=== PATIENT | male | born 1945 | race Caucasian/White ===

== ENCOUNTER → 2016-04-13 | Outpatient (CLI) | payer MEDICARE, BC ==
--- NOTE | 2016-04-13 10:43 | XR ---
EXAMINATION TYPE: XR ankle complete LT DATE OF EXAM: 04/13/2016 10:35 AM COMPARISON: NONE HISTORY: Pain Achilles Three views of the ankle demonstrate the ankle mortise to be intact and symmetric. There is soft tiss ue ossification near the distal margin the Achilles insertion with soft tissue edema. Diffuse soft ti ssue edema is also noted surrounding the ankle joint. Vascular calcifications noted. IMPRESSION: 1. Diffuse soft tissue edema. There is osseous fragmentation near the Achilles insertion of the calca neus. Could be on the basis of tendinosis. Infectious etiology not excluded correlate clinically.
--- NOTE | 2016-04-13 10:46 | XR ---
EXAMINATION TYPE: XR foot complete LT DATE OF EXAM: 04/13/2016 10:35 AM COMPARISON: NONE HISTORY: Left foot and heel pain Complete loss of the first MTP joint with remodeling of the joint space and adjacent osseous structur es. Bony densities are seen near the insertion of the Achilles tendon on the calcaneus. IMPRESSION: 1. No acute fracture or dislocation. If symptoms persist, follow-up exam in 7 to 10 days could be ob tained. 2. Severe arthropathy first MTP joint 3. Numerous bony densities along the insertion of the Achilles tendon.
== END | disposition home or self-care (01) ==
LOC: RADXRMAIN 10:16
PROVIDERS: ATTEND Podiatrist Foot Surgery
DX: M19.072 Primary osteoarthritis, left ankle and foot (principal); R60.0 Localized edema; M76.62 Achilles tendinitis, left leg

== ENCOUNTER 2017-06-24 09:25 | Emergency (ER) | payer MEDICARE, BC ==
[2017-06-24 09:52] VITALS: RESP 18
--- NOTE | 2017-06-24 10:06 | ED ---
General Adult HPI - General Chief complaint: Extremity Problem,Nontraumatic Stated complaint: rt leg swelling, poss clot Time Seen by Provider: 06/24/17 09:55 Source: patient, RN notes reviewed Mode of arrival: wheelchair Limitations: no limitations - History of Present Illness Initial comments: Patient 71-year-old male presenting to the emergency room today needing ultrasound to rule out DVT. Patient admits he's had some swelling to the right foot. Started a week ago. Unsure if it's related but he was wearing dress shoes that were little tight. States swelling has not improved. She is followed the family doctor this morning. States they wrote a prescription to have an ultrasound performed. Came here to the emergency room currently do not performed outpatient ultrasounds on the weekend and was advised coming here to the emergency room for evaluation. Patient denies any injury or trauma. Does note some pain to the foot when he is standing and moving with dorsiflexion. No other complaints or symptoms. Patient denies any recent fever, chills, shortness of breath, chest pain, back pain, abdominal pain, headaches or visual changes, or any other complaints. - Related Data Previous Rx's Medication Instructions Recorded Cephalexin [Keflex] 500 mg PO Q12HR 10 Days cap 06/24/17 Allergies Allergy/AdvReac Type Severity Reaction Status Date / Time No Known Allergies Allergy Verified 06/24/17 09:51 Review of Systems ROS Statement: Those systems with pertinent positive or pertinent negative responses have been documented in the HPI. ROS Other: All systems not noted in ROS Statement are negative. Past Medical History Past Medical History: Hypertension, Osteoarthritis (OA) History of Any Multi-Drug Resistant Organisms: None Reported Past Surgical History: Joint Replacement, Orthopedic Surgery Past Psychological History: No Psychological Hx Reported Smoking Status: Former smoker Past Alcohol Use History: Daily Past Drug Use History: None Reported General Exam - General Exam Comments Initial Comments: General: The patient is awake and alert, in no distress, and does not appear acutely ill. Eye: Pupils are equal, round and reactive to light, extra-ocular movements are intact. No nystagmus. There is normal conjunctiva bilaterally. No signs of icterus. Ears, nose, mouth and throat: There are moist mucous membranes and no oral lesions. Neck: The neck is supple, there is no tenderness or JVD. Cardiovascular: There is a regular rate and rhythm. No murmur, rub or gallop is appreciated. Respiratory: Lungs are clear to auscultation, respirations are non-labored, breath sounds are equal. No wheezes, stridor, rales, or rhonchi. Musculoskeletal: He does have some moderate swelling down to the right foot. There is redness. Tender with dorsiflexion. Full range of motion. Strength 5/ 5. Sensation intact. Pulses equal bilaterally 2+. Neurological: A&O x 3. CN II-XII intact, There are no obvious motor or sensory deficits. Coordination appears grossly intact. Speech is normal. Skin: Skin is warm and dry and no rashes or lesions are noted. Psychiatric: Cooperative, appropriate mood & affect, normal judgment. Limitations: no limitations Course Vital Signs 06/24/17 09:48 Temperature 97.5 F L Pulse Rate 74 Respiratory 18 Rate Blood Pressure 117/58 O2 Sat by Pulse 95 Oximetry Medical Decision Making - Medical Decision Making Patient also is negative for any evidence of DVT. Patient will be started on antibiotics cover for cellulitis as there is some redness and swelling to the right foot. Patient advised watch and return if symptoms increase or worsen. Otherwise follow-up the family doctor over the next 2 days. Disposition Clinical Impression: Cellulitis Disposition: HOME SELF-CARE Condition: Good Instructions: Cellulitis (ED) Additional Instructions: Please use medication as discussed. Please follow-up with family doctor in the next 2 days of symptoms have not improved. Please return to emergency room if the symptoms increase or worsen or for any other concerns. Prescriptions: Cephalexin [Keflex] 500 mg PO Q12HR 10 Days cap Referrals: Lacho Brambila Jr, [Primary Care Provider] - 1-2 days Time of Disposition: 11:11
--- NOTE | 2017-06-24 10:34 | US ---
EXAMINATION TYPE: US venous doppler duplex LE RT DATE OF EXAM: 06/24/2017 10:23 AM COMPARISON: NONE CLINICAL HISTORY: Pain. Pain and edema right leg. Warmness right lower leg. Right knee replacement 20 09 SIDE PERFORMED: Right TECHNIQUE: The lower extremity deep venous system is examined utilizing real time linear array sonog israle with graded compression, doppler sonography and color-flow sonography. VESSELS IMAGED: External Iliac Vein (EIV) Common Femoral Vein Deep Femoral Vein Greater Saphenous Vein * Femoral Vein Popliteal Vein Small Saphenous Vein * Proximal Calf Veins (* superficial vessels) Right Leg: No evidence of DVT No popliteal fossa lesion is seen. IMPRESSION: THIS EXAMINATION IS NEGATIVE FOR DVT WITHIN THE RIGHT LEG.
[2017-06-24 11:24] VITALS: BP 124/62; PULSE 76; TEMP 98.9
== END 2017-06-24 11:22 | disposition home or self-care (01) ==
LOC: EC 09:25
DX: L03.115 Cellulitis of right lower limb (principal); Z87.891 Personal history of nicotine dependence
CPT/HCPCS: 99283

== ENCOUNTER 2020-01-27 17:37 | Inpatient (IN) | payer MEDICARE, BC ==
[2020-01-27] MEDS ORDERED: ONDANSETRON 4 MG/2 ML VIAL IVP STA (17:51)
[2020-01-27] MEDS ORDERED: SODIUM CHLORIDE 0.9% 1,000 ML IV STA (17:51)
[2020-01-27] MEDS ORDERED: MAG HYDROX/AL HYDROX/SIMETH 30 ML, HYOSCYAMINE ELIXIR 10 ML PO STA ×2 (17:52)
--- NOTE | 2020-01-27 17:56 | ED ---
Abdominal Pain HPI - General Source: patient, RN notes reviewed Mode of arrival: wheelchair Limitations: no limitations <Cem Montgomery - Last Filed: 01/27/20 18:49> <Jose Waller - Last Filed: 01/27/20 21:49> - General Chief Complaint: Abdominal Pain Stated Complaint: upper abd pain Time Seen by Provider: 01/27/20 17:46 - History of Present Illness Initial Comments: this a 74-year-old male presents emergency Department chief complaint of upper abdominal pain, burning sensation. Patient states started earlier today and has increased. Denies any chest pain or shortness breath no back pain denies any difficulty with bowel movements including diarrhea constipation or melena hematochezia. Denies any dysuria hematuria. Patient denies any prior abdominal surgeries. Patient states he never has heartburn states she's unsure if this is related to heartburn. He states he took some Gas-X earlier which did not seem to help much. (Cem Montgomery) - Related Data Home Medications Medication Instructions Recorded Confirmed Allopurinol [Zyloprim] 300 mg PO DAILY 01/27/20 01/27/20 Atenolol [Tenormin] 100 mg PO BID 01/27/20 01/27/20 Furosemide [Lasix] 40 mg PO DAILY 01/27/20 01/27/20 Potassium Chloride ER [K-Dur 10] 10 meq PO DAILY 01/27/20 01/27/20 amLODIPine [Norvasc] 5 mg PO DAILY 01/27/20 01/27/20 hydrALAZINE HCL 25 mg PO BID 01/27/20 01/27/20 Allergies Allergy/AdvReac Type Severity Reaction Status Date / Time No Known Allergies Allergy Verified 01/27/20 19:30 Review of Systems ROS Other: All systems not noted in ROS Statement are negative. <Cem Montgomery - Last Filed: 01/27/20 18:49> ROS Other: All systems not noted in ROS Statement are negative. <Jose Waller - Last Filed: 01/27/20 21:49> ROS Statement: Those systems with pertinent positive or pertinent negative responses have been documented in the HPI. Past Medical History Past Medical History: Hypertension, Osteoarthritis (OA) History of Any Multi-Drug Resistant Organisms: None Reported Past Surgical History: Joint Replacement, Orthopedic Surgery Past Psychological History: No Psychological Hx Reported Smoking Status: Never smoker Past Alcohol Use History: Daily Past Drug Use History: None Reported <Cem Montgomery - Last Filed: 01/27/20 18:49> General Exam Limitations: no limitations General appearance: alert, in no apparent distress Head exam: Present: atraumatic, normocephalic, normal inspection Eye exam: Present: normal appearance, PERRL, EOMI. Absent: scleral icterus, conjunctival injection, periorbital swelling ENT exam: Present: normal exam, normal oropharynx, mucous membranes moist Neck exam: Present: normal inspection, full ROM. Absent: tenderness, meningismus, lymphadenopathy Respiratory exam: Present: normal lung sounds bilaterally. Absent: respiratory distress, wheezes, rales, rhonchi, stridor Cardiovascular Exam: Present: regular rate, normal rhythm, normal heart sounds. Absent: systolic murmur, diastolic murmur, rubs, gallop, clicks GI/Abdominal exam: Present: soft, tenderness (mild to moderate epigastric, minimal abdominal tenderness), normal bowel sounds. Absent: distended, guarding, rebound, rigid Back exam: Absent: CVA tenderness (R), CVA tenderness (L) Neurological exam: Present: alert, oriented X3 Skin exam: Present: warm, dry, intact, normal color. Absent: rash <Cem Montgomery - Last Filed: 01/27/20 18:49> Course <Cem Montgomery - Last Filed: 01/27/20 18:49> Vital Signs 01/27/20 01/27/20 01/27/20 17:39 19:20 21:39 Temperature 97.5 F L 97.8 F Pulse Rate 76 80 83 Respiratory 18 20 18 Rate Blood Pressure 157/80 163/86 138/67 O2 Sat by Pulse 95 95 Oximetry - Reevaluation(s) Reevaluation #1: 01/27/20 18:55 case turned over to Dr. Waller (Cem Montgomery) Medical Decision Making - Lab Data Result diagrams: 01/27/20 18:02 - EKG Data -: EKG Interpreted by [place] <Cem Montgomery - Last Filed: 01/27/20 18:49> - Lab Data Result diagrams: 01/27/20 18:02 01/27/20 18:02 - Radiology Data Radiology results: report reviewed (I did review the imaging and reports evidence of some cholelithiasis. No other acute processes seen.), image reviewed <SridharJose - Last Filed: 01/27/20 21:49> - Medical Decision Making I did discuss findings with the patient family patient does demonstrate evidence of acute pancreatitis. He states he has been drinking 2 or 3 shots. Therefore shots at night. No other complaints at this time. I did discuss case with Dr. Green patient will be admitted for IV fluids and pain control the elevated lactic acid is likely secondary to dehydration. (Jose Waller) - Lab Data Lab Results 01/27/20 01/27/20 01/27/20 Range/Units 18:02 18:02 18:02 WBC 10.6 (3.8-10.6) k/uL RBC 4.60 (4.30-5.90) m/uL Hgb 15.4 (13.0-17.5) gm/dL Hct 45.8 (39.0-53.0) % MCV 99.6 (80.0-100.0) fL MCH 33.6 (25.0-35.0) pg MCHC 33.7 (31.0-37.0) g/dL RDW 12.8 (11.5-15.5) % Plt Count 225 (150-450) k/uL Neutrophils % 62 % Lymphocytes % 26 % Monocytes % 8 % Eosinophils % 2 % Basophils % 1 % Neutrophils # 6.6 (1.3-7.7) k/uL Lymphocytes # 2.8 (1.0-4.8) k/uL Monocytes # 0.8 (0-1.0) k/uL Eosinophils # 0.2 (0-0.7) k/uL Basophils # 0.1 (0-0.2) k/uL Sodium 138 (137-145) mmol/L Potassium 3.9 (3.5-5.1) mmol/L Chloride 100 (98-107) mmol/L Carbon Dioxide 28 (22-30) mmol/L Anion Gap 10 mmol/L BUN 24 H (9-20) mg/dL Creatinine 1.22 (0.66-1.25) mg/dL Est GFR (CKD-EPI)AfAm 67 (>60 ml/min/1.73 sqM) Est GFR (CKD-EPI)NonAf 58 (>60 ml/min/1.73 sqM) Glucose 197 H (74-99) mg/dL Lactic Ac Sepsis Rflx Plasma Lactic Acid Odin 2.7 H* (0.7-2.0) mmol/L Calcium 9.6 (8.4-10.2) mg/dL Total Bilirubin 1.2 (0.2-1.3) mg/dL AST 166 H (17-59) U/L ALT 54 H (4-49) U/L Alkaline Phosphatase 145 H (38-126) U/L Troponin I (0.000-0.034) ng/mL Total Protein 7.3 (6.3-8.2) g/dL Albumin 4.1 (3.5-5.0) g/dL Amylase 239 H (30-110) U/L Lipase 4558 H (23-300) U/L Urine Color Urine Appearance (Clear) Urine pH (5.0-8.0) Ur Specific [place] (1.001-1.035) Urine Protein (Negative) Urine Glucose (UA) (Negative) Urine Ketones (Negative) Urine Blood (Negative) Urine Nitrite (Negative) Urine Bilirubin (Negative) Urine Urobilinogen (<2.0) mg/dL Ur Leukocyte Esterase (Negative) 01/27/20 01/27/20 01/27/20 Range/Units 18:18 18:18 18:47 WBC (3.8-10.6) k/uL RBC (4.30-5.90) m/uL Hgb (13.0-17.5) gm/dL Hct (39.0-53.0) % MCV (80.0-100.0) fL MCH (25.0-35.0) pg MCHC (31.0-37.0) g/dL RDW (11.5-15.5) % Plt Count (150-450) k/uL Neutrophils % % Lymphocytes % % Monocytes % % Eosinophils % % Basophils % % Neutrophils # (1.3-7.7) k/uL Lymphocytes # (1.0-4.8) k/uL Monocytes # (0-1.0) k/uL Eosinophils # (0-0.7) k/uL Basophils # (0-0.2) k/uL Sodium (137-145) mmol/L Potassium (3.5-5.1) mmol/L Chloride (98-107) mmol/L Carbon Dioxide (22-30) mmol/L Anion Gap mmol/L BUN (9-20) mg/dL Creatinine (0.66-1.25) mg/dL Est GFR (CKD-EPI)AfAm (>60 ml/min/1.73 sqM) Est GFR (CKD-EPI)NonAf (>60 ml/min/1.73 sqM) Glucose (74-99) mg/dL Lactic Ac Sepsis Rflx Y Plasma Lactic Acid Odin (0.7-2.0) mmol/L Calcium (8.4-10.2) mg/dL Total Bilirubin (0.2-1.3) mg/dL AST (17-59) U/L ALT (4-49) U/L Alkaline Phosphatase (38-126) U/L Troponin I <0.012 (0.000-0.034) ng/mL Total Protein (6.3-8.2) g/dL Albumin (3.5-5.0) g/dL Amylase (30-110) U/L Lipase (23-300) U/L Urine Color Yellow Urine Appearance Clear (Clear) Urine pH 6.5 (5.0-8.0) Ur Specific [place] 1.016 (1.001-1.035) Urine Protein Negative (Negative) Urine Glucose (UA) Negative (Negative) Urine Ketones Trace H (Negative) Urine Blood Negative (Negative) Urine Nitrite Negative (Negative) Urine Bilirubin Negative (Negative) Urine Urobilinogen <2.0 (<2.0) mg/dL Ur Leukocyte Esterase Negative (Negative) 01/27/20 01/27/20 Range/Units 20:07 21:16 WBC (3.8-10.6) k/uL RBC (4.30-5.90) m/uL Hgb (13.0-17.5) gm/dL Hct (39.0-53.0) % MCV (80.0-100.0) fL MCH (25.0-35.0) pg MCHC (31.0-37.0) g/dL RDW (11.5-15.5) % Plt Count (150-450) k/uL Neutrophils % % Lymphocytes % % Monocytes % % Eosinophils % % Basophils % % Neutrophils # (1.3-7.7) k/uL Lymphocytes # (1.0-4.8) k/uL Monocytes # (0-1.0) k/uL Eosinophils # (0-0.7) k/uL Basophils # (0-0.2) k/uL Sodium (137-145) mmol/L Potassium (3.5-5.1) mmol/L Chloride (98-107) mmol/L Carbon Dioxide (22-30) mmol/L Anion Gap mmol/L BUN (9-20) mg/dL Creatinine (0.66-1.25) mg/dL Est GFR (CKD-EPI)AfAm (>60 ml/min/1.73 sqM) Est GFR (CKD-EPI)NonAf (>60 ml/min/1.73 sqM) Glucose (74-99) mg/dL Lactic Ac Sepsis Rflx Plasma Lactic Acid Odin 2.7 H* (0.7-2.0) mmol/L Calcium (8.4-10.2) mg/dL Total Bilirubin (0.2-1.3) mg/dL AST (17-59) U/L ALT (4-49) U/L Alkaline Phosphatase (38-126) U/L Troponin I (0.000-0.034) ng/mL Total Protein (6.3-8.2) g/dL Albumin (3.5-5.0) g/dL Amylase (30-110) U/L Lipase 2781 H (23-300) U/L Urine Color Urine Appearance (Clear) Urine pH (5.0-8.0) Ur Specific [place] (1.001-1.035) Urine Protein (Negative) Urine Glucose (UA) (Negative) Urine Ketones (Negative) Urine Blood (Negative) Urine Nitrite (Negative) Urine Bilirubin (Negative) Urine Urobilinogen (<2.0) mg/dL Ur Leukocyte Esterase (Negative) - EKG Data EKG Comments: EKG performed at 18:10 normal sinus rhythm rate of 76 MN 178 QRS 104QT/QTC 474/533 (Cem Montgomery) Disposition <Cem Montgomery - Last Filed: 01/27/20 18:49> <Jose Waller - Last Filed: 01/27/20 21:49> Clinical Impression: Pancreatitis, Abdominal pain, Lactic acidosis, Dehydration Disposition: ADMITTED IP TO THIS HOSP Condition: Fair Referrals: Lacho Brambila Jr, DO [Primary Care Provider] - 1-2 days
[2020-01-27 18:25] LABS: Basophils # (A) 0.1 k/uL (0-0.2); Basophils % (A) 1 %; Eosinophils # (A) 0.2 k/uL (0-0.7); Eosinophils % (A) 2 %; HCT 45.8 % (39.0-53.0); HGB 15.4 gm/dL (13.0-17.5); Lymphocytes # (A) 2.8 k/uL (1.0-4.8); Lymphocytes % (A) 26 %; MCH 33.6 pg (25.0-35.0); MCHC 33.7 g/dL (31.0-37.0); MCV 99.6 fL (80.0-100.0); Mean Platelet Volume 7.6; Monocytes # (A) 0.8 k/uL (0-1.0); Monocytes % (A) 8 %; Neutrophils # (A) 6.6 k/uL (1.3-7.7); Neutrophils % (A) 62 %; Platelet Count 225 k/uL (150-450); RDW 12.8 % (11.5-15.5); WBC 10.6 k/uL (3.8-10.6)
[2020-01-27 18:30] LABS: Appearance,Urine Clear (Clear); Bilirubin,Urine Negative (Negative); Blood,Urine Negative (Negative); Color,Urine Yellow; Glucose,Urine (UA) Negative (Negative); Ketones,Urine Trace (Negative); Leukocyte Esterase,Urine Negative (Negative); Nitrite,Urine Negative (Negative); PH, Urine 6.5 (5.0-8.0); Protein,Urine Negative (Negative); Specific Gravity,Urine 1.016 (1.001-1.035); Urobilinogen,Urine <2.0 mg/dL (<2.0)
[2020-01-27 18:33] LABS: Albumin 4.1 g/dL (3.5-5.0); Calcium 9.6 mg/dL (8.4-10.2); Potassium 3.9 mmol/L (3.5-5.1); Total Bilirubin 1.2 mg/dL (0.2-1.3); Total Protein 7.3 g/dL (6.3-8.2)
[2020-01-27] MEDS ORDERED: HYDROmorphone 0.5 MG/0.5 ML SYRINGE IVP STA ×2 (18:55→20:06)
--- NOTE | 2020-01-27 19:49 | CT ---
EXAMINATION TYPE: CT abdomen pelvis w con DATE OF EXAM: 01/27/2020 COMPARISON: None HISTORY: abd pain CT DLP: 1590.8 mGycm Automated exposure control for dose reduction was used. CONTRAST: Performed with IV Contrast, patient injected with 100 mL of Isovue 300. Lung bases are clear of infiltrate. There is no pleural effusion. There is no pericardial effusion. H eart size is normal. Liver shows no focal defect. There are small calcified gallstones. Spleen is intact. There is large l eft lobe of the liver. There is no evidence of pancreatic mass. Stomach is intact. The bile ducts are not dilated. Gallbladder is mildly dilated and measures 5.2 cm. The intrahepatic bile ducts are not dilated. There is no gallbladder wall thickening. There is no adrenal mass. Kidneys show satisfactory contrast opacification. There is no hydronephrosi s. Ureters are not dilated. There is no retroperitoneal adenopathy. Delayed images show normal renal excretion. Appendix is posterior and appears normal. Bladder distends smoothly. There is no free flui d in the pelvis. There is no sign of a pelvic mass. There is no mesenteric edema. There is no ascites or free air. There is no bowel obstruction. Lumbar vertebra have normal alignment. There is narrowing of disc spaces with spurring and vacuum dis c. There is no lumbar compression fracture. Bony pelvis appears intact. The hip joints are intact. Th ere is multilevel lumbar bony spinal stenosis. This is more severe at L3-4 and L4-5. IMPRESSION: Mildly dilated gallbladder. Cholelithiasis. No gallbladder wall thickening seen. No dilated ducts. Lumbar spinal stenosis.
[2020-01-27] MEDS ORDERED: ONDANSETRON 4 MG/2 ML VIAL IVP PRN (21:49)
[2020-01-27] MEDS ORDERED: NALOXONE 0.4 MG/ML 1 ML VIAL IV PRN (21:49)
[2020-01-27] MEDS: HYDROmorphone 0.5 MG/0.5 ML SYRINGE IVP PRN (23:52)
[2020-01-27] MEDS: SODIUM CHLORIDE 0.9% 1,000 ML IV SCH (23:56)
[2020-01-28] MEDS: HYDROmorphone 0.5 MG/0.5 ML SYRINGE IVP PRN (07:36)
[2020-01-28] MEDS: SODIUM CHLORIDE 0.9% 1,000 ML IV SCH ×3 (07:37→21:21)
[2020-01-28] MEDS ORDERED: LORazepam 2 MG/ML INJ IV PRN ×3 (08:25)
[2020-01-28] MEDS ORDERED: FUROSEMIDE 40 MG TAB PO SCH (09:00)
[2020-01-28] MEDS: atenoloL 50 MG TAB PO SCH ×2 (10:02→21:20)
[2020-01-28] MEDS: hydrALAZINE HCL 25 MG TAB PO SCH ×2 (10:02→21:20)
[2020-01-28] MEDS: FOLIC ACID 1 MG TAB PO SCH (10:03)
[2020-01-28] MEDS: allopurinoL 300 MG TAB PO SCH (10:03)
[2020-01-28] MEDS: POTASSIUM CHLORIDE ER 10 MEQ TAB.ER.PRT PO SCH (10:03)
[2020-01-28] MEDS: PANTOPRAZOLE 40 MG/10 ML VIAL IVP SCH (10:03)
[2020-01-28] MEDS: amLODIPine 5 MG TAB PO SCH (10:03)
[2020-01-28 10:21] LABS: Albumin 3.5 g/dL (3.5-5.0); Calcium 8.3 mg/dL (8.4-10.2); Potassium 4.4 mmol/L (3.5-5.1); Total Bilirubin 1.4 mg/dL (0.2-1.3); Total Protein 6.3 g/dL (6.3-8.2)
[2020-01-28] MEDS ORDERED: THIAMINE 100 MG TAB PO SCH (12:00)
[2020-01-28] MEDS: MULTIVITAMINS, THERA 1 EACH TAB PO SCH (12:43)
--- NOTE | 2020-01-28 13:26 | P.HPIM ---
History of Present Illness H&P Date: 01/28/20 This is a 74-year-old gentleman with past medical history of hypertension, osteoarthritis, hiatal hernia, daily alcohol use presented to the ER with complaints of upper abdominal burning pain that had started earlier that day. Reports drinking 3-4shots a day of "hard liquor". Attempted Gas-X with no relief. Denies nausea, vomiting, diarrhea, constipation. Denies hemoptysis, melena or hematochezia. Denies chest pain, palpitations or shortness of breath. Denies back pain. Amylase 239. Lipase 2781, lactic acid on admission 2.7, with IV fluid hydration, down to 2. BUN 24, creatinine 1.22, improving with IV fluids, down to 1.05. CT of abdomen and pelvis reporting mildly dilated gallbladder, cholelithiasis, no gallbladder wall thickening ,no dilated ducts, no free air, no bowel obstruction,lumbar spinal stenosis. EKG reportedly normal sinus rhythm, Troponin negative 1. T bili 1.2 on admission currently 1.4. AST 166 on admission up to 250, ALT 54 up to 126. Alk phos 145 on admission down to 127. UA negative. Afebrile, normal WBC. Review of Systems ROS Statement: Those systems with pertinent positive or pertinent negative responses have been documented in the HPI. ROS Other: All systems not noted in ROS Statement are negative. Past Medical History Past Medical History: Hypertension, Osteoarthritis (OA) History of Any Multi-Drug Resistant Organisms: None Reported Past Surgical History: Joint Replacement, Orthopedic Surgery Past Psychological History: No Psychological Hx Reported Smoking Status: Never smoker Past Alcohol Use History: Daily Past Drug Use History: None Reported Medications and Allergies Home Medications Medication Instructions Recorded Confirmed Type Allopurinol [Zyloprim] 300 mg PO DAILY 01/27/20 01/27/20 History Atenolol [Tenormin] 100 mg PO BID 01/27/20 01/27/20 History Furosemide [Lasix] 40 mg PO DAILY 01/27/20 01/27/20 History Potassium Chloride ER [K-Dur 10] 10 meq PO DAILY 01/27/20 01/27/20 History amLODIPine [Norvasc] 5 mg PO DAILY 01/27/20 01/27/20 History hydrALAZINE HCL 25 mg PO BID 01/27/20 01/27/20 History Allergies Allergy/AdvReac Type Severity Reaction Status Date / Time No Known Allergies Allergy Verified 01/27/20 19:30 Physical Exam Vitals: Vital Signs Temp Pulse Resp BP Pulse Ox 01/28/20 07:10 98.6 F 85 16 137/77 96 01/27/20 21:39 97.8 F 83 18 138/67 01/27/20 19:20 80 20 163/86 95 01/27/20 17:39 97.5 F L 76 18 157/80 95 Intake and Output 01/27/20 01/28/20 01/28/20 22:59 06:59 14:59 Other: Weight 92.986 kg PHYSICAL EXAM: VITAL SIGNS: As above GENERAL: Sitting up in bed, no acute distress. HEENT: Conjunctivae normal. eyes normal. Oral mucosa dry. NECK: No JVD. No thyroid enlargement. No LNs CARDIOVASCULAR: S1, S2 regular.. No murmur RESPIRATION: Breath sounds diminished in the bases. No rhonchi or crackles. No bronchial breathing. ABDOMEN: Soft, distended, mid epigastric tenderness. No guarding. no masses palpable. Positive Bowel sounds heard. LEGS: No edema. no swelling. PSYCHIATRY: Alert and oriented X3, mood and affect normal. NERVOUS SYSTEM: Cranial N 2-12 grossly normal. Moves all 4 limbs. No focal d eficits. Strength and sensation grossly intact.. Skin: Warm and dry, no rash Lymphatic system. No LN neck axilla. Results CBC & Chem 7: 01/27/20 18:02 01/28/20 09:20 Labs: Abnormal Lab Results - Last 24 Hours (Table) 01/27/20 01/27/20 01/27/20 Range/Units 18:02 18:02 18:18 BUN 24 H (9-20) mg/dL Glucose 197 H (74-99) mg/dL Plasma Lactic Acid Odin 2.7 H* (0.7-2.0) mmol/L AST 166 H (17-59) U/L ALT 54 H (4-49) U/L Alkaline Phosphatase 145 H (38-126) U/L Amylase 239 H (30-110) U/L Lipase 4558 H (23-300) U/L Urine Ketones Trace H (Negative) 01/27/20 01/27/20 Range/Units 20:07 21:16 BUN (9-20) mg/dL Glucose (74-99) mg/dL Plasma Lactic Acid Odin 2.7 H* (0.7-2.0) mmol/L AST (17-59) U/L ALT (4-49) U/L Alkaline Phosphatase (38-126) U/L Amylase (30-110) U/L Lipase 2781 H (23-300) U/L Urine Ketones (Negative) Assessment and Plan Assessment: Acute abdominal pain possibly related to acute pancreatitis, new onset, etiology unclear, possibly due to alcohol abuse. Lactic acidosis secondary to dehydration Acute renal failure secondary to the above Possible chronic renal failure, stage II Daily alcohol abuse, reports 2-3 shots daily Cholelithiasis reported per CT Spinal stenosis reported per CT Hypertension Osteoarthritis Plan: Continue on current medication regime ,monitoring and symptomatic treatment. IV fluid hydration. CIWA protocol.PPI. Pain Management. GI consulted. Home meds have been reviewed and resumed accordingly. Alcohol abstinence reinforced. The impression and plan of care has been dictated as directed. : I performed a history and examination of this patient, discussed the same with the dictator. I agree with the dictator's note ,documented as a scribe. Any additional findings or plans will be noted.
[2020-01-28] MEDS: THIAMINE 100 MG TAB PO SCH (17:13)
[2020-01-29] MEDS: SODIUM CHLORIDE 0.9% 1,000 ML IV SCH ×2 (04:41→13:37)
[2020-01-29 07:12] LABS: Basophils # (A) 0.1 k/uL (0-0.2); Basophils % (A) 0 %; Eosinophils # (A) 0.1 k/uL (0-0.7); Eosinophils % (A) 1 %; HGB 13.3 gm/dL (13.0-17.5); Lymphocytes # (A) 1.1 k/uL (1.0-4.8); Lymphocytes % (A) 8 %; MCH 33.9 pg (25.0-35.0); MCHC 33.3 g/dL (31.0-37.0); MCV 101.6 fL (80.0-100.0); Macrocytosis Slight; Mean Platelet Volume 8.2; Monocytes # (A) 0.6 k/uL (0-1.0); Monocytes % (A) 5 %; Neutrophils # (A) 11.3 k/uL (1.3-7.7); Neutrophils % (A) 85 %; Platelet Count 147 k/uL (150-450); RBC 3.94 m/uL (4.30-5.90); RDW 13.2 % (11.5-15.5); WBC 13.3 k/uL (3.8-10.6)
[2020-01-29 07:25] VITALS: RESP 16
[2020-01-29] MEDS: THIAMINE 100 MG TAB PO SCH (07:49)
--- NOTE | 2020-01-29 08:39 | US ---
EXAMINATION TYPE: US gallbladder DATE OF EXAM: 01/29/2020 COMPARISON: NONE CLINICAL HISTORY: abdominal pain, pancreatitis. RUQ pain, abn CT stones seen in GB EXAM MEASUREMENTS: Liver Length: 15.4 cm Gallbladder Wall: 0.2 cm CBD: 0.7 cm Right Kidney: 10.2 x 5.2 x 4.7 cm difficult to image due habitus and bowel gas Pancreas: wnl Liver: intercostal views only due to bowel gas and the liver shows coarse echotexture consistent wit h hepatic steatosis, hepatocellular disease Gallbladder: stones seen with no wall thickening Evidence for sonographic Florez's sign: no CBD: dilated toward hepatic duct and lessens at head of pancreas Right Kidney: wnl IMPRESSION: Correlate for hepatic steatosis, there is minimal ascites. Cholelithiasis. Exam somewhat limited. Dilated common bile duct, consider gastroenterology consult. CT scan shows findings consiste nt with choledocholithiasis.
[2020-01-29] MEDS: atenoloL 50 MG TAB PO SCH (09:35)
[2020-01-29] MEDS: hydrALAZINE HCL 25 MG TAB PO SCH (09:35)
[2020-01-29] MEDS: allopurinoL 300 MG TAB PO SCH (09:35)
[2020-01-29] MEDS: amLODIPine 5 MG TAB PO SCH (09:35)
[2020-01-29] MEDS: PANTOPRAZOLE 40 MG/10 ML VIAL IVP SCH (09:36)
[2020-01-29] MEDS: FOLIC ACID 1 MG TAB PO SCH (09:36)
[2020-01-29] MEDS: POTASSIUM CHLORIDE ER 10 MEQ TAB.ER.PRT PO SCH (09:37)
[2020-01-29] MEDS: MULTIVITAMINS, THERA 1 EACH TAB PO SCH (12:21)
[2020-01-29 12:49] VITALS: BP 142/76; PULSE 81; TEMP 99.2
--- NOTE | 2020-01-29 13:25 | P.DS ---
Providers Date of admission: 01/27/20 21:49 Expected date of discharge: 01/29/20 Attending physician: Nam Green Consults: 01/28/20 13:21 Consult Physician Routine Consulting Provider: Hang Peters Consult Reason/Comments: Acute pancreatitis Do you want consulting provider notified?: Yes Primary care physician: [facility] Course: Final Diagnoses: Acute abdominal pain possibly related to acute pancreatitis, new onset, etiology unclear, possibly due to alcohol abuse, possibly due to gallstones. Lactic acidosis secondary to dehydration, resolved Acute renal failure secondary to the above Possible chronic renal failure, stage II Daily alcohol abuse, reports 2-3 shots daily Choledocholithiasis reported per CT Spinal stenosis reported per CT Hypertension Osteoarthritis Hospital course:This is a 74-year-old gentleman with past medical history of hypertension, osteoarthritis, hiatal hernia, daily alcohol use presented to the ER with complaints of upper abdominal burning pain that had started earlier that day. Reports drinking 3-4shots a day of "hard liquor". Attempted Gas-X with no relief. Denies nausea, vomiting, diarrhea, constipation. Denies hemoptysis, melena or hematochezia. Denies chest pain, palpitations or shortness of breath. Denies back pain. Amylase 239. Lipase 2781, lactic acid on admission 2.7, with IV fluid hydration, down to 2. BUN 24, creatinine 1.22, improving with IV fluids, down to 1.05. CT of abdomen and pelvis reporting mildly dilated gallbladder, cholelithiasis, no gallbladder wall thickening ,no dilated ducts, no free air, no bowel obstruction,lumbar spinal stenosis. EKG reportedly normal sinus rhythm, Troponin negative 1. T bili 1.2 on admission currently 1.4. AST 166 on admission up to 250, ALT 54 up to 126. Alk phos 145 on admission down to 127. UA negative. Afebrile, normal WBC. Ultrasound of gallbladder reportedly hepatic steatosis, minimal ascites, cholelithiasis, dilated common bile duct. Gallstones seen with no wall thickening. Tolerating diet. No abdominal pain. T-max 99.5, mild white count 13.3. Patient denies pain and requesting to go home and have further GI workup outpatient. Lipase down to 103 yesterday, further labs pending. Significant clinical improvement. Evaluated and cleared by Dr. Green for discharge. Patient will be discharged home today in a stable condition with guarded prognosis. GI recommendations pending, potential MRCP outpatient.Alcohol abstinence reinforced. The impression and plan of care has been dictated as directed. : I performed a history and examination of this patient, discussed the same with the dictator. I agree with the dictator's note ,documented as a scribe. Any additional findings or plans will be noted. Patient Condition at Discharge: Stable Plan - Discharge Summary New Discharge Prescriptions: New Folic Acid 1 mg PO DAILY tab Multivitamins, Thera [Multivitamin (formulary)] 1 each PO 1200 tab Thiamine [Vitamin B-1] 100 mg PO BID-W/MEALS tab Continue amLODIPine [Norvasc] 5 mg PO DAILY Potassium Chloride ER [K-Dur 10] 10 meq PO DAILY Furosemide [Lasix] 40 mg PO DAILY Atenolol [Tenormin] 100 mg PO BID hydrALAZINE HCL 25 mg PO BID Allopurinol [Zyloprim] 300 mg PO DAILY Discharge Medication List Allopurinol [Zyloprim] 300 mg PO DAILY 01/27/20 [History] Atenolol [Tenormin] 100 mg PO BID 01/27/20 [History] Furosemide [Lasix] 40 mg PO DAILY 01/27/20 [History] Potassium Chloride ER [K-Dur 10] 10 meq PO DAILY 01/27/20 [History] amLODIPine [Norvasc] 5 mg PO DAILY 01/27/20 [History] hydrALAZINE HCL 25 mg PO BID 01/27/20 [History] Folic Acid 1 mg PO DAILY tab 01/29/20 [Rx] Multivitamins, Thera [Multivitamin (formulary)] 1 each PO 1200 tab 01/29/20 [Rx] Thiamine [Vitamin B-1] 100 mg PO BID-W/MEALS tab 01/29/20 [Rx] Follow up Appointment(s)/Referral(s): Lacho Brambila Jr, DO [Primary Care Provider] - 01/31/20 Hang Peters MD [STAFF PHYSICIAN] - 2 Weeks Ambulatory/Diagnostic Orders: Complete Blood Count w/diff [LAB.AMB] Time Frame: 01/31/20, Location: None Selected Activity/Diet/Wound Care/Special Instructions: No etoh
--- NOTE | 2020-01-29 14:07 | P.CONS ---
History of Present Illness - Reason for Consult Consult date: 01/28/20 Pancreatitis Requesting physician: Nam Green - Chief Complaint Abdominal pain - History of Present Illness 74-year-old male with multiple medical comorbidities including prostatitis, hiatal hernia and hypertension who presented to the hospital with abdominal pain. The patient reports daily alcohol use at least 3-4 shots of hard liquor daily. He reports that the abdominal pain developed in his upper abdomen, diffusely across the abdomen. He tried Gas-X with no relief of his symptoms. He denies any prior history of pancreatitis. He reports that his drinking has been for the last 20 years. He denies any history of elevated liver enzymes or any family history of pancreatic disease. CT of the abdomen was performed with mildly dilated gallbladder, cholelithiasis with no gallbladder wall thickening or dilated ducts. Patient was found to have elevated lipase on presentation of 2781 with amylase 239. Liver enzymes were elevated with total bilirubin 1.2, alkaline phosphatase 145, AST 166 and ALTs 54. Review of Systems REVIEW OF SYSTEMS: CONSTITUTIONAL: Denies any fevers, chills, weight change or fatigue. CARDIOVASCULAR: Denies any chest pain, palpitations high or low blood pressures RESPIRATORY: Denies any shortness of breath, hemoptysis or cough. GENITOURINARY: No dysuria or hematuria. MUSCULOSKELETAL: No weakness reported. SKIN: Denies any new rashes or lesions, jaundice or pallor. PSYCHIATRIC: Denies any depression or anxiety. NEUROLOGY: Denies headache, denies any new focal deficits. EARS/NOSE/THROAT: No recent hearing change, congestion, nasal discharge or sore throat. EYES: No pain in eyes, discharge or change in vision. GASTROINTESTINAL: As per HPI. Past Medical History Past Medical History: Hypertension, Osteoarthritis (OA) History of Any Multi-Drug Resistant Organisms: None Reported Past Surgical History: Joint Replacement, Orthopedic Surgery Past Psychological History: No Psychological Hx Reported Smoking Status: Never smoker Past Alcohol Use History: Daily Past Drug Use History: None Reported Additional History: Family history: Reviewed with the patient and noncontributory to current medical presentation. Medications and Allergies Home Medications Medication Instructions Recorded Confirmed Type Allopurinol [Zyloprim] 300 mg PO DAILY 01/27/20 01/27/20 History Atenolol [Tenormin] 100 mg PO BID 01/27/20 01/27/20 History Furosemide [Lasix] 40 mg PO DAILY 01/27/20 01/27/20 History Potassium Chloride ER [K-Dur 10] 10 meq PO DAILY 01/27/20 01/27/20 History amLODIPine [Norvasc] 5 mg PO DAILY 01/27/20 01/27/20 History hydrALAZINE HCL 25 mg PO BID 01/27/20 01/27/20 History Folic Acid 1 mg PO DAILY tab 01/29/20 Rx Multivitamins, Thera [Multivitamin 1 each PO 1200 tab 01/29/20 Rx (formulary)] Thiamine [Vitamin B-1] 100 mg PO BID-W/MEALS tab 01/29/20 Rx Allergies Allergy/AdvReac Type Severity Reaction Status Date / Time No Known Allergies Allergy Verified 01/27/20 19:30 Physical Exam Vitals: Vital Signs Temp Pulse Resp BP Pulse Ox 01/28/20 12:45 98.4 F 62 18 138/74 94 L 01/28/20 07:10 98.6 F 85 16 137/77 96 01/27/20 21:39 97.8 F 83 18 138/67 01/27/20 19:20 80 20 163/86 95 01/27/20 17:39 97.5 F L 76 18 157/80 95 On physical examination, patient appears comfortable in no apparent distress. HEAD: Normocephalic, atraumatic. EYES: No scleral icterus. No conjunctival injection. MOUTH: No lesions, tongue midline. NECK: Trachea midline, no gross abnormalities. CHEST: Clear to auscultation with no wheezing or rhonchi appreciated. HEART: Regular rate and rhythm. ABDOMEN: Soft, mildly tender to palpation. Bowel sounds are positive. No organomegaly. No guarding or rigidity. EXTREMITIES: No pedal edema. SKIN: No rashes, no jaundice. NEUROLOGIC: Alert and oriented x3. No focal deficits. Results CBC & Chem 7: 01/29/20 05:09 01/28/20 09:20 Labs: Abnormal Lab Results - Last 24 Hours (Table) 01/27/20 01/27/20 01/27/20 Range/Units 18:02 18:02 18:18 Sodium (137-145) mmol/L BUN 24 H (9-20) mg/dL Glucose 197 H (74-99) mg/dL Plasma Lactic Acid Odin 2.7 H* (0.7-2.0) mmol/L Calcium (8.4-10.2) mg/dL Total Bilirubin (0.2-1.3) mg/dL AST 166 H (17-59) U/L ALT 54 H (4-49) U/L Alkaline Phosphatase 145 H (38-126) U/L Amylase 239 H (30-110) U/L Lipase 4558 H (23-300) U/L Urine Ketones Trace H (Negative) 01/27/20 01/27/20 01/28/20 Range/Units 20:07 21:16 09:20 Sodium 135 L (137-145) mmol/L BUN 23 H (9-20) mg/dL Glucose 200 H (74-99) mg/dL Plasma Lactic Acid Odin 2.7 H* (0.7-2.0) mmol/L Calcium 8.3 L (8.4-10.2) mg/dL Total Bilirubin 1.4 H (0.2-1.3) mg/dL AST 250 H (17-59) U/L ALT 126 H (4-49) U/L Alkaline Phosphatase 127 H (38-126) U/L Amylase (30-110) U/L Lipase 2781 H (23-300) U/L Urine Ketones (Negative) CT scan - abdomen: report reviewed Assessment and Plan (1) Abdominal pain Narrative/Plan: 74-year-old male presented to the hospital due to abdominal pain. The patient was found to have elevated amylase and lipase on presentation at 239 and 2781 and the patient was admitted for acute pancreatitis. No prior episodes of pancreatitis but the patient does report drinking 3-4 alcoholic beverages for the past 20 years. Computed tomography scan of the abdomen showed a mildly dilated gallbladder with cholelithiasis with no dilated ducts. Liver enzymes were slightly elevated with total bilirubin 1.2, alkaline phosphatase 145, AST 166 and ALT 54. Patient denies any back to use. Suspicion is for alcoholic pancreatitis. Current Visit: Yes Status: Acute Code(s): R10.9 - UNSPECIFIED ABDOMINAL PAIN SNOMED Code(s): 15279809 (2) Pancreatitis Current Visit: Yes Status: Acute Code(s): K85.90 - ACUTE PANCREATITIS WITHOUT NECROSIS OR INFECTION, UNSP SNOMED Code(s): 92544563 Plan: Supportive care Clear liquid diet Advance diet as tolerated CT of the abdomen reviewed Alcohol abstinence Continue IV fluid hydration Thank you for allowing us to participate in the care of the patient we will continue to follow
[2020-01-29 14:14] LABS: African American GFR (CKD) 68.6 (60.0-200.0); Albumin 3.4 g/dL (3.80-4.90); Albumin/Globulin Ratio 1.55 (1.60-3.17); Anion Gap 7.8 mmol/L (4.00-12.00); Calcium 8.4 mg/dL (8.7-10.3); Carbon Dioxide 27.2 mmol/L (21.6-31.8); Globulin 2.2 g/dL (1.6-3.3); Non-African American GFR(CKD) 59.2 (60.0-200.0); Potassium 3.9 mmol/L (3.5-5.5); Total Bilirubin 0.8 mg/dL (0.3-1.2); Total Protein 5.6 g/dL (6.2-8.2)
== END 2020-01-29 14:40 | disposition home or self-care (01) | DRG 439 ==
LOC: EC 17:37 → 6NMEDSUR 21:49 → 4SSUR 01-28 14:59
PROVIDERS: ADMIT Family Medicine; ATTEND Family Medicine
DX: K85.20 Alcohol induced acute pancreatitis without necrosis or infection (principal); N17.9 Acute kidney failure, unspecified; E87.2 Acidosis; M19.90 Unspecified osteoarthritis, unspecified site; E86.0 Dehydration; I12.9 Hypertensive chronic kidney disease with stage 1 through stage 4 chronic kidney disease, or unspecified chronic kidney disease; K80.70 Calculus of gallbladder and bile duct without cholecystitis without obstruction; F10.10 Alcohol abuse, uncomplicated; K76.0 Fatty (change of) liver, not elsewhere classified; K44.9 Diaphragmatic hernia without obstruction or gangrene; N41.9 Inflammatory disease of prostate, unspecified; N18.2 Chronic kidney disease, stage 2 (mild); M48.00 Spinal stenosis, site unspecified; Z79.899 Other long term (current) drug therapy; Z98.890 Other specified postprocedural states
CPT/HCPCS: 36415; 74177; 76705; 80053; 81003; 82150; 83605; 83690; 84484; 85025; 93005; 96361; 96374; 96375; 96376; 99285

== ENCOUNTER 2020-06-01 07:21 | Day surgery (SDC) | payer MEDICARE, BC ==
[2020-05-27 15:51] VITALS: BMI 29.4
[~2020-06-01 07:21] MED LIST: ACETAMINOPHEN TAB 500 MG TAB PO PRN; DEXAMETHASONE SOD PHOSPHATE 4 MG/ML 1 ML VIAL IV ONE; HEPARIN SODIUM,PORCINE 5,000 UNIT/ML 1 ML VIAL SQ PRN; HYDROmorphone 0.5 MG/0.5 ML SYRINGE IVP PRN; LACTATED RINGERS 1,000 ML IV SCH; MIDAZOLAM 2 MG/2 ML VIAL IV PRN; ONDANSETRON 4 MG/2 ML VIAL IVP ONE
[2020-06-01] MEDS ORDERED: LIDOCAINE 1% (10MG/ML) FOR IV START INTRADERMA ONE (07:53)
--- NOTE | 2020-06-01 08:05 | P.GSHP ---
History of Present Illness H&P Date: 06/01/20 Chief Complaint: Gallstone pancreatitis 74-year-old male hospitalized in January with gallstone pancreatitis. Following his discharge patient has done well. Ultrasound showed gallstones. Recent labs normal per patient. No change in the color of his skin urine or stool. Past Medical History Past Medical History: Hypertension, Osteoarthritis (OA) Additional Past Medical History / Comment(s): pancreatitis, gout History of Any Multi-Drug Resistant Organisms: None Reported Past Surgical History: Joint Replacement, Orthopedic Surgery Additional Past Surgical History / Comment(s): cataract surgery, rt knee replacement, arthroscopy lt knee, Past Anesthesia/Blood Transfusion Reactions: No Reported Reaction Smoking Status: Never smoker - Past Family History Sister(s) Family Medical History: Cancer Additional Family Medical History / Comment(s): cancer base of tongue Medications and Allergies Home Medications Medication Instructions Recorded Confirmed Type Allopurinol [Zyloprim] 300 mg PO DAILY 01/27/20 06/01/20 History Atenolol [Tenormin] 100 mg PO BID 01/27/20 06/01/20 History Furosemide [Lasix] 40 mg PO DAILY 01/27/20 06/01/20 History Potassium Chloride ER [K-Dur 10] 10 meq PO DAILY 01/27/20 06/01/20 History amLODIPine [Norvasc] 5 mg PO DAILY 01/27/20 06/01/20 History hydrALAZINE HCL 25 mg PO BID 01/27/20 06/01/20 History Multivitamins, Thera [Multivitamin 1 each PO 1200 tab 01/29/20 06/01/20 Rx (formulary)] Thiamine [Vitamin B-1] 100 mg PO BID-W/MEALS tab 01/29/20 06/01/20 Rx Folic Acid 0.8 mg PO DAILY 05/27/20 06/01/20 History Naproxen Sodium [Aleve] 220 mg PO BID 05/27/20 06/01/20 History Allergies Allergy/AdvReac Type Severity Reaction Status Date / Time No Known Allergies Allergy Verified 06/01/20 07:35 Surgical - Exam Vital Signs Temp Pulse Resp BP Pulse Ox 98.5 F 85 18 151/75 96 06/01/20 07:46 06/01/20 07:46 06/01/20 07:46 06/01/20 07:46 06/01/20 07:46 Physical exam: General: Well-developed, well-nourished HEENT: Normocephalic, sclerae nonicteric Abdomen: Nontender, nondistended Extremities: No edema Neuro: Alert and oriented Assessment and Plan (1) Gallstone pancreatitis Narrative/Plan: Will proceed with laparoscopic cholecystectomy, possible open. Risks of bleeding, infection, bile leak, bile duct injury, retained common bile duct stone, trocar injury, conversion to an open procedure, hernia, anesthesia related complications were reviewed. The patient understands and wishes to proceed. Current Visit: Yes Status: Acute Code(s): K85.10 - BILIARY ACUTE PANCREATITIS WITHOUT NECROSIS OR INFECTION SNOMED Code(s): 82320592
[2020-06-01] MEDS ORDERED: ROCURONIUM 10 MG/ML (5 ML VIAL) IV ONE (08:49)
[2020-06-01] MEDS ORDERED: GLYCOPYRROLATE 0.2 MG/ML 2 ML VIAL ONE (08:49)
[2020-06-01] MEDS ORDERED: fentaNYL (PF) 50 MCG/ML 2 ML AMP ONE (08:49)
[2020-06-01] MEDS ORDERED: PROPOFOL 10 MG/ML 20 ML VIAL IV ONE (08:49)
[2020-06-01] MEDS ORDERED: MIDAZOLAM 2 MG/2 ML VIAL ONE (08:49)
[2020-06-01] MEDS ORDERED: LIDOCAINE 1% INJ 10MG/ML (20 ML MDV) ONE (08:49)
[2020-06-01] MEDS ORDERED: NEOSTIGMINE 1 MG/ML 10 ML VIAL ONE (08:49)
[2020-06-01] MEDS ORDERED: PHENYLEPHRINE-0.9% NACL SYG 1,000 MCG/10 ML SYRINGE ONE (08:49)
[2020-06-01] MEDS ORDERED: SUCCINYLCHOLINE CHLORIDE 100 MG/5 ML SYR IV ONE (08:49)
[2020-06-01] MEDS ORDERED: HYDROmorphone (PF) 1 MG/ML ONE (08:49)
[2020-06-01] MEDS ORDERED: BUPIVACAIN-EPI 0.5%-1:200,000 30 ML VIAL SQ ONE (09:31)
[2020-06-01] MEDS ORDERED: LACTATED RINGERS 1,000 ML IV ONE (09:43)
[2020-06-01 10:37] VITALS: TEMP 98.2
--- NOTE | 2020-06-01 10:55 | P.OP ---
Date of Procedure: 06/01/20 Procedure(s) Performed: PREOPERATIVE DIAGNOSIS: Gallstone pancreatitis POSTOPERATIVE DIAGNOSIS: Same PROCEDURE: Laparoscopic cholecystectomy SURGEON: Bijan EBL: Minimal see anesthesia record ANESTHESIA: Gen. COMPLICATIONS: None OPERATIVE PROCEDURE: The patient was brought and placed on the operating room ta [facility] in the supine position. The patient was placed under general anesthesia at that time. The abdomen was prepped and draped in the usual sterile fashion. A small curvilinear supraumbilical incision was made. The fascia was grasped with the Mook forceps. The fascia was retracted anteriorly. The Veress needle was advanced into the peritoneal cavity. The saline drop test was normal. Insuff lation took place up to 15 mmHg. A 5 mm optical trocar was advanced and the peritoneal cavity. 2 additional 5 mm trochars were placed in the right upper quadrant under direct visualization. A 12 mm trocar was advanced into the epigastric incision site. The gallbladder was chronically inflamed with a thickened wall. The omentum was adherent to the gallbladder. The adhesions to the gallbladder were lysed using blunt dissection and the LigaSure device. The gallbladder was retracted superiorly and laterally. An additional 5 mm trocar was placed in the left midabdomen and utilized with a fan retractor to hold the transverse colon inferiorly so we could visualize the infundibulum better. The peritoneum overlying the infundibulum was bluntly dissected. The patient's cystic duct was visualized. The junction between the cystic duct common and hepatic duct was identified. The cystic duct was then divided after placement of 3 12 mm clips on the patient's side and one on the specimen side. The cystic artery was identified and clipped as well. A small vessel was seen along the gallbladder fossa and clipped as well. The gallbladder was then removed from the liver bed using electrocautery. The gallbladder was then removed from the epigastric trocar site with an Endo Catch bag. The gallbladder fossa was irrigated with saline. There was no evidence of any bleeding or biliary d rainage seen. The fascia at the 12 millimeter site was closed using a [id number] 0 Vicryl stitch. The trochars were then removed. The skin at all 5 sites was closed using a 4-0 Monocryl stitch. Skin glue was utilized on the incision sites. At the end of this procedure the sponge and needle counts were correct. DISPOSITION: Stable to the recovery room
[2020-06-01 11:13] VITALS: RESP 16
[2020-06-01] MEDS ORDERED: ACETAMINOPHEN TAB 325 MG TAB PO SCH (12:00)
[2020-06-01 12:21] VITALS: BP 129/69; PULSE 79
[2020-06-01] MEDS ORDERED: IBUPROFEN 600 MG TAB PO SCH (15:00)
== END 2020-06-01 12:42 | disposition home or self-care (01) ==
LOC: OR 07:21
PROVIDERS: ATTEND Surgery
DX: K80.10 Calculus of gallbladder with chronic cholecystitis without obstruction (principal); I10 Essential (primary) hypertension; M19.90 Unspecified osteoarthritis, unspecified site; K85.90 Acute pancreatitis without necrosis or infection, unspecified; M10.9 Gout, unspecified; Z96.651 Presence of right artificial knee joint; Z98.49 Cataract extraction status, unspecified eye; Z98.890 Other specified postprocedural states; Z80.8 Family history of malignant neoplasm of other organs or systems; Z79.1 Long term (current) use of non-steroidal anti-inflammatories (NSAID); Z79.899 Other long term (current) drug therapy
CPT/HCPCS: 88304; 47562; J2250; J1644; J1100; J2710; J0690; J2405; J2001; J3010; J1170; J2370; J0330; J2704

== ENCOUNTER → 2022-01-27 | Outpatient (CLI) | payer MEDICARE, BC ==
--- NOTE | 2022-01-27 11:26 | NM ---
EXAMINATION TYPE: NM stress lexiscan cardiolite DATE OF EXAM: 01/27/2022 COMPARISON: NONE HISTORY: Chest pain TECHNIQUE: After the intravenous administration of 9.85 mCi Tc 99m Sestamibi - Cardiolite resting SP ECT images acquired 45 minutes post injection. The patient received 0.4mg Lexiscan, 25.2 mCi Tc 99m Sestamibi - Stress images obtained [address] injection FINDINGS: Review of stress and rest SPECT images demonstrates small area of stress-induced reversibility involv ing the anterior and apical lateral myocardium. Gated analysis shows normal wall motion with an adi mated left ventricular ejection fraction of 60 %. Report called to the referring clinician 11:22 AM 1 03/29/2021. IMPRESSION: 1. Correlate for stress-induced reversible ischemia involving the anterolateral and anteroapical myoc ardium.
--- NOTE | 2022-01-27 11:49 | CA ---
Lexiscan Nuclear Stress Test Report Name: Alfred Chavez Exam Date: 01/27/2022 09:54 Exam Location: [facility] Ht (in): 70 Wt (lb): 205 BSA: 2.11 Ordering Phys: Lacho Brambila DO Referring Phys: LACHO BRAMBILA,, Technologist: Aris Cotton Age: 76 Gender: M : 1945 Procedure CPT: Indications: I10 htn, R07.89 chest discomfort, R07.9 cp on exe ICD-10 Codes: Patient History: Medications: Meds past 24 hrs: Pretest Chest Pain: STRESS TEST Lexiscan Protocol Exercise Duration (min:sec): 02:[address] Depressions (mm): Angina Score: Munguia Score: Resting HR (bpm): 65 Peak HR (bpm): 79 Resting BP (mmHg): 154 / 77 Peak BP (mmHg): 129 / 72 MPHR: 144 Target HR: 122 % MPHR: 55 METS: 1.0 Total Dose: Peak Dose: Atropine: Double Product: 33647 BP Response: Stress Termination: PROTOCOL COMPLETE Stress Symptoms: NO SYMPTOMS Stress Summary: ECG ANALYSIS Resting ECG: Stress ECG: CONCLUSIONS Nondiagnostic electrocardiogram stress testing Please follow-up on the Cardiolite portion Dr. Bo Juárez MD (Electronically Signed) Final Date: 27 January 2022 11:48
--- NOTE | 2022-01-27 12:05 | CA ---
Transthoracic Echo Report Name: Alfred Chavez Age: 76 Gender: M : 1945 Exam Date: 01/27/2022 08:33 Exam Location: [facility] Ht (in): 70 Wt (lb): 205 Ordering Physician: Lacho Brambila DO Attending/Referring Phys: Forest Examiner Monie Coto RDCS Procedure CPT: Indications: I10 htn, R07.89 chest discomfort, R07.9 cp on exe Cardiac Hx: Technical Quality: Fair Contrast 1: Total Dose (mL): Contrast 2: Total Dose (mL): MEASUREMENTS (Male / Female) Normal Values 2D ECHO LV Diastolic Diameter PLAX 4.7 cm 4.2 - 5.9 / 3.9 - 5.3 cm LV Systolic Diameter PLAX 3.5 cm IVS Diastolic Thickness 1.4 cm 0.6 - 1.0 / 0.6 - 0.9 cm LVPW Diastolic Thickness 1.3 cm 0.6 - 1.0 / 0.6 - 0.9 cm LV Relative Wall Thickness 0.6 RV Internal Dim ED PLAX 3.2 cm LA Volume 65.9 cm??? 18 - 58 / 22 - 52 cm??? M-MODE Aortic Root Diameter MM 3.4 cm LA Systolic Diameter MM 5.0 cm LA Ao Ratio MM 1.5 AV Cusp Separation MM 2.3 cm DOPPLER AV Peak Velocity 155.1 cm/s AV Peak Gradient 9.6 mmHg AV Mean Velocity 109.5 cm/s AV Mean Gradient 5.2 mmHg AV Velocity Time Integral 36.4 cm LVOT Peak Velocity 104.3 cm/s LVOT Peak Gradient 4.3 mmHg MV Area PHT 3.4 cm??? Mitral E Point Velocity 98.4 cm/s Mitral A Point Velocity 92.2 cm/s Mitral E to A Ratio 1.1 MV Deceleration Time 223.2 ms MV E' Velocity 6.5 cm/s Mitral E to MV E' Ratio 15.2 TR Peak Velocity 328.9 cm/s TR Peak Gradient 43.3 mmHg Right Ventricular Systolic Press 47.7 mmHg FINDINGS Left Ventricle Mildly increased left ventricular wall thickness. Normal left ventricular systolic function with no obvious regional wall motion abnormalities. Left ventricular ejection fraction is estimated at 55-60 %. Right Ventricle Normal right ventricular size and function. Moderate pulmonary hypertension. Right Atrium Normal right atrial size. Left Atrium Mildly increased left atrial volume. Mitral Valve Structurally normal mitral valve. Mild mitral annular dilatation. Mild mitral regurgitation. Aortic Valve Trileaflet aortic valve. No aortic valve stenosis or regurgitation. Aortic valve sclerosis. Tricuspid Valve Structurally normal tricuspid valve. Mild tricuspid regurgitation. Pulmonic Valve Structurally normal pulmonic valve. Trace pulmonic regurgitation. Pericardium No pericardial effusion. Aorta Normal size aortic root and proximal ascending aorta. CONCLUSIONS Normal left ventricular dimension and systolic function Previewed by: Dr. Bo Juárez MD (Electronically Signed) Final Date: 27 January 2022 12:05
== END | disposition home or self-care (01) ==
LOC: RADNMMAIN 07:32
PROVIDERS: ATTEND Family Medicine
DX: I25.6 Silent myocardial ischemia (principal); I10 Essential (primary) hypertension
CPT/HCPCS: 93017; 93306; 78452; A9500

== ENCOUNTER → 2022-02-07 | Outpatient (CLI) | payer MEDICARE, BC ==
[2022-02-07 18:53] LABS: Basophils # (A) 0.07 X 10*3/uL (0.00-0.10); Basophils % (A) 0.7 %; Eosinophils # (A) 0.19 X 10*3/uL (0.04-0.35); Eosinophils % (A) 1.9 %; HCT 42.4 % (39.6-50.0); HGB 14.5 g/dL (13.0-17.0); Immature Grans, Automated 0.3 %; Lymphocytes # (A) 3.21 X 10*3/uL (0.90-5.00); Lymphocytes % (A) 31.7 %; MCH 33.4 pg (27.0-32.0); MCHC 34.2 g/dL (32.0-37.0); MCV 97.7 fL (80.0-97.0); Mean Platelet Volume 11.1 fL (9.5-12.2); Monocytes # (A) 1.14 X 10*3/uL (0.20-1.00); Monocytes % (A) 11.2 %; NRBC Per 100 WBC 0 /100 WBCS (0.0-0.0); Neutrophils % (A) 54.2 %; Platelet Count 206 X 10*3/uL (140-440); RBC 4.34 X 10*6/uL (4.40-5.60); RDW 12.3 % (11.5-14.5); WBC 10.14 X 10*3/uL (4.50-10.00)
[2022-02-07 18:55] LABS: African American GFR (CKD) 68.4 (60.0-200.0); Anion Gap 14.2 mmol/L (10.00-18.00); Blood Urea Nitrogen 21.1 mg/dL (9.0-27.0); Carbon Dioxide 27.4 mmol/L (20.0-27.5)
== END | disposition home or self-care (01) ==
LOC: LABPAT 13:52
PROVIDERS: ATTEND Internal Medicine Interventional Cardiology
DX: Z01.812 Encounter for preprocedural laboratory examination (principal); R07.89 Other chest pain
CPT/HCPCS: 80051; 82565; 84520; 85025

== ENCOUNTER 2022-02-16 10:38 | Inpatient (IN) | payer MEDICARE, BC ==
[~2022-02-16 10:38] MED LIST changes: -ACETAMINOPHEN TAB 500 MG TAB PO PRN; +ALPRAZolam 0.25 MG TAB PO PRN; +ALPRAZolam 0.5 MG TAB PO PRN; +ASPIRIN 325 MG TAB PO STA; +ATORVASTATIN 80 MG TAB PO STA; -DEXAMETHASONE SOD PHOSPHATE 4 MG/ML 1 ML VIAL IV ONE; +HEPARIN SODIUM,PORCINE 10,000 UNIT in SODIUM CHLORIDE 0.9% 1,000 ML IRRIGATION PRN; +HEPARIN SODIUM,PORCINE 2,500 UNIT in SODIUM CHLORIDE 0.9% 250 ML IRRIGATION PRN; -HEPARIN SODIUM,PORCINE 5,000 UNIT/ML 1 ML VIAL SQ PRN; -HYDROmorphone 0.5 MG/0.5 ML SYRINGE IVP PRN; -LACTATED RINGERS 1,000 ML IV SCH; -MIDAZOLAM 2 MG/2 ML VIAL IV PRN; +NITROGLYCERIN SL TABS 0.4 MG TAB SUBLINGUAL PRN; -ONDANSETRON 4 MG/2 ML VIAL IVP ONE
[2022-02-16] MEDS ORDERED: SODIUM CHLORIDE 0.9% 1,000 ML IV ONE (10:52)
[2022-02-16] MEDS ORDERED: MIDAZOLAM 2 MG/2 ML VIAL IV ONE (13:42)
[2022-02-16] MEDS ORDERED: LIDOCAINE 1% INJ 10MG/ML (30 ML VIAL-PF) SQ ONE (13:44)
[2022-02-16] MEDS ORDERED: VERAPAMIL SYRINGE (5 MG/10 ML) INTRAARTER ONE (13:46)
[2022-02-16] MEDS ORDERED: HEPARIN SODIUM 1,000 UN/ML (10ML VL) IV ONE (13:54)
[2022-02-16] MEDS ORDERED: IOPAMIDOL-370 125ML BTL INJ ONE (14:02)
[2022-02-16] MEDS ORDERED: RX INFO: IV CONTRAST WAS GIVEN 1 EACH MISC MISCELLANE PRN (14:10)
[2022-02-16] MEDS ORDERED: SODIUM CHLORIDE 0.9% 1,000 ML IV SCH (14:15)
--- NOTE | 2022-02-16 14:20 | P.PCN ---
Date of Procedure: 02/16/22 Operative Findings: CARDIAC CATHETERIZATION PERFORMING PHYSICIAN: Bo Juárez MD, RPVI PROCEDURE PERFORMED: 1. Selective right and left coronary angiogram 2. Right radial artery angiogram INDICATION: This is a 76-year-old gentleman with hypertension and dyslipidemia was experiencing symptoms of chest discomfort and shortness of breath. He underwent myocardial perfusion imaging stress test and that came in to be abnormal showing anterolateral ischemia. In the light of that heart catheterization was advised COMPLICATION: None APPROACH: Right radial artery LEVEL OF SEDATION: Moderate with a sedation length of 21 minute PROCEDURE DESCRIPTION: After obtaining an informed consent, the patient was brought to cardiac assistant laboratory director. Local anesthesia was performed using lidocaine subcutaneously. The right radial artery was cannulated using Seldinger technique, the guidewire passed easily, following that we advanced a 5-Stateless sheath dilator assembly, the wire and dilator were removed and sheath was flushed. Following that, 2 mg of verapamil along with 5000 unit heparin were given. Selective right and left coronary angiogram using a 6-Stateless JR4 and JL 3.5 catheters. The procedure was completed there was no complication. SELECTIVE CORONARY ANGIOGRAM: The right coronary artery: Large-caliber vessel and a dominant vessel. The RCA is calcified. The proximal to mid RCA has mild to moderate diffuse disease. The RCA distally has a plaque appears to be in the range of 60-70% gives rises into the PDA and PLV branches. The PDA of the RCA has ostial lesion appeared to be in the range of 70%. Left main: Calcified was a critical lesion appeared to be in the range of 99.9%. The left circumflex: Large caliber vessel and nondominant vessel. The flow in the LCx is sluggish and seems to be consistent with VIDYA 2 flow. The LCx proximally gives rises into an OM branch which is intermediate to large caliber vessel with proximal disease appeared to be in the range of 90-95%. The left anterior descending artery: The left anterior descending artery is a large caliber vessel. The LAD in the proximal to midportion after the bifurcation of a large diagonal branch has a lesion appeared to be in the range of 70%. The mid and distal LAD appears to have mild disease only. The LAD fills by collateral from the right coronary artery. CONCLUSION: 1. Critical disease involving the distal left main with a lesion appeared to be in the range of 99.9% 2. 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 Overall calcified right and left coronary system POSTPROCEDURE MANAGEMENT: Referred the patient to be evaluated by cardiothoracic surgeon for CABG to be performed in the next 24-48 hours.
[2022-02-16] MEDS ORDERED: LORazepam 2 MG/ML INJ IV PRN (15:00)
--- NOTE | 2022-02-16 16:00 | XR ---
EXAMINATION TYPE: XR chest 2V DATE OF EXAM: 02/16/2022 COMPARISON: None HISTORY: 76-year-old male preoperative CABG TECHNIQUE: Frontal and lateral views FINDINGS: The heart is borderline to mildly enlarged. Mild interstitial prominence has a chronic appearance. No consolidation or pleural effusion. IMPRESSION: Borderline to mild cardiomegaly. No acute process seen.
--- NOTE | 2022-02-16 16:01 | P.GSCN ---
History of Present Illness Consult date: 02/16/22 Reason for Consult: Coronary artery disease with left main disease Requesting physician: Bo Juárez History of present illness: This is a 76-year-old gentleman who follows with Dr. Lacho Brambila on an outpatient basis for his primary care and with Dr. Juárez for his cardiology care. His past medical History significant for hypertension, dyslipidemia, remote history of tobacco dependence in which he quit smoking 40 years ago, family history of early onset coronary artery disease with his dad dying of a myocardial infarction at age 55, osteoarthritis and daily EtOH use with drinking 3 shots of liquor. Over about a 4-6 month period the patient reports she has been having episodes of burning type chest pain, chest tightness, with associated shortness of breath. He denies any recent fever, chills, nausea, vomiting, diarrhea, constipation, palpitations, headache, lightheadedness, presyncope or syncope. Due to the above mentioned symptoms Dr. Brambila referred the patient to Dr. Juárez for further workup and treatment recommendations. The patient underwent a transthoracic 2-D echocardiogram on 01/27/2022 which demonstrated a normal left ventricular systolic function with no obvious regional wall motion abnormalities, a left ventricular ejection fraction estimated at 55-60%, moderate pulmonary hypertension, mild mitral valve regurgitation, a trileaflet aortic valve with no aortic valve stenosis or regurg itation, mild tricuspid valve regurgitation, trace pulmonic valve regurgitation, no pericardial effusion and a normal size aortic root and proximal ascending aorta. The patient also underwent a myocardial perfusion imaging stress test which showed anterolateral ischemia. Subsequently, due to the findings on the above mentioned studies and the patient's symptoms he was recommended to undergo a cardiac catheterization which was completed today which demonstrated a critical left main stenosis in the range of 99.9%, a 70% stenosis to his proximal to midportion of his left anterior descending coronary artery, collaterals are filling the LAD from the right coronary artery, and severe disease involving the distal right coronary artery and the ostial of the PDA branch of the right coronary artery. Due to the findings on the cardiac catheterization a consult was placed to Dr. Jeb Joe from cardiothoracic surgery for further evaluation and treatment recommendations including myocardial revascularization surgery. Review of Systems A 14 point review of systems was completed was negative except as mentioned in the HPI. Past Medical History Past Medical History: Hyperlipidemia, Hypertension, Osteoarthritis (OA) Additional Past Medical History / Comment(s): pancreatitis, gout-under control. SEE DR. JUÁREZ'S H & P History of Any Multi-Drug Resistant Organisms: None Reported Past Surgical History: Cholecystectomy, Joint Replacement, Orthopedic Surgery, Tonsillectomy Additional Past Surgical History / Comment(s): BILAT cataract surgery, rt knee replacement, arthroscopy lt knee, MACULAR HOLE REPAIR Past Anesthesia/Blood Transfusion Reactions: No Reported Reaction Past Psychological History: No Psychological Hx Reported Smoking Status: Former smoker (Quit smoking over 40 years ago) Past Alcohol Use History: Daily (Drinks 3 shots of liquor daily) Past Drug Use History: None Reported - Past Family History Sister(s) Family Medical History: Cancer Additional Family Medical History / Comment(s): cancer base of tongue Father Family Medical History: Myocardial Infarction ([place]) (Dad at age 55 from myocardial infarction) Medications and Allergies Home Medications Medication Instructions Recorded Confirmed Type Furosemide [Lasix] 20 mg PO DAILY 01/27/20 02/16/22 History Potassium Chloride ER [K-Dur 10] 10 meq PO HS 01/27/20 02/16/22 History amLODIPine [Norvasc] 5 mg PO DAILY 01/27/20 02/16/22 History atenoloL [Tenormin] 100 mg PO BID 01/27/20 02/16/22 History hydrALAZINE HCL 25 mg PO BID 01/27/20 02/16/22 History Multivitamins, Thera [Multivitamin 1 each PO 1200 tab 01/29/20 02/16/22 Rx (formulary)] Aspirin EC [Ecotrin Low Dose] 81 mg PO DAILY 02/14/22 02/16/22 History Isosorbide Mononitrate [Isosorbide 30 mg PO DAILY 02/14/22 02/16/22 History Mononitrate ER] Allergies Allergy/AdvReac Type Severity Reaction Status Date / Time No Known Allergies Allergy Verified 02/16/22 11:00 Surgical - Exam - General well developed, well nourished, no distress, no pain, obese - Eyes PERRL, normal ocular movement, no pale, no icteric - ENT normal pinna, normal nares, normal mucosa, no hearing loss, no congestion - Neck Neck is supple, no lymphadenopathy. no masses, no bruits, trachea midline, no venous distension - Respiratory Lung sounds essentially clear throughout, few scattered crackles to his bilateral bases. No wheezes, or rhonchi. Respirations are symmetrical and nonlabored. - Cardiovascular Regular rhythm and rate. S1 and S2 present, negative for S3, gallop or murmur. +1 edema to his bilateral lower extremities. - Abdomen Abdomen soft, nontender nondistended. Active bowel sounds present in all 4, quadrant. No guarding or rigidity. No organomegaly appreciated. Diastasis recti. - Genitourinary Deferred - Rectum Deferred - Integumentary no rash, no growths, no abnormal pigmentation - Neurologic Cranial nerves II through XII intact. normal coordination, normal sensation - Musculoskeletal Moves upper and lower extremities with equal strength bilateral. - Psychiatric oriented to time, oriented to person, oriented to place, speech is normal, memory intact Results - Imaging Chest x-ray: image reviewed Additional studies: Transthoracic 2-D echocardiogram results reviewed. Assessment and Plan Assessment: 1. Coronary artery disease with critical left main stenosis 2. Unstable angina, secondary to above 3. Hypertension 4. Hyperlipidemia 5. Family history of early onset coronary artery disease with his father having a myocardial infarction at age 55 6. Daily EtOH use, drinks 3 shots of liquor daily 7. Remote history of nicotine dependence quit smoking over 40 years ago 8. Osteoarthritis Plan: The patient was seen and examined at his bedside and extended stay unit. Discharge diagnostics reviewed. The patient was seen and examined by Dr. Jeb Joe from cardiothoracic surgery. Dr. Joe discussed with the patient and his present at his bedside the results on the heart catheterization, treatment options including myocardial revascularization surgery. Risks and benefits of surgery were discussed and knowing and understanding the risks the patient wished to proceed with the surgical option. Once his preoperative testing has been completed an STS risk score will be calculated discussed with the patient. Once the patient is able to ambulate a five-year walk test will be completed. The importance of risk modification including continued smoking cessation and sensation from alcohol were discussed with the patient. Continue to maximize medical management with aspirin, statin and beta yessy. Due to the patient's daily EtOH use he was started on the CIWA protocol. He will be scheduled for myocardial revascularization surgery on 02/18/2022 with left internal mammary artery, endoscopic vein harvest, possible endoscopic left radial harvest, clip ligation of the left atrial appendage and intraoperative transesophageal echocardiogram to be completed by Dr. Aniceto Stauffer. Preoperative testing and preoperative teaching has been initiated. More recommendations to follow based on patient's clinical course. Thank you Dr. Juárez for this consult and we'll look for to working with you in the care of this patient. I have personally seen and examined the patient, performed the documentation and the assessment and plan as written. 30 minutes spent on the visit . Aly MUNOZ
[2022-02-16 17:31] LABS: Appearance,Urine Clear (Clear); Bilirubin,Urine Negative (Negative); Blood,Urine Negative (Negative); Color,Urine Yellow; Glucose,Urine (UA) Negative (Negative); Ketones,Urine Negative (Negative); Leukocyte Esterase,Urine Negative (Negative); Nitrite,Urine Negative (Negative); PH, Urine 6.5 (5.0-8.0); Protein,Urine Negative (Negative); Specific Gravity,Urine 1.023 (1.001-1.035); Urobilinogen,Urine <2.0 mg/dL (<2.0)
[2022-02-16] MEDS: FOLIC ACID 1 MG TAB PO SCH (18:04)
[2022-02-16] MEDS: THIAMINE 100 MG TAB PO SCH (18:04)
[2022-02-16 18:58] LABS: Basophils # (A) 0.1 k/uL (0-0.2); Basophils % (A) 1 %; Eosinophils # (A) 0.2 k/uL (0-0.7); Eosinophils % (A) 3 %; HGB 14.3 gm/dL (13.0-17.5); Lymphocytes # (A) 2.6 k/uL (1.0-4.8); Lymphocytes % (A) 32 %; MCH 32.9 pg (25.0-35.0); MCHC 33.2 g/dL (31.0-37.0); MCV 99.2 fL (80.0-100.0); Mean Platelet Volume 8.2; Monocytes # (A) 0.7 k/uL (0-1.0); Monocytes % (A) 9 %; Neutrophils # (A) 4.2 k/uL (1.3-7.7); Neutrophils % (A) 53 %; Platelet Count 202 k/uL (150-450); RBC 4.33 m/uL (4.30-5.90); RDW 11.8 % (11.5-15.5); WBC 7.9 k/uL (3.8-10.6)
[2022-02-16] MEDS: SODIUM CHLORIDE 0.9% 1,000 ML in EMPTY BAG 1 BAG IV SCH ×2 (18:58→18:59)
[2022-02-16 19:07] LABS: ALT 21 U/L (4-49); AST 32 U/L (17-59); African American GFR (CKD) >90 (>60 ml/min/1.73 sqM); Albumin 3.9 g/dL (3.5-5.0); Alkaline Phosphatase 67 U/L (38-126); Anion Gap 6 mmol/L; Blood Urea Nitrogen 15 mg/dL (9-20); Calcium 8.7 mg/dL (8.4-10.2); Carbon Dioxide 28 mmol/L (22-30); Chloride 103 mmol/L (98-107); Glucose 128 mg/dL (74-99); Non-African American GFR(CKD) 78 (>60 ml/min/1.73 sqM); Potassium 4.3 mmol/L (3.5-5.1); Sodium 137 mmol/L (137-145); Total Bilirubin 0.5 mg/dL (0.2-1.3); Total Protein 6.5 g/dL (6.3-8.2)
[2022-02-16 19:16] LABS: INR 0.9 (<1.2); Partial Thromboplastin Time 23.5 sec (22.0-30.0); Prothrombin Time 10.1 sec (9.0-12.0)
--- NOTE | 2022-02-16 19:32 | CT ---
EXAMINATION TYPE: CT chest wo con CT DLP: 451.9 mGycm, Automated exposure control for dose reduction was used. DATE OF EXAM: 02/16/2022 6:40 PM COMPARISON: CT abdomen pelvis 01/27/2020 CLINICAL INDICATION:Male, 76 years old with history of eval ascending aorta, Eval Ascending aorta TECHNIQUE: Multiple axial images were obtained through the chest. Sagittal and coronal reformats were created for review. Contrast used: None Oral contrast used: none. FINDINGS: LUNGS/ PLEURA: No evidence of focal consolidation, pneumothorax or pleural effusion. Right minor fiss ure intrafissural lymph node. AIRWAY: Patent and unremarkable. HEART: Size within normal limits. MEDIASTINUM: No gross evidence of adenopathy. VASCULATURE: No aortic aneurysm. Mild scattered atherosclerosis of the arterial vasculature. Ascendi ng and descending thoracic aorta as well as the visualized portions of the abdominal aorta are within normal limits for size. No evidence of intramural hematoma. MUSCULOSKELETAL: No acute osseous abnormalities SOFT TISSUES/LYMPH NODES: Unremarkable. LOWER NECK: No significant findings. UPPER ABDOMEN: Gallbladder surgically absent. IMPRESSION: 1. No evidence of aortic aneurysm or intramural hematoma. Ascending thoracic aorta within normal [place] its measuring up to 39 mm in diameter. 2. Mild atherosclerosis of the aorta.
[2022-02-16] MEDS: POTASSIUM CHLORIDE ER 10 MEQ TAB.ER.PRT PO SCH (20:28)
[2022-02-16] MEDS: ATORVASTATIN 80 MG TAB PO SCH (20:28)
[2022-02-16] MEDS: hydrALAZINE HCL 25 MG TAB PO SCH (20:28)
[2022-02-16] MEDS: atenoloL 50 MG TAB PO SCH (20:28)
--- NOTE | 2022-02-16 21:48 | US ---
EXAMINATION TYPE: US carotid duplex BILAT DATE OF EXAM: 02/16/2022 COMPARISON: NONE CLINICAL HISTORY: preop cardiac surgery. preop cardiac surgery TECHNIQUE: Carotid duplex ultrasound examination. Indirect Doppler criteria was utilized. FINDINGS: EXAM MEASUREMENTS: RIGHT: Peak Systolic Velocity (PSV) cm/sec ----- Right CCA: 66.1 ----- Right ICA: 77.9 ----- Right ECA: 84.0 ICA/CCA ratio: 1.2 RIGHT: End Diastole cm/sec ----- Right CCA: 19.2 ----- Right ICA: 15.3 ----- Right ECA: 10.2 LEFT: Peak Systolic Velocity (PSV) cm/sec ----- Left CCA: 70.9 ----- Left ICA: 79.0 ----- Left ECA: 80.1 ICA/CCA ratio: 1.1 LEFT: End Diastole cm/sec ----- Left CCA: 14.4 ----- Left ICA: 17.6 ----- Left ECA: 12.8 VERTEBRALS (direction of flow): Right Vertebral: Antegrade Left Vertebral: Antegrade Rhythm: Normal PLANER SETTER NOTES: Small amount of plaque seen in bulbs bilaterally IMPRESSION: Less than 50% stenosis of the bilateral carotid bifurcations. Criteria for Assigning % of Stenosis / Diameter reduction (Estimation based on the indirect measurements of the internal carotid artery velocities (ICA PSV). 1. Normal (no stenosis)=ICA PSV < 125 cm/s: ratio < 2.0: ICA EDV<40 cm/s. 2. Less than 50% stenosis=ICA PSV < 125 cm/s: ratio < 2.0: ICA EDV<40 cm/s. 3. 50 to 69% stenosis=ICA PSV of 125 to 230 cm/s: ration 2.0 ? 4.0: ICA EDV 40-100 cm/s. 4. Greater than 70% stenosis to near occlusion= ICA PSV > 230 cm/s: ratio > 4.0: ICA EDV > 100 cm/s. 5. Near occlusion= ICA PSV velocities may be low or undetectable: variable ratio and ICA EDV. 6. Total occlusion=unable to detect flow.
[2022-02-16] MEDS: MUPIROCIN 2% OINT 22 GM TUBE NASAL SCH (23:26)
[2022-02-17 02:21] LABS: Chol/HDL Ratio 3.21 Ratio; LDL Cholesterol,Calculated 112.9 mg/dL (0.0-131.0)
[2022-02-17 02:28] LABS: Hepatitis A Antibody IgM Nonreactive (Nonreactive); Hepatitis B Core IgM Nonreactive (Nonreactive); Hepatitis B Surface Antigen Nonreactive (Nonreactive); Hepatitis C IgG Antibody Nonreactive (Nonreactive)
[2022-02-17] MEDS ORDERED: HEPARIN SODIUM 1,000 UN/ML (10ML VL) IV ONE (08:22)
[2022-02-17] MEDS ORDERED: HEPARIN SODIUM 1,000 UN/ML (10ML VL) IV PRN (08:22)
[2022-02-17] MEDS: amLODIPine 5 MG TAB PO SCH (09:26)
[2022-02-17] MEDS: atenoloL 50 MG TAB PO SCH ×2 (09:26→20:57)
[2022-02-17] MEDS: ASPIRIN 81 MG PO SCH (09:26)
[2022-02-17] MEDS: ISOSORBIDE MONONITRATE ER 30 MG TAB.ER.24H PO SCH (09:27)
[2022-02-17] MEDS: THIAMINE 100 MG TAB PO SCH (09:27)
[2022-02-17] MEDS: hydrALAZINE HCL 25 MG TAB PO SCH ×2 (09:27→20:56)
[2022-02-17] MEDS: FOLIC ACID 1 MG TAB PO SCH (09:27)
[2022-02-17] MEDS: MUPIROCIN 2% OINT 22 GM TUBE NASAL SCH ×2 (09:27→20:57)
[2022-02-17] MEDS: FUROSEMIDE 20 MG TAB PO SCH (09:27)
[2022-02-17] MEDS: HEPARIN SOD,PORK IN 0.45% NACL 25,000 UNIT in 0.45% NACL 1 250ML.BAG IV SCH (09:35)
[2022-02-17] MEDS: SODIUM CHLORIDE 0.9% 1,000 ML in EMPTY BAG 1 BAG IV SCH ×2 (09:36→18:00)
--- NOTE | 2022-02-17 09:51 | P.PN ---
Subjective Progress Note Date: 02/17/22 Principal diagnosis: Coronary artery disease with critical left main stenosis, unstable angina. Previous medical history of hypertension, hyperlipidemia, daily EtOH use, previous tobacco dependence, osteoarthritis, and family history of premature coronary artery disease (father had myocardial infarction at age 55) The patient was seen and examined this morning with Dr. Stauffer sitting up in bed on the cardiac stepdown unit in no acute distress. He denies chest pain or shortness of breath currently. He has been ambulatory to and from the bathroom without difficulty. Preoperative testing was reviewed with Dr. Stauffer. Our plan is for myocardial revascularization with left internal mammary artery, left radial artery harvest, endoscopic vein harvest, and ligation of the left atrial appendage by Dr. Stauffer tomorrow, 02/18/2022. This was discussed in detail with the patient and he is in agreement. This was also discussed with Dr. Juárez and he is agreeable. Objective - Vital Signs Vital signs: Vital Signs Temp 97.4 F L 02/17/22 08:15 Pulse 71 02/17/22 08:15 Resp 17 02/17/22 08:15 BP 146/71 02/17/22 08:15 Pulse Ox 96 02/17/22 08:15 FiO2 Intake & Output 02/16/22 02/17/22 02/17/22 18:59 06:59 18:59 Intake Total 400 Balance 400 Weight 94.5 kg 93.1 kg Intake: IV 200 Intake, IV Titration 200 Amount Sodium Chloride 0.9% 1, 200 000 ml @ 75 mls/hr IV . [id number] [facility] Rx#:[id number] Other: Voiding Method Toilet Urinal # Voids 3 - Exam CONSTITUTIONAL: Appears comfortable, cooperative, no acute distress RESPIRATORY: Lungs sounds clear bilaterally. Respirations even, nonlabored. Currently on room air with oxygen saturation 95%. Strong cough. CARDIOVASCULAR: S1, S2 present. Regular rate and rhythm, sinus rhythm on telemetry. Palpable peripheral pulses bilaterally. Bilateral lower extremity edema present. No calf pain or tenderness noted. GASTROINTESTINAL: Abdomen soft, nontender, nondistended. Active bowel sounds present 4 quadrants. Tolerating diet. GENITOURINARY: Continues to void INTEGUMENTARY: Skin is warm and dry with evidence of good perfusion. NEUROLOGIC: Cranial nerves II through XII intact MUSKULOSKELETAL: Able to move all extremities, strength equal bilaterally, gait normal PSYCHIATRIC: Alert and oriented to person place and time, appropriate affect, intact judgment and insight - Allied health notes Allied health notes reviewed: nursing - Labs CBC & Chem 7: 02/16/22 18:19 02/16/22 18:19 Labs: Abnormal Lab Results - Last 24 Hours (Table) 02/16/22 02/16/22 Range/Units 18:19 18:19 Glucose 128 H (74-99) mg/dL Hemoglobin A1c 7.2 H (0.0-6.0) % Triglycerides 183.00 H (0.00-149.00) mg/dL Cholesterol 217.00 H (0.00-200.00) mg/dL HDL Cholesterol 67.50 H (40.00-60.00) mg/dL Microbiology - Last 24 Hours (Table) 02/16/22 16:38 Nasal Screen MRSA/MSSA - Preliminary Nasal Swab - Imaging and Cardiology Chest x-ray: report reviewed, image reviewed Assessment and Plan Assessment: 1. Coronary artery disease with critical left main stenosis, unstable angina 2. Preserved left ventricular systolic function, EF 55-60% 3. Mild mitral and tricuspid regurgitation on transthoracic echocardiogram from 01/27/2022 4. Newly diagnosed diabetes, hemoglobin A1c 7.2% 5. History of hypertension 6. Hyperlipidemia, cholesterol 217, LDL 113, triglycerides 183 7. Daily EtOH use, 8. Previous tobacco dependence 9. Severe COPD, FEV1 34% of predicted 10. Osteoarthritis 11. Family history of premature coronary artery disease (father had myocardial infarction at age 55) Plan: 1. Continue to maximize medical therapy with aspirin, statin, beta yessy, Lasix. IV heparin initiated, to be discontinued 2 hours prior to surgery 2. Incentive spirometry ordered and should be encouraged. 3. Bedside spirometry to be completed today. Will consult pulmonology for preoperative clearance 4. STS risk score calculated and discussed with the patient 5. Increase activity, ambulate as tolerated 6. Our plan is for myocardial revascularization with left internal mammary artery, left radial artery harvest, endoscopic vein harvest, and ligation of the left atrial appendage by Dr. Stauffer tomorrow, 02/18/2022 7. NPO after midnight 8. 5 meter walk test completed: #1 6.05 sec, #2 6.42 sec, #3 6.27 sec 9. More recommendations to follow based on patient's progress
[2022-02-17] MEDS ORDERED: THIAMINE 100 MG/ML 2 ML VIAL IM STA (12:18)
[2022-02-17] MEDS ORDERED: LORazepam 1 MG TAB PO PRN ×4 (12:21)
[2022-02-17] MEDS ORDERED: LORazepam 0.5 MG TAB PO PRN (12:21)
[2022-02-17] MEDS ORDERED: MD COMMUNICATION TO PHARMACY 1 EACH MISC PO ONE (12:55)
[2022-02-17] MEDS: MULTIVITAMINS, THERA 1 EACH TAB PO SCH (13:19)
--- NOTE | 2022-02-17 13:24 | P.CONS ---
History of Present Illness - Reason for Consult Consult date: 02/17/22 Medical management ETOH abuse, Requesting physician: Bo Juárez - Chief Complaint Chest pain - History of Present Illness This is a 76-year-old gentleman with past medical history of hypertension, osteoarthritis, hiatal hernia, remote nicotine dependence-quit smoking 40 years ago, ongoing daily alcohol use of 3-4 shots of bourbon or whiskey every night, pancreatitis, significant family history of CAD and multiple other medical issues.Reports having fluctuating burning midsternal chest pain accompanied by shortness of breath, over the last 6 months. Completed outpatient cardiac workup ; abnormal stress test 01/27/2022 with normal LV function, pulmonary hypertension. Cardiac catheterization completed yesterday reporting CAD with critical left main disease, severe disease involving distal RCA and ostial of the PDA , evaluated by cardiothoracic surgery-scheduled for CABG .Denies any fevers chills or sweats. Denies any nausea, vomiting, diarrhea. Denies const ipation, last bowel movement yesterday. Denies abdominal pain. Denies any lightheadedness dizziness or focal deficits. Denies any syncope. Telemetry sinus rhythm. Chest x-ray reporting borderline to mild cardiomegaly, no acute process seen. Chest CT brain no evidence of aortic aneurysm or intramural hematoma, ascending thoracic aorta within normal limits, mild arteriosclerosis of the aorta. Carotid Doppler reported less than 50% stenosis of the bilateral carotid bifurcations. Anticoagulated on heparin drip. Vital signs stable. Maintaining O2 sats in the mid 90s on room air. Renal function stable. Review of Systems ROS Statement: Those systems with pertinent positive or pertinent negative responses have been documented in the HPI. ROS Other: All systems not noted in ROS Statement are negative. Past Medical History Past Medical History: Chest Pain / Angina, Hyperlipidemia, Hypertension, Osteoarthritis (OA) Additional Past Medical History / Comment(s): pancreatitis, gout-under control. SEE DR. JUÁREZ'S H & P History of Any Multi-Drug Resistant Organisms: None Reported Past Surgical History: Cholecystectomy, Joint Replacement, Orthopedic Surgery, Tonsillectomy Additional Past Surgical History / Comment(s): BILAT cataract surgery, rt knee replacement, arthroscopy lt knee, MACULAR HOLE REPAIR Past Anesthesia/Blood Transfusion Reactions: No Reported Reaction Past Psychological History: No Psychological Hx Reported Smoking Status: Former smoker Past Alcohol Use History: Daily Additional Past Alcohol Use History / Comment(s): QUIT SMOKING 40 YEARS AGO. HAS 3 ALCOHOLIC DRINKS NIGHTLY Past Drug Use History: None Reported - Past Family History Sister(s) Family Medical History: Cancer Additional Family Medical History / Comment(s): cancer base of tongue Father Family Medical History: Myocardial Infarction ([place]) Medications and Allergies Home Medications Medication Instructions Recorded Confirmed Type Furosemide [Lasix] 20 mg PO DAILY 01/27/20 02/16/22 History Potassium Chloride ER [K-Dur 10] 10 meq PO HS 01/27/20 02/16/22 History amLODIPine [Norvasc] 5 mg PO DAILY 01/27/20 02/16/22 History atenoloL [Tenormin] 100 mg PO BID 01/27/20 02/16/22 History hydrALAZINE HCL 25 mg PO BID 01/27/20 02/16/22 History Multivitamins, Thera [Multivitamin 1 each PO 1200 tab 01/29/20 02/16/22 Rx (formulary)] Aspirin EC [Ecotrin Low Dose] 81 mg PO DAILY 02/14/22 02/16/22 History Isosorbide Mononitrate [Isosorbide 30 mg PO DAILY 02/14/22 02/16/22 History Mononitrate ER] Allergies Allergy/AdvReac Type Severity Reaction Status Date / Time No Known Allergies Allergy Verified 02/16/22 11:00 Physical Exam Vitals: Vital Signs Temp Pulse Pulse Resp BP Pulse Ox 02/17/22 08:15 97.4 F L 71 17 146/71 96 02/17/22 03:36 98.5 F 69 16 138/70 95 02/16/22 23:24 98.0 F 72 18 142/74 93 L 02/16/22 19:40 97.7 F 66 16 159/77 96 02/16/22 18:06 61 02/16/22 18:05 97.6 F 61 16 147/71 97 02/16/22 17:42 97.6 F 61 16 147/71 97 02/16/22 15:15 64 16 146/71 95 02/16/22 15:00 62 16 146/68 96 02/16/22 14:45 62 16 144/82 95 02/16/22 14:28 58 L 16 136/62 96 Intake and Output 02/16/22 02/17/2222 22:59 06:59 14:59 Intake Total 200 180 Output Total 650 Balance 200 -470 Intake: Intake, IV Titration 200 Amount Sodium Chloride 0.9% 1, 200 000 ml @ 75 mls/hr IV . [id number] [facility] Rx#:[id number] Oral 180 Output: Urine 650 Other: Voiding Method Toilet Urinal # Voids 3 Weight 94.5 kg 93.1 kg PHYSICAL EXAM: VITAL SIGNS: As above GENERAL: Sitting up in bed, no acute distress. HEENT: Conjunctivae normal. eyes normal. Oral mucosa moist. NECK: Supple, No JVD. No thyroid enlargement. No LNs CARDIOVASCULAR: S1, S2 regular. No murmur RESPIRATION: Breath sounds diminished in the bases. No rhonchi or crackles. No bronchial breathing. ABDOMEN: Soft, distended, mid epigastric tenderness. No guarding. no masses palpable. Positive Bowel sounds heard. LEGS: Bilateral lower extremity edema, 1+ PSYCHIATRY: Alert and oriented X3, mood and affect normal. NERVOUS SYSTEM: Cranial N 2-12 grossly normal. Moves all 4 limbs. No focal deficits. Strength and sensation grossly intact. Skin: Warm and dry, no rash Results CBC & Chem 7: 02/16/22 18:19 02/16/22 18:19 Labs: Abnormal Lab Results - Last 24 Hours (Table) 02/16/22 02/16/22 02/17/22 Range/Units 18:19 18:19 09:40 APTT (22.0-30.0) sec Glucose 128 H (74-99) mg/dL Hemoglobin A1c 7.2 H (0.0-6.0) % Triglycerides 183.00 H (0.00-149.00) mg/dL Cholesterol 217.00 H (0.00-200.00) mg/dL HDL Cholesterol 67.50 H (40.00-60.00) mg/dL Crossmatch See Detail 02/17/22 Range/Units 09:40 APTT 97.9 H (22.0-30.0) sec Glucose (74-99) mg/dL Hemoglobin A1c (0.0-6.0) % Triglycerides (0.00-149.00) mg/dL Cholesterol (0.00-200.00) mg/dL HDL Cholesterol (40.00-60.00) mg/dL Crossmatch Microbiology - Last 24 Hours (Table) 02/16/22 16:38 Nasal Screen MRSA/MSSA - Preliminary Nasal Swab Assessment and Plan Assessment: CAD with l critical left main disease, in a patient with family history of CAD, father had AL at age 55 [place] secondary to the above Daily alcohol abuse, reports 3-4 shots daily Diabetes mellitus, newly diagnosed, A1c 7.2 COPD History of nicotine dependence, quit smoking over 40 years ago History of Spinal stenosis Hypertension Hyperlipidemia Osteoarthritis Obesity, BMI 29.5 Plan: Continue on current medication regime ,monitoring and symptomatic treatment. IV fluid hydration. CIWA protocol initiated.PPI, beta yessy, statin, aspirin. Alcohol abstinence reinforced. Anticoagulated on heparin drip. Scheduled for CABG tomorrow. Prognosis guarded given multiple complex medical issues. Thank you for the consult. The impression and plan of care has been dictated as directed. : I performed a history and examination of this patient, discussed the same with the dictator. I agree with the dictator's note ,documented as a scribe. Any additional findings or plans will be noted.
[2022-02-17] MEDS ORDERED: IPRATROPIUM-ALBUTEROL 3 ML NEB INHALATION PRN (13:37)
--- NOTE | 2022-02-17 13:37 | P.CNPUL ---
History of Present Illness Consult date: 02/17/22 Requesting physician: Aniceto Stauffer Reason for consult: other (Preoperative pulmonary clearance) Chief complaint: Chest pain. History of present illness: This is a 76-year-old white male with history of multiple medical problems including hypertension, dyslipidemia, remote smoking history, patient had about a [id number] smoking history but he quit smoking 40 years ago. Patient has significant family history of early onset coronary artery disease, history of degenerative joint disease, drinks on the average of 3 glasses of liquor on a daily basis. Over the last few months, patient has been noticing burning sensation of the chest with activity. This was also associated with shortness o f breath. Patient was referred to cardiology, and apparently had abnormal stress test. This was further evaluated by cardiac catheterization. Which showed a critical left main stenosis in the range of 99.9%, 70% stenosis to proximal and midportion sugar of LAD severe disease noted in the distal RCA and the ostial of the PDA branch of the right coronary artery. Hence the patient was seen by cardiothoracic surgery, and he is scheduled to undergo myocardial revascularization tomorrow. Considering his smoking history, and considering his abnormal PFT, this consult was initiated. His PFT showed severe obstructive and restrictive lung disease. Although clinically the patient does not seem to be Obstructed. Nonetheless the patient is not active he has an extremely sedentary lifestyle for the last 3 years mostly because of his chronic low back pain and right hip pain secondary to degenerative joint disease patient has not been physically active for the last 2 or 3 years he has a very sedentary lifestyle. Denies cough denies wheezing denies shortness of breath at rest. Never been diagnosed with COPD, and never been on any bronchodilators. Review of Systems Constitutional: Negative HEENT: Negative Cardiac: As noted in HPI Pulmonary: As noted in HPI GI: Negative Genitourinary: Negative Musculoskeletal: Chronic low back, right hip, and right knee pain Hematologic: Negative Psychiatric: Negative Endocrine: Negative Neurologic: Negative Skin: The Past Medical History Past Medical History: Chest Pain / Angina, Hyperlipidemia, Hypertension, Osteoarthritis (OA) Additional Past Medical History / Comment(s): pancreatitis, gout-under control. SEE DR. BECK'S H & P History of Any Multi-Drug Resistant Organisms: None Reported Past Surgical History: Cholecystectomy, Joint Replacement, Orthopedic Surgery, Tonsillectomy Additional Past Surgical History / Comment(s): BILAT cataract surgery, rt knee replacement, arthroscopy lt knee, MACULAR HOLE REPAIR Past Anesthesia/Blood Transfusion Reactions: No Reported Reaction Past Psychological History: No Psychological Hx Reported Smoking Status: Former smoker Past Alcohol Use History: Daily Additional Past Alcohol Use History / Comment(s): QUIT SMOKING 40 YEARS AGO. HAS 3 ALCOHOLIC DRINKS NIGHTLY Past Drug Use History: None Reported - Past Family History Sister(s) Family Medical History: Cancer Additional Family Medical History / Comment(s): cancer base of tongue Father Family Medical History: Myocardial Infarction (SD) Medications and Allergies Home Medications Medication Instructions Recorded Confirmed Type Furosemide [Lasix] 20 mg PO DAILY 01/27/20 02/16/22 History Potassium Chloride ER [K-Dur 10] 10 meq PO HS 01/27/20 02/16/22 History amLODIPine [Norvasc] 5 mg PO DAILY 01/27/20 02/16/22 History atenoloL [Tenormin] 100 mg PO BID 01/27/20 02/16/22 History hydrALAZINE HCL 25 mg PO BID 01/27/20 02/16/22 History Multivitamins, Thera [Multivitamin 1 each PO 1200 tab 01/29/20 02/16/22 Rx (formulary)] Aspirin EC [Ecotrin Low Dose] 81 mg PO DAILY 02/14/22 02/16/22 History Isosorbide Mononitrate [Isosorbide 30 mg PO DAILY 02/14/22 02/16/22 History Mononitrate ER] Allergies Allergy/AdvReac Type Severity Reaction Status Date / Time No Known Allergies Allergy Verified 02/16/22 11:00 Physical Exam Vitals: Vital Signs Temp Pulse Pulse Resp BP Pulse Ox 02/17/22 08:15 97.4 F L 71 17 146/71 96 02/17/22 03:36 98.5 F 69 16 138/70 95 02/16/22 23:24 98.0 F 72 18 142/74 93 L 02/16/22 19:40 97.7 F 66 16 159/77 96 02/16/22 18:06 61 02/16/22 18:05 97.6 F 61 16 147/71 97 02/16/22 17:42 97.6 F 61 16 147/71 97 02/16/22 15:15 64 16 146/71 95 02/16/22 15:00 62 16 146/68 96 02/16/22 14:45 62 16 144/82 95 02/16/22 14:28 58 L 16 136/62 96 Intake and Output 02/16/22 02/17/22 02/17/22 22:59 06:59 14:59 Intake Total 200 180 Output Total 650 Balance 200 -470 Intake: Intake, IV Titration 200 Amount Sodium Chloride 0.9% 1, 200 000 ml @ 75 mls/hr IV . [id number] [facility] Rx#:[id number] Oral 180 Output: Urine 650 Other: Voiding Method Toilet Urinal # Voids 3 Weight 94.5 kg 93.1 kg Physical Exam: Revealed 76-year-old white male in no distress Head: Atraumatic, normocephalic. HEENT:[Neck is supple.] [No neck masses.] [No thyromegaly.] [No JVD.] Chest: Diminished breath sounds at the bases no crackles nor rhonchi no wheezes Cardiac Exam: [Normal S1 and S2, no S3 gallop, no murmur.] Abdomen: [Soft, nontender, no megaly, no rebound, no guarding, normal bowel sounds.] Extremities: [No clubbing, no edema, no cyanosis.] Neurological Exam: [No focal neurologic deficit.] Alert oriented 3 Psychiatric: Normal mood, affect and normal mental status examination. Skin: No rashes. Musculoskeletal: No deformities and no limitation in range of motion Results - Laboratory Findings CBC and BMP: 02/16/22 18:19 02/16/22 18:19 PT/INR, D-dimer PT 10.1 sec (9.0-12.0) 02/16/22 18:19 INR 0.9 (<1.2) 02/16/22 18:19 Abnormal lab findings: Abnormal Labs 02/16/22 02/16/22 02/17/22 18:19 18:19 09:40 APTT Glucose 128 H Hemoglobin A1c 7.2 H Triglycerides 183.00 H Cholesterol 217.00 H HDL Cholesterol 67.50 H Crossmatch See Detail 02/17/22 09:40 APTT 97.9 H Glucose Hemoglobin A1c Triglycerides Cholesterol HDL Cholesterol Crossmatch - Diagnostic Findings Chest x-ray: image reviewed (No evidence of active disease) CT scan - chest: image reviewed (CT of the chest showed no evidence of aortic aneurysm, no focal consolidation or pneumonia relatively unremarkable) Assessment and Plan Assessment: Impression: Severe coronary artery disease with critical left main stenosis Severe chronic obstructive pulmonary disease and some component of restrictive lung disease, FEV1 is in the range of 34% of the predicted. Newly diagnosed diabetes, hemoglobin A1c 7.2 Benign essential hypertension History of alcohol daily use Ex-smoker Family history of premature coronary artery disease Degenerative joint disease Recommendation: Patient is relatively high operative risk. However I believe that the benefits outweigh the risks at this point, clinically the patient looks better than actually seen on the PFT. Nonetheless the patient has a very sedentary lifestyle and inactive Patient will need to be placed on bronchodilators including DuoNeb updrafts and on Symbicort. Patient will start incentive spirometry Discussed and reviewed with the patient his overall clinical status. Decision to proceed with surgery will be up to the patient and the cardiothoracic surgeon on the case. We will continue to follow. Time with Patient: Greater than 30
[2022-02-17] MEDS: SYMBICORT 160-4.5 MCG INHALER INHALATION SCH (19:59)
[2022-02-17] MEDS: ATORVASTATIN 80 MG TAB PO SCH (20:56)
[2022-02-17] MEDS: POTASSIUM CHLORIDE ER 10 MEQ TAB.ER.PRT PO SCH (20:56)
--- NOTE | 2022-02-17 23:29 | PN ---
PROGRESS NOTE SUBJECTIVE: A 76-year-old gentleman, who is brought in electively for a cardiac catheterization that revealed severe left main stenosis for which he is to undergo bypass surgery, which will be done tomorrow. This morning, the patient is doing well and is free of symptoms. MEDICATIONS: Currently on: 1. Aspirin. 2. Norvasc. 3. Lipitor. 4. Imdur. 5. Intravenous heparin. LABORATORY DATA: Labs are not available from today. OBJECTIVE: GENERAL: Comfortable at rest. VITAL SIGNS: Stable. CHEST: Reveals good air entry bilaterally. HEART: Reveals first and second heart sounds. No gallop. ABDOMEN: Soft. EXTREMITIES: Did not reveal any edema. Peripheral pulses are felt. ASSESSMENT AND PLAN: Symptoms of unstable angina, status post cardiac cath showing severe left main stenosis. The patient will continue current medications and will undergo bypass surgery tomorrow. MMNAPOLEONL / DELVIS: [id number] /
[2022-02-18] MEDS ORDERED: CLEVIDIPINE BUTYRATE 25 MG in EMPTY BAG 1 BAG IV SCH (05:00)
[2022-02-18] MEDS ORDERED: ceFAZolin 1,000 MG in SODIUM CHLORIDE 0.9% IRRIGATIO 1,000 ML IRRIGATION ONE (05:00)
[2022-02-18] MEDS ORDERED: ELECTROLYTE-A SOLUTION 1,000 ML with POTASSIUM CHLORIDE 40 MEQ, MAGNESIUM SULFATE 16 ME... IV SCH ×5 (05:00)
[2022-02-18] MEDS ORDERED: ELECTROLYTE-A SOLUTION 1,000 ML with POTASSIUM CHLORIDE 100 MEQ, MAGNESIUM SULFATE 16 M... IV SCH ×5 (05:00)
[2022-02-18] MEDS ORDERED: HEPARIN SODIUM,PORCINE 5,000 UNIT in SODIUM CHLORIDE 0.9% 500 ML 500 ML IV ONE (05:00)
[2022-02-18] MEDS ORDERED: DILTIAZEM 125 MG in SODIUM CHLORIDE 0.9% 100 ML IV SCH (05:00)
[2022-02-18] MEDS ORDERED: SODIUM BICARB 8.4% 50 ML SYR (1 MEQ/ML) IV ONE (05:00)
[2022-02-18] MEDS ORDERED: LACTATED RINGERS 1,000 ML IV SCH ×2 (05:00→15:00)
[2022-02-18] MEDS ORDERED: TRANEXAMIC ACID 2,000 MG in SODIUM CHLORIDE 0.9% 80 ML IV ONE (05:00)
[2022-02-18] MEDS ORDERED: CALCIUM CHLORIDE 100 MG/ML 10 ML SYRINGE IVP ONE (05:00)
[2022-02-18] MEDS ORDERED: MANNITOL 25% 12.5 GM/50 ML VIAL IV ONE ×2 (05:00)
[2022-02-18] MEDS ORDERED: ALBUMIN HUMAN 5% 500 ML in EMPTY BAG 1 BAG IVPB ONE ×6 (05:00)
[2022-02-18] MEDS ORDERED: INSULIN REGULAR 100 UNIT in SODIUM CHLORIDE 0.9% 100 ML IV SCH (05:00)
[2022-02-18] MEDS ORDERED: PHENYLEPHRINE 40 MG in SODIUM CHLORIDE 0.9% 250 ML IV ONE (05:00)
[2022-02-18] MEDS ORDERED: HEPARIN SODIUM 1,000 UN/ML (10ML VL) IV ONE (05:00)
[2022-02-18] MEDS ORDERED: NITROGLYCERIN-D5W PMX 25 MG/250 ML BTL IV ONE (05:00)
[2022-02-18] MEDS ORDERED: CHLORHEXIDINE GLUCONATE 15 ML CUP MUCOUS MEM ONE (05:00)
[2022-02-18] MEDS ORDERED: NITROGLYCERIN-D5W PMX 50 MG in DEXTROSE/WATER 1 250ML.BAG IV SCH ×2 (05:00→15:00)
[2022-02-18] MEDS ORDERED: PROTAMINE SULFATE 250 MG in EMPTY BAG 1 BAG IV ONE (05:00)
[2022-02-18] MEDS ORDERED: ASPIRIN 325 MG TAB PO ONE (05:00)
[2022-02-18] MEDS ORDERED: PAPAVERINE 360 MG in SODIUM CHLORIDE 0.9% 90 ML IV ONE (05:00)
[2022-02-18] MEDS ORDERED: MAGNESIUM SULFATE 16.24 MEQ in EMPTY SYRINGE 1 SYR IV ONE (05:00)
[2022-02-18] MEDS ORDERED: PHENYLEPHRINE 10 MG/ML VIAL IV ONE (05:00)
[2022-02-18] MEDS ORDERED: METOPROLOL TARTRATE 12.5 MG TAB PO ONE (05:00)
[2022-02-18] MEDS ORDERED: ATORVASTATIN 10 MG TAB PO ONE (05:00)
[2022-02-18] MEDS ORDERED: ALBUMIN HUMAN 25% 50 ML in EMPTY BAG 1 BAG IVPB ONE (05:00)
[2022-02-18] MEDS ORDERED: PROTAMINE SULFATE 10 MG/ML 25 ML VIAL IV ONE ×2 (05:00→07:41)
[2022-02-18 05:08] LABS: Glucose,Whole Blood 149 mg/dL (70-110)
[2022-02-18] MEDS ORDERED: LACTATED RINGERS 1,000 ML IV ONE (06:11)
[2022-02-18] MEDS ORDERED: MAGNESIUM SULFATE 4 MEQ/ML 10ML VIAL ONE (07:41)
[2022-02-18] MEDS ORDERED: SODIUM CHLORIDE 0.9% IRRIG 1,000 ML BTL IRRIGATION ONE (07:41)
[2022-02-18] MEDS ORDERED: ELECTROLYTE-R (PH 7.4) 1,000 ML IV.SOLN IV ONE (07:41)
[2022-02-18] MEDS ORDERED: HEPARIN SODIUM,PORCINE 10,000 UNIT/ML 1 ML VIAL ONE (07:41)
[2022-02-18] MEDS ORDERED: POTASSIUM CHLORIDE OPEN HEART 20 MEQ/50 ML BAG IVPB ONE (07:41)
[2022-02-18] MEDS ORDERED: ALBUMIN HUMAN 5% (25gm) 500 ML VIAL IVPB ONE (07:41)
[2022-02-18] MEDS ORDERED: ePHEDrine 50 MG/ML 1 ML VIAL ONE (07:41)
[2022-02-18] MEDS ORDERED: VECURONIUM 10 MG VIAL IV ONE (07:41)
[2022-02-18] MEDS ORDERED: MIDAZOLAM HCL 10 MG/10 ML VIAL ONE (07:41)
[2022-02-18] MEDS ORDERED: LIDOCAINE 2% SYG (PF) 100 MG/5 ML ONE (07:41)
[2022-02-18] MEDS ORDERED: fentaNYL (PF) 50 MCG/ML 50 ML VIAL ONE (07:41)
[2022-02-18] MEDS ORDERED: PROPOFOL 10 MG/ML 20 ML VIAL IV ONE (07:41)
[2022-02-18] MEDS ORDERED: NITROGLYCERIN-D5W PMX 50 MG/250 ML BOTTLE IV ONE (07:41)
[2022-02-18] MEDS ORDERED: TRANEXAMIC ACID IN NACL,ISO-OS 1,000 MG/100 ML BAG ONE (07:41)
--- NOTE | 2022-02-18 08:01 | P.ANPRN ---
Procedure Note - Anesthesia - Invasive Line Right Arterial Line Time Out Performed: Yes Date of Procedure: 02/18/22 Time of Procedure: 07:00 Location of Patient: PreOp Preparation: Sterile Prep, Sterile Dressing Arterial Line Location: Radial Ultrasound Used: No Needle Guage: 20 Narrative: Right radial artery placed by AUTOCAD DESIGNER Right Central Line Time Out Performed: Yes Date of Procedure: 02/18/22 Time of Procedure: 07:30 Location of Patient: PreOp Preparation: Sterile Prep, Sterile Dressing Ultrasound Used: Yes Purpose - Visualization and Identification of Vasculature: Yes Needle Guage: 18 Image Stored and Saved: Yes Narrative: Central line placement per sterile protocol utilized. R IJ cordis placed using Seldinger technique Right [place] Teddy Time Out Performed: Yes Date of Procedure: 02/18/22 Time of Procedure: 07:40 Location of Patient: PreOp Preparation: Sterile Prep, Sterile Dressing Narrative: After cordis placed, the SWAN had all ports flushed and balloon tested. SWAN floated until RV and then PA waveforms obtained. Balloon deflated. Line secured at 42 cm.
[2022-02-18 08:39] LABS: ABG Base Excess 1.8 mmol/L; ABG Glucose Whole Blood 124 mg/dL (75-99); ABG HCO3 27 mmol/L (21-25); ABG Hematocrit 40 % (34.0-46.0); ABG Ionized Calcium 4.6 mg/dL (4.5-5.3); ABG Lactic Acid Whole Blood 0.8 mmol/L (0.5-1.6); ABG Oxygen Saturation 99.6 % (94-97); ABG PCO2 46 mmHg (35-45); ABG PH 7.39 (7.35-7.45); ABG Potassium Whole Blood 4.1 mmol/L (3.4-4.5); ABG Sodium Whole Blood 141 mmol/L (135-146); ABG TCO2 29 mmol/L (19-24)
[2022-02-18] MEDS ORDERED: THIAMINE 100 MG TAB PO SCH (09:00)
--- NOTE | 2022-02-18 09:21 | US ---
EXAMINATION TYPE: US vein mapping BILAT DATE OF EXAM: 02/16/2022 9:13 PM COMPARISON: NONE CLINICAL HISTORY: preop cardiac surgery. preop cardiac surgery SIDE PERFORMED: Bilateral TECHNIQUE: Lower extremity saphenous vein is examined and measured utilizing real time linear array sonography. DUPLEX FINDINGS: Greater Saphenous: Color flow seen Measurements in mm: Right Greater Saphenous: Groin: 4.4 x 3.7 mm High Thigh: 3.4 x 2.9 mm Mid Thigh: 3.1 x 2.1 mm Above Knee: 2.0 x 1.5 mm Knee: 3.7 x 3.1 mm Below Knee: 3.7 x 2.6 mm Mid Calf: 3.2 x 2.4 mm At Ankle: 4.6 x 3.4 mm Left Greater Saphenous: Groin: 5.5 x 4.9 mm High Thigh: 5.0 x 4.4 mm Mid Thigh: 6.1 x 5.0 mm Above Knee: 3.5 x 3.2 mm Knee: 4.3 x 3.4 mm Below Knee: 3.7 x 3.2 mm Mid Calf: 2.6 x 1.8 mm At Ankle: 4.7 x 3.6 mm IMPRESSION: 1. Bilateral GSV measurements listed above. 2. Performing surgeon to determine viability as conduit.
--- NOTE | 2022-02-18 09:23 | US ---
EXAMINATION TYPE: Pre-Operative Non-Invasive Evaluation of the hand for Potential Radial Artery Luis Felipe , Measurements only DATE OF EXAM: 02/16/2022 9:13 PM CLINICAL HISTORY: Preop CABG. heart cath today SIDE PERFORMED: Left TECHNIQUE: Radial artery is measured utilizing real time linear array sonography. Dominant hand: Right Duplex Findings: Radial Artery: Color flow seen Measurements in mm, transverse view: Left Radial: mm Proximal: 4.0 x 2.6 mm Mid: 3.2 x 3.2 mm Distal: 4.2 x 2.9 mm IMPRESSION: 1. Left radial artery measurements listed above. 2. Performing surgeon to determine viability as conduit.
[2022-02-18 10:13] LABS: ABG Base Excess 0.3 mmol/L; ABG Glucose Whole Blood 132 mg/dL (75-99); ABG HCO3 27 mmol/L (21-25); ABG Hematocrit 37 % (34.0-46.0); ABG Ionized Calcium 4.6 mg/dL (4.5-5.3); ABG Lactic Acid Whole Blood 0.8 mmol/L (0.5-1.6); ABG PCO2 49 mmHg (35-45); ABG PH 7.35 (7.35-7.45); ABG PO2 220 mmHg (83-108); ABG Potassium Whole Blood 4.2 mmol/L (3.4-4.5); ABG Sodium Whole Blood 141 mmol/L (135-146); ABG TCO2 28 mmol/L (19-24)
--- NOTE | 2022-02-18 10:44 | P.PN ---
Progress Note - Text Progress Note Date: 02/18/22 Patient not seen, in OR. The impression and plan of care has been dictated as directed. : I performed a history and examination of this patient, discussed the same with the dictator. I agree with the dictator's note ,documented as a scribe. Any additional findings or plans will be noted.
[2022-02-18 11:19] LABS: ABG Base Excess 1.3 mmol/L; ABG Glucose Whole Blood 143 mg/dL (75-99); ABG HCO3 25 mmol/L (21-25); ABG Hematocrit 27 % (34.0-46.0); ABG Ionized Calcium 4.1 mg/dL (4.5-5.3); ABG Lactic Acid Whole Blood 0.8 mmol/L (0.5-1.6); ABG Oxygen Saturation 99.7 % (94-97); ABG PCO2 37 mmHg (35-45); ABG PH 7.44 (7.35-7.45); ABG PO2 402 mmHg (83-108); ABG Potassium Whole Blood 5.2 mmol/L (3.4-4.5); ABG Sodium Whole Blood 137 mmol/L (135-146); ABG TCO2 27 mmol/L (19-24)
[2022-02-18] MEDS: SYMBICORT 160-4.5 MCG INHALER INHALATION SCH ×2 (12:03→22:03)
[2022-02-18 12:11] LABS: ABG Base Excess 1.2 mmol/L; ABG Glucose Whole Blood 155 mg/dL (75-99); ABG HCO3 26 mmol/L (21-25); ABG Hematocrit 26 % (34.0-46.0); ABG Ionized Calcium 4.1 mg/dL (4.5-5.3); ABG Lactic Acid Whole Blood 1.1 mmol/L (0.5-1.6); ABG Oxygen Saturation 99.3 % (94-97); ABG PCO2 40 mmHg (35-45); ABG PH 7.42 (7.35-7.45); ABG PO2 262 mmHg (83-108); ABG Potassium Whole Blood 5.3 mmol/L (3.4-4.5); ABG Sodium Whole Blood 137 mmol/L (135-146); ABG TCO2 27 mmol/L (19-24)
[2022-02-18 12:44] LABS: ABG Base Excess 0.8 mmol/L; ABG Glucose Whole Blood 162 mg/dL (75-99); ABG HCO3 26 mmol/L (21-25); ABG Hematocrit 25 % (34.0-46.0); ABG Ionized Calcium 4.1 mg/dL (4.5-5.3); ABG Lactic Acid Whole Blood 1.1 mmol/L (0.5-1.6); ABG Oxygen Saturation 99.8 % (94-97); ABG PCO2 44 mmHg (35-45); ABG PH 7.38 (7.35-7.45); ABG PO2 353 mmHg (83-108); ABG Potassium Whole Blood 4.9 mmol/L (3.4-4.5); ABG Sodium Whole Blood 139 mmol/L (135-146); ABG TCO2 27 mmol/L (19-24)
[2022-02-18 13:55] LABS: ABG Base Excess -1.7 mmol/L; ABG Glucose Whole Blood 106 mg/dL (75-99); ABG HCO3 23 mmol/L (21-25); ABG Hematocrit 26 % (34.0-46.0); ABG Ionized Calcium 4.1 mg/dL (4.5-5.3); ABG Lactic Acid Whole Blood 1.8 mmol/L (0.5-1.6); ABG Oxygen Saturation 98.5 % (94-97); ABG PCO2 39 mmHg (35-45); ABG PH 7.39 (7.35-7.45); ABG PO2 145 mmHg (83-108); ABG Potassium Whole Blood 3.6 mmol/L (3.4-4.5); ABG Sodium Whole Blood 142 mmol/L (135-146); ABG TCO2 24 mmol/L (19-24)
[2022-02-18 13:59] LABS: ABG PO2 >420 mmHg (83-108)
--- NOTE | 2022-02-18 14:35 | P.ANPRN ---
Procedure Note - Anesthesia - NOEMI Intraop Pre Bypass NOEMI Intraop - Anesthesia Indication: CAD Date of Procedure: 02/18/22 Pre-operative Diagnosis: CAD Post-operative Diagnosis: Same + MR, AI, TR Surgeon: Shree Marie Left Ventricle: EF 50% Ejection Fraction: Normal Regional Wall Motion Abnormalities: None Left Ventricle Hypertrophy: Yes R. Ventricle Function: Normal Anatomy: Trileaflet Aortic Stenosis: None Aortic Regurgitation: Trace Mitral Stenosis: None Mitral Regurgitation: Trace Tricuspid Stenosis: None Tricuspid Regurgitation: Trace Pulmonic Stenosis: None Pulmonic Regurgitation: None R. Atrial Dilation: No R. Atrial PFO: No L. Atrial Dilation: No Aortic Dissection: No Aortic Calcification: Moderate Plural Effusion: None - NOEMI Intraop Post Bypass NOEMI Intraop Post Bypass Procedure Performed: CABG x 4 + LA appendage ligation Ejection Fraction: Normal Regional Wall Motion Abnormalities: None R. Ventricle Function: Normal Aortic Valve: Unchanged Mitral Valve: Unchanged Tricuspid: Unchanged Pulmonic: Unchanged Aortic Dissection: No
[2022-02-18 14:59] LABS: Glucose,Whole Blood 100 mg/dL (70-110)
[2022-02-18] MEDS ORDERED: METOCLOPRAMIDE 5 MG/ML 2 ML VIAL IVP PRN (15:00)
[2022-02-18] MEDS ORDERED: DEXTROSE 50% SYRINGE 50 ML IVP PRN ×2 (15:00)
[2022-02-18] MEDS ORDERED: IPRATROPIUM-ALBUTEROL 3 ML NEB INHALATION PRN (15:00)
[2022-02-18] MEDS ORDERED: Potassium Replacement Protocol 1 EACH MISC MISCELLANE PRN (15:00)
[2022-02-18] MEDS ORDERED: AMIODARONE 360 MG in DEXTROSE 5% IN WATER 200 ML IV PRN ×2 (15:00)
[2022-02-18] MEDS ORDERED: BENZOCAINE/MENTHOL LOZENG 1 EACH LOZENGE MUCOUS MEM PRN (15:00)
[2022-02-18] MEDS ORDERED: hydrALAZINE HCL 20 MG/ML 1 ML VIAL IVP PRN (15:00)
[2022-02-18] MEDS ORDERED: DEXMEDETOMIDINE/0.9% NACL(PMX) 400 MCG in EMPTY BAG 1 BAG IV SCH (15:00)
[2022-02-18] MEDS ORDERED: ONDANSETRON 4 MG/2 ML VIAL IVP PRN (15:00)
[2022-02-18] MEDS ORDERED: Magnesium Replacement Protocol 1 EACH MISC MISCELLANE PRN (15:00)
[2022-02-18] MEDS: ALBUMIN HUMAN 5% 250 ML in EMPTY BAG 1 BAG IVPB PRN ×3 (15:14→21:25)
--- NOTE | 2022-02-18 15:14 | P.OP ---
Date of Procedure: 02/18/22 Preoperative Diagnosis: NSTEMI with 3v CAD HTN HLD Postoperative Diagnosis: Same Procedure(s) Performed: 1. Coronary artery bypass grafting x 4. Left internal thoracic artery sequential to diagonal and left anterior descending artery. Left radial artery from aorta to obtuse marginal artery. Saphenous vein from aorta to posterior lateral artery. 2. Endoscopic left radial and right greater saphenous vein harvest 3. Left atrial appendage ligation with #35mm AtriClip 4. Graft flow measurements using MediStim flow meter 5. Trans-esophageal echo Anesthesia: GETA Surgeon: Aniceto Stauffer Estimated Blood Loss (ml): 500 Pathology: none sent Condition: critical Disposition: ICU Indications for Procedure: This patient is a 76 year-old male who presents with angina equivalent symptoms and underwent coronary angiography which revealed severe 3v coronary artery disease including 99% left main coronary artery stenosis. He was diagnosed with NSTEMI and surgical revascularization was recommended. All risks, benefits and alternatives including his STS risk of morbidity and mortality was discussed with the patient and his family. He was in agreement to proceed. Operative Findings: CARREON 1.75mm good conduit, Diagonal 1.5mm good target, LAD 1.5mm heavily dise ased. [id number] flow 13ml/min, P.I. 2.4 Radial artery 2.25mm good conduit, obtuse marginal 1.5mm good target, flow 17 ml/min, P.I. 3.6 Saphenous vein 2mm good conduit, Posterior lateral branch 1.5mm decent target. PDA was too small for bypass. Flow 14 ml/min, P.I. 9.6 Description of Procedure: The patient underwent central line, arterial line, and [place] Teddy catheter p lacement in the pre-operative suite by the anesthesia team. The patient was then brought to the operating room and placed in the supine position. General anesthesia was induced and the patient was prepped from the chin to the ankles in the usual sterile fashion. A time-out was performed and antibiotics were given. A midline incision was made on the chest and carried down to bone. A median sternotomy was performed. Hemostasis on the bone was achieved using electrocautery. The left pleura was entered and the left internal thoracic artery was harvested in a skeletonized fashion. Simultaneously a physician assistant secretary harvested the right greater saphenous vein as well as the left radial artery in an endoscopic fashion. The patient was systemically heparinized and the CANDI was transected and placed in a papaverine jacuzzi. A left sided chest tube was placed. The pericardium was incised in a T-fashion and a pericardial cradle was created. The patients aortic arch and right atrial appendage were cannulated for arterial and venous cannulation. Pledgets were used on the arch cannulation site. Antegrade and retrograde cannulas were placed. The conduit was examined, prepared and the, radial artery and GSV was of good quality. Cardiopulmonary bypass was instituted once ACT >480. The targets were examined and the heart was arrested using antegrade and retrograde cardioplegia. Retrograde cardioplegia was re-dosed every 15 minutes. The PDA was too small for grafting. The posterolateral branch of the right coronary artery was exposed and an arteriotomy was created in the vessel which was a 1.5mm and a decent target. An end to side anastomosis was performed with the GSV to the DANNY using a running 7- 0 Prolene. Then, a 35mm AtriClip was placed on the left atrial appendage effectively ligating it. The obtuse marginal branch was dissected out and an arteriotomy was made. This was a 1.5mm vessel and a decent target. An end to side anastomosis was performed with radial artery to OM using a running 7-0 Prolene. The pericardium was then incised to create a pathway for the CARREON. Care was taken to avoid injury to phrenic nerve. Next the diagonal branch of the LAD was dissected out. This was a 1.5mm vessel and a decent target. A side to side anastomosis was created between the CANDI and the diagonal artery using a running 7-0 prolene. Lastly, the CANDI was anastomosed to the mid LAD in an end to side fashion using a running 7-0 Prolene. The LAD was 1.5mm and heavily diseased throughout. We were able to find a soft area for anastomosis but the back wall was diseased here. Next, radial artery and saphenous vein were fastened to the ascending aorta in an end to side fashion using a running 6-0 prolene. The patient was placed in the Trendelenburg position and the clamp was removed. Graft flow measurements were taken using the Medi-Stim device and they were excellent. Ventricular wires were placed and all of the distals were checked for hemostasis. The patient was weaned off cardiopulmonary bypass and decannulated requiring mild pressors and no inotropes. The pericardium was left open. A 32F chest tube was placed in the mediastinum and the sternum was re-approximated using cables. The fascia was closed with Ethibond and the subcutaneous tissues and skin, the sternum, arm and leg were closed in Vicryl layers. The patient was transported to the ICU without any major complications. NOEMI showed that EF was about 55% at the conclusion of the case with all rod moving well.
[2022-02-18 15:24] LABS: Basophils % (A) 0 %; Eosinophils # (A) 0.1 k/uL (0-0.7); Eosinophils % (A) 1 %; HCT 23.8 % (39.0-53.0); Lymphocytes # (A) 0.8 k/uL (1.0-4.8); Lymphocytes % (A) 14 %; MCH 33.2 pg (25.0-35.0); MCV 97.5 fL (80.0-100.0); Mean Platelet Volume 9.9; Monocytes # (A) 0.2 k/uL (0-1.0); Monocytes % (A) 4 %; Neutrophils # (A) 4.5 k/uL (1.3-7.7); Neutrophils % (A) 81 %; RBC 2.44 m/uL (4.30-5.90); WBC 5.6 k/uL (3.8-10.6)
[2022-02-18 15:31] LABS: ABG Base Excess -0.5 mmol/L; ABG HCO3 24 mmol/L (21-25); ABG PCO2 39 mmHg (35-45); ABG PO2 392 mmHg (83-108); ABG TCO2 26 mmol/L (19-24); Allen Test Performed? Yes
[2022-02-18 15:32] LABS: HGB 8.1 gm/dL (13.0-17.5)
[2022-02-18 15:34] LABS: INR 1.3 (<1.2); Partial Thromboplastin Time 42.4 sec (22.0-30.0); Prothrombin Time 13.3 sec (9.0-12.0)
[2022-02-18] MEDS: IPRATROPIUM-ALBUTEROL 3 ML NEB INHALATION SCH ×2 (15:37→19:50)
--- NOTE | 2022-02-18 15:42 | XR ---
EXAMINATION TYPE: XR chest 1V portable DATE OF EXAM: 02/18/2022 CLINICAL HISTORY: Post open cardiac surgery. TECHNIQUE: Single AP portable, upright view of the chest is obtained. COMPARISON: Chest x-ray from 2 days earlier FINDINGS: There is new endotracheal tube terminating just above the jose consider pulling back 3 t o 4 cm to be in more ideal position. There is right internal jugular [place] catheter terminating a t level of pulmonary outflow tract. There is left-sided chest tube. Overlying sternal wires and media stinal clips along with left atrial appendage clip are all now identified. There is left-sided chest tube and mediastinal drainage catheter. New left lung opacity with more focal left basilar consolidation. Right lung remains clear. No pneumo thorax seen bilaterally. New left apical curvilinear density or pleural fluid collection. Surgical cl ips in the epigastric region are seen. Osseous structures are intact. Cardiomegaly remains present. IMPRESSION: 1. New tubes and lines as noted above. Low-lying endotracheal tube present, consider pulling back. No nvisualized orogastric tube. Correlate clinically. 2. Diffuse left lung edema and small left pleural fluid collection. Left basilar consolidation and/or atelectasis. Left-sided chest tube without pneumothorax. All findings are new from prior study. Stab le cardiomegaly redemonstrated.
[2022-02-18 15:43] LABS: Ionized Calcium 4.5 mg/dL (4.5-5.3)
--- NOTE | 2022-02-18 15:47 | P.PN ---
Subjective Progress Note Date: 02/18/22 This is a 76-year-old white male with history of multiple medical problems including hypertension, dyslipidemia, remote smoking history, patient had about a [id number] smoking history but he quit smoking 40 years ago. Patient has significant family history of early onset coronary artery disease, history of degenerative joint disease, drinks on the average of 3 glasses of liquor on a daily basis. Over the last few months, patient has been noticing burning sensation of the chest with activity. This was also associated with shortness of breath. Patient was referred to cardiology, and apparently had abnormal stress test. This was further evaluated by cardiac catheterization. Which showed a critical left main stenosis in the range of 99.9%, 70% stenosis to proximal and midportion sugar of LAD severe disease noted in the distal RCA and the ostial of the PDA branch of the right coronary artery. Hence the patient was seen by cardiothoracic surgery, and he is scheduled to undergo myocardial revascularization tomorrow. Considering his smoking history, and considering his abnormal PFT, this consult was initiated. His PFT showed severe obstructive and restrictive lung disease. Although clinically the patient does not seem to be Obstructed. Nonetheless the patient is not active he has an extremely sedentary lifestyle for the last 3 years mostly because of his chronic low back pain and right hip pain secondary to degenerative joint disease patient has not been physically active for the last 2 or 3 years he has a very sedentary lifestyle. Denies cough denies wheezing denies shortness of breath at rest. Never been diagnosed with COPD, and never been on any bronchodilators. The patient is seen today 02/18/2022 in follow-up in the immediate postoperative period in the intensive care unit. He had undergone coronary artery bypass grafting 4. CARREON sequential to diagonal and LAD, left radial artery to the obtuse marginal artery and a saphenous vein graft to the posterior lateral artery. Left atrial appendage ligation with a thick #35 mm atrophic clip. He is currently intubated on mechanical ventilator at settings of assist control mode at a rate of 14, tidal volume 550, FiO2 100% and a PEEP of 5. Blood gases revealed a PaO2 of 392, pCO2 39, pH 7.40. He is on a nitroglycerin drip at 5 mcg/m. Propofol at 25 mcg/kg/m. He initially was on norepinephrine at 0.01 mg/ m. He is receiving albumin. He has left pleural chest tubes 2 and a mediastinal chest tube in place. Cardiac output 4.3. Index 2.0. White count 5.6. Hemoglobin 8.1. INR 1.3. Glucose 100. Objective - Vital Signs Vital signs: Vital Signs Temp 97.0 F L 02/18/22 06:12 Pulse 65 02/18/22 06:12 Resp 16 02/18/22 06:12 BP 144/82 02/18/22 06:12 Pulse Ox 96 02/18/22 06:12 FiO2 45 02/18/22 15:35 Intake & Output 02/17/22 02/18/22 02/18/22 18:59 06:59 18:59 Intake Total 540 195 53 Output Total 9139 918 5362 Balance -749 -889 -9504 Weight 92 kg 92 kg Intake: IV 53 Intake, IV Titration 195 Amount Heparin Sod,Pork in 0.45% 195 NaCl 25,000 unit In 0.45 % NaCl 1 250ml.bag @ 10. 741 UNITS/KG/HR 10 mls/hr IV .Q24H FORMERLY [facility], 1928–1983 Rx#: [id number] Oral 540 Output: Urine 1500 900 600 Estimated Blood Loss 1800 Other: Voiding Method Toilet Urinal - Exam GENERAL EXAM: Intubated, sedated 76-year-old male patient, comfortable in no apparent distress. HEAD: Normocephalic. EYES: Sluggish reaction of pupils, equal size. NOSE: Clear with pink turbinates. THROAT: No erythema or exudates. NECK: Right IJ [place]-Teddy catheter in place. No masses, no JVD. CHEST: Sternal dressing dry and intact. Heart Hugger in place. Left-sided and mediastinal chest tubes in place. LUNGS: Equal air entry with no crackles, wheeze, rhonchi or dullness. CVS: S1 and S2 normal with no audible murmur, regular rhythm. ABDOMEN: No hepatosplenomegaly, normal bowel sounds, no guarding or rigidity. SPINE: No scoliosis or deformity SKIN: No rashes CENTRAL NERVOUS SYSTEM: Sedated, tone is normal in all 4 extremities. EXTREMITIES: SCDs in place. There is no peripheral edema. No clubbing, no cyanosis. Peripheral pulses are intact. - Labs CBC & Chem 7: 02/18/22 14:55 02/16/22 18:19 Labs: Abnormal Lab Results - Last 24 Hours (Table) 02/17/22 02/18/22 02/18/22 Range/Units 09:40 05:06 08:39 RBC (4.30-5.90) m/uL Hgb (13.0-17.5) gm/dL Hct (39.0-53.0) % PT (9.0-12.0) sec INR (<1.2) APTT (22.0-30.0) sec ABG pCO2 46 H (35-45) mmHg ABG pO2 >420 H (83-108) mmHg ABG HCO3 27 H (21-25) mmol/L ABG Total CO2 29 H (19-24) mmol/L ABG O2 Saturation 99.6 H (94-97) % ABG Hematocrit (34.0-46.0) % ABG Potassium (3.4-4.5) mmol/L ABG Ionized Calcium (4.5-5.3) mg/dL ABG Glucose 124 H (75-99) mg/dL ABG Lactic Acid (0.5-1.6) mmol/L Hemoglobin (13.0-17.5) gm/dL POC Glucose (mg/dL) 149 H (70-110) mg/dL Arterial Blood Potassium (3.4-4.5) mmol/L Arterial Blood Glucose 124 H (75-99) mg/dL Crossmatch See Detail 02/18/22 02/18/22 02/18/22 Range/Units 10:13 11:19 12:11 RBC (4.30-5.90) m/uL Hgb (13.0-17.5) gm/dL Hct (39.0-53.0) % PT (9.0-12.0) sec INR (<1.2) APTT (22.0-30.0) sec ABG pCO2 49 H (35-45) mmHg ABG pO2 220 H 402 H 262 H (83-108) mmHg ABG HCO3 27 H 26 H (21-25) mmol/L ABG Total CO2 28 H 27 H 27 H (19-24) mmol/L ABG O2 Saturation 99.0 H 99.7 H 99.3 H (94-97) % ABG Hematocrit 27 L 26 L (34.0-46.0) % ABG Potassium 5.2 H 5.3 H (3.4-4.5) mmol/L ABG Ionized Calcium 4.1 L 4.1 L (4.5-5.3) mg/dL ABG Glucose 132 H 143 H 155 H (75-99) mg/dL ABG Lactic Acid (0.5-1.6) mmol/L Hemoglobin 11.9 L 8.8 L 8.6 L (13.0-17.5) gm/dL POC Glucose (mg/dL) (70-110) mg/dL Arterial Blood Potassium 5.2 H 5.3 H (3.4-4.5) mmol/L Arterial Blood Glucose 132 H 143 H 155 H (75-99) mg/dL Crossmatch 02/18/22 02/18/22 02/18/22 Range/Units 12:43 13:55 14:55 RBC 2.44 L (4.30-5.90) m/uL Hgb 8.1 L D (13.0-17.5) gm/dL Hct 23.8 L (39.0-53.0) % PT (9.0-12.0) sec INR (<1.2) APTT (22.0-30.0) sec ABG pCO2 (35-45) mmHg ABG pO2 353 H 145 H (83-108) mmHg ABG HCO3 26 H (21-25) mmol/L ABG Total CO2 27 H (19-24) mmol/L ABG O2 Saturation 99.8 H 98.5 H (94-97) % ABG Hematocrit 25 L 26 L (34.0-46.0) % ABG Potassium 4.9 H (3.4-4.5) mmol/L ABG Ionized Calcium 4.1 L 4.1 L (4.5-5.3) mg/dL ABG Glucose 162 H 106 H (75-99) mg/dL ABG Lactic Acid 1.8 H (0.5-1.6) mmol/L Hemoglobin 8.1 L 8.6 L (13.0-17.5) gm/dL POC Glucose (mg/dL) (70-110) mg/dL Arterial Blood Potassium 4.9 H (3.4-4.5) mmol/L Arterial Blood Glucose 162 H 106 H (75-99) mg/dL Crossmatch 02/18/22 02/18/22 Range/Units 14:55 15:29 RBC (4.30-5.90) m/uL Hgb (13.0-17.5) gm/dL Hct (39.0-53.0) % PT 13.3 H (9.0-12.0) sec INR 1.3 H (<1.2) APTT 42.4 H (22.0-30.0) sec ABG pCO2 (35-45) mmHg ABG pO2 392 H (83-108) mmHg ABG HCO3 (21-25) mmol/L ABG Total CO2 26 H (19-24) mmol/L ABG O2 Saturation 100.0 H (94-97) % ABG Hematocrit (34.0-46.0) % ABG Potassium (3.4-4.5) mmol/L ABG Ionized Calcium (4.5-5.3) mg/dL ABG Glucose (75-99) mg/dL ABG Lactic Acid (0.5-1.6) mmol/L Hemoglobin (13.0-17.5) gm/dL POC Glucose (mg/dL) (70-110) mg/dL Arterial Blood Potassium (3.4-4.5) mmol/L Arterial Blood Glucose (75-99) mg/dL Crossmatch Microbiology - Last 24 Hours (Table) 02/16/22 16:38 Nasal Screen MRSA/MSSA - Final Nasal Swab Assessment and Plan Assessment: Severe coronary artery disease with critical left main stenosis. Status post coronary artery bypass grafting 4. CARREON to the diagonal and LAD. Left radial artery to the obtuse marginal artery, saphenous vein graft to the posterior lateral artery. Postoperative day #0. Severe chronic obstructive pulmonary disease and some component of restrictive lung disease, FEV1 is in the range of 34% of the predicted. Newly diagnosed diabetes, hemoglobin A1c 7.2 Benign essential hypertension History of alcohol daily use Ex-smoker Family history of premature coronary artery disease Degenerative joint disease Plan: The patient was seen and evaluated Chest x-ray, ABGs and labs reviewed Decrease the FiO2 to 45% Plan for early extubation protocol as tolerated We will continue to follow make further recommendations based on his clinical status I have personally seen and examined the patient, performed the documentation and the assessment and plan as written. Number of minutes spent on the visit: 15.
[2022-02-18 15:56] LABS: ALT 30 U/L (4-49); AST 86 U/L (17-59); African American GFR (CKD) >90 (>60 ml/min/1.73 sqM); Alkaline Phosphatase 32 U/L (38-126); Anion Gap 4 mmol/L; Blood Urea Nitrogen 15 mg/dL (9-20); Carbon Dioxide 24 mmol/L (22-30); Chloride 111 mmol/L (98-107); Glucose 88 mg/dL (74-99); Magnesium 2.8 mg/dL (1.6-2.3); Non-African American GFR(CKD) 86 (>60 ml/min/1.73 sqM); Potassium 4.4 mmol/L (3.5-5.1); Sodium 139 mmol/L (137-145); Total Bilirubin 1.4 mg/dL (0.2-1.3); Total Protein 4.4 g/dL (6.3-8.2)
[2022-02-18 16:11] LABS: Glucose,Whole Blood 93 mg/dL (70-110)
[2022-02-18 16:12] LABS: Platelet Count 65 k/uL (150-450)
[2022-02-18] MEDS: HEPARIN SOD,PORK IN 0.45% NACL 25,000 UNIT in 0.45% NACL 1 250ML.BAG IV SCH (16:43)
[2022-02-18] MEDS: SODIUM CHLORIDE 0.9% 1,000 ML in EMPTY BAG 1 BAG IV SCH (16:43)
[2022-02-18] MEDS: FOLIC ACID 1 MG TAB PO SCH (16:44)
[2022-02-18] MEDS: MULTIVITAMINS, THERA 1 EACH TAB PO SCH (16:44)
[2022-02-18] MEDS: THIAMINE 100 MG TAB PO SCH (16:44)
[2022-02-18] MEDS: CLEVIDIPINE BUTYRATE 25 MG in EMPTY BAG 1 BAG IV SCH (16:44)
[2022-02-18] MEDS: HEPARIN SODIUM,PORCINE/PF 5,000 UNIT/0.5 ML SYRINGE SQ SCH ×2 (17:01→23:26)
[2022-02-18 17:14] LABS: Glucose,Whole Blood 112 mg/dL (70-110)
[2022-02-18 17:57] LABS: Glucose,Whole Blood 121 mg/dL (70-110)
[2022-02-18] MEDS: INSULIN REGULAR 100 UNIT in SODIUM CHLORIDE 0.9% 100 ML IV SCH (18:00)
[2022-02-18] MEDS: ACETAMINOPHEN IV (For NPO) 1,000 MG in EMPTY BAG 1 BAG IVPB SCH ×2 (18:19→23:26)
[2022-02-18 18:36] LABS: Basophils % (A) 0 %; Eosinophils % (A) 1 %; HCT 22.1 % (39.0-53.0); HGB 7.5 gm/dL (13.0-17.5); Lymphocytes # (A) 0.4 k/uL (1.0-4.8); Lymphocytes % (A) 5 %; MCH 33.3 pg (25.0-35.0); MCHC 33.8 g/dL (31.0-37.0); MCV 98.5 fL (80.0-100.0); Mean Platelet Volume 9.6; Monocytes # (A) 0.4 k/uL (0-1.0); Monocytes % (A) 6 %; Neutrophils % (A) 89 %; RBC 2.25 m/uL (4.30-5.90); RDW 12.4 % (11.5-15.5); WBC 7.9 k/uL (3.8-10.6)
[2022-02-18 18:37] LABS: Platelet Count 70 k/uL (150-450)
[2022-02-18 19:00] LABS: Glucose,Whole Blood 128 mg/dL (70-110)
[2022-02-18 19:59] LABS: Glucose,Whole Blood 132 mg/dL (70-110)
[2022-02-18 20:40] LABS: ABG Base Excess -1.6 mmol/L; ABG HCO3 24 mmol/L (21-25); ABG Oxygen Saturation 98.6 % (94-97); ABG PCO2 42 mmHg (35-45); ABG PH 7.36 (7.35-7.45); ABG PO2 107 mmHg (83-108); ABG TCO2 25 mmol/L (19-24); Allen Test Performed? Yes
[2022-02-18 21:20] LABS: Glucose,Whole Blood 133 mg/dL (70-110)
[2022-02-18] MEDS: NOREPINEPHRINE 4 MG in SODIUM CHLORIDE 0.9% 250 ML IV SCH (21:35)
[2022-02-18 21:38] LABS: Basophils % (A) 0 %; Eosinophils # (A) 0.1 k/uL (0-0.7); Eosinophils % (A) 1 %; HGB 7.4 gm/dL (13.0-17.5); Lymphocytes # (A) 0.3 k/uL (1.0-4.8); Lymphocytes % (A) 3 %; MCH 34.6 pg (25.0-35.0); MCHC 35.1 g/dL (31.0-37.0); MCV 98.6 fL (80.0-100.0); Mean Platelet Volume 9.4; Monocytes # (A) 0.4 k/uL (0-1.0); Monocytes % (A) 5 %; Neutrophils # (A) 7.5 k/uL (1.3-7.7); Neutrophils % (A) 91 %; RBC 2.13 m/uL (4.30-5.90); WBC 8.3 k/uL (3.8-10.6)
[2022-02-18 21:52] LABS: Platelet Count 84 k/uL (150-450)
[2022-02-18 21:55] LABS: Glucose,Whole Blood 127 mg/dL (70-110)
[2022-02-18 22:52] LABS: Glucose,Whole Blood 120 mg/dL (70-110)
[2022-02-18 23:56] LABS: Glucose,Whole Blood 119 mg/dL (70-110)
[2022-02-19 00:52] LABS: Glucose,Whole Blood 118 mg/dL (70-110)
[2022-02-19 01:54] LABS: Glucose,Whole Blood 119 mg/dL (70-110)
[2022-02-19] MEDS ORDERED: HYDROcodone/APAP 5-325MG 1 EACH TAB PO PRN ×2 (02:13)
[2022-02-19 02:56] LABS: Glucose,Whole Blood 116 mg/dL (70-110)
[2022-02-19 03:58] LABS: Glucose,Whole Blood 112 mg/dL (70-110)
[2022-02-19 04:15] LABS: Basophils % (A) 0 %; Eosinophils # (A) 0.2 k/uL (0-0.7); Eosinophils % (A) 2 %; HCT 21.2 % (39.0-53.0); HGB 7.1 gm/dL (13.0-17.5); Lymphocytes % (A) 9 %; MCH 33.1 pg (25.0-35.0); MCHC 33.5 g/dL (31.0-37.0); MCV 98.7 fL (80.0-100.0); Mean Platelet Volume 10.8; Monocytes # (A) 0.7 k/uL (0-1.0); Monocytes % (A) 7 %; Neutrophils # (A) 8.5 k/uL (1.3-7.7); Neutrophils % (A) 81 %; RBC 2.15 m/uL (4.30-5.90); RDW 12.3 % (11.5-15.5); WBC 10.5 k/uL (3.8-10.6)
[2022-02-19 04:21] LABS: Ionized Calcium 4.6 mg/dL (4.5-5.3)
[2022-02-19 04:22] LABS: Platelet Count 95 k/uL (150-450)
[2022-02-19 04:27] LABS: Albumin 3.3 g/dL (3.5-5.0); Calcium 7.3 mg/dL (8.4-10.2); Magnesium 2.5 mg/dL (1.6-2.3); Potassium 5.2 mmol/L (3.5-5.1); Total Bilirubin 0.8 mg/dL (0.2-1.3); Total Protein 4.6 g/dL (6.3-8.2)
[2022-02-19 04:57] LABS: Glucose,Whole Blood 119 mg/dL (70-110)
[2022-02-19 06:02] LABS: Glucose,Whole Blood 166 mg/dL (70-110)
[2022-02-19] MEDS: ALBUMIN HUMAN 5% 250 ML in EMPTY BAG 1 BAG IVPB PRN ×3 (06:15→07:25)
[2022-02-19] MEDS: DOPamine DRIP 800 MG in DEXTROSE/WATER 1 250ML.BAG IV SCH (06:29)
[2022-02-19 06:52] LABS: Glucose,Whole Blood 145 mg/dL (70-110)
[2022-02-19] MEDS ORDERED: MD COMMUNICATION TO PHARMACY 1 EACH MISC PO PRN (07:19)
[2022-02-19] MEDS: IPRATROPIUM-ALBUTEROL 3 ML NEB INHALATION SCH ×4 (07:21→20:07)
[2022-02-19] MEDS: SYMBICORT 160-4.5 MCG INHALER INHALATION SCH ×2 (07:21→20:07)
--- NOTE | 2022-02-19 07:38 | XR ---
EXAMINATION TYPE: XR chest 1V portable DATE OF EXAM: 02/19/2022 6:16 AM COMPARISON: Chest radiographs from 02/18/2022 TECHNIQUE: XR chest 1V portable Portable AP radiograph of the chest. CLINICAL INDICATION:Male, 76 years old with history of Post Operative Cardiac Surgery; FINDINGS: Lungs/Pleura: Stable appearance of the left lung base presumably atelectasis. Pulmonary vascularity: Unremarkable. Heart/mediastinum: Cardiomediastinal silhouette is enlarged and stable. Left atrial appendage occlusi on device is present. Musculoskeletal: No acute osseous pathology. Midline sternotomy wires are noted. Other findings: None Lines/Tubes: Interval removal of the endotracheal tube. Interval removal of the enteric tube, There is a [place]dy catheter with tip projecting over the spine. Left thoracotomy tube is present without evidence of pneumothorax. IMPRESSION: 1. Left basilar consolidation changes with thoracotomy tube in place. No evidence of pneumothorax. 2. Cardiomegaly. 3. Interval removal of endotracheal nasogastric tubes.
--- NOTE | 2022-02-19 07:56 | P.PN ---
Subjective Progress Note Date: 02/19/22 Principal diagnosis: Coronary artery disease with critical left main stenosis, unstable angina. Previous medical history of hypertension, hyperlipidemia, daily EtOH use, previous tobacco dependence, osteoarthritis, and family history of premature coronary artery disease (father had myocardial infarction at age 55) POD #1 coronary artery bypass grafting 4, left internal mammary artery sequential to the diagonal and left anterior descending artery, left radial artery from the aorta to the obtuse marginal artery, reverse saphenous vein graft from the aorta to the posterior lateral artery, endoscopic left radial and right greater saphenous vein harvest, left atrial appendage ligation with a #35 mm AtriClip, graft flow measurements using the emoquostim flow meter, intraoper ative transesophageal echocardiogram Postoperative acute blood loss anemia and thrombocytopenia, expected given hemodilution and cardiopulmonary bypass pump Hypotension, expected given preoperative calcium channel yessy use likely causing vasoplegia The patient was seen and examined this morning sitting up in a recliner in the intensive care unit in no acute distress. He was successfully extubated yesterday at 20:55. He denies significant chest pain or shortness of breath currently. Currently in sinus rhythm with heart rate in the 60s, blood pressure marginal, did require initiation of IV dopamine and Levophed. Right internal jugular Rocklin/cordis, right radial arterial line, mediastinal/left pleural chest tubes all remain. Objective - Vital Signs Vital signs: Vital Signs Temp 97.9 F 02/18/22 19:00 Pulse 72 02/19/22 07:36 Resp 18 02/19/22 07:00 BP 76/54 02/19/22 07:00 Pulse Ox 94 L 02/19/22 07:25 FiO2 45 02/18/22 20:00 Intake & Output 02/18/22 02/19/22 02/19/22 18:59 06:59 18:59 Intake Total 172.313 5886.261 Output Total 2940 930 Balance -2544.085 1502.261 Weight 92 kg 84.6 kg Intake: IV 169 1827 0.9NS FOR CO/CI 80 210 0.9NS PRESSURE BAGS 36 117 ACETAMINOPHEN IV (For NPO 100 ) 1,000 mg In Empty Bag 1 bag @ 400 mls/hr IVPB Q6HR [facility] Rx#:[id number] Albumin Human 5% 250 ml 750 In Empty Bag 1 bag @ 250 mls/hr IVPB Q1HR PRN Rx#: [id number] Lactated Ringers 1,000 ml 600 @ 50 mls/hr IV .Q20H [facility]Y Rx#:[id number] ceFAZolin 2 gm In Sodium 50 Chloride 0.9% 50 ml @ 100 mls/hr IVPB ONCE ONE Rx# :[id number] Intake, IV Titration 226.915 65.261 Amount Dexmedetomidine/0.9% NaCl 6.275 (Pmx) 400 mcg In Empty Bag 1 bag @ Titrate IV . Q0M [facility] Rx#:[id number] Insulin Regular 100 unit 8.753 In Sodium Chloride 0.9% 100 ml @ Per Protocol IV .Q0M [facility] Rx#:[id number] Lactated Ringers 1,000 ml 200 50 @ 50 mls/hr IV .Q20H [facility] Rx#:[id number] Norepinephrine 4 mg In 0.233 Sodium Chloride 0.9% 250 ml @ Titrate IV .Q0M [facility] Rx#:[id number] propofoL 1,000 mg In 26.915 Empty Bag 1 bag @ Titrate IV .Q0M LEEROY Rx#: [id number] Oral 540 Output: Chest Tube Drainage 280 490 Chest Tube Left Left 130 280 Pleural/Mediastinal Chest Tube Mediastinal 150 210 Urine 860 440 Estimated Blood Loss 1800 Other: Voiding Method Indwelling Catheter Indwelling Catheter ABP, PAP, CO, CI - Last Documented Arterial Blood Pressure 85/30 Pulmonary Artery Pressure 26/5 Cardiac Output 4.4 Cardiac Index 2.1 - Exam CONSTITUTIONAL: Appears comfortable, cooperative, no acute distress RESPIRATORY: Lungs sounds diminished bilaterally. Respirations even, nonlabored. Currently on 2 L nasal cannula with oxygen saturation 94%. Strong nonproductive cough. CARDIOVASCULAR: S1, S2 present. Regular rate and rhythm, sinus rhythm on telemetry. Sternum stable. Palpable peripheral pulses bilaterally. Trace bilateral lower extremity edema present. No calf pain or tenderness noted. Heart hugger in place with patient demonstrating appropriate use. Antiembolism stockings, SCDs present. GASTROINTESTINAL: Abdomen soft, nontender, nondistended. Hypoactive bowel sounds present 4 quadrants. Tympanic to percussion. Tolerating minimal clear liquids. Denies flatus GENITOURINARY: Ramos present draining clear, yellow urine. Output overnight 25-30 mL per hour INTEGUMENTARY: Skin is warm and dry. Anterior chest incision well approximated and covered with dry intact dressing. Right lower extremity EVH site well approximated without redness or drainage. NEUROLOGIC: Cranial nerves II through XII intact MUSKULOSKELETAL: Able to move all extremities, strength equal bilaterally PSYCHIATRIC: Alert and oriented to person and place, appropriate affect, cannot tell me the month or year or why he is in the hospital INVASIVE LINES AND TUBES: Mediastinal/left pleural chest tubes present and connected to wall suction, no air leaks present. Mediastinal tube with 120 mL serosanguineous drainage overnight, 370 mL since surgery. Left pleural chest tube with 160 mL serosanguineous drainage overnight, 400 mL since surgery. Ventricular epicardial pacemaker wires present, connected to generator, backup rate 50 bpm. Right internal jugular Rocklin/Cordis, right radial arterial line present. Last CO/CI 4.4/2.1, PA 28/6, CVP 7. - Allied health notes Allied health notes reviewed: nursing - Labs CBC & Chem 7: 02/19/22 04:00 02/19/22 04:00 Labs: Abnormal Lab Results - Last 24 Hours (Table) 02/17/22 02/18/22 02/18/22 Range/Units 09:40 08:39 10:13 RBC (4.30-5.90) m/uL Hgb (13.0-17.5) gm/dL Hct (39.0-53.0) % Plt Count (150-450) k/uL Neutrophils # (1.3-7.7) k/uL Lymphocytes # (1.0-4.8) k/uL PT (9.0-12.0) sec INR (<1.2) APTT (22.0-30.0) sec ABG pCO2 46 H 49 H (35-45) mmHg ABG pO2 >420 H 220 H (83-108) mmHg ABG HCO3 27 H 27 H (21-25) mmol/L ABG Total CO2 29 H 28 H (19-24) mmol/L ABG O2 Saturation 99.6 H 99.0 H (94-97) % ABG Hematocrit (34.0-46.0) % ABG Potassium (3.4-4.5) mmol/L ABG Ionized Calcium (4.5-5.3) mg/dL ABG Glucose 124 H 132 H (75-99) mg/dL ABG Lactic Acid (0.5-1.6) mmol/L Hemoglobin 11.9 L (13.0-17.5) gm/dL Potassium (3.5-5.1) mmol/L Chloride (98-107) mmol/L POC Glucose (mg/dL) (70-110) mg/dL Calcium (8.4-10.2) mg/dL Magnesium (1.6-2.3) mg/dL Total Bilirubin (0.2-1.3) mg/dL AST (17-59) U/L Alkaline Phosphatase (38-126) U/L Total Protein (6.3-8.2) g/dL Albumin (3.5-5.0) g/dL Arterial Blood Potassium (3.4-4.5) mmol/L Arterial Blood Glucose 124 H 132 H (75-99) mg/dL Crossmatch See Detail 02/18/22 02/18/22 02/18/22 Range/Units 11:19 12:11 12:43 RBC (4.30-5.90) m/uL Hgb (13.0-17.5) gm/dL Hct (39.0-53.0) % Plt Count (150-450) k/uL Neutrophils # (1.3-7.7) k/uL Lymphocytes # (1.0-4.8) k/uL PT (9.0-12.0) sec INR (<1.2) APTT (22.0-30.0) sec ABG pCO2 (35-45) mmHg ABG pO2 402 H 262 H 353 H (83-108) mmHg ABG HCO3 26 H 26 H (21-25) mmol/L ABG Total CO2 27 H 27 H 27 H (19-24) mmol/L ABG O2 Saturation 99.7 H 99.3 H 99.8 H (94-97) % ABG Hematocrit 27 L 26 L 25 L (34.0-46.0) % ABG Potassium 5.2 H 5.3 H 4.9 H (3.4-4.5) mmol/L ABG Ionized Calcium 4.1 L 4.1 L 4.1 L (4.5-5.3) mg/dL ABG Glucose 143 H 155 H 162 H (75-99) mg/dL ABG Lactic Acid (0.5-1.6) mmol/L Hemoglobin 8.8 L 8.6 L 8.1 L (13.0-17.5) gm/dL Potassium (3.5-5.1) mmol/L Chloride (98-107) mmol/L POC Glucose (mg/dL) (70-110) mg/dL Calcium (8.4-10.2) mg/dL Magnesium (1.6-2.3) mg/dL Total Bilirubin (0.2-1.3) mg/dL AST (17-59) U/L Alkaline Phosphatase (38-126) U/L Total Protein (6.3-8.2) g/dL Albumin (3.5-5.0) g/dL Arterial Blood Potassium 5.2 H 5.3 H 4.9 H (3.4-4.5) mmol/L Arterial Blood Glucose 143 H 155 H 162 H (75-99) mg/dL Crossmatch 02/18/22 02/18/22 02/18/22 Range/Units 13:55 14:55 14:55 RBC 2.44 L (4.30-5.90) m/uL Hgb 8.1 L D (13.0-17.5) gm/dL Hct 23.8 L (39.0-53.0) % Plt Count 65 L D (150-450) k/uL Neutrophils # (1.3-7.7) k/uL Lymphocytes # 0.8 L (1.0-4.8) k/uL PT 13.3 H (9.0-12.0) sec INR 1.3 H (<1.2) APTT 42.4 H (22.0-30.0) sec ABG pCO2 (35-45) mmHg ABG pO2 145 H (83-108) mmHg ABG HCO3 (21-25) mmol/L ABG Total CO2 (19-24) mmol/L ABG O2 Saturation 98.5 H (94-97) % ABG Hematocrit 26 L (34.0-46.0) % ABG Potassium (3.4-4.5) mmol/L ABG Ionized Calcium 4.1 L (4.5-5.3) mg/dL ABG Glucose 106 H (75-99) mg/dL ABG Lactic Acid 1.8 H (0.5-1.6) mmol/L Hemoglobin 8.6 L (13.0-17.5) gm/dL Potassium (3.5-5.1) mmol/L Chloride (98-107) mmol/L POC Glucose (mg/dL) (70-110) mg/dL Calcium (8.4-10.2) mg/dL Magnesium (1.6-2.3) mg/dL Total Bilirubin (0.2-1.3) mg/dL AST (17-59) U/L Alkaline Phosphatase (38-126) U/L Total Protein (6.3-8.2) g/dL Albumin (3.5-5.0) g/dL Arterial Blood Potassium (3.4-4.5) mmol/L Arterial Blood Glucose 106 H (75-99) mg/dL Crossmatch 02/18/22 02/18/22 02/18/22 Range/Units 14:55 15:29 17:12 RBC (4.30-5.90) m/uL Hgb (13.0-17.5) gm/dL Hct (39.0-53.0) % Plt Count (150-450) k/uL Neutrophils # (1.3-7.7) k/uL Lymphocytes # (1.0-4.8) k/uL PT (9.0-12.0) sec INR (<1.2) APTT (22.0-30.0) sec ABG pCO2 (35-45) mmHg ABG pO2 392 H (83-108) mmHg ABG HCO3 (21-25) mmol/L ABG Total CO2 26 H (19-24) mmol/L ABG O2 Saturation 100.0 H (94-97) % ABG Hematocrit (34.0-46.0) % ABG Potassium (3.4-4.5) mmol/L ABG Ionized Calcium (4.5-5.3) mg/dL ABG Glucose (75-99) mg/dL ABG Lactic Acid (0.5-1.6) mmol/L Hemoglobin (13.0-17.5) gm/dL Potassium (3.5-5.1) mmol/L Chloride 111 H (98-107) mmol/L POC Glucose (mg/dL) 112 H (70-110) mg/dL Calcium 7.0 L (8.4-10.2) mg/dL Magnesium 2.8 H (1.6-2.3) mg/dL Total Bilirubin 1.4 H (0.2-1.3) mg/dL AST 86 H (17-59) U/L Alkaline Phosphatase 32 L (38-126) U/L Total Protein 4.4 L (6.3-8.2) g/dL Albumin 3.0 L (3.5-5.0) g/dL Arterial Blood Potassium (3.4-4.5) mmol/L Arterial Blood Glucose (75-99) mg/dL Crossmatch 02/18/22 02/18/22 02/18/22 Range/Units 17:56 17:57 18:59 RBC 2.25 L (4.30-5.90) m/uL Hgb 7.5 L (13.0-17.5) gm/dL Hct 22.1 L (39.0-53.0) % Plt Count 70 L (150-450) k/uL Neutrophils # (1.3-7.7) k/uL Lymphocytes # 0.4 L (1.0-4.8) k/uL PT (9.0-12.0) sec INR (<1.2) APTT (22.0-30.0) sec ABG pCO2 (35-45) mmHg ABG pO2 (83-108) mmHg ABG HCO3 (21-25) mmol/L ABG Total CO2 (19-24) mmol/L ABG O2 Saturation (94-97) % ABG Hematocrit (34.0-46.0) % ABG Potassium (3.4-4.5) mmol/L ABG Ionized Calcium (4.5-5.3) mg/dL ABG Glucose (75-99) mg/dL ABG Lactic Acid (0.5-1.6) mmol/L Hemoglobin (13.0-17.5) gm/dL Potassium (3.5-5.1) mmol/L Chloride (98-107) mmol/L POC Glucose (mg/dL) 121 H 128 H (70-110) mg/dL Calcium (8.4-10.2) mg/dL Magnesium (1.6-2.3) mg/dL Total Bilirubin (0.2-1.3) mg/dL AST (17-59) U/L Alkaline Phosphatase (38-126) U/L Total Protein (6.3-8.2) g/dL Albumin (3.5-5.0) g/dL Arterial Blood Potassium (3.4-4.5) mmol/L Arterial Blood Glucose (75-99) mg/dL Crossmatch 02/18/22 02/18/22 02/18/22 Range/Units 19:58 20:35 20:40 RBC 2.13 L (4.30-5.90) m/uL Hgb 7.4 L (13.0-17.5) gm/dL Hct 21.0 L (39.0-53.0) % Plt Count 84 L (150-450) k/uL Neutrophils # (1.3-7.7) k/uL Lymphocytes # 0.3 L (1.0-4.8) k/uL PT (9.0-12.0) sec INR (<1.2) APTT (22.0-30.0) sec ABG pCO2 (35-45) mmHg ABG pO2 (83-108) mmHg ABG HCO3 (21-25) mmol/L ABG Total CO2 25 H (19-24) mmol/L ABG O2 Saturation 98.6 H (94-97) % ABG Hematocrit (34.0-46.0) % ABG Potassium (3.4-4.5) mmol/L ABG Ionized Calcium (4.5-5.3) mg/dL ABG Glucose (75-99) mg/dL ABG Lactic Acid (0.5-1.6) mmol/L Hemoglobin (13.0-17.5) gm/dL Potassium (3.5-5.1) mmol/L Chloride (98-107) mmol/L POC Glucose (mg/dL) 132 H (70-110) mg/dL Calcium (8.4-10.2) mg/dL Magnesium (1.6-2.3) mg/dL Total Bilirubin (0.2-1.3) mg/dL AST (17-59) U/L Alkaline Phosphatase (38-126) U/L Total Protein (6.3-8.2) g/dL Albumin (3.5-5.0) g/dL Arterial Blood Potassium (3.4-4.5) mmol/L Arterial Blood Glucose (75-99) mg/dL Crossmatch 02/18/22 02/18/22 02/18/22 Range/Units 21:18 21:53 22:51 RBC (4.30-5.90) m/uL Hgb (13.0-17.5) gm/dL Hct (39.0-53.0) % Plt Count (150-450) k/uL Neutrophils # (1.3-7.7) k/uL Lymphocytes # (1.0-4.8) k/uL PT (9.0-12.0) sec INR (<1.2) APTT (22.0-30.0) sec ABG pCO2 (35-45) mmHg ABG pO2 (83-108) mmHg ABG HCO3 (21-25) mmol/L ABG Total CO2 (19-24) mmol/L ABG O2 Saturation (94-97) % ABG Hematocrit (34.0-46.0) % ABG Potassium (3.4-4.5) mmol/L ABG Ionized Calcium (4.5-5.3) mg/dL ABG Glucose (75-99) mg/dL ABG Lactic Acid (0.5-1.6) mmol/L Hemoglobin (13.0-17.5) gm/dL Potassium (3.5-5.1) mmol/L Chloride (98-107) mmol/L POC Glucose (mg/dL) 133 H 127 H 120 H (70-110) mg/dL Calcium (8.4-10.2) mg/dL Magnesium (1.6-2.3) mg/dL Total Bilirubin (0.2-1.3) mg/dL AST (17-59) U/L Alkaline Phosphatase (38-126) U/L Total Protein (6.3-8.2) g/dL Albumin (3.5-5.0) g/dL Arterial Blood Potassium (3.4-4.5) mmol/L Arterial Blood Glucose (75-99) mg/dL Crossmatch 02/18/22 02/19/22 02/19/22 Range/Units 23:55 00:50 01:52 RBC (4.30-5.90) m/uL Hgb (13.0-17.5) gm/dL Hct (39.0-53.0) % Plt Count (150-450) k/uL Neutrophils # (1.3-7.7) k/uL Lymphocytes # (1.0-4.8) k/uL PT (9.0-12.0) sec INR (<1.2) APTT (22.0-30.0) sec ABG pCO2 (35-45) mmHg ABG pO2 (83-108) mmHg ABG HCO3 (21-25) mmol/L ABG Total CO2 (19-24) mmol/L ABG O2 Saturation (94-97) % ABG Hematocrit (34.0-46.0) % ABG Potassium (3.4-4.5) mmol/L ABG Ionized Calcium (4.5-5.3) mg/dL ABG Glucose (75-99) mg/dL ABG Lactic Acid (0.5-1.6) mmol/L Hemoglobin (13.0-17.5) gm/dL Potassium (3.5-5.1) mmol/L Chloride (98-107) mmol/L POC Glucose (mg/dL) 119 H 118 H 119 H (70-110) mg/dL Calcium (8.4-10.2) mg/dL Magnesium (1.6-2.3) mg/dL Total Bilirubin (0.2-1.3) mg/dL AST (17-59) U/L Alkaline Phosphatase (38-126) U/L Total Protein (6.3-8.2) g/dL Albumin (3.5-5.0) g/dL Arterial Blood Potassium (3.4-4.5) mmol/L Arterial Blood Glucose (75-99) mg/dL Crossmatch 02/19/22 02/19/22 02/19/22 Range/Units 02:54 03:54 04:00 RBC 2.15 L (4.30-5.90) m/uL Hgb 7.1 L (13.0-17.5) gm/dL Hct 21.2 L (39.0-53.0) % Plt Count 95 L (150-450) k/uL Neutrophils # 8.5 H (1.3-7.7) k/uL Lymphocytes # (1.0-4.8) k/uL PT (9.0-12.0) sec INR (<1.2) APTT (22.0-30.0) sec ABG pCO2 (35-45) mmHg ABG pO2 (83-108) mmHg ABG HCO3 (21-25) mmol/L ABG Total CO2 (19-24) mmol/L ABG O2 Saturation (94-97) % ABG Hematocrit (34.0-46.0) % ABG Potassium (3.4-4.5) mmol/L ABG Ionized Calcium (4.5-5.3) mg/dL ABG Glucose (75-99) mg/dL ABG Lactic Acid (0.5-1.6) mmol/L Hemoglobin (13.0-17.5) gm/dL Potassium (3.5-5.1) mmol/L Chloride (98-107) mmol/L POC Glucose (mg/dL) 116 H 112 H (70-110) mg/dL Calcium (8.4-10.2) mg/dL Magnesium (1.6-2.3) mg/dL Total Bilirubin (0.2-1.3) mg/dL AST (17-59) U/L Alkaline Phosphatase (38-126) U/L Total Protein (6.3-8.2) g/dL Albumin (3.5-5.0) g/dL Arterial Blood Potassium (3.4-4.5) mmol/L Arterial Blood Glucose (75-99) mg/dL Crossmatch 02/19/22 02/19/22 02/19/22 Range/Units 04:00 04:55 06:01 RBC (4.30-5.90) m/uL Hgb (13.0-17.5) gm/dL Hct (39.0-53.0) % Plt Count (150-450) k/uL Neutrophils # (1.3-7.7) k/uL Lymphocytes # (1.0-4.8) k/uL PT (9.0-12.0) sec INR (<1.2) APTT (22.0-30.0) sec ABG pCO2 (35-45) mmHg ABG pO2 (83-108) mmHg ABG HCO3 (21-25) mmol/L ABG Total CO2 (19-24) mmol/L ABG O2 Saturation (94-97) % ABG Hematocrit (34.0-46.0) % ABG Potassium (3.4-4.5) mmol/L ABG Ionized Calcium (4.5-5.3) mg/dL ABG Glucose (75-99) mg/dL ABG Lactic Acid (0.5-1.6) mmol/L Hemoglobin (13.0-17.5) gm/dL Potassium 5.2 H (3.5-5.1) mmol/L Chloride 109 H (98-107) mmol/L POC Glucose (mg/dL) 119 H 166 H (70-110) mg/dL Calcium 7.3 L (8.4-10.2) mg/dL Magnesium 2.5 H (1.6-2.3) mg/dL Total Bilirubin (0.2-1.3) mg/dL AST 116 H (17-59) U/L Alkaline Phosphatase (38-126) U/L Total Protein 4.6 L (6.3-8.2) g/dL Albumin 3.3 L (3.5-5.0) g/dL Arterial Blood Potassium (3.4-4.5) mmol/L Arterial Blood Glucose (75-99) mg/dL Crossmatch 02/19/22 Range/Units 06:51 RBC (4.30-5.90) m/uL Hgb (13.0-17.5) gm/dL Hct (39.0-53.0) % Plt Count (150-450) k/uL Neutrophils # (1.3-7.7) k/uL Lymphocytes # (1.0-4.8) k/uL PT (9.0-12.0) sec INR (<1.2) APTT (22.0-30.0) sec ABG pCO2 (35-45) mmHg ABG pO2 (83-108) mmHg ABG HCO3 (21-25) mmol/L ABG Total CO2 (19-24) mmol/L ABG O2 Saturation (94-97) % ABG Hematocrit (34.0-46.0) % ABG Potassium (3.4-4.5) mmol/L ABG Ionized Calcium (4.5-5.3) mg/dL ABG Glucose (75-99) mg/dL ABG Lactic Acid (0.5-1.6) mmol/L Hemoglobin (13.0-17.5) gm/dL Potassium (3.5-5.1) mmol/L Chloride (98-107) mmol/L POC Glucose (mg/dL) 145 H (70-110) mg/dL Calcium (8.4-10.2) mg/dL Magnesium (1.6-2.3) mg/dL Total Bilirubin (0.2-1.3) mg/dL AST (17-59) U/L Alkaline Phosphatase (38-126) U/L Total Protein (6.3-8.2) g/dL Albumin (3.5-5.0) g/dL Arterial Blood Potassium (3.4-4.5) mmol/L Arterial Blood Glucose (75-99) mg/dL Crossmatch - Imaging and Cardiology Chest x-ray: report reviewed, image reviewed Assessment and Plan Assessment: 1. Coronary artery disease with critical left main stenosis, unstable angina, status post 4 vessel CABG 2. Preserved left ventricular systolic function, EF 55-60% 3. Mild mitral and tricuspid regurgitation on transthoracic echocardiogram from 01/27/2022 4. Newly diagnosed diabetes, hemoglobin A1c 7.2% 5. History of hypertension 6. Hyperlipidemia, cholesterol 217, LDL 113, triglycerides 183 7. Daily EtOH use, 8. Previous tobacco dependence 9. Severe COPD, FEV1 34% of predicted 10. Osteoarthritis 11. Family history of premature coronary artery disease (father had myocardial infarction at age 55) 12. Postoperative acute blood loss anemia and thrombocytopenia, expected 13. Hypotension, expected Plan: 1. Continue to maximize medical therapy with aspirin, Plavix, statin, beta yessy. Hold parameters on beta yessy 2. Continue dopamine and levo for hypertension, wean as tolerated 3. Wean O2 as tolerated. Incentive spirometry 10 times every hour while awake. Bronchodilators per pulmonology 4. Increase activity, ambulate as tolerated. PT/OT/cardiac rehab consulted 5. Will monitor daily labs and x-rays. Electrolyte replacement per protocol. Will give PRBCs today 6. GI/DVT prophylaxis 7. Likely will discontinue Rocklin later today 8. Pain control with current medication regimen. Avoid narcotics 9. Insulin management per internal medicine. Patient considered newly diagnosed diabetic, needs tight blood sugar control 10. Continue Cordis, arterial line, mediastinal/left pleural chest tubes for another 24 hours 11. Continue Ramos catheter for 24 hours for strict accurate intake and output. Daily weights 12. Reorient patient as needed 13. More recommendations to follow based on patient's progress
[2022-02-19] MEDS: HEPARIN SODIUM,PORCINE/PF 5,000 UNIT/0.5 ML SYRINGE SQ SCH ×3 (08:11→23:52)
[2022-02-19 08:12] LABS: Glucose,Whole Blood 140 mg/dL (70-110)
[2022-02-19] MEDS: THIAMINE 100 MG TAB PO SCH (08:12)
[2022-02-19] MEDS: FERROUS SULFATE 325 MG TAB PO SCH ×2 (08:12→16:14)
[2022-02-19] MEDS: ATORVASTATIN 40 MG TAB PO SCH (08:12)
[2022-02-19] MEDS: CLOPIDOGREL 75 MG TAB PO SCH (08:12)
[2022-02-19] MEDS: ASPIRIN 325 MG TAB PO SCH (08:12)
[2022-02-19] MEDS: FOLIC ACID 1 MG TAB PO SCH (08:13)
[2022-02-19] MEDS: ASCORBIC ACID 500 MG TAB PO SCH ×2 (08:13→16:14)
[2022-02-19] MEDS: SODIUM CHLORIDE 0.9% 1,000 ML IV SCH (08:17)
[2022-02-19] MEDS ORDERED: bisacodyL 10 MG SUPP RECTAL PRN (09:00)
[2022-02-19] MEDS ORDERED: MAGNESIUM HYDROXIDE 2,400 MG/10 ML CUP PO PRN (09:00)
[2022-02-19] MEDS ORDERED: PANTOPRAZOLE 40 MG/10 ML VIAL IVP SCH (09:00)
[2022-02-19 10:00] LABS: Glucose,Whole Blood 147 mg/dL (70-110)
[2022-02-19] MEDS: guaiFENesin-DM 600/30MG 1 EACH TAB.ER.12H PO SCH ×2 (10:10→20:58)
[2022-02-19] MEDS: MULTIVITAMINS, THERA 1 EACH TAB PO SCH (11:23)
[2022-02-19] MEDS: NOREPINEPHRINE 4 MG in SODIUM CHLORIDE 0.9% 250 ML IV SCH (11:44)
[2022-02-19 11:57] LABS: Glucose,Whole Blood 159 mg/dL (70-110)
[2022-02-19] MEDS: CLEVIDIPINE BUTYRATE 25 MG in EMPTY BAG 1 BAG IV SCH (12:01)
--- NOTE | 2022-02-19 12:09 | P.PN ---
Subjective Progress Note Date: 02/19/22 Principal diagnosis: POD #1 coronary artery bypass grafting 4, left internal mammary artery sequential to the diagonal and left anterior descending artery, left radial artery from the aorta to the obtuse marginal artery, reverse saphenous vein graft from the aorta to the posterior lateral artery, endoscopic left radial and right greater saphenous vein harvest, left atrial appendage ligation with a #35 mm AtriClip, graft flow measurements using the Medistim flow meter, intraop erative transesophageal echocardiogram This is a 76-year-old white male with history of multiple medical problems including hypertension, dyslipidemia, remote smoking history, patient had about a [id number] smoking history but he quit smoking 40 years ago. Patient has significant family history of early onset coronary artery disease, history of degenerative joint disease, drinks on the average of 3 glasses of liquor on a daily basis. Over the last few months, patient has been noticing burning sensation of the chest with activity. This was also associated with shortness of breath. Patient was referred to cardiology, and apparently had abnormal stress test. This was further evaluated by cardiac catheterization. Which showed a critical left main stenosis in the range of 99.9%, 70% stenosis to proximal and midportion sugar of LAD severe disease noted in the distal RCA and the ostial of the PDA branch of the right coronary artery. Hence the patient was seen by cardiothoracic surgery, and he is scheduled to undergo myocardial revascularization tomorrow. Considering his smoking history, and considering his abnormal PFT, this consult was initiated. His PFT showed severe obstructive and restrictive lung disease. Although clinically the patient does not seem to be Obstructed. Nonetheless the patient is not active he has an extremely sedentary lifestyle for the last 3 years mostly because of his chronic low back pain and right hip pain secondary to degenerative joint disease patient has not been physically active for the last 2 or 3 years he has a very sedentary lifes tyle. Denies cough denies wheezing denies shortness of breath at rest. Never been diagnosed with COPD, and never been on any bronchodilators. The patient is seen today 02/18/2022 in follow-up in the immediate postoperative period in the intensive care unit. He had undergone coronary artery bypass grafting 4. CARREON sequential to diagonal and LAD, left radial artery to the obtuse marginal artery and a saphenous vein graft to the posterior lateral artery. Left atrial appendage ligation with a thick #35 mm atrophic clip. He is currently intubated on mechanical ventilator at settings of assist control mode at a rate of 14, tidal volume 550, FiO2 100% and a PEEP of 5. Blood gases revealed a PaO2 of 392, pCO2 39, pH 7.40. He is on a nitroglycerin drip at 5 mcg/m. Propofol at 25 mcg/kg/m. He initially was on norepinephrine at 0.01 mg/m. He is receiving albumin. He has left pleural chest tubes 2 and a mediastinal chest tube in place. Cardiac output 4.3. Index 2.0. White count 5 .6. Hemoglobin 8.1. INR 1.3. Glucose 100. Reevaluated today on 02/19/22, patient underwent coronary artery bypass grafting 4 yesterday, I was able to extubate the patient at 20:55, he tolerated the extubation well, patient is doing well from the pulmonary perspective, however he is still relatively with marginal blood pressure, requiring dopamine and norepinephrine. Continues to have mediastinal/left chest tubes, chest x-ray is showing mostly left lower lobe atelectasis, no evidence of congestive heart failure. Hemoglobin is a bit low today at 7.1, and he will be receiving a unit of packed RBCs. Patient is on dopamine at 2 mcg/kg/m he is also on a low-dose norepinephrine at 0.06 mcg/kg/m. Continues to have right IJ [place]-Teddy catheter and right radial arterial line. CVP today is 10. WBC count is 10.5-year-old woman is 7.1. Basic metabolic profile is normal renal profile is slightly worse with creatinine of 1.24 today. Objective - Vital Signs Vital signs: Vital Signs Temp 98.8 F 02/19/22 10:30 Pulse 76 02/19/22 11:11 Resp 21 02/19/22 11:00 BP 93/54 02/19/22 11:00 Pulse Ox 93 L 02/19/22 11:00 FiO2 45 02/18/22 20:00 Intake & Output 02/18/22 02/19/22 02/19/22 18:59 06:59 18:59 Intake Total 283.679 1626.261 416.489 Output Total 2940 930 275 Balance -2544.085 1502.261 141.489 Weight 92 kg 84.6 kg Intake: IV 169 1827 315 0.9NS FOR CO/CI 80 210 20 0.9NS PRESSURE BAGS 36 117 45 ACETAMINOPHEN IV (For NPO 100 ) 1,000 mg In Empty Bag 1 bag @ 400 mls/hr IVPB Q6HR [facility] Rx#:[id number] Albumin Human 5% 250 ml 750 In Empty Bag 1 bag @ 250 mls/hr IVPB Q1HR PRN Rx#: [id number] Lactated Ringers 1,000 ml 600 @ 50 mls/hr IV .Q20H [facility] Rx#:[id number] Sodium Chloride 0.9% 1, 250 000 ml @ 50 mls/hr IV . Q20H [facility] Rx#:[id number] ceFAZolin 2 gm In Sodium 50 Chloride 0.9% 50 ml @ 100 mls/hr IVPB ONCE ONE Rx# :[id number] Intake, IV Titration 226.915 65.261 101.489 Amount Dexmedetomidine/0.9% NaCl 6.275 (Pmx) 400 mcg In Empty Bag 1 bag @ Titrate IV . Q0M [facility] Rx#:[id number] Insulin Regular 100 unit 8.753 1.414 In Sodium Chloride 0.9% 100 ml @ Per Protocol IV .Q0M [facility] Rx#:[id number] Lactated Ringers 1,000 ml 200 50 @ 50 mls/hr IV .Q20H [facility] Rx#:[id number] Norepinephrine 4 mg In 0.233 0.075 Sodium Chloride 0.9% 250 ml @ Titrate IV .Q0M [facility] Rx#:[id number] ceFAZolin 2 gm In Sodium 100 Chloride 0.9% 50 ml @ 100 mls/hr IVPB Q8HR [facility] Rx# :[id number] propofoL 1,000 mg In 26.915 Empty Bag 1 bag @ Titrate IV .Q0M [facility] Rx#: [id number] Oral 540 Blood Product 0 Unit 0 Output: Chest Tube Drainage 280 490 130 Chest Tube Left Left 130 280 80 Pleural/Mediastinal Chest Tube Mediastinal 150 210 50 Urine 860 440 145 Estimated Blood Loss 1800 Other: Voiding Method Indwelling Catheter Indwelling Catheter Indwelling Catheter # Voids 3 ABP, PAP, CO, CI - Last Documented Arterial Blood Pressure 105/41 Pulmonary Artery Pressure 30/6 Cardiac Output 5.8 Cardiac Index 2.8 - Exam Physical Exam: Revealed a 76-year-old white male in no distress, on 4 L nasal cannula Head: Atraumatic, normocephalic HEENT: Pale looking. [Neck is supple.] [No neck masses.] [No thyromegaly.] [No JVD.] Chest: [Symmetrical chest expansion, diminished breath sound the bases, no crackles or rhonchi or wheezes left-sided chest tube and mediastinal tube noted Cardiac Exam: Distant S1 and S2, positive pericardial rub. Abdomen: [Soft, nontender, no megaly, no rebound, no guarding, normal bowel sounds.] Extremities: [No clubbing, no edema, no cyanosis.] Neurological Exam: Alert and oriented 3. [No focal neurologic deficit.] Psychiatric: Normal mood affect and normal mental status examination. Skin: No rashes. - Labs CBC & Chem 7: 02/19/22 04:00 02/19/22 04:00 Labs: Abnormal Lab Results - Last 24 Hours (Table) 02/17/22 02/18/22 02/18/22 Range/Units 09:40 08:39 10:13 RBC (4.30-5.90) m/uL Hgb (13.0-17.5) gm/dL Hct (39.0-53.0) % Plt Count (150-450) k/uL Neutrophils # (1.3-7.7) k/uL Lymphocytes # (1.0-4.8) k/uL PT (9.0-12.0) sec INR (<1.2) APTT (22.0-30.0) sec ABG pCO2 46 H 49 H (35-45) mmHg ABG pO2 >420 H 220 H (83-108) mmHg ABG HCO3 27 H 27 H (21-25) mmol/L ABG Total CO2 29 H 28 H (19-24) mmol/L ABG O2 Saturation 99.6 H 99.0 H (94-97) % ABG Hematocrit (34.0-46.0) % ABG Potassium (3.4-4.5) mmol/L ABG Ionized Calcium (4.5-5.3) mg/dL ABG Glucose 124 H 132 H (75-99) mg/dL ABG Lactic Acid (0.5-1.6) mmol/L Hemoglobin 11.9 L (13.0-17.5) gm/dL Potassium (3.5-5.1) mmol/L Chloride (98-107) mmol/L POC Glucose (mg/dL) (70-110) mg/dL Calcium (8.4-10.2) mg/dL Magnesium (1.6-2.3) mg/dL Total Bilirubin (0.2-1.3) mg/dL AST (17-59) U/L Alkaline Phosphatase (38-126) U/L Total Protein (6.3-8.2) g/dL Albumin (3.5-5.0) g/dL Arterial Blood Potassium (3.4-4.5) mmol/L Arterial Blood Glucose 124 H 132 H (75-99) mg/dL Crossmatch See Detail 02/18/22 02/18/22 02/18/22 Range/Units 11:19 12:11 12:43 RBC (4.30-5.90) m/uL Hgb (13.0-17.5) gm/dL Hct (39.0-53.0) % Plt Count (150-450) k/uL Neutrophils # (1.3-7.7) k/uL Lymphocytes # (1.0-4.8) k/uL PT (9.0-12.0) sec INR (<1.2) APTT (22.0-30.0) sec ABG pCO2 (35-45) mmHg ABG pO2 402 H 262 H 353 H (83-108) mmHg ABG HCO3 26 H 26 H (21-25) mmol/L ABG Total CO2 27 H 27 H 27 H (19-24) mmol/L ABG O2 Saturation 99.7 H 99.3 H 99.8 H (94-97) % ABG Hematocrit 27 L 26 L 25 L (34.0-46.0) % ABG Potassium 5.2 H 5.3 H 4.9 H (3.4-4.5) mmol/L ABG Ionized Calcium 4.1 L 4.1 L 4.1 L (4.5-5.3) mg/dL ABG Glucose 143 H 155 H 162 H (75-99) mg/dL ABG Lactic Acid (0.5-1.6) mmol/L Hemoglobin 8.8 L 8.6 L 8.1 L (13.0-17.5) gm/dL Potassium (3.5-5.1) mmol/L Chloride (98-107) mmol/L POC Glucose (mg/dL) (70-110) mg/dL Calcium (8.4-10.2) mg/dL Magnesium (1.6-2.3) mg/dL Total Bilirubin (0.2-1.3) mg/dL AST (17-59) U/L Alkaline Phosphatase (38-126) U/L Total Protein (6.3-8.2) g/dL Albumin (3.5-5.0) g/dL Arterial Blood Potassium 5.2 H 5.3 H 4.9 H (3.4-4.5) mmol/L Arterial Blood Glucose 143 H 155 H 162 H (75-99) mg/dL Crossmatch 02/18/22 02/18/22 02/18/22 Range/Units 13:55 14:55 14:55 RBC 2.44 L (4.30-5.90) m/uL Hgb 8.1 L D (13.0-17.5) gm/dL Hct 23.8 L (39.0-53.0) % Plt Count 65 L D (150-450) k/uL Neutrophils # (1.3-7.7) k/uL Lymphocytes # 0.8 L (1.0-4.8) k/uL PT 13.3 H (9.0-12.0) sec INR 1.3 H (<1.2) APTT 42.4 H (22.0-30.0) sec ABG pCO2 (35-45) mmHg ABG pO2 145 H (83-108) mmHg ABG HCO3 (21-25) mmol/L ABG Total CO2 (19-24) mmol/L ABG O2 Saturation 98.5 H (94-97) % ABG Hematocrit 26 L (34.0-46.0) % ABG Potassium (3.4-4.5) mmol/L ABG Ionized Calcium 4.1 L (4.5-5.3) mg/dL ABG Glucose 106 H (75-99) mg/dL ABG Lactic Acid 1.8 H (0.5-1.6) mmol/L Hemoglobin 8.6 L (13.0-17.5) gm/dL Potassium (3.5-5.1) mmol/L Chloride (98-107) mmol/L POC Glucose (mg/dL) (70-110) mg/dL Calcium (8.4-10.2) mg/dL Magnesium (1.6-2.3) mg/dL Total Bilirubin (0.2-1.3) mg/dL AST (17-59) U/L Alkaline Phosphatase (38-126) U/L Total Protein (6.3-8.2) g/dL Albumin (3.5-5.0) g/dL Arterial Blood Potassium (3.4-4.5) mmol/L Arterial Blood Glucose 106 H (75-99) mg/dL Crossmatch 02/18/22 02/18/22 02/18/22 Range/Units 14:55 15:29 17:12 RBC (4.30-5.90) m/uL Hgb (13.0-17.5) gm/dL Hct (39.0-53.0) % Plt Count (150-450) k/uL Neutrophils # (1.3-7.7) k/uL Lymphocytes # (1.0-4.8) k/uL PT (9.0-12.0) sec INR (<1.2) APTT (22.0-30.0) sec ABG pCO2 (35-45) mmHg ABG pO2 392 H (83-108) mmHg ABG HCO3 (21-25) mmol/L ABG Total CO2 26 H (19-24) mmol/L ABG O2 Saturation 100.0 H (94-97) % ABG Hematocrit (34.0-46.0) % ABG Potassium (3.4-4.5) mmol/L ABG Ionized Calcium (4.5-5.3) mg/dL ABG Glucose (75-99) mg/dL ABG Lactic Acid (0.5-1.6) mmol/L Hemoglobin (13.0-17.5) gm/dL Potassium (3.5-5.1) mmol/L Chloride 111 H (98-107) mmol/L POC Glucose (mg/dL) 112 H (70-110) mg/dL Calcium 7.0 L (8.4-10.2) mg/dL Magnesium 2.8 H (1.6-2.3) mg/dL Total Bilirubin 1.4 H (0.2-1.3) mg/dL AST 86 H (17-59) U/L Alkaline Phosphatase 32 L (38-126) U/L Total Protein 4.4 L (6.3-8.2) g/dL Albumin 3.0 L (3.5-5.0) g/dL Arterial Blood Potassium (3.4-4.5) mmol/L Arterial Blood Glucose (75-99) mg/dL Crossmatch 02/18/22 02/18/22 02/18/22 Range/Units 17:56 17:57 18:59 RBC 2.25 L (4.30-5.90) m/uL Hgb 7.5 L (13.0-17.5) gm/dL Hct 22.1 L (39.0-53.0) % Plt Count 70 L (150-450) k/uL Neutrophils # (1.3-7.7) k/uL Lymphocytes # 0.4 L (1.0-4.8) k/uL PT (9.0-12.0) sec INR (<1.2) APTT (22.0-30.0) sec ABG pCO2 (35-45) mmHg ABG pO2 (83-108) mmHg ABG HCO3 (21-25) mmol/L ABG Total CO2 (19-24) mmol/L ABG O2 Saturation (94-97) % ABG Hematocrit (34.0-46.0) % ABG Potassium (3.4-4.5) mmol/L ABG Ionized Calcium (4.5-5.3) mg/dL ABG Glucose (75-99) mg/dL ABG Lactic Acid (0.5-1.6) mmol/L Hemoglobin (13.0-17.5) gm/dL Potassium (3.5-5.1) mmol/L Chloride (98-107) mmol/L POC Glucose (mg/dL) 121 H 128 H (70-110) mg/dL Calcium (8.4-10.2) mg/dL Magnesium (1.6-2.3) mg/dL Total Bilirubin (0.2-1.3) mg/dL AST (17-59) U/L Alkaline Phosphatase (38-126) U/L Total Protein (6.3-8.2) g/dL Albumin (3.5-5.0) g/dL Arterial Blood Potassium (3.4-4.5) mmol/L Arterial Blood Glucose (75-99) mg/dL Crossmatch 02/18/22 02/18/22 02/18/22 Range/Units 19:58 20:35 20:40 RBC 2.13 L (4.30-5.90) m/uL Hgb 7.4 L (13.0-17.5) gm/dL Hct 21.0 L (39.0-53.0) % Plt Count 84 L (150-450) k/uL Neutrophils # (1.3-7.7) k/uL Lymphocytes # 0.3 L (1.0-4.8) k/uL PT (9.0-12.0) sec INR (<1.2) APTT (22.0-30.0) sec ABG pCO2 (35-45) mmHg ABG pO2 (83-108) mmHg ABG HCO3 (21-25) mmol/L ABG Total CO2 25 H (19-24) mmol/L ABG O2 Saturation 98.6 H (94-97) % ABG Hematocrit (34.0-46.0) % ABG Potassium (3.4-4.5) mmol/L ABG Ionized Calcium (4.5-5.3) mg/dL ABG Glucose (75-99) mg/dL ABG Lactic Acid (0.5-1.6) mmol/L Hemoglobin (13.0-17.5) gm/dL Potassium (3.5-5.1) mmol/L Chloride (98-107) mmol/L POC Glucose (mg/dL) 132 H (70-110) mg/dL Calcium (8.4-10.2) mg/dL Magnesium (1.6-2.3) mg/dL Total Bilirubin (0.2-1.3) mg/dL AST (17-59) U/L Alkaline Phosphatase (38-126) U/L Total Protein (6.3-8.2) g/dL Albumin (3.5-5.0) g/dL Arterial Blood Potassium (3.4-4.5) mmol/L Arterial Blood Glucose (75-99) mg/dL Crossmatch 02/18/22 02/18/22 02/18/22 Range/Units 21:18 21:53 22:51 RBC (4.30-5.90) m/uL Hgb (13.0-17.5) gm/dL Hct (39.0-53.0) % Plt Count (150-450) k/uL Neutrophils # (1.3-7.7) k/uL Lymphocytes # (1.0-4.8) k/uL PT (9.0-12.0) sec INR (<1.2) APTT (22.0-30.0) sec ABG pCO2 (35-45) mmHg ABG pO2 (83-108) mmHg ABG HCO3 (21-25) mmol/L ABG Total CO2 (19-24) mmol/L ABG O2 Saturation (94-97) % ABG Hematocrit (34.0-46.0) % ABG Potassium (3.4-4.5) mmol/L ABG Ionized Calcium (4.5-5.3) mg/dL ABG Glucose (75-99) mg/dL ABG Lactic Acid (0.5-1.6) mmol/L Hemoglobin (13.0-17.5) gm/dL Potassium (3.5-5.1) mmol/L Chloride (98-107) mmol/L POC Glucose (mg/dL) 133 H 127 H 120 H (70-110) mg/dL Calcium (8.4-10.2) mg/dL Magnesium (1.6-2.3) mg/dL Total Bilirubin (0.2-1.3) mg/dL AST (17-59) U/L Alkaline Phosphatase (38-126) U/L Total Protein (6.3-8.2) g/dL Albumin (3.5-5.0) g/dL Arterial Blood Potassium (3.4-4.5) mmol/L Arterial Blood Glucose (75-99) mg/dL Crossmatch 02/18/22 02/19/22 02/19/22 Range/Units 23:55 00:50 01:52 RBC (4.30-5.90) m/uL Hgb (13.0-17.5) gm/dL Hct (39.0-53.0) % Plt Count (150-450) k/uL Neutrophils # (1.3-7.7) k/uL Lymphocytes # (1.0-4.8) k/uL PT (9.0-12.0) sec INR (<1.2) APTT (22.0-30.0) sec ABG pCO2 (35-45) mmHg ABG pO2 (83-108) mmHg ABG HCO3 (21-25) mmol/L ABG Total CO2 (19-24) mmol/L ABG O2 Saturation (94-97) % ABG Hematocrit (34.0-46.0) % ABG Potassium (3.4-4.5) mmol/L ABG Ionized Calcium (4.5-5.3) mg/dL ABG Glucose (75-99) mg/dL ABG Lactic Acid (0.5-1.6) mmol/L Hemoglobin (13.0-17.5) gm/dL Potassium (3.5-5.1) mmol/L Chloride (98-107) mmol/L POC Glucose (mg/dL) 119 H 118 H 119 H (70-110) mg/dL Calcium (8.4-10.2) mg/dL Magnesium (1.6-2.3) mg/dL Total Bilirubin (0.2-1.3) mg/dL AST (17-59) U/L Alkaline Phosphatase (38-126) U/L Total Protein (6.3-8.2) g/dL Albumin (3.5-5.0) g/dL Arterial Blood Potassium (3.4-4.5) mmol/L Arterial Blood Glucose (75-99) mg/dL Crossmatch 02/19/22 02/19/22 02/19/22 Range/Units 02:54 03:54 04:00 RBC 2.15 L (4.30-5.90) m/uL Hgb 7.1 L (13.0-17.5) gm/dL Hct 21.2 L (39.0-53.0) % Plt Count 95 L (150-450) k/uL Neutrophils # 8.5 H (1.3-7.7) k/uL Lymphocytes # (1.0-4.8) k/uL PT (9.0-12.0) sec INR (<1.2) APTT (22.0-30.0) sec ABG pCO2 (35-45) mmHg ABG pO2 (83-108) mmHg ABG HCO3 (21-25) mmol/L ABG Total CO2 (19-24) mmol/L ABG O2 Saturation (94-97) % ABG Hematocrit (34.0-46.0) % ABG Potassium (3.4-4.5) mmol/L ABG Ionized Calcium (4.5-5.3) mg/dL ABG Glucose (75-99) mg/dL ABG Lactic Acid (0.5-1.6) mmol/L Hemoglobin (13.0-17.5) gm/dL Potassium (3.5-5.1) mmol/L Chloride (98-107) mmol/L POC Glucose (mg/dL) 116 H 112 H (70-110) mg/dL Calcium (8.4-10.2) mg/dL Magnesium (1.6-2.3) mg/dL Total Bilirubin (0.2-1.3) mg/dL AST (17-59) U/L Alkaline Phosphatase (38-126) U/L Total Protein (6.3-8.2) g/dL Albumin (3.5-5.0) g/dL Arterial Blood Potassium (3.4-4.5) mmol/L Arterial Blood Glucose (75-99) mg/dL Crossmatch 02/19/22 02/19/22 02/19/22 Range/Units 04:00 04:55 06:01 RBC (4.30-5.90) m/uL Hgb (13.0-17.5) gm/dL Hct (39.0-53.0) % Plt Count (150-450) k/uL Neutrophils # (1.3-7.7) k/uL Lymphocytes # (1.0-4.8) k/uL PT (9.0-12.0) sec INR (<1.2) APTT (22.0-30.0) sec ABG pCO2 (35-45) mmHg ABG pO2 (83-108) mmHg ABG HCO3 (21-25) mmol/L ABG Total CO2 (19-24) mmol/L ABG O2 Saturation (94-97) % ABG Hematocrit (34.0-46.0) % ABG Potassium (3.4-4.5) mmol/L ABG Ionized Calcium (4.5-5.3) mg/dL ABG Glucose (75-99) mg/dL ABG Lactic Acid (0.5-1.6) mmol/L Hemoglobin (13.0-17.5) gm/dL Potassium 5.2 H (3.5-5.1) mmol/L Chloride 109 H (98-107) mmol/L POC Glucose (mg/dL) 119 H 166 H (70-110) mg/dL Calcium 7.3 L (8.4-10.2) mg/dL Magnesium 2.5 H (1.6-2.3) mg/dL Total Bilirubin (0.2-1.3) mg/dL AST 116 H (17-59) U/L Alkaline Phosphatase (38-126) U/L Total Protein 4.6 L (6.3-8.2) g/dL Albumin 3.3 L (3.5-5.0) g/dL Arterial Blood Potassium (3.4-4.5) mmol/L Arterial Blood Glucose (75-99) mg/dL Crossmatch 02/19/22 02/19/22 02/19/22 Range/Units 06:51 08:11 09:57 RBC (4.30-5.90) m/uL Hgb (13.0-17.5) gm/dL Hct (39.0-53.0) % Plt Count (150-450) k/uL Neutrophils # (1.3-7.7) k/uL Lymphocytes # (1.0-4.8) k/uL PT (9.0-12.0) sec INR (<1.2) APTT (22.0-30.0) sec ABG pCO2 (35-45) mmHg ABG pO2 (83-108) mmHg ABG HCO3 (21-25) mmol/L ABG Total CO2 (19-24) mmol/L ABG O2 Saturation (94-97) % ABG Hematocrit (34.0-46.0) % ABG Potassium (3.4-4.5) mmol/L ABG Ionized Calcium (4.5-5.3) mg/dL ABG Glucose (75-99) mg/dL ABG Lactic Acid (0.5-1.6) mmol/L Hemoglobin (13.0-17.5) gm/dL Potassium (3.5-5.1) mmol/L Chloride (98-107) mmol/L POC Glucose (mg/dL) 145 H 140 H 147 H (70-110) mg/dL Calcium (8.4-10.2) mg/dL Magnesium (1.6-2.3) mg/dL Total Bilirubin (0.2-1.3) mg/dL AST (17-59) U/L Alkaline Phosphatase (38-126) U/L Total Protein (6.3-8.2) g/dL Albumin (3.5-5.0) g/dL Arterial Blood Potassium (3.4-4.5) mmol/L Arterial Blood Glucose (75-99) mg/dL Crossmatch 02/19/22 Range/Units 11:56 RBC (4.30-5.90) m/uL Hgb (13.0-17.5) gm/dL Hct (39.0-53.0) % Plt Count (150-450) k/uL Neutrophils # (1.3-7.7) k/uL Lymphocytes # (1.0-4.8) k/uL PT (9.0-12.0) sec INR (<1.2) APTT (22.0-30.0) sec ABG pCO2 (35-45) mmHg ABG pO2 (83-108) mmHg ABG HCO3 (21-25) mmol/L ABG Total CO2 (19-24) mmol/L ABG O2 Saturation (94-97) % ABG Hematocrit (34.0-46.0) % ABG Potassium (3.4-4.5) mmol/L ABG Ionized Calcium (4.5-5.3) mg/dL ABG Glucose (75-99) mg/dL ABG Lactic Acid (0.5-1.6) mmol/L Hemoglobin (13.0-17.5) gm/dL Potassium (3.5-5.1) mmol/L Chloride (98-107) mmol/L POC Glucose (mg/dL) 159 H (70-110) mg/dL Calcium (8.4-10.2) mg/dL Magnesium (1.6-2.3) mg/dL Total Bilirubin (0.2-1.3) mg/dL AST (17-59) U/L Alkaline Phosphatase (38-126) U/L Total Protein (6.3-8.2) g/dL Albumin (3.5-5.0) g/dL Arterial Blood Potassium (3.4-4.5) mmol/L Arterial Blood Glucose (75-99) mg/dL Crossmatch Assessment and Plan Assessment: Impression: Severe coronary artery disease with critical left main stenosis, status post four-vessel CABG. Patient had preserved LV function. Ejection fraction of 55%. Acute blood loss anemia, expected. Postoperative left basilar atelectasis, expected. Hypovolemic hypotension, patient will be receiving blood products, in the meantime he is maintained on dopamine and on norepinephrine. This is expected Severe chronic obstructive pulmonary disease and some component of restrictive lung disease, FEV1 is in the range of 34% of the predicted. Newly diagnosed diabetes, hemoglobin A1c 7.2 Benign essential hypertension History of alcohol daily use Ex-smoker Family history of premature coronary artery disease Degenerative joint disease Recommendation: Continue to monitor in the ICU. Maximize medical therapy with statins beta blockers and aspirin may have to hold beta blockers for now because of low blood pressure. Continue dopamine and norepinephrine and titrate accordingly Agree with transfusing the patient with 1 unit of packed RBCs for low hemoglobin of 7.1. Continue incentive spirometry. Early ambulation if possible. DVT and GI prophylaxis. We will continue to follow Time with Patient: Less than 30
[2022-02-19 13:59] LABS: Glucose,Whole Blood 152 mg/dL (70-110)
[2022-02-19 14:47] LABS: Glucose,Whole Blood 145 mg/dL (70-110)
[2022-02-19] MEDS: ACETAMINOPHEN TAB 325 MG TAB PO PRN ×2 (14:50→19:37)
[2022-02-19 15:12] LABS: Basophils % (A) 0 %; Eosinophils # (A) 0.1 k/uL (0-0.7); Eosinophils % (A) 1 %; HCT 24.2 % (39.0-53.0); Lymphocytes # (A) 0.8 k/uL (1.0-4.8); Lymphocytes % (A) 7 %; MCH 32.4 pg (25.0-35.0); MCHC 32.9 g/dL (31.0-37.0); MCV 98.6 fL (80.0-100.0); Mean Platelet Volume 10.4; Monocytes # (A) 0.6 k/uL (0-1.0); Monocytes % (A) 6 %; Neutrophils # (A) 8.9 k/uL (1.3-7.7); Neutrophils % (A) 85 %; RBC 2.45 m/uL (4.30-5.90); RDW 13.5 % (11.5-15.5); WBC 10.5 k/uL (3.8-10.6)
[2022-02-19 15:18] LABS: Platelet Count 89 k/uL (150-450)
[2022-02-19 16:09] LABS: Glucose,Whole Blood 172 mg/dL (70-110)
[2022-02-19 17:07] LABS: Glucose,Whole Blood 156 mg/dL (70-110)
[2022-02-19] MEDS: INSULIN REGULAR 100 UNIT in SODIUM CHLORIDE 0.9% 100 ML IV SCH (17:19)
[2022-02-19 18:37] LABS: Glucose,Whole Blood 128 mg/dL (70-110)
[2022-02-19 20:05] LABS: Glucose,Whole Blood 127 mg/dL (70-110)
[2022-02-19] MEDS: METOPROLOL TARTRATE 12.5 MG TAB PO SCH (20:57)
[2022-02-19] MEDS: SENNOSIDES-DOCUSATE SODIUM 1 EACH TAB PO SCH (20:57)
[2022-02-19 21:56] LABS: Glucose,Whole Blood 157 mg/dL (70-110)
[2022-02-19 23:02] LABS: Glucose,Whole Blood 161 mg/dL (70-110)
[2022-02-19 23:50] LABS: Glucose,Whole Blood 150 mg/dL (70-110)
[2022-02-20] MEDS: ACETAMINOPHEN TAB 325 MG TAB PO PRN ×4 (00:11→16:16)
[2022-02-20 02:01] LABS: Glucose,Whole Blood 102 mg/dL (70-110)
[2022-02-20 02:56] LABS: Glucose,Whole Blood 116 mg/dL (70-110)
[2022-02-20 04:11] LABS: Glucose,Whole Blood 139 mg/dL (70-110)
[2022-02-20 04:21] LABS: Basophils % (A) 0 %; Eosinophils # (A) 0.2 k/uL (0-0.7); Eosinophils % (A) 2 %; HCT 22.8 % (39.0-53.0); HGB 7.7 gm/dL (13.0-17.5); Lymphocytes # (A) 1.3 k/uL (1.0-4.8); Lymphocytes % (A) 11 %; MCH 32.7 pg (25.0-35.0); MCHC 33.6 g/dL (31.0-37.0); MCV 97.4 fL (80.0-100.0); Mean Platelet Volume 11.2; Monocytes # (A) 0.7 k/uL (0-1.0); Monocytes % (A) 6 %; Neutrophils # (A) 9.1 k/uL (1.3-7.7); Neutrophils % (A) 80 %; RBC 2.34 m/uL (4.30-5.90); RDW 13.4 % (11.5-15.5); WBC 11.4 k/uL (3.8-10.6)
[2022-02-20 04:25] LABS: Platelet Count 80 k/uL (150-450)
[2022-02-20] MEDS: SODIUM CHLORIDE 0.9% 1,000 ML IV SCH ×2 (04:51→04:52)
[2022-02-20 04:58] LABS: Glucose,Whole Blood 143 mg/dL (70-110)
[2022-02-20 05:03] LABS: Ionized Calcium 4.7 mg/dL (4.5-5.3)
[2022-02-20 05:12] LABS: Albumin 3.8 g/dL (3.5-5.0); Calcium 7.7 mg/dL (8.4-10.2); Potassium 4.1 mmol/L (3.5-5.1); Total Bilirubin 1.2 mg/dL (0.2-1.3); Total Protein 5.3 g/dL (6.3-8.2)
[2022-02-20 06:00] LABS: Glucose,Whole Blood 152 mg/dL (70-110)
[2022-02-20] MEDS: DOPamine DRIP 800 MG in DEXTROSE/WATER 1 250ML.BAG IV SCH (06:02)
--- NOTE | 2022-02-20 06:23 | PN ---
PROGRESS NOTE SUBJECTIVE: A 76-year-old gentleman with CAD, status post CABG postop day #1. Remains in quite a bit of discomfort and is having difficulty taking deep breaths in. OBJECTIVE: VITAL SIGNS: On exam, heart rate is , blood pressure is 115/67, respiratory rate is 18. CHEST: Exam reveals diminished air entry at the bases. HEART: Exam reveals first and second heart sounds. No gallop. EXTREMITIES: Exam of extremities reveals mild edema bilaterally. LABORATORY DATA: Labs show a hemoglobin of 8, platelet count is 89. ASSESSMENT AND PLAN: Severe three-vessel coronary artery disease, status post bypass. The patient will continue aspirin, Lipitor, Plavix, and metoprolol. The patient will work on incentive spirometry. MMODL / ALEXSANDRAN: [id number] /
[2022-02-20] MEDS: ASCORBIC ACID 500 MG TAB PO SCH ×2 (06:30→17:05)
[2022-02-20] MEDS: FERROUS SULFATE 325 MG TAB PO SCH ×2 (06:30→17:05)
[2022-02-20] MEDS: PANTOPRAZOLE 40 MG TABLET PO SCH (06:30)
[2022-02-20 06:47] LABS: Glucose,Whole Blood 144 mg/dL (70-110)
--- NOTE | 2022-02-20 07:24 | XR ---
EXAMINATION TYPE: XR chest 1V portable DATE OF EXAM: 02/20/2022 5:27 AM COMPARISON: Chest radiograph from one day prior. TECHNIQUE: XR chest 1V portable Portable AP radiograph of the chest. CLINICAL INDICATION:Male, 76 years old with history of Post Operative Cardiac Surgery; FINDINGS: Lungs/Pleura: There is improved aeration of the left lung base. Suspected small pleural effusion Ther e is no evidence of focal consolidation, or pneumothorax. Pulmonary vascularity: Unremarkable. Heart/mediastinum: Cardiomediastinal silhouette is unremarkable. Left atrial appendage occlusion jacquie ce is present. Musculoskeletal: No acute osseous pathology. Midline sternotomy wires are noted. Other findings: None Lines/Tubes: There is a [place] catheter with tip projecting over the spine. Drainage tubes with tips projecting over the mediastinum. Left thoracotomy tube is present without evidence of pneumothorax. IMPRESSION: 1. Improved aeration of the left lung base with suspected small left pleural effusion. No pneumothor ax visualized. 2. Stable support tubes.
[2022-02-20 08:03] LABS: Glucose,Whole Blood 119 mg/dL (70-110)
[2022-02-20] MEDS ORDERED: FUROSEMIDE 10 MG/ML 4 ML VIAL IV STA (08:20)
--- NOTE | 2022-02-20 08:51 | P.PN ---
Subjective Progress Note Date: 02/20/22 Principal diagnosis: Coronary artery disease with critical left main stenosis, unstable angina. Previous medical history of hypertension, hyperlipidemia, daily EtOH use, previous tobacco dependence, osteoarthritis, and family history of premature coronary artery disease (father had myocardial infarction at age 55) POD #2 coronary artery bypass grafting 4, left internal mammary artery sequential to the diagonal and left anterior descending artery, left radial artery from the aorta to the obtuse marginal artery, reverse saphenous vein graft from the aorta to the posterior lateral artery, endoscopic left radial and right greater saphenous vein harvest, left atrial appendage ligation with a #35 mm AtriClip, graft flow measurements using the [employer] flow meter, intraoper ative transesophageal echocardiogram Postoperative acute blood loss anemia and thrombocytopenia, expected given hemodilution and cardiopulmonary bypass pump Hypotension, expected given preoperative calcium channel yessy use likely causing vasoplegia The patient was seen and examined this morning with Dr. Stauffer sitting up in a recliner in the intensive care unit in no acute distress. He does complain of some postoperative pain, denies shortness of breath currently. Currently in sinus rhythm with heart rate in the 80s, blood pressure were stable, has been off Levophed since yesterday evening, remains on dopamine. He did receive 1 unit packed red blood cells yesterday. He is alert and oriented 3 this morning. Remains on 4 L nasal cannula with oxygen saturation in the mid 90s, not using incentive spirometry appropriately. Right internal jugular [place]/cordis, right radial arterial line, mediastinal/left pleural chest tubes all remain. Objective - Vital Signs Vital signs: Vital Signs Temp 98.8 F 02/19/22 10:30 Pulse 82 02/20/22 07:00 Resp 23 02/20/22 07:00 BP 105/67 02/20/22 07:00 Pulse Ox 95 02/20/22 07:00 FiO2 45 02/18/22 20:00 Intake & Output 02/19/22 02/20/22 02/20/22 18:59 06:59 18:59 Intake Total 2043.027 943.099 59 Output Total 795 950 30 Balance 1248.027 -6.901 29 Weight 84.6 kg 100 kg Intake: IV 709 689 59 0.9NS FOR CO/CI 60 40 0.9NS PRESSURE BAGS 99 99 9 Sodium Chloride 0.9% 1, 550 550 50 000 ml @ 50 mls/hr IV . Q20H [facility] Rx#:[id number] Intake, IV Titration 114.027 14.099 Amount Insulin Regular 100 unit 13.686 14.099 In Sodium Chloride 0.9% 100 ml @ Per Protocol IV .Q0M [facility]EROY Rx#:[id number] Norepinephrine 4 mg In 0.341 Sodium Chloride 0.9% 250 ml @ Titrate IV .Q0M [facility]ERO[facility] Rx#:[id number] ceFAZolin 2 gm In Sodium 100 Chloride 0.9% 50 ml @ 100 mls/hr IVPB Q8HR [facility] Rx# :[id number] Oral 240 Blood Product 1220 Rc As-1 Unit 310 [id number] Output: Chest Tube Drainage 420 310 Chest Tube Left Left 300 240 Pleural/Mediastinal Chest Tube Mediastinal 120 70 Urine 375 640 30 Other: Voiding Method Indwelling Catheter Indwelling Catheter # Voids 3 ABP, PAP, CO, CI - Last Documented Arterial Blood Pressure 93/40 Pulmonary Artery Pressure 32/10 Cardiac Output 6.9 Cardiac Index 3.3 - Exam CONSTITUTIONAL: Appears comfortable, cooperative, no acute distress RESPIRATORY: Lungs sounds diminished bilaterally. Respirations even, nonlabored. Currently on 4 L nasal cannula with oxygen saturation 95%. Strong nonproductive cough. CARDIOVASCULAR: S1, S2 present. Regular rate and rhythm, sinus rhythm on telemetry. Sternum stable. Palpable peripheral pulses bilaterally. Trace bilateral lower extremity edema present. No calf pain or tenderness noted. Heart hugger in place with patient demonstrating appropriate use. Antiembolism stockings, SCDs present. GASTROINTESTINAL: Abdomen soft, nontender, distended. Active bowel sounds present 4 quadrants. Tympanic to percussion. Tolerating clear liquids. Positive flatus GENITOURINARY: Ramos present draining clear, yellow urine. Output overnight 35-75 mL per hour, 1015 mL in the last 24 hours INTEGUMENTARY: Skin is warm and dry. Anterior chest incision well approximated and covered with dry intact dressing. Right lower extremity EVH site well approximated without redness or drainage. NEUROLOGIC: Cranial nerves II through XII intact MUSKULOSKELETAL: Able to move all extremities, strength equal bilaterally PSYCHIATRIC: Alert and oriented to person, place, and time, appropriate affect INVASIVE LINES AND TUBES: Mediastinal/left pleural chest tubes present and connected to wall suction, no air leaks present. Mediastinal tube with 40 mL serosanguineous drainage overnight, 200 mL in the last 24 hours. Left pleural chest tube with 70 mL serosanguineous drainage overnight, 550 mL in the last 24 hours. Ventricular epicardial pacemaker wires present, grounded. Right internal jugular [place]/Cordis, right radial arterial line present. Last CO/CI 6.9/3.3, PA 35/13, CVP 21. - Allied health notes Allied health notes reviewed: nursing - Labs CBC & Chem 7: 02/20/22 04:00 02/20/22 04:00 Labs: Abnormal Lab Results - Last 24 Hours (Table) 02/17/22 02/19/22 02/19/22 Range/Units 09:40 08:11 09:57 WBC (3.8-10.6) k/uL RBC (4.30-5.90) m/uL Hgb (13.0-17.5) gm/dL Hct (39.0-53.0) % Plt Count (150-450) k/uL Neutrophils # (1.3-7.7) k/uL Lymphocytes # (1.0-4.8) k/uL Chloride (98-107) mmol/L Carbon Dioxide (22-30) mmol/L BUN (9-20) mg/dL Glucose (74-99) mg/dL POC Glucose (mg/dL) 140 H 147 H (70-110) mg/dL Calcium (8.4-10.2) mg/dL AST (17-59) U/L ALT (4-49) U/L Total Protein (6.3-8.2) g/dL Crossmatch See Detail 02/19/22 02/19/22 02/19/22 Range/Units 11:56 13:38 14:45 WBC (3.8-10.6) k/uL RBC 2.45 L (4.30-5.90) m/uL Hgb 8.0 L (13.0-17.5) gm/dL Hct 24.2 L (39.0-53.0) % Plt Count 89 L (150-450) k/uL Neutrophils # 8.9 H (1.3-7.7) k/uL Lymphocytes # 0.8 L (1.0-4.8) k/uL Chloride (98-107) mmol/L Carbon Dioxide (22-30) mmol/L BUN (9-20) mg/dL Glucose (74-99) mg/dL POC Glucose (mg/dL) 159 H 152 H (70-110) mg/dL Calcium (8.4-10.2) mg/dL AST (17-59) U/L ALT (4-49) U/L Total Protein (6.3-8.2) g/dL Crossmatch 02/19/22 02/19/22 02/19/22 Range/Units 14:46 16:07 17:06 WBC (3.8-10.6) k/uL RBC (4.30-5.90) m/uL Hgb (13.0-17.5) gm/dL Hct (39.0-53.0) % Plt Count (150-450) k/uL Neutrophils # (1.3-7.7) k/uL Lymphocytes # (1.0-4.8) k/uL Chloride (98-107) mmol/L Carbon Dioxide (22-30) mmol/L BUN (9-20) mg/dL Glucose (74-99) mg/dL POC Glucose (mg/dL) 145 H 172 H 156 H (70-110) mg/dL Calcium (8.4-10.2) mg/dL AST (17-59) U/L ALT (4-49) U/L Total Protein (6.3-8.2) g/dL Crossmatch 02/19/22 02/19/22 02/19/22 Range/Units 18:36 20:02 21:54 WBC (3.8-10.6) k/uL RBC (4.30-5.90) m/uL Hgb (13.0-17.5) gm/dL Hct (39.0-53.0) % Plt Count (150-450) k/uL Neutrophils # (1.3-7.7) k/uL Lymphocytes # (1.0-4.8) k/uL Chloride (98-107) mmol/L Carbon Dioxide (22-30) mmol/L BUN (9-20) mg/dL Glucose (74-99) mg/dL POC Glucose (mg/dL) 128 H 127 H 157 H (70-110) mg/dL Calcium (8.4-10.2) mg/dL AST (17-59) U/L ALT (4-49) U/L Total Protein (6.3-8.2) g/dL Crossmatch 02/19/22 02/19/22 02/20/22 Range/Units 23:01 23:48 02:54 WBC (3.8-10.6) k/uL RBC (4.30-5.90) m/uL Hgb (13.0-17.5) gm/dL Hct (39.0-53.0) % Plt Count (150-450) k/uL Neutrophils # (1.3-7.7) k/uL Lymphocytes # (1.0-4.8) k/uL Chloride (98-107) mmol/L Carbon Dioxide (22-30) mmol/L BUN (9-20) mg/dL Glucose (74-99) mg/dL POC Glucose (mg/dL) 161 H 150 H 116 H (70-110) mg/dL Calcium (8.4-10.2) mg/dL AST (17-59) U/L ALT (4-49) U/L Total Protein (6.3-8.2) g/dL Crossmatch 02/20/22 02/20/22 02/20/22 Range/Units 04:00 04:00 04:09 WBC 11.4 H (3.8-10.6) k/uL RBC 2.34 L (4.30-5.90) m/uL Hgb 7.7 L (13.0-17.5) gm/dL Hct 22.8 L (39.0-53.0) % Plt Count 80 L (150-450) k/uL Neutrophils # 9.1 H (1.3-7.7) k/uL Lymphocytes # (1.0-4.8) k/uL Chloride 110 H (98-107) mmol/L Carbon Dioxide 21 L (22-30) mmol/L BUN 24 H (9-20) mg/dL Glucose 121 H (74-99) mg/dL POC Glucose (mg/dL) 139 H (70-110) mg/dL Calcium 7.7 L (8.4-10.2) mg/dL AST 196 H (17-59) U/L ALT 50 H (4-49) U/L Total Protein 5.3 L (6.3-8.2) g/dL Crossmatch 02/20/22 02/20/22 02/20/22 Range/Units 04:55 05:58 06:46 WBC (3.8-10.6) k/uL RBC (4.30-5.90) m/uL Hgb (13.0-17.5) gm/dL Hct (39.0-53.0) % Plt Count (150-450) k/uL Neutrophils # (1.3-7.7) k/uL Lymphocytes # (1.0-4.8) k/uL Chloride (98-107) mmol/L Carbon Dioxide (22-30) mmol/L BUN (9-20) mg/dL Glucose (74-99) mg/dL POC Glucose (mg/dL) 143 H 152 H 144 H (70-110) mg/dL Calcium (8.4-10.2) mg/dL AST (17-59) U/L ALT (4-49) U/L Total Protein (6.3-8.2) g/dL Crossmatch - Imaging and Cardiology Chest x-ray: report reviewed, image reviewed Assessment and Plan Assessment: 1. Coronary artery disease with critical left main stenosis, unstable angina, status post 4 vessel CABG 2. Preserved left ventricular systolic function, EF 55-60% 3. Mild mitral and tricuspid regurgitation on transthoracic echocardiogram from 01/27/2022 4. Newly diagnosed diabetes, hemoglobin A1c 7.2% 5. History of hypertension 6. Hyperlipidemia, cholesterol 217, LDL 113, triglycerides 183 7. Daily EtOH use, 8. Previous tobacco dependence 9. Severe COPD, FEV1 34% of predicted 10. Osteoarthritis 11. Family history of premature coronary artery disease (father had myocardial infarction at age 55) 12. Postoperative acute blood loss anemia and thrombocytopenia, expected 13. Hypotension, expected Plan: 1. Continue to maximize medical therapy with aspirin, Plavix, statin, beta yessy. Hold parameters on beta yessy 2. Wean dopamine 3. Wean O2 as tolerated. Incentive spirometry 10 times every hour while awake. Bronchodilators per pulmonology 4. Increase activity, ambulate as tolerated. PT/OT/cardiac rehab consulted 5. Will monitor daily labs and x-rays. Electrolyte replacement per protocol. Will give 40 mg IVP lasix today 6. GI/DVT prophylaxis 7. Will discontinue [place] later today 8. Pain control with current medication regimen. Avoid narcotics 9. Insulin management per internal medicine. Patient considered newly diagnosed diabetic, needs tight blood sugar control 10. Continue Cordis, may DC arterial line 11. Will discontinue mediastinal chest tube, continue left pleural chest tube for another 24 hours 12. Discontinue Ramos after diuresis from lasix, may bladder scan and straight cath for >300 cc residual 13. Strict accurate intake and output. Daily weights 14. Continue CIWA protocol 15. More recommendations to follow based on patient's progress
[2022-02-20 09:08] LABS: Glucose,Whole Blood 98 mg/dL (70-110)
[2022-02-20] MEDS: IPRATROPIUM-ALBUTEROL 3 ML NEB INHALATION SCH ×4 (09:09→19:51)
[2022-02-20] MEDS: SYMBICORT 160-4.5 MCG INHALER INHALATION SCH ×2 (09:09→19:51)
[2022-02-20] MEDS: guaiFENesin-DM 600/30MG 1 EACH TAB.ER.12H PO SCH ×2 (09:18→20:39)
[2022-02-20] MEDS: ATORVASTATIN 40 MG TAB PO SCH (09:18)
[2022-02-20] MEDS: THIAMINE 100 MG TAB PO SCH (09:18)
[2022-02-20] MEDS: FOLIC ACID 1 MG TAB PO SCH (09:18)
[2022-02-20] MEDS: ASPIRIN 325 MG TAB PO SCH (09:18)
[2022-02-20] MEDS: CLOPIDOGREL 75 MG TAB PO SCH (09:18)
[2022-02-20] MEDS: HEPARIN SODIUM,PORCINE/PF 5,000 UNIT/0.5 ML SYRINGE SQ SCH ×3 (09:18→23:57)
[2022-02-20] MEDS: METOPROLOL TARTRATE 12.5 MG TAB PO SCH ×2 (09:19→20:39)
[2022-02-20 10:10] LABS: Glucose,Whole Blood 114 mg/dL (70-110)
[2022-02-20 11:25] LABS: Glucose,Whole Blood 174 mg/dL (70-110)
--- NOTE | 2022-02-20 11:41 | PN ---
PROGRESS NOTE SUBJECTIVE: This is a 76-year-old gentleman, who is postop day #2, seems to be in quite a bit of discomfort at the surgical sites, but otherwise doing fine. OBJECTIVE: VITAL SIGNS: Heart rate is 80 beats per minute, blood pressure is 125/50, respiratory rate is 24. CHEST: Reveals diminished air entry at the bases. HEART: Reveals first and second heart sounds. No gallop. EXTREMITIES: Reveals mild edema bilaterally. MEDICATIONS: The patient is currently on: 1. Aspirin. 2. Lipitor. 3. Plavix. 4. Renal-dose dopamine. 5. Inhalers and nebulizers. Blood pressure is improving. ASSESSMENT: 1. Coronary artery disease, status post coronary artery bypass graft. 2. Respiratory insufficiency. PLAN: The patient will continue current medications, work on incentive spirometry. MMODL / IJN: [id number] /
--- NOTE | 2022-02-20 13:30 | P.PN ---
Subjective Progress Note Date: 02/20/22 Principal diagnosis: POD #2 coronary artery bypass grafting 4, left internal mammary artery sequential to the diagonal and left anterior descending artery, left radial artery from the aorta to the obtuse marginal artery, reverse saphenous vein graft from the aorta to the posterior lateral artery, endoscopic left radial and right greater saphenous vein harvest, left atrial appendage ligation with a #35 mm AtriClip, graft flow measurements using the [employer] flow meter, intraop erative transesophageal echocardiogram This is a 76-year-old white male with history of multiple medical problems including hypertension, dyslipidemia, remote smoking history, patient had about a [id number] smoking history but he quit smoking 40 years ago. Patient has significant family history of early onset coronary artery disease, history of degenerative joint disease, drinks on the average of 3 glasses of liquor on a daily basis. Over the last few months, patient has been noticing burning sensation of the chest with activity. This was also associated with shortness of breath. Patient was referred to cardiology, and apparently had abnormal stress test. This was further evaluated by cardiac catheterization. Which showed a critical left main stenosis in the range of 99.9%, 70% stenosis to proximal and midportion sugar of LAD severe disease noted in the distal RCA and the ostial of the PDA branch of the right coronary artery. Hence the patient was seen by cardiothoracic surgery, and he is scheduled to undergo myocardial revascularization tomorrow. Considering his smoking history, and considering his abnormal PFT, this consult was initiated. His PFT showed severe obstructive and restrictive lung disease. Although clinically the patient does not seem to be Obstructed. Nonetheless the patient is not active he has an extremely sedentary lifestyle for the last 3 years mostly because of his chronic low back pain and right hip pain secondary to degenerative joint disease patient has not been physically active for the last 2 or 3 years he has a very sedentary lifes tyle. Denies cough denies wheezing denies shortness of breath at rest. Never been diagnosed with COPD, and never been on any bronchodilators. The patient is seen today 02/18/2022 in follow-up in the immediate postoperative period in the intensive care unit. He had undergone coronary artery bypass grafting 4. CARREON sequential to diagonal and LAD, left radial artery to the obtuse marginal artery and a saphenous vein graft to the posterior lateral artery. Left atrial appendage ligation with a thick #35 mm atrophic clip. He is currently intubated on mechanical ventilator at settings of assist control mode at a rate of 14, tidal volume 550, FiO2 100% and a PEEP of 5. Blood gases revealed a PaO2 of 392, pCO2 39, pH 7.40. He is on a nitroglycerin drip at 5 mcg/m. Propofol at 25 mcg/kg/m. He initially was on norepinephrine at 0.01 mg/m. He is receiving albumin. He has left pleural chest tubes 2 and a mediastinal chest tube in place. Cardiac output 4.3. Index 2.0. White count 5 .6. Hemoglobin 8.1. INR 1.3. Glucose 100. Reevaluated today on 02/19/22, patient underwent coronary artery bypass grafting 4 yesterday, I was able to extubate the patient at 20:55, he tolerated the extubation well, patient is doing well from the pulmonary perspective, however he is still relatively with marginal blood pressure, requiring dopamine and norepinephrine. Continues to have mediastinal/left chest tubes, chest x-ray is showing mostly left lower lobe atelectasis, no evidence of congestive heart failure. Hemoglobin is a bit low today at 7.1, and he will be receiving a unit of packed RBCs. Patient is on dopamine at 2 mcg/kg/m he is also on a low-dose norepinephrine at 0.06 mcg/kg/m. Continues to have right IJ [place]-Teddy catheter and right radial arterial line. CVP today is 10. WBC count is 10.5-year-old woman is 7.1. Basic metabolic profile is normal renal profile is slightly worse with creatinine of 1.24 today. Reevaluated today on 02/20/22, patient remains in the ICU, he is now postoperative day #2. Patient is doing well, he is sitting in a recliner, feels generally weak, he is in a bit of pain, remains on dopamine at 20 mcg/kg/m, he is off norepinephrine, received a unit of packed RBCs yesterday. He is on 4 L nasal cannula, not in distress, continues to have multiple lines continues to have mediastinal left pleural chest tube in place, and he has a right IJ jugular/[place]-Teddy catheter. Chest x-ray is showing slight improvement in his left lower lobe atelectasis and there is a small tiny left pleural effusion, no evidence of pulmonary edema, no evidence of infiltrate. CBC is relatively unremarkable, hemoglobin is 7.7 today. Basic metabolic profile is normal renal profile is normal with a BUN of 24 creatinine 1.12 improved compared to creatinine from yesterday Objective - Vital Signs Vital signs: Vital Signs Temp 99.5 F 02/20/22 08:00 Pulse 86 02/20/22 11:46 Resp 18 02/20/22 11:46 BP 135/73 02/20/22 10:00 Pulse Ox 98 02/20/22 11:00 FiO2 45 02/18/22 20:00 Intake & Output 02/19/22 02/20/22 02/20/22 18:59 06:59 18:59 Intake Total 2043.027 943.099 305.246 Output Total 795 950 670 Balance 1248.027 -6.901 -364.754 Weight 84.6 kg 100 kg Intake: IV 709 689 299 0.9NS FOR CO/CI 60 40 30 0.9NS PRESSURE BAGS 99 99 39 Sodium Chloride 0.9% 1, 550 550 230 000 ml @ 20 mls/hr IV . Q24H [facility] Rx#:[id number] Intake, IV Titration 114.027 14.099 6.246 Amount Insulin Regular 100 unit 13.686 14.099 6.246 In Sodium Chloride 0.9% 100 ml @ Per Protocol IV .Q0M [facility] Rx#:[id number] Norepinephrine 4 mg In 0.341 Sodium Chloride 0.9% 250 ml @ Titrate IV .Q0M [facility] Rx#:[id number] ceFAZolin 2 gm In Sodium 100 Chloride 0.9% 50 ml @ 100 mls/hr IVPB Q8HR [facility] Rx# :[id number] Oral 240 Blood Product 1220 Rc As-1 Unit 310 [id number] Output: Chest Tube Drainage 420 310 90 Chest Tube Left Left 300 240 50 Pleural/Mediastinal Chest Tube Mediastinal 120 70 40 Urine 375 640 580 Other: Voiding Method Indwelling Catheter Indwelling Catheter # Voids 3 ABP, PAP, CO, CI - Last Documented Arterial Blood Pressure 129/44 Pulmonary Artery Pressure 31/11 Cardiac Output 6.3 Cardiac Index 3.0 - Exam Physical Exam: Revealed a 76-year-old white male in no distress, on 3 L nasal cannula Head: Atraumatic, normocephalic HEENT: Pale looking. [Neck is supple.] [No neck masses.] [No thyromegaly.] [No JVD.] Chest: [Symmetrical chest expansion, diminished breath sound the bases, no crackles or rhonchi or wheezes left-sided chest tube and mediastinal tube noted Cardiac Exam: Distant S1 and S2, positive pericardial rub. Abdomen: [Soft, nontender, no megaly, no rebound, no guarding, normal bowel sounds.] Extremities: [No clubbing, no edema, no cyanosis.] Neurological Exam: Alert and oriented 3. [No focal neurologic deficit.] Psychiatric: Normal mood affect and normal mental status examination. Skin: No rashes. - Labs CBC & Chem 7: 02/20/22 04:00 02/20/22 04:00 Labs: Abnormal Lab Results - Last 24 Hours (Table) 02/17/22 02/19/22 02/19/22 Range/Units 09:40 13:38 14:45 WBC (3.8-10.6) k/uL RBC 2.45 L (4.30-5.90) m/uL Hgb 8.0 L (13.0-17.5) gm/dL Hct 24.2 L (39.0-53.0) % Plt Count 89 L (150-450) k/uL Neutrophils # 8.9 H (1.3-7.7) k/uL Lymphocytes # 0.8 L (1.0-4.8) k/uL Chloride (98-107) mmol/L Carbon Dioxide (22-30) mmol/L BUN (9-20) mg/dL Glucose (74-99) mg/dL POC Glucose (mg/dL) 152 H (70-110) mg/dL Calcium (8.4-10.2) mg/dL AST (17-59) U/L ALT (4-49) U/L Total Protein (6.3-8.2) g/dL Crossmatch See Detail 02/19/22 02/19/22 02/19/22 Range/Units 14:46 16:07 17:06 WBC (3.8-10.6) k/uL RBC (4.30-5.90) m/uL Hgb (13.0-17.5) gm/dL Hct (39.0-53.0) % Plt Count (150-450) k/uL Neutrophils # (1.3-7.7) k/uL Lymphocytes # (1.0-4.8) k/uL Chloride (98-107) mmol/L Carbon Dioxide (22-30) mmol/L BUN (9-20) mg/dL Glucose (74-99) mg/dL POC Glucose (mg/dL) 145 H 172 H 156 H (70-110) mg/dL Calcium (8.4-10.2) mg/dL AST (17-59) U/L ALT (4-49) U/L Total Protein (6.3-8.2) g/dL Crossmatch 02/19/22 02/19/22 02/19/22 Range/Units 18:36 20:02 21:54 WBC (3.8-10.6) k/uL RBC (4.30-5.90) m/uL Hgb (13.0-17.5) gm/dL Hct (39.0-53.0) % Plt Count (150-450) k/uL Neutrophils # (1.3-7.7) k/uL Lymphocytes # (1.0-4.8) k/uL Chloride (98-107) mmol/L Carbon Dioxide (22-30) mmol/L BUN (9-20) mg/dL Glucose (74-99) mg/dL POC Glucose (mg/dL) 128 H 127 H 157 H (70-110) mg/dL Calcium (8.4-10.2) mg/dL AST (17-59) U/L ALT (4-49) U/L Total Protein (6.3-8.2) g/dL Crossmatch 02/19/22 02/19/22 02/20/22 Range/Units 23:01 23:48 02:54 WBC (3.8-10.6) k/uL RBC (4.30-5.90) m/uL Hgb (13.0-17.5) gm/dL Hct (39.0-53.0) % Plt Count (150-450) k/uL Neutrophils # (1.3-7.7) k/uL Lymphocytes # (1.0-4.8) k/uL Chloride (98-107) mmol/L Carbon Dioxide (22-30) mmol/L BUN (9-20) mg/dL Glucose (74-99) mg/dL POC Glucose (mg/dL) 161 H 150 H 116 H (70-110) mg/dL Calcium (8.4-10.2) mg/dL AST (17-59) U/L ALT (4-49) U/L Total Protein (6.3-8.2) g/dL Crossmatch 02/20/22 02/20/22 02/20/22 Range/Units 04:00 04:00 04:09 WBC 11.4 H (3.8-10.6) k/uL RBC 2.34 L (4.30-5.90) m/uL Hgb 7.7 L (13.0-17.5) gm/dL Hct 22.8 L (39.0-53.0) % Plt Count 80 L (150-450) k/uL Neutrophils # 9.1 H (1.3-7.7) k/uL Lymphocytes # (1.0-4.8) k/uL Chloride 110 H (98-107) mmol/L Carbon Dioxide 21 L (22-30) mmol/L BUN 24 H (9-20) mg/dL Glucose 121 H (74-99) mg/dL POC Glucose (mg/dL) 139 H (70-110) mg/dL Calcium 7.7 L (8.4-10.2) mg/dL AST 196 H (17-59) U/L ALT 50 H (4-49) U/L Total Protein 5.3 L (6.3-8.2) g/dL Crossmatch 02/20/22 02/20/22 02/20/22 Range/Units 04:55 05:58 06:46 WBC (3.8-10.6) k/uL RBC (4.30-5.90) m/uL Hgb (13.0-17.5) gm/dL Hct (39.0-53.0) % Plt Count (150-450) k/uL Neutrophils # (1.3-7.7) k/uL Lymphocytes # (1.0-4.8) k/uL Chloride (98-107) mmol/L Carbon Dioxide (22-30) mmol/L BUN (9-20) mg/dL Glucose (74-99) mg/dL POC Glucose (mg/dL) 143 H 152 H 144 H (70-110) mg/dL Calcium (8.4-10.2) mg/dL AST (17-59) U/L ALT (4-49) U/L Total Protein (6.3-8.2) g/dL Crossmatch 02/20/22 02/20/22 02/20/22 Range/Units 08:02 10:09 11:23 WBC (3.8-10.6) k/uL RBC (4.30-5.90) m/uL Hgb (13.0-17.5) gm/dL Hct (39.0-53.0) % Plt Count (150-450) k/uL Neutrophils # (1.3-7.7) k/uL Lymphocytes # (1.0-4.8) k/uL Chloride (98-107) mmol/L Carbon Dioxide (22-30) mmol/L BUN (9-20) mg/dL Glucose (74-99) mg/dL POC Glucose (mg/dL) 119 H 114 H 174 H (70-110) mg/dL Calcium (8.4-10.2) mg/dL AST (17-59) U/L ALT (4-49) U/L Total Protein (6.3-8.2) g/dL Crossmatch Assessment and Plan Assessment: Impression: Severe coronary artery disease with critical left main stenosis, status post four-vessel CABG. Postoperative day #2 Patient had preserved LV function. Ejection fraction of 55%. Acute blood loss anemia, expected. Postoperative left basilar atelectasis, expected. Hypovolemic hypotension, patient will be receiving blood products, in the meantime he is maintained on dopamine and on norepinephrine. This is expected Severe chronic obstructive pulmonary disease and some component of restrictive lung disease, FEV1 is in the range of 34% of the predicted. Newly diagnosed diabetes, hemoglobin A1c 7.2 Benign essential hypertension History of alcohol daily use Ex-smoker Family history of premature coronary artery disease Degenerative joint disease Recommendation: Continue to monitor in the ICU. Maximize medical therapy with statins beta blockers and aspirin may have to hold beta blockers for now because of low blood pressure. Off levo fed but remains on a tiny dose of dopamine which will likely be discontinued later today Continue to monitor hemoglobin and no need for transfusion today. Continue incentive spirometry. Continue assisted ambulation DVT and GI prophylaxis. We will continue to follow Time with Patient: Less than 30
[2022-02-20 13:35] LABS: Glucose,Whole Blood 141 mg/dL (70-110)
[2022-02-20 14:16] LABS: Glucose,Whole Blood 122 mg/dL (70-110)
[2022-02-20 15:22] LABS: Glucose,Whole Blood 110 mg/dL (70-110)
[2022-02-20] MEDS: MULTIVITAMINS, THERA 1 EACH TAB PO SCH (16:09)
[2022-02-20 16:51] LABS: Glucose,Whole Blood 110 mg/dL (70-110)
[2022-02-20] MEDS: INSULIN ASPART (NovoLOG) 100 UNIT/ML VIAL SQ SCH ×2 (17:03→20:39)
[2022-02-20 20:12] LABS: Glucose,Whole Blood 222 mg/dL (70-110)
[2022-02-20] MEDS: SENNOSIDES-DOCUSATE SODIUM 1 EACH TAB PO SCH (20:39)
[2022-02-21] MEDS: ACETAMINOPHEN TAB 325 MG TAB PO PRN ×3 (04:18→22:11)
[2022-02-21] MEDS: DOPamine DRIP 800 MG in DEXTROSE/WATER 1 250ML.BAG IV SCH (06:17)
[2022-02-21] MEDS: SODIUM CHLORIDE 0.9% 1,000 ML IV SCH (06:43)
[2022-02-21 06:45] LABS: Glucose,Whole Blood 149 mg/dL (70-110)
[2022-02-21] MEDS: INSULIN ASPART (NovoLOG) 100 UNIT/ML VIAL SQ SCH ×4 (06:46→20:35)
[2022-02-21] MEDS: FERROUS SULFATE 325 MG TAB PO SCH ×2 (06:51→17:03)
[2022-02-21] MEDS: ASCORBIC ACID 500 MG TAB PO SCH ×2 (06:51→17:03)
[2022-02-21] MEDS: PANTOPRAZOLE 40 MG TABLET PO SCH (06:51)
[2022-02-21 07:32] LABS: Basophils % (A) 0 %; Eosinophils # (A) 0.2 k/uL (0-0.7); Eosinophils % (A) 1 %; HCT 24.9 % (39.0-53.0); Lymphocytes # (A) 1.7 k/uL (1.0-4.8); Lymphocytes % (A) 13 %; MCH 32.2 pg (25.0-35.0); MCHC 32.2 g/dL (31.0-37.0); MCV 99.9 fL (80.0-100.0); Macrocytosis Slight; Mean Platelet Volume 10.3; Monocytes # (A) 0.9 k/uL (0-1.0); Monocytes % (A) 7 %; Neutrophils % (A) 76 %; RBC 2.49 m/uL (4.30-5.90); RDW 13.9 % (11.5-15.5); WBC 13.1 k/uL (3.8-10.6)
[2022-02-21 07:46] LABS: Albumin 3.5 g/dL (3.5-5.0); Calcium 7.8 mg/dL (8.4-10.2); Platelet Count 97 k/uL (150-450); Potassium 4.2 mmol/L (3.5-5.1); Total Bilirubin 1.2 mg/dL (0.2-1.3); Total Protein 5.5 g/dL (6.3-8.2)
[2022-02-21] MEDS: IPRATROPIUM-ALBUTEROL 3 ML NEB INHALATION SCH ×4 (07:56→19:51)
[2022-02-21] MEDS: SYMBICORT 160-4.5 MCG INHALER INHALATION SCH ×2 (07:56→19:51)
--- NOTE | 2022-02-21 08:14 | P.PN ---
Subjective Progress Note Date: 02/21/22 Principal diagnosis: CAD and status post CABG The patient is a pleasant 76-year-old gentleman is known to have hypertension and dyslipidemia was seen in the office recently for symptoms of chest discomfort. He underwent initially a stress test and that came in to be ischemic with anterolateral lateral ischemia. Subsequently he underwent a heart catheterization and that revealed critical disease involving the distal left main coronary artery as well as distal RCA. He underwent CABG 4 with CARREON sequentially to LAD and diagonal and radial artery to obtuse marginal as well as SVG to PDA. February [id number] The patient was seen this morning. He is overall doing well. He is stable hemodynamically. He is on antiplatelet. He is an intermediate intensity statin. I would suggest increase the dose of statin to high intensity once the liver function tests improved. Beside that the chest x-ray was reviewed and seems to be slightly wet and I would suggest also giving the patient the 20 mg of Lasix IV. Beside that continue the current medical regimen and continue mo nitor the kidney function and electrolytes as well as monitor the hemoglobin. Objective - Vital Signs Vital signs: Vital Signs Temp 98.3 F 02/21/22 04:00 Pulse 80 02/21/22 08:08 Resp 27 H 02/21/22 07:00 BP 142/71 02/21/22 07:00 Pulse Ox 93 L 02/21/22 07:00 FiO2 45 02/18/22 20:00 Intake & Output 02/20/22 02/21/22 02/21/22 18:59 06:59 18:59 Intake Total 894.132 493 23 Output Total 1270 340 0 Balance -375.868 153 23 Weight 99.5 kg Intake: IV 535 253 23 0.9NS FOR CO/CI 30 0.9NS PRESSURE BAGS 75 33 3 Sodium Chloride 0.9% 1, 430 220 20 000 ml @ 20 mls/hr IV . Q24H [facility] Rx#:[id number] Intake, IV Titration 119.132 Amount DOPamine DRIP 800 mg In 101.776 Dextrose/Water 1 250ml. bag @ 1 MCG/KG/MIN 1.725 mls/hr IV .Q24H [facility] Rx#: [id number] Insulin Regular 100 unit 17.356 In Sodium Chloride 0.9% 100 ml @ Per Protocol IV .Q0M [facility] Rx#:[id number] Oral 240 240 Output: Chest Tube Drainage 120 60 Chest Tube Left Left 80 60 Pleural/Mediastinal Chest Tube Mediastinal 40 Urine 1150 280 0 Other: Voiding Method Urinal Urinal ABP, PAP, CO, CI - Last Documented Arterial Blood Pressure 116/41 Pulmonary Artery Pressure 31/11 Cardiac Output 6.3 Cardiac Index 3 - Constitutional General appearance: Present: no acute distress - Respiratory Respiratory: bilateral: diminished - Cardiovascular Rhythm: regular Heart sounds: normal: S1, S2 - Labs CBC & Chem 7: 02/21/22 06:57 02/21/22 06:57 Labs: Abnormal Lab Results - Last 24 Hours (Table) 02/20/22 02/20/22 02/20/22 Range/Units 10:09 11:23 13:33 WBC (3.8-10.6) k/uL RBC (4.30-5.90) m/uL Hgb (13.0-17.5) gm/dL Hct (39.0-53.0) % Plt Count (150-450) k/uL Neutrophils # (1.3-7.7) k/uL Chloride (98-107) mmol/L BUN (9-20) mg/dL Glucose (74-99) mg/dL POC Glucose (mg/dL) 114 H 174 H 141 H (70-110) mg/dL Calcium (8.4-10.2) mg/dL Magnesium (1.6-2.3) mg/dL AST (17-59) U/L ALT (4-49) U/L Total Protein (6.3-8.2) g/dL 02/20/22 02/20/22 02/21/22 Range/Units 14:14 20:10 06:43 WBC (3.8-10.6) k/uL RBC (4.30-5.90) m/uL Hgb (13.0-17.5) gm/dL Hct (39.0-53.0) % Plt Count (150-450) k/uL Neutrophils # (1.3-7.7) k/uL Chloride (98-107) mmol/L BUN (9-20) mg/dL Glucose (74-99) mg/dL POC Glucose (mg/dL) 122 H 222 H 149 H (70-110) mg/dL Calcium (8.4-10.2) mg/dL Magnesium (1.6-2.3) mg/dL AST (17-59) U/L ALT (4-49) U/L Total Protein (6.3-8.2) g/dL 02/21/22 02/21/22 02/21/22 Range/Units 06:57 06:57 06:57 WBC 13.1 H (3.8-10.6) k/uL RBC 2.49 L (4.30-5.90) m/uL Hgb 8.0 L (13.0-17.5) gm/dL Hct 24.9 L (39.0-53.0) % Plt Count 97 L (150-450) k/uL Neutrophils # 10.0 H (1.3-7.7) k/uL Chloride 109 H (98-107) mmol/L BUN 30 H (9-20) mg/dL Glucose 142 H (74-99) mg/dL POC Glucose (mg/dL) (70-110) mg/dL Calcium 7.8 L (8.4-10.2) mg/dL Magnesium 2.4 H (1.6-2.3) mg/dL AST 118 H (17-59) U/L ALT 58 H (4-49) U/L Total Protein 5.5 L (6.3-8.2) g/dL Assessment and Plan Assessment: Assessment CAD and status post CABG as described above Hypertension Dyslipidemia Plan Suggest increase the dose of atorvastatin to 80 mg by mouth daily at bedtime once the liver function tests improved Suggest give the patient additional 20 mg Lasix IV this morning Continue dual antiplatelet therapy Follow-up with the patient
[2022-02-21] MEDS ORDERED: FUROSEMIDE 10 MG/ML 2 ML VIAL IV STA (08:41)
--- NOTE | 2022-02-21 08:48 | P.PN ---
Subjective Progress Note Date: 02/21/22 Principal diagnosis: Coronary artery disease with critical left main stenosis, unstable angina. Previous medical history of hypertension, hyperlipidemia, daily EtOH use, previous tobacco dependence, osteoarthritis, and family history of premature coronary artery disease (father had myocardial infarction at age 55) POD #3 coronary artery bypass grafting 4, left internal mammary artery sequential to the diagonal and left anterior descending artery, left radial artery from the aorta to the obtuse marginal artery, reverse saphenous vein graft from the aorta to the posterior lateral artery, endoscopic left radial and right greater saphenous vein harvest, left atrial appendage ligation with a #35 mm AtriClip, graft flow measurements using the [place]ognestim flow meter, intraoper ative transesophageal echocardiogram Postoperative acute blood loss anemia and thrombocytopenia, expected given hemodilution and cardiopulmonary bypass pump Hypotension, expected given preoperative calcium channel yessy use likely causing vasoplegia The patient was seen and examined this morning sitting up in a recliner in the intensive care unit in no acute distress. He does complain of some postoperative pain, denies shortness of breath currently. Currently in sinus rhythm with heart rate in the 70s, blood pressure were stable, has been off dopamine. He is alert and oriented 3 this morning. Remains on 2 L nasal cannula with oxygen saturation in the high 90s, not using incentive spirometry appropriately. Right internal jugular cordis, left pleural chest tube remains. Ramos catheter discontinued yesterday, patient continues to void. No other new concerns. Objective - Vital Signs Vital signs: Vital Signs Temp 98.3 F 02/21/22 04:00 Pulse 80 02/21/22 08:08 Resp 27 H 02/21/22 07:00 BP 142/71 02/21/22 07:00 Pulse Ox 93 L 02/21/22 07:00 FiO2 45 02/18/22 20:00 Intake & Output 02/20/22 02/21/22 02/21/22 18:59 06:59 18:59 Intake Total 894.132 493 23 Output Total 1270 340 0 Balance -375.868 153 23 Weight 99.5 kg Intake: IV 535 253 23 0.9NS FOR CO/CI 30 0.9NS PRESSURE BAGS 75 33 3 Sodium Chloride 0.9% 1, 430 220 20 000 ml @ 20 mls/hr IV . Q24H [facility] Rx#:[id number] Intake, IV Titration 119.132 Amount DOPamine DRIP 800 mg In 101.776 Dextrose/Water 1 250ml. bag @ 1 MCG/KG/MIN 1.725 mls/hr IV .Q24H [facility] Rx#: [id number] Insulin Regular 100 unit 17.356 In Sodium Chloride 0.9% 100 ml @ Per Protocol IV .Q0M [facility] Rx#:[id number] Oral 240 240 Output: Chest Tube Drainage 120 60 Chest Tube Left Left 80 60 Pleural/Mediastinal Chest Tube Mediastinal 40 Urine 1150 280 0 Other: Voiding Method Urinal Urinal ABP, PAP, CO, CI - Last Documented Arterial Blood Pressure 116/41 Pulmonary Artery Pressure 31/11 Cardiac Output 6.3 Cardiac Index 3 - Exam CONSTITUTIONAL: Appears comfortable, cooperative, no acute distress RESPIRATORY: Lungs sounds diminished bilaterally. Respirations even, nonlabored. Currently on 2 L nasal cannula with oxygen saturation 97%. Strong nonproductive cough. CARDIOVASCULAR: S1, S2 present. Regular rate and rhythm, sinus rhythm on telemetry. Sternum stable. Palpable peripheral pulses bilaterally. Trace bilateral lower extremity edema present. No calf pain or tenderness noted. Heart hugger in place with patient demonstrating appropriate use. Antiembolism stockings, SCDs present. GASTROINTESTINAL: Abdomen soft, nontender, distended. Active bowel sounds present 4 quadrants. Tympanic to percussion. Tolerating diet. Positive flatus GENITOURINARY: Ramos discontinued yesterday, patient continues to void 130 to 150 mL at a time. Output 1430 mL in the last 24 hours INTEGUMENTARY: Skin is warm and dry. Anterior chest incision well approximated and covered with dry intact dressing. Right lower extremity EVH site well approximated without redness or drainage. NEUROLOGIC: Cranial nerves II through XII intact MUSKULOSKELETAL: Able to move all extremities, strength equal bilaterally PSYCHIATRIC: Alert and oriented to person, place, and time, appropriate affect INVASIVE LINES AND TUBES: Left pleural chest tubes present and connected to wall suction, no air leaks present, 40 mL serosanguineous drainage overnight, 250 mL in the last 24 hours. Ventricular epicardial pacemaker wires present, grounded. Right internal jugular cordis present. Last CVP 12. - Allied health notes Allied health notes reviewed: nursing - Labs CBC & Chem 7: 02/21/22 06:57 02/21/22 06:57 Labs: Abnormal Lab Results - Last 24 Hours (Table) 02/20/22 02/20/22 02/20/22 Range/Units 10:09 11:23 13:33 WBC (3.8-10.6) k/uL RBC (4.30-5.90) m/uL Hgb (13.0-17.5) gm/dL Hct (39.0-53.0) % Plt Count (150-450) k/uL Neutrophils # (1.3-7.7) k/uL Chloride (98-107) mmol/L BUN (9-20) mg/dL Glucose (74-99) mg/dL POC Glucose (mg/dL) 114 H 174 H 141 H (70-110) mg/dL Calcium (8.4-10.2) mg/dL Magnesium (1.6-2.3) mg/dL AST (17-59) U/L ALT (4-49) U/L Total Protein (6.3-8.2) g/dL 02/20/22 02/20/22 02/21/22 Range/Units 14:14 20:10 06:43 WBC (3.8-10.6) k/uL RBC (4.30-5.90) m/uL Hgb (13.0-17.5) gm/dL Hct (39.0-53.0) % Plt Count (150-450) k/uL Neutrophils # (1.3-7.7) k/uL Chloride (98-107) mmol/L BUN (9-20) mg/dL Glucose (74-99) mg/dL POC Glucose (mg/dL) 122 H 222 H 149 H (70-110) mg/dL Calcium (8.4-10.2) mg/dL Magnesium (1.6-2.3) mg/dL AST (17-59) U/L ALT (4-49) U/L Total Protein (6.3-8.2) g/dL 02/21/22 02/21/22 02/21/22 Range/Units 06:57 06:57 06:57 WBC 13.1 H (3.8-10.6) k/uL RBC 2.49 L (4.30-5.90) m/uL Hgb 8.0 L (13.0-17.5) gm/dL Hct 24.9 L (39.0-53.0) % Plt Count 97 L (150-450) k/uL Neutrophils # 10.0 H (1.3-7.7) k/uL Chloride 109 H (98-107) mmol/L BUN 30 H (9-20) mg/dL Glucose 142 H (74-99) mg/dL POC Glucose (mg/dL) (70-110) mg/dL Calcium 7.8 L (8.4-10.2) mg/dL Magnesium 2.4 H (1.6-2.3) mg/dL AST 118 H (17-59) U/L ALT 58 H (4-49) U/L Total Protein 5.5 L (6.3-8.2) g/dL - Imaging and Cardiology Chest x-ray: image reviewed Assessment and Plan Assessment: 1. Coronary artery disease with critical left main stenosis, unstable angina, status post 4 vessel CABG 2. Preserved left ventricular systolic function, EF 55-60% 3. Mild mitral and tricuspid regurgitation on transthoracic echocardiogram from 01/27/2022 4. Newly diagnosed diabetes, hemoglobin A1c 7.2% 5. History of hypertension 6. Hyperlipidemia, cholesterol 217, LDL 113, triglycerides 183 7. Daily EtOH use, 8. Previous tobacco dependence 9. Severe COPD, FEV1 34% of predicted 10. Osteoarthritis 11. Family history of premature coronary artery disease (father had myocardial infarction at age 55) 12. Postoperative acute blood loss anemia and thrombocytopenia, expected 13. Hypotension, expected Plan: 1. Continue to maximize medical therapy with aspirin, Plavix, statin, beta yessy. Hold parameters on beta yessy 2. Low-dose amlodipine added for radial artery spasm prophylaxis 3. Wean O2 as tolerated. Incentive spirometry 10 times every hour while awake. Bronchodilators per pulmonology 4. Increase activity, ambulate as tolerated. PT/OT/cardiac rehab consulted 5. Will monitor daily labs and x-rays. Electrolyte replacement per protocol. Will give 20 mg IVP lasix today 6. GI/DVT prophylaxis 7. Discontinue Cordis 8. Pain control with current medication regimen. Avoid narcotics 9. Insulin management per internal medicine. Patient considered newly diagnosed diabetic, needs tight blood sugar control 10. Will discontinue left pleural chest tube 11. Strict accurate intake and output. Daily weights 12. Continue CIWA protocol 13. Will place transfer orders for [address] [place] [address] cardiac stepdown unit today, may transfer when bed available 14. Discharge planning a progress. Anticipate discharge to home with home care in the next 48 hours 15. More recommendations to follow based on patient's progress
--- NOTE | 2022-02-21 08:52 | XR ---
EXAMINATION TYPE: XR chest 1V portable DATE OF EXAM: 02/21/2022 COMPARISON: 02/20/2022 HISTORY: Postop TECHNIQUE: Single frontal view of the chest is obtained. FINDINGS: Heart is enlarged and left-sided chest tube with bilateral infiltrate and pleural effusion . No pneumothorax. Bayside-Teddy catheter has been little. Mediastinal drain no longer seen. Atherosclero tic change aorta IMPRESSION: 1. Diffuse pleural-parenchymal changes and contrast correlate for CHF
[2022-02-21] MEDS: ATORVASTATIN 40 MG TAB PO SCH (08:59)
[2022-02-21] MEDS: THIAMINE 100 MG TAB PO SCH (08:59)
[2022-02-21] MEDS: METOPROLOL TARTRATE 25 MG TAB PO SCH ×2 (08:59→20:54)
[2022-02-21] MEDS: ASPIRIN 325 MG TAB PO SCH (08:59)
[2022-02-21] MEDS: FOLIC ACID 1 MG TAB PO SCH (08:59)
[2022-02-21] MEDS: guaiFENesin-DM 600/30MG 1 EACH TAB.ER.12H PO SCH ×2 (09:00→20:54)
[2022-02-21] MEDS: CLOPIDOGREL 75 MG TAB PO SCH (09:00)
[2022-02-21] MEDS: HEPARIN SODIUM,PORCINE/PF 5,000 UNIT/0.5 ML SYRINGE SQ SCH ×3 (09:00→23:41)
--- NOTE | 2022-02-21 10:37 | P.PN ---
Subjective Progress Note Date: 02/21/22 This is a 76-year-old white male with history of multiple medical problems including hypertension, dyslipidemia, remote smoking history, patient had about a [id number] smoking history but he quit smoking 40 years ago. Patient has significant family history of early onset coronary artery disease, history of degenerative joint disease, drinks on the average of 3 glasses of liquor on a daily basis. Over the last few months, patient has been noticing burning sensation of the chest with activity. This was also associated with shortness of breath. Patient was referred to cardiology, and apparently had abnormal stress test. This was further evaluated by cardiac catheterization. Which showed a critical left main stenosis in the range of 99.9%, 70% stenosis to proximal and midportion sugar of LAD severe disease noted in the distal RCA and the ostial of the PDA branch of the right coronary artery. Hence the patient was seen by cardiothoracic surgery, and he is scheduled to undergo myocardial revascularization tomorrow. Considering his smoking history, and considering his abnormal PFT, this consult was initiated. His PFT showed severe obstructive and restrictive lung disease. Although clinically the patient does not seem to be Obstructed. Nonetheless the patient is not active he has an extremely sedentary lifestyle for the last 3 years mostly because of his chronic low back pain and right hip pain secondary to degenerative joint disease patient has not been physically active for the last 2 or 3 years he has a very sedentary lifestyle. Denies cough denies wheezing denies shortness of breath at rest. Never been diagnosed with COPD, and never been on any bronchodilators. The patient is seen today 02/18/2022 in follow-up in the immediate postoperative period in the intensive care unit. He had undergone coronary artery bypass grafting 4. CARREON sequential to diagonal and LAD, left radial artery to the obtuse marginal artery and a saphenous vein graft to the posterior lateral artery. Left atrial appendage ligation with a thick #35 mm atrophic clip. He is currently intubated on mechanical ventilator at settings of assist control mode at a rate of 14, tidal volume 550, FiO2 100% and a PEEP of 5. Blood gases revealed a PaO2 of 392, pCO2 39, pH 7.40. He is on a nitroglycerin drip at 5 mcg/m. Propofol at 25 mcg/kg/m. He initially was on norepinephrine at 0.01 mg/ m. He is receiving albumin. He has left pleural chest tubes 2 and a mediastinal chest tube in place. Cardiac output 4.3. Index 2.0. White count 5.6. Hemoglobin 8.1. INR 1.3. Glucose 100. Reevaluated today on 02/19/22, patient underwent coronary artery bypass grafting 4 yesterday, I was able to extubate the patient at 20:55, he tolerated the extubation well, patient is doing well from the pulmonary perspective, however he is still relatively with marginal blood pressure, requiring dopamine and norepinephrine. Continues to have mediastinal/left chest tubes, chest x-ray is showing mostly left lower lobe atelectasis, no evidence of congestive heart failure. Hemoglobin is a bit low today at 7.1, and he will be receiving a unit of packed RBCs. Patient is on dopamine at 2 mcg/kg/m he is also on a low-dose norepinephrine at 0.06 mcg/kg/m. Continues to have right IJ Holland-Teddy catheter and right radial arterial line. CVP today is 10. WBC count is 10.5-year-old woman is 7.1. Basic metabolic profile is normal renal profile is slightly worse with creatinine of 1.24 today. Reevaluated today on 02/20/22, patient remains in the ICU, he is now postoperative day #2. Patient is doing well, he is sitting in a recliner, feels generally weak, he is in a bit of pain, remains on dopamine at 20 mcg/kg/m, he is off norepinephrine, received a unit of packed RBCs yesterday. He is on 4 L nasal cannula, not in distress, continues to have multiple lines continues to have mediastinal left pleural chest tube in place, and he has a right IJ jugular/Holland-Teddy catheter. Chest x-ray is showing slight improvement in his left lower lobe atelectasis and there is a small tiny left pleural effusion, no evidence of pulmonary edema, no evidence of infiltrate. CBC is relatively unremarkable, hemoglobin is 7.7 today. Basic metabolic profile is normal renal profile is normal with a BUN of 24 creatinine 1.12 improved compared to creatinine from yesterday The patient is seen today 02/21/2022 in follow-up in the intensive care unit. Postoperative day #3. He is doing well. Currently sitting up in a chair at the bedside. Awake and alert in no acute distress. Maintaining good O2 saturations in the 90s on 2 L/m per nasal cannula. He has normal saline at 20 ML's per hour. He has received 1 unit of packed red blood cells this admission. White count 13.1. Hemoglobin 8.0. Platelets 97,000. Sodium 141. Potassium 4.2. BUN 30. Creatinine 1.02. A ST 118. ALT 58. Needs increased encouragement regarding the use the incentive spirometer. Remains on Symbicort, DuoNeb inhalations, Mucinex. Heparin for DVT prophylaxis. Objective - Vital Signs Vital signs: Vital Signs Temp 97.8 F 02/21/22 08:00 Pulse 88 02/21/22 09:00 Resp 23 02/21/22 09:00 BP 147/67 02/21/22 09:00 Pulse Ox 93 L 02/21/22 09:00 FiO2 45 02/18/22 20:00 Intake & Output 02/20/22 02/21/22 02/21/22 18:59 06:59 18:59 Intake Total 894.132 493 69 Output Total 1270 340 0 Balance -375.868 153 69 Weight 99.5 kg Intake: IV 535 253 69 0.9NS FOR CO/CI 30 0.9NS PRESSURE BAGS 75 33 9 Sodium Chloride 0.9% 1, 430 220 60 000 ml @ 20 mls/hr IV . Q24H [facility] Rx#:[id number] Intake, IV Titration 119.132 Amount DOPamine DRIP 800 mg In 101.776 Dextrose/Water 1 250ml. bag @ 1 MCG/KG/MIN 1.725 mls/hr IV .Q24H [facility] Rx#: [id number] Insulin Regular 100 unit 17.356 In Sodium Chloride 0.9% 100 ml @ Per Protocol IV .Q0M [facility] Rx#:[id number] Oral 240 240 Output: Chest Tube Drainage 120 60 0 Chest Tube Left Left 80 60 0 Pleural/Mediastinal Chest Tube Mediastinal 40 Urine 1150 280 0 Other: Voiding Method Urinal Urinal ABP, PAP, CO, CI - Last Documented Arterial Blood Pressure 116/41 Pulmonary Artery Pressure 31/11 Cardiac Output 6.3 Cardiac Index 3 - Exam GENERAL EXAM: Awake, alert 76-year-old male patient, comfortable in no apparent distress. HEAD: Normocephalic. EYES: Sluggish reaction of pupils, equal size. NOSE: Clear with pink turbinates. THROAT: No erythema or exudates. NECK: No masses, no JVD. CHEST: Sternal dressing dry and intact. Heart Hugger in place. Left-sided and mediastinal chest tubes in place. LUNGS: Equal air entry with no crackles, wheeze, rhonchi or dullness. CVS: S1 and S2 normal with no audible murmur, regular rhythm. ABDOMEN: No hepatosplenomegaly, normal bowel sounds, no guarding or rigidity. SPINE: No scoliosis or deformity SKIN: No rashes CENTRAL NERVOUS SYSTEM: Sedated, tone is normal in all 4 extremities. EXTREMITIES: SCDs in place. There is no peripheral edema. No clubbing, no cyanosis. Peripheral pulses are intact. - Labs CBC & Chem 7: 02/21/22 06:57 02/21/22 06:57 Labs: Abnormal Lab Results - Last 24 Hours (Table) 02/20/22 02/20/22 02/20/22 Range/Units 11:23 13:33 14:14 WBC (3.8-10.6) k/uL RBC (4.30-5.90) m/uL Hgb (13.0-17.5) gm/dL Hct (39.0-53.0) % Plt Count (150-450) k/uL Neutrophils # (1.3-7.7) k/uL Chloride (98-107) mmol/L BUN (9-20) mg/dL Glucose (74-99) mg/dL POC Glucose (mg/dL) 174 H 141 H 122 H (70-110) mg/dL Calcium (8.4-10.2) mg/dL Magnesium (1.6-2.3) mg/dL AST (17-59) U/L ALT (4-49) U/L Total Protein (6.3-8.2) g/dL 02/20/22 02/21/22 02/21/22 Range/Units 20:10 06:43 06:57 WBC 13.1 H (3.8-10.6) k/uL RBC 2.49 L (4.30-5.90) m/uL Hgb 8.0 L (13.0-17.5) gm/dL Hct 24.9 L (39.0-53.0) % Plt Count 97 L (150-450) k/uL Neutrophils # 10.0 H (1.3-7.7) k/uL Chloride (98-107) mmol/L BUN (9-20) mg/dL Glucose (74-99) mg/dL POC Glucose (mg/dL) 222 H 149 H (70-110) mg/dL Calcium (8.4-10.2) mg/dL Magnesium (1.6-2.3) mg/dL AST (17-59) U/L ALT (4-49) U/L Total Protein (6.3-8.2) g/dL 02/21/22 02/21/22 Range/Units 06:57 06:57 WBC (3.8-10.6) k/uL RBC (4.30-5.90) m/uL Hgb (13.0-17.5) gm/dL Hct (39.0-53.0) % Plt Count (150-450) k/uL Neutrophils # (1.3-7.7) k/uL Chloride 109 H (98-107) mmol/L BUN 30 H (9-20) mg/dL Glucose 142 H (74-99) mg/dL POC Glucose (mg/dL) (70-110) mg/dL Calcium 7.8 L (8.4-10.2) mg/dL Magnesium 2.4 H (1.6-2.3) mg/dL AST 118 H (17-59) U/L ALT 58 H (4-49) U/L Total Protein 5.5 L (6.3-8.2) g/dL Assessment and Plan Assessment: Severe coronary artery disease with critical left main stenosis. Status post coronary artery bypass grafting 4. CARREON to the diagonal and LAD. Left radial artery to the obtuse marginal artery, saphenous vein graft to the posterior lateral artery. Postoperative day #3. Severe chronic obstructive pulmonary disease and some component of restrictive lung disease, FEV1 is in the range of 34% of the predicted. Newly diagnosed diabetes, hemoglobin A1c 7.2 Benign essential hypertension History of alcohol daily use Ex-smoker Family history of premature coronary artery disease Degenerative joint disease Plan: The patient was seen and evaluated Chest x-ray, medications and labs reviewed Encouraged the increased use of the incentive spirometer Increase his activity as tolerated Continue the current treatment plan We will continue to follow I have personally seen and examined the patient, performed the documentation and the assessment and plan as written. Number of minutes spent on the visit: 10.
[2022-02-21 11:25] LABS: Glucose,Whole Blood 214 mg/dL (70-110)
[2022-02-21] MEDS ORDERED: amLODIPine 5 MG TAB PO SCH (12:00)
[2022-02-21] MEDS: MULTIVITAMINS, THERA 1 EACH TAB PO SCH (12:34)
[2022-02-21] MEDS ORDERED: DAPAGLIFLOZIN PROPANEDIOL 5 MG TABLET PO SCH (13:00)
--- NOTE | 2022-02-21 13:27 | P.PN ---
Subjective 02/21/2022: Patient was seen in the intensive care unit, he is postop day #3 a 4 vessel coronary bypass graft. He had undergone coronary artery bypass grafting 4. CARREON sequential to diagonal and LAD, left radial artery to the obtuse marginal artery and a saphenous vein graft to the posterior lateral artery. Left atrial appendage ligation with a thick #35 mm atrophic clip. He was having chest pains for the past several month he described as heartburn. He underwent a stress test that was POS and then a cath showing significant coronary disease He is currently resting comfortably intensive care unit. His chest tube in. He denies any chest pains, pressures, short of breath, nausea or vomiting. His is at bedside. Care was discussed with her. The nurse was present as well. New onset diabetic. A1c was 7.2. His admission hemoglobin was 14.3. Today it is 8.0. He has received 1 unit packed red blood cells. Other chemistries electrolytes are normal today. Objective - Vital Signs Vital signs: Vital Signs Temp 98.1 F 02/21/22 12:00 Pulse 73 02/21/22 12:00 Resp 26 H 02/21/22 12:00 BP 128/71 02/21/22 12:00 Pulse Ox 95 02/21/22 12:00 FiO2 45 02/18/22 20:00 Intake & Output 02/20/22 02/21/22 02/21/22 18:59 06:59 18:59 Intake Total 894.132 493 138 Output Total 1270 340 330 Balance -375.868 153 -192 Weight 99.5 kg Intake: IV 535 253 138 0.9NS FOR CO/CI 30 0.9NS PRESSURE BAGS 75 33 18 Sodium Chloride 0.9% 1, 430 220 120 000 ml @ 20 mls/hr IV . Q24H [facility] Rx#:[id number] Intake, IV Titration 119.132 Amount DOPamine DRIP 800 mg In 101.776 Dextrose/Water 1 250ml. bag @ 1 MCG/KG/MIN 1.725 mls/hr IV .Q24H [facility] Rx#: [id number] Insulin Regular 100 unit 17.356 In Sodium Chloride 0.9% 100 ml @ Per Protocol IV .Q0M [facility] Rx#:[id number] Oral 240 240 Output: Chest Tube Drainage 120 60 30 Chest Tube Left Left 80 60 30 Pleural/Mediastinal Chest Tube Mediastinal 40 Urine 1150 280 300 Other: Voiding Method Urinal Urinal Urinal # Voids 1 # Bowel Movements 1 ABP, PAP, CO, CI - Last Documented Arterial Blood Pressure 116/41 Pulmonary Artery Pressure 31/11 Cardiac Output 6.3 Cardiac Index 3 - Exam General: The patient is awake and alert, in no distress, and does not appear acutely ill. Chest tube is in place. Neck: The neck is supple, there is no thyromegaly, lymphadenopathy, tenderness or JVD. Cardiovascular: S1S2 is normal, There is a regular rate and rhythm. No murmur, rub or gallop is appreciated. Respiratory: Lungs are clear to auscultation bilaterally, respirations are non-labored, breath sounds are equal. Gastrointestinal: Soft, non-distended, non-tender abdomen without masses or organomegaly noted. There is no rebound or guarding present. Bowel sounds are unremarkable. Musculoskeletal: Normal ROM, no tenderness, There is no pedal edema. There is no calf tenderness or swelling. No cords were appreciated. Neurological: CN II-XII intact, there are no obvious motor or sensory deficits. Coordination appears grossly intact. Speech is normal. Skin: Skin is warm and dry and no rashes or lesions are noted. - Labs CBC & Chem 7: 02/21/22 06:57 02/21/22 06:57 Labs: Abnormal Lab Results - Last 24 Hours (Table) 02/20/22 02/20/22 02/20/22 Range/Units 13:33 14:14 20:10 WBC (3.8-10.6) k/uL RBC (4.30-5.90) m/uL Hgb (13.0-17.5) gm/dL Hct (39.0-53.0) % Plt Count (150-450) k/uL Neutrophils # (1.3-7.7) k/uL Chloride (98-107) mmol/L BUN (9-20) mg/dL Glucose (74-99) mg/dL POC Glucose (mg/dL) 141 H 122 H 222 H (70-110) mg/dL Calcium (8.4-10.2) mg/dL Magnesium (1.6-2.3) mg/dL AST (17-59) U/L ALT (4-49) U/L Total Protein (6.3-8.2) g/dL 02/21/22 02/21/22 02/21/22 Range/Units 06:43 06:57 06:57 WBC 13.1 H (3.8-10.6) k/uL RBC 2.49 L (4.30-5.90) m/uL Hgb 8.0 L (13.0-17.5) gm/dL Hct 24.9 L (39.0-53.0) % Plt Count 97 L (150-450) k/uL Neutrophils # 10.0 H (1.3-7.7) k/uL Chloride 109 H (98-107) mmol/L BUN 30 H (9-20) mg/dL Glucose 142 H (74-99) mg/dL POC Glucose (mg/dL) 149 H (70-110) mg/dL Calcium 7.8 L (8.4-10.2) mg/dL Magnesium (1.6-2.3) mg/dL AST 118 H (17-59) U/L ALT 58 H (4-49) U/L Total Protein 5.5 L (6.3-8.2) g/dL 02/21/22 02/21/22 Range/Units 06:57 11:23 WBC (3.8-10.6) k/uL RBC (4.30-5.90) m/uL Hgb (13.0-17.5) gm/dL Hct (39.0-53.0) % Plt Count (150-450) k/uL Neutrophils # (1.3-7.7) k/uL Chloride (98-107) mmol/L BUN (9-20) mg/dL Glucose (74-99) mg/dL POC Glucose (mg/dL) 214 H (70-110) mg/dL Calcium (8.4-10.2) mg/dL Magnesium 2.4 H (1.6-2.3) mg/dL AST (17-59) U/L ALT (4-49) U/L Total Protein (6.3-8.2) g/dL Assessment and Plan (1) S/P CABG x 4 Current Visit: Yes Status: Acute Code(s): Z95.1 - PRESENCE OF AORTOCORONARY BYPASS GRAFT SNOMED Code(s): 814054532 (2) Type 2 diabetes mellitus with hyperglycemia Current Visit: Yes Status: Acute Code(s): E11.65 - TYPE 2 DIABETES MELLITUS WITH HYPERGLYCEMIA SNOMED Code(s): 439136654339352 (3) Essential (primary) hypertension Current Visit: Yes Status: Acute Code(s): I10 - ESSENTIAL (PRIMARY) HYPERTENSION SNOMED Code(s): 68405375 (4) Mixed hyperlipidemia Current Visit: Yes Status: Acute Code(s): E78.2 - MIXED HYPERLIPIDEMIA SNOMED Code(s): 104702677 (5) ACS (acute coronary syndrome) Current Visit: Yes Status: Acute Code(s): I24.9 - ACUTE ISCHEMIC HEART DISEASE, UNSPECIFIED SNOMED Code(s): 976935604 (6) Blood loss anemia Current Visit: Yes Status: Acute Code(s): D50.0 - IRON DEFICIENCY ANEMIA SECONDARY TO BLOOD LOSS (CHRONIC) SNOMED Code(s): 279048657 (7) Atherosclerotic heart disease Current Visit: Yes Status: Acute Code(s): I25.10 - ATHSCL HEART DISEASE OF [place] CORONARY ARTERY W/O ANG PCTRS SNOMED Code(s): 186353919 Plan: With his new onset diabetes, we will start him on SLGT2, he'll continue his current care intensive care unit and may be transferred today to the stepdown unit per critical care and thoracic surgery. We'll repeat labs in a.m. We'll reevaluate him in next 24 hours.
[2022-02-21 16:56] LABS: Glucose,Whole Blood 179 mg/dL (70-110)
[2022-02-21] MEDS: DAPAGLIFLOZIN PROPANEDIOL 5 MG TABLET PO SCH (17:04)
[2022-02-21 20:26] LABS: Glucose,Whole Blood 137 mg/dL (70-110)
[2022-02-21] MEDS: SENNOSIDES-DOCUSATE SODIUM 1 EACH TAB PO SCH (20:54)
[2022-02-22] MEDS: ACETAMINOPHEN TAB 325 MG TAB PO PRN ×2 (05:55→14:07)
[2022-02-22 06:51] LABS: Glucose,Whole Blood 148 mg/dL (70-110)
[2022-02-22] MEDS: INSULIN ASPART (NovoLOG) 100 UNIT/ML VIAL SQ SCH ×4 (06:53→20:35)
[2022-02-22] MEDS: ASCORBIC ACID 500 MG TAB PO SCH ×2 (06:55→17:31)
[2022-02-22] MEDS: PANTOPRAZOLE 40 MG TABLET PO SCH (06:55)
[2022-02-22] MEDS: FERROUS SULFATE 325 MG TAB PO SCH ×2 (06:55→17:32)
--- NOTE | 2022-02-22 07:27 | P.PN ---
Subjective Progress Note Date: 02/22/22 Principal diagnosis: CAD and status post CABG The patient is a pleasant 76-year-old gentleman is known to have hypertension and dyslipidemia was seen in the office recently for symptoms of chest discomfort. He underwent initially a stress test and that came in to be ischemic with anterolateral lateral ischemia. Subsequently he underwent a heart catheterization and that revealed critical disease involving the distal left main coronary artery as well as distal RCA. He underwent CABG 4 with CARREON sequentially to LAD and diagonal and radial artery to obtuse marginal as well as SVG to PDA. February 212021 The patient was seen this morning. He is overall doing well. He is stable hemodynamically. He is on antiplatelet. He is an intermediate intensity statin. I would suggest increase the dose of statin to high intensity once the liver function tests improved. Beside that the chest x-ray was reviewed and seems to be slightly wet and I would suggest also giving the patient the 20 mg of Lasix IV. Beside that continue the current medical regimen and continue mo nitor the kidney function and electrolytes as well as monitor the hemoglobin. February 222021 The patient was seen and evaluated this morning. Overall he is doing well and stable from a perivascular standpoint of view. Hemodynamically he is stable with pressure being slightly on the higher side. The dose of Dilaudid been was increased yesterday. We might need to consider adjusting his blood pressure medication if the pressure remains above 1 40 mmHg. He remains in sinus mechanism. On examination he does have bilateral rhonchi mainly in the bases and I would advise giving the patient some Lasix if the creatinine is a stable this morning. Beside that continue the current medical regimen and continue monitor the kidney function and electrolytes and the patient potentially Be transferred out of the intensive care unit. Objective - Vital Signs Vital signs: Vital Signs Temp 98.4 F 02/22/22 05:00 Pulse 79 02/22/22 06:00 Resp 26 H 02/22/22 06:00 BP 141/70 02/22/22 06:00 Pulse Ox 91 L 02/22/22 06:00 FiO2 45 02/18/22 20:00 Intake & Output 02/21/22 02/22/22 02/22/22 18:59 06:59 18:59 Intake Total 787 540 Output Total 480 525 0 Balance 307 15 0 Weight 99.1 kg Intake: IV 187 0.9NS PRESSURE BAGS 27 Sodium Chloride 0.9% 1, 160 000 ml @ 20 mls/hr IV . Q24H [facility] Rx#:[id number] Oral 600 540 Output: Chest Tube Drainage 30 Chest Tube Left Left 30 Pleural/Mediastinal Urine 450 525 0 Other: Voiding Method Urinal Urinal # Voids 1 # Bowel Movements 1 ABP, PAP, CO, CI - Last Documented Arterial Blood Pressure 116/41 Pulmonary Artery Pressure 31/11 Cardiac Output 6.3 Cardiac Index 3 - Constitutional General appearance: Present: no acute distress - Respiratory Respiratory: bilateral: rales - Cardiovascular Rhythm: regular Abnormal Heart Sounds: Present: systolic murmur - Labs CBC & Chem 7: 02/21/22 06:57 02/21/22 06:57 Labs: Abnormal Lab Results - Last 24 Hours (Table) 02/21/22 02/21/22 02/21/22 Range/Units 06:57 06:57 06:57 WBC 13.1 H (3.8-10.6) k/uL RBC 2.49 L (4.30-5.90) m/uL Hgb 8.0 L (13.0-17.5) gm/dL Hct 24.9 L (39.0-53.0) % Plt Count 97 L (150-450) k/uL Neutrophils # 10.0 H (1.3-7.7) k/uL Chloride 109 H (98-107) mmol/L BUN 30 H (9-20) mg/dL Glucose 142 H (74-99) mg/dL POC Glucose (mg/dL) (70-110) mg/dL Calcium 7.8 L (8.4-10.2) mg/dL Magnesium 2.4 H (1.6-2.3) mg/dL AST 118 H (17-59) U/L ALT 58 H (4-49) U/L Total Protein 5.5 L (6.3-8.2) g/dL 02/21/22 02/21/22 02/21/22 Range/Units 11:23 16:54 20:24 WBC (3.8-10.6) k/uL RBC (4.30-5.90) m/uL Hgb (13.0-17.5) gm/dL Hct (39.0-53.0) % Plt Count (150-450) k/uL Neutrophils # (1.3-7.7) k/uL Chloride (98-107) mmol/L BUN (9-20) mg/dL Glucose (74-99) mg/dL POC Glucose (mg/dL) 214 H 179 H 137 H (70-110) mg/dL Calcium (8.4-10.2) mg/dL Magnesium (1.6-2.3) mg/dL AST (17-59) U/L ALT (4-49) U/L Total Protein (6.3-8.2) g/dL 02/22/22 Range/Units 06:50 WBC (3.8-10.6) k/uL RBC (4.30-5.90) m/uL Hgb (13.0-17.5) gm/dL Hct (39.0-53.0) % Plt Count (150-450) k/uL Neutrophils # (1.3-7.7) k/uL Chloride (98-107) mmol/L BUN (9-20) mg/dL Glucose (74-99) mg/dL POC Glucose (mg/dL) 148 H (70-110) mg/dL Calcium (8.4-10.2) mg/dL Magnesium (1.6-2.3) mg/dL AST (17-59) U/L ALT (4-49) U/L Total Protein (6.3-8.2) g/dL Assessment and Plan Assessment: Assessment CAD and status post CABG as described above Hypertension Dyslipidemia Plan Continue the current medical regimen Follow-up with the blood work from the morning Suggest give the patient additional dose of Lasix IV if the creatinine is a stable Suggest increase the dose of Lipitor once the liver function tests are normalized Follow-up with the patient
[2022-02-22 07:53] LABS: HCT 25.3 % (39.0-53.0); HGB 8.2 gm/dL (13.0-17.5); Hypochromasia Slight; MCH 32.9 pg (25.0-35.0); MCHC 32.5 g/dL (31.0-37.0); MCV 101.2 fL (80.0-100.0); Macrocytosis Slight; RDW 14.2 % (11.5-15.5); WBC 13.3 k/uL (3.8-10.6)
[2022-02-22 07:54] LABS: Platelet Count 158 k/uL (150-450)
[2022-02-22 07:55] LABS: Albumin 3.4 g/dL (3.5-5.0); Calcium 7.9 mg/dL (8.4-10.2); Magnesium 2.5 mg/dL (1.6-2.3); Potassium 4.1 mmol/L (3.5-5.1); Total Bilirubin 1.3 mg/dL (0.2-1.3); Total Protein 5.5 g/dL (6.3-8.2)
--- NOTE | 2022-02-22 08:02 | P.PN ---
Subjective Progress Note Date: 02/22/22 Principal diagnosis: Coronary artery disease with critical left main stenosis, unstable angina. Previous medical history of hypertension, hyperlipidemia, daily EtOH use, previous tobacco dependence, osteoarthritis, and family history of premature coronary artery disease (father had myocardial infarction at age 55) POD #4 coronary artery bypass grafting 4, left internal mammary artery sequential to the diagonal and left anterior descending artery, left radial artery from the aorta to the obtuse marginal artery, reverse saphenous vein graft from the aorta to the posterior lateral artery, endoscopic left radial and right greater saphenous vein harvest, left atrial appendage ligation with a #35 mm AtriClip, graft flow measurements using the [employer] flow meter, intraoper ative transesophageal echocardiogram Postoperative acute blood loss anemia and thrombocytopenia, expected given hemodilution and cardiopulmonary bypass pump Hypotension, expected given preoperative calcium channel yessy use likely causing vasoplegia The patient was seen and examined this morning sitting up in a recliner in the intensive care unit in no acute distress. He does complain of some postoperative pain, lack of sleep, denies shortness of breath. Currently in sinus rhythm with heart rate in the 70s, blood pressure were stable. He is alert and oriented 3. Currently on room air with oxygen saturation in the low 90s, not using incentive spirometry appropriately. He did ambulate in hallway short distance yesterday. No other new concerns. Objective - Vital Signs Vital signs: Vital Signs Temp 98.4 F 02/22/22 05:00 Pulse 79 02/22/22 06:00 Resp 26 H 02/22/22 06:00 BP 141/70 02/22/22 06:00 Pulse Ox 91 L 02/22/22 06:00 FiO2 45 02/18/22 20:00 Intake & Output 02/21/22 02/22/22 02/22/22 18:59 06:59 18:59 Intake Total 787 540 Output Total 480 525 0 Balance 307 15 0 Weight 99.1 kg Intake: IV 187 0.9NS PRESSURE BAGS 27 Sodium Chloride 0.9% 1, 160 000 ml @ 20 mls/hr IV . Q24H [facility] Rx#:[id number] Oral 600 540 Output: Chest Tube Drainage 30 Chest Tube Left Left 30 Pleural/Mediastinal Urine 450 525 0 Other: Voiding Method Urinal Urinal # Voids 1 # Bowel Movements 1 ABP, PAP, CO, CI - Last Documented Arterial Blood Pressure 116/41 Pulmonary Artery Pressure 31/11 Cardiac Output 6.3 Cardiac Index 3 - Exam CONSTITUTIONAL: Appears comfortable, cooperative, no acute distress RESPIRATORY: Lungs sounds diminished bilaterally. Respirations even, nonlabored. Currently on room air with oxygen saturation 92%. Strong nonproductive cough. CARDIOVASCULAR: S1, S2 present. Regular rate and rhythm, sinus rhythm on telemetry. Sternum stable. Palpable peripheral pulses bilaterally. Trace bi lateral lower extremity edema present. No calf pain or tenderness noted. Heart hugger in place with patient demonstrating appropriate use. Antiembolism stockings, SCDs present. GASTROINTESTINAL: Abdomen soft, nontender, distended. Active bowel sounds present 4 quadrants. Tympanic to percussion. Tolerating diet. Positive bowel movement 02/21 GENITOURINARY: Continues to void INTEGUMENTARY: Skin is warm and dry. Anterior chest incision well approximated and covered with dry intact dressing. Right lower extremity EVH site well approximated without redness or drainage. NEUROLOGIC: Cranial nerves II through XII intact MUSKULOSKELETAL: Able to move all extremities, strength equal bilaterally PSYCHIATRIC: Alert and oriented to person, place, and time, appropriate affect - Allied health notes Allied health notes reviewed: nursing - Labs CBC & Chem 7: 02/22/22 07:03 02/22/22 07:03 Labs: Abnormal Lab Results - Last 24 Hours (Table) 02/21/22 02/21/22 02/21/22 Range/Units 06:57 11:23 16:54 POC Glucose (mg/dL) 214 H 179 H (70-110) mg/dL Magnesium 2.4 H (1.6-2.3) mg/dL 02/21/22 02/22/22 Range/Units 20:24 06:50 POC Glucose (mg/dL) 137 H 148 H (70-110) mg/dL Magnesium (1.6-2.3) mg/dL - Imaging and Cardiology Chest x-ray: image reviewed Assessment and Plan Assessment: 1. Coronary artery disease with critical left main stenosis, unstable angina, status post 4 vessel CABG 2. Preserved left ventricular systolic function, EF 55-60% 3. Mild mitral and tricuspid regurgitation on transthoracic echocardiogram from 01/27/2022 4. Newly diagnosed diabetes, hemoglobin A1c 7.2% 5. History of hypertension 6. Hyperlipidemia, cholesterol 217, LDL 113, triglycerides 183 7. Daily EtOH use, 8. Previous tobacco dependence 9. Severe COPD, FEV1 34% of predicted 10. Osteoarthritis 11. Family history of premature coronary artery disease (father had myocardial infarction at age 55) 12. Postoperative acute blood loss anemia and thrombocytopenia, expected 13. Hypotension, expected Plan: 1. Continue to maximize medical therapy with aspirin, Plavix, statin, beta yessy. Will increase beta yessy therapy as tolerated, increase to 3 times a day dosing today 2. Continue amlodipine added for radial artery spasm prophylaxis, increased to 10 mg today 3. Incentive spirometry 10 times every hour while awake. Bronchodilators per pulmonology 4. Increase activity, ambulate as tolerated. PT/OT/cardiac rehab consulted. Shower daily 5. Will monitor daily labs and x-rays. Electrolyte replacement per protocol. Will give IVP lasix today 6. GI/DVT prophylaxis 7. Pain control with current medication regimen. Avoid narcotics 8. Insulin management per internal medicine. Patient considered newly diagnosed diabetic, needs tight blood sugar control 9. Strict accurate intake and output. Daily weights 10. Continue CIWA protocol 11. Will place transfer orders for [address] [place] [address] cardiac stepdown unit today, may transfer when bed available 12. Discharge planning a progress. Anticipate discharge to home with home care in the next 24-48 hours. Patient's refusing home care yesterday, will anny daugherty with his 13. More recommendations to follow based on patient's progress
[2022-02-22] MEDS ORDERED: FUROSEMIDE 10 MG/ML 4 ML VIAL IV STA ×2 (08:03→12:52)
[2022-02-22] MEDS: IPRATROPIUM-ALBUTEROL 3 ML NEB INHALATION SCH ×5 (08:06→20:06)
[2022-02-22] MEDS: SYMBICORT 160-4.5 MCG INHALER INHALATION SCH ×2 (08:06→20:06)
[2022-02-22] MEDS: THIAMINE 100 MG TAB PO SCH (08:34)
[2022-02-22] MEDS: ATORVASTATIN 40 MG TAB PO SCH (08:34)
[2022-02-22] MEDS: METOPROLOL TARTRATE 25 MG TAB PO SCH ×3 (08:34→23:18)
[2022-02-22] MEDS: ASPIRIN 325 MG TAB PO SCH (08:34)
[2022-02-22] MEDS: HEPARIN SODIUM,PORCINE/PF 5,000 UNIT/0.5 ML SYRINGE SQ SCH ×3 (08:35→23:18)
[2022-02-22] MEDS: CLOPIDOGREL 75 MG TAB PO SCH (08:35)
[2022-02-22] MEDS: FOLIC ACID 1 MG TAB PO SCH (08:35)
[2022-02-22] MEDS: guaiFENesin-DM 600/30MG 1 EACH TAB.ER.12H PO SCH ×2 (08:35→20:25)
--- NOTE | 2022-02-22 08:39 | XR ---
EXAMINATION TYPE: XR chest 1V portable DATE OF EXAM: 02/22/2022 COMPARISON: 02/21/2022 HISTORY: Post cardiac surgery TECHNIQUE: Single frontal view of the chest is obtained. FINDINGS: Heart is enlarged. Postoperative changes. Chest tube is been no sizable pneumothorax. Bila teral infiltrate and small effusion. Could not exclude mild venous congestion. IMPRESSION: 1. Persistent pleural parenchymal changes have been improved from prior exam correlate for mild resid ual venous congestion with small bilateral pleural effusions and basilar infiltrate. 2. postsurgical change with no sizable pneumothorax post chest tube removal
[2022-02-22] MEDS: DEXTROSE 5% IN WATER 100 ML with AMIODARONE 150 MG IV PRN ×4 (09:28→17:34)
--- NOTE | 2022-02-22 10:09 | P.PN ---
Subjective Progress Note Date: 02/22/22 This is a 76-year-old white male with history of multiple medical problems including hypertension, dyslipidemia, remote smoking history, patient had about a [id number] smoking history but he quit smoking 40 years ago. Patient has significant family history of early onset coronary artery disease, history of degenerative joint disease, drinks on the average of 3 glasses of liquor on a daily basis. Over the last few months, patient has been noticing burning sensation of the chest with activity. This was also associated with shortness of breath. Patient was referred to cardiology, and apparently had abnormal stress test. This was further evaluated by cardiac catheterization. Which showed a critical left main stenosis in the range of 99.9%, 70% stenosis to proximal and midportion sugar of LAD severe disease noted in the distal RCA and the ostial of the PDA branch of the right coronary artery. Hence the patient was seen by cardiothoracic surgery, and he is scheduled to undergo myocardial revascularization tomorrow. Considering his smoking history, and considering his abnormal PFT, this consult was initiated. His PFT showed severe obstructive and restrictive lung disease. Although clinically the patient does not seem to be Obstructed. Nonetheless the patient is not active he has an extremely sedentary lifestyle for the last 3 years mostly because of his chronic low back pain and right hip pain secondary to degenerative joint disease patient has not been physically active for the last 2 or 3 years he has a very sedentary lifestyle. Denies cough denies wheezing denies shortness of breath at rest. Never been diagnosed with COPD, and never been on any bronchodilators. The patient is seen today 02/18/2022 in follow-up in the immediate postoperative period in the intensive care unit. He had undergone coronary artery bypass grafting 4. CARREON sequential to diagonal and LAD, left radial artery to the obtuse marginal artery and a saphenous vein graft to the posterior lateral artery. Left atrial appendage ligation with a thick #35 mm atrophic clip. He is currently intubated on mechanical ventilator at settings of assist control mode at a rate of 14, tidal volume 550, FiO2 100% and a PEEP of 5. Blood gases revealed a PaO2 of 392, pCO2 39, pH 7.40. He is on a nitroglycerin drip at 5 mcg/m. Propofol at 25 mcg/kg/m. He initially was on norepinephrine at 0.01 mg/ m. He is receiving albumin. He has left pleural chest tubes 2 and a mediastinal chest tube in place. Cardiac output 4.3. Index 2.0. White count 5.6. Hemoglobin 8.1. INR 1.3. Glucose 100. Reevaluated today on 02/19/22, patient underwent coronary artery bypass grafting 4 yesterday, I was able to extubate the patient at 20:55, he tolerated the extubation well, patient is doing well from the pulmonary perspective, however he is still relatively with marginal blood pressure, requiring dopamine and norepinephrine. Continues to have mediastinal/left chest tubes, chest x-ray is showing mostly left lower lobe atelectasis, no evidence of congestive heart failure. Hemoglobin is a bit low today at 7.1, and he will be receiving a unit of packed RBCs. Patient is on dopamine at 2 mcg/kg/m he is also on a low-dose norepinephrine at 0.06 mcg/kg/m. Continues to have right IJ [place] catheter and right radial arterial line. CVP today is 10. WBC count is 10.5-year-old woman is 7.1. Basic metabolic profile is normal renal profile is slightly worse with creatinine of 1.24 today. Reevaluated today on 02/20/22, patient remains in the ICU, he is now postoperative day #2. Patient is doing well, he is sitting in a recliner, feels generally weak, he is in a bit of pain, remains on dopamine at 20 mcg/kg/m, he is off norepinephrine, received a unit of packed RBCs yesterday. He is on 4 L nasal cannula, not in distress, continues to have multiple lines continues to have mediastinal left pleural chest tube in place, and he has a right IJ jugular/[place] catheter. Chest x-ray is showing slight improvement in his left lower lobe atelectasis and there is a small tiny left pleural effusion, no evidence of pulmonary edema, no evidence of infiltrate. CBC is relatively unremarkable, hemoglobin is 7.7 today. Basic metabolic profile is normal renal profile is normal with a BUN of 24 creatinine 1.12 improved compared to creatinine from yesterday The patient is seen today 02/21/2022 in follow-up in the intensive care unit. Postoperative day #3. He is doing well. Currently sitting up in a chair at the bedside. Awake and alert in no acute distress. Maintaining good O2 saturations in the 90s on 2 L/m per nasal cannula. He has normal saline at 20 ML's per hour. He has received 1 unit of packed red blood cells this admission. White count 13.1. Hemoglobin 8.0. Platelets 97,000. Sodium 141. Potassium 4.2. BUN 30. Creatinine 1.02. A ST 118. ALT 58. Needs increased encouragement regarding the use the incentive spirometer. Remains on Symbicort, DuoNeb inhalations, Mucinex. Heparin for DVT prophylaxis. The patient is seen today 02/22/2022 in follow-up in the intensive care unit. Postoperative day #4. He is currently sitting up in a chair at the bedside. He is awake and alert. Maintaining O2 saturations in the low 90s on room air. He is having difficulty expectorating mucus. He's been coughing frequently. He is now in atrial fibrillation with a rapid ventricular response. He's been initiated on amiodarone. He is continued on Mucinex, Symbicort, DuoNeb inhalations. His x-ray reveals persistent pleuroparenchymal changes that have improved compared to previous. Mild residual venous congestion and small bilateral effusions with basilar infiltrates. No pneumothorax. He continues to work with the incentive spirometer. White count 13.3. Hemoglobin 8.2. Platelets 158. Sodium 142. Potassium 4.1. BUN 29. Creatinine 1.09. Glucose 123. AST 71. ALT 61. Magnesium 2.5. Objective - Vital Signs Vital signs: Vital Signs Temp 98.4 F 02/22/22 05:00 Pulse 79 02/22/22 06:00 Resp 26 H 02/22/22 06:00 BP 141/70 02/22/22 06:00 Pulse Ox 91 L 02/22/22 06:00 FiO2 45 02/18/22 20:00 Intake & Output 02/21/22 02/22/22 02/22/22 18:59 06:59 18:59 Intake Total 787 540 Output Total 480 525 0 Balance 307 15 0 Weight 99.1 kg Intake: IV 187 0.9NS PRESSURE BAGS 27 Sodium Chloride 0.9% 1, 160 000 ml @ 20 mls/hr IV . Q24H [facility] Rx#:[id number] Oral 600 540 Output: Chest Tube Drainage 30 Chest Tube Left Left 30 Pleural/Mediastinal Urine 450 525 0 Other: Voiding Method Urinal Urinal Urinal # Voids 1 # Bowel Movements 1 ABP, PAP, CO, CI - Last Documented Arterial Blood Pressure 116/41 Pulmonary Artery Pressure 31/11 Cardiac Output 6.3 Cardiac Index 3 - Exam GENERAL EXAM: Awake, alert 76-year-old male patient,up in the chair at the bedside, on room air, fairly comfortable in no apparent distress. HEAD: Normocephalic. EYES: Sluggish reaction of pupils, equal size. NOSE: Clear with pink turbinates. THROAT: No erythema or exudates. NECK: No masses, no JVD. CHEST: Sternal dressing dry and intact. Heart Hugger in place. LUNGS: Equal air entry with no crackles, wheeze, rhonchi or dullness. CVS: S1 and S2 normal with no audible murmur, irregular rhythm. ABDOMEN: No hepatosplenomegaly, normal bowel sounds, no guarding or rigidity. SPINE: No scoliosis or deformity SKIN: No rashes CENTRAL NERVOUS SYSTEM: Sedated, tone is normal in all 4 extremities. EXTREMITIES: SCDs in place. There is no peripheral edema. No clubbing, no cyanosis. Peripheral pulses are intact. - Labs CBC & Chem 7: 02/22/22 07:03 02/22/22 07:03 Labs: Abnormal Lab Results - Last 24 Hours (Table) 02/21/22 02/21/22 02/21/22 Range/Units 11:23 16:54 20:24 WBC (3.8-10.6) k/uL RBC (4.30-5.90) m/uL Hgb (13.0-17.5) gm/dL Hct (39.0-53.0) % MCV (80.0-100.0) fL Chloride (98-107) mmol/L BUN (9-20) mg/dL Glucose (74-99) mg/dL POC Glucose (mg/dL) 214 H 179 H 137 H (70-110) mg/dL Calcium (8.4-10.2) mg/dL Magnesium (1.6-2.3) mg/dL AST (17-59) U/L ALT (4-49) U/L Total Protein (6.3-8.2) g/dL Albumin (3.5-5.0) g/dL 02/22/22 02/22/22 02/22/22 Range/Units 06:50 07:03 07:03 WBC 13.3 H (3.8-10.6) k/uL RBC 2.50 L (4.30-5.90) m/uL Hgb 8.2 L (13.0-17.5) gm/dL Hct 25.3 L (39.0-53.0) % MCV 101.2 H (80.0-100.0) fL Chloride 111 H (98-107) mmol/L BUN 29 H (9-20) mg/dL Glucose 123 H (74-99) mg/dL POC Glucose (mg/dL) 148 H (70-110) mg/dL Calcium 7.9 L (8.4-10.2) mg/dL Magnesium 2.5 H (1.6-2.3) mg/dL AST 71 H (17-59) U/L ALT 62 H (4-49) U/L Total Protein 5.5 L (6.3-8.2) g/dL Albumin 3.4 L (3.5-5.0) g/dL Assessment and Plan Assessment: Severe coronary artery disease with critical left main stenosis. Status post coronary artery bypass grafting 4. CARREON to the diagonal and LAD. Left radial artery to the obtuse marginal artery, saphenous vein graft to the posterior late ral artery. Postoperative day #4. Atrial fibrillation with a rapid ventricular response requiring amiodarone drip, not an unexpected outcome of open heart surgery. Severe chronic obstructive pulmonary disease and some component of restrictive lung disease, FEV1 is in the range of 34% of the predicted. Newly diagnosed diabetes, hemoglobin A1c 7.2 Benign essential hypertension History of alcohol daily use Ex-smoker Family history of premature coronary artery disease Degenerative joint disease Plan: The patient was seen and evaluated Chest x-ray, medications and labs reviewed Currently in atrial fibrillation with a rapid ventricular response Initiated on amiodarone drip Continue bronchodilators, Mucinex Encouraged the increased use of the incentive spirometer Increase his activity as tolerated We will continue to follow I have personally seen and examined the patient, performed the documentation and the assessment and plan as written. Number of minutes spent on the visit: 10.
[2022-02-22 11:31] LABS: Glucose,Whole Blood 181 mg/dL (70-110)
[2022-02-22] MEDS: ACETYLCYSTEINE 800 MG/4 ML VIAL INHALATION SCH ×3 (11:58→20:06)
[2022-02-22] MEDS: amLODIPine 10 MG TAB PO SCH (12:31)
[2022-02-22] MEDS: MULTIVITAMINS, THERA 1 EACH TAB PO SCH (12:56)
[2022-02-22 17:10] LABS: Glucose,Whole Blood 170 mg/dL (70-110)
[2022-02-22] MEDS: DAPAGLIFLOZIN PROPANEDIOL 5 MG TABLET PO SCH (17:33)
[2022-02-22] MEDS: SENNOSIDES-DOCUSATE SODIUM 1 EACH TAB PO SCH (20:24)
[2022-02-22] MEDS: AMIODARONE 450 MG in DEXTROSE 5% IN WATER 250 ML IV PRN ×2 (20:26)
[2022-02-22 20:34] LABS: Glucose,Whole Blood 158 mg/dL (70-110)
[2022-02-23] MEDS: ACETAMINOPHEN TAB 500 MG TAB PO PRN ×4 (00:44→21:44)
[2022-02-23 06:27] LABS: Glucose,Whole Blood 162 mg/dL (70-110)
[2022-02-23 06:35] LABS: HCT 24.3 % (39.0-53.0); HGB 8.1 gm/dL (13.0-17.5); Hypochromasia Slight; MCH 33.6 pg (25.0-35.0); MCHC 33.3 g/dL (31.0-37.0); MCV 100.8 fL (80.0-100.0); Macrocytosis Slight; Mean Platelet Volume 9.1; Platelet Count 216 k/uL (150-450); RBC 2.41 m/uL (4.30-5.90); RDW 14.7 % (11.5-15.5); WBC 14.6 k/uL (3.8-10.6)
[2022-02-23] MEDS: INSULIN ASPART (NovoLOG) 100 UNIT/ML VIAL SQ SCH ×4 (06:43→20:19)
[2022-02-23] MEDS: AMIODARONE 450 MG in DEXTROSE 5% IN WATER 250 ML IV PRN ×2 (06:47)
[2022-02-23 06:55] LABS: Calcium 7.8 mg/dL (8.4-10.2)
--- NOTE | 2022-02-23 07:51 | P.PN ---
Subjective Progress Note Date: 02/23/22 Principal diagnosis: CAD and status post CABG The patient is a pleasant 76-year-old gentleman is known to have hypertension and dyslipidemia was seen in the office recently for symptoms of chest discomfort. He underwent initially a stress test and that came in to be ischemic with anterolateral lateral ischemia. Subsequently he underwent a heart catheterization and that revealed critical disease involving the distal left main coronary artery as well as distal RCA. He underwent CABG 4 with CARREON sequentially to LAD and diagonal and radial artery to obtuse marginal as well as SVG to PDA. February [id number] The patient was seen this morning. He is overall doing well. He is stable hemodynamically. He is on antiplatelet. He is an intermediate intensity statin. I would suggest increase the dose of statin to high intensity once the liver function tests improved. Beside that the chest x-ray was reviewed and seems to be slightly wet and I would suggest also giving the patient the 20 mg of Lasix IV. Beside that continue the current medical regimen and continue mo nitor the kidney function and electrolytes as well as monitor the hemoglobin. February 222021 The patient was seen and evaluated this morning. Overall he is doing well and stable from a perivascular standpoint of view. Hemodynamically he is stable with pressure being slightly on the higher side. The dose of Dilaudid been was increased yesterday. We might need to consider adjusting his blood pressure medication if the pressure remains above 1 40 mmHg. He remains in sinus mechanism. On examination he does have bilateral rhonchi mainly in the bases and I would advise giving the patient some Lasix if the creatinine is a stable this morning. Beside that continue the current medical regimen and continue monitor the kidney function and electrolytes and the patient potentially Be transferred out of the intensive care unit. February 232021 The patient was seen and evaluated this morning. The patient appeared to be stable from the cardiovascular standpoint of view. He went into A. fib with RVR yesterday and currently is in sinus rhythm and he is on amiodarone IV which going to be changed into amiodarone by mouth later on today. He still is slightly congested and trying to cough. Otherwise easily mechanically stable. He is on maximize medical treatment. Hemoglobin and kidney function are stable. Objective - Vital Signs Vital signs: Vital Signs Temp 98.0 F 02/23/22 04:00 Pulse 75 02/23/22 07:00 Resp 27 H 02/23/22 07:00 BP 130/60 02/23/22 07:00 Pulse Ox 92 L 02/23/22 07:00 FiO2 45 02/18/22 20:00 Intake & Output 02/22/22 02/23/22 02/23/22 18:59 06:59 18:59 Intake Total 250 412.503 Output Total 1675 1300 Balance -1425 -887.497 Weight 97.7 kg Intake: Intake, IV Titration 172.503 Amount Amiodarone 450 mg In 172.503 Dextrose 5% in Water 250 ml @ 0.5 MG/MIN 16.667 mls/hr IV .Q15H [facility] Rx#: [id number] Oral 250 240 Output: Urine 1675 1300 Other: Voiding Method Urinal Urinal ABP, PAP, CO, CI - Last Documented Arterial Blood Pressure 116/41 Pulmonary Artery Pressure 31/11 Cardiac Output 6.3 Cardiac Index 3 - Constitutional General appearance: Present: no acute distress - Respiratory Respiratory: bilateral: diminished - Cardiovascular Rhythm: regular Heart sounds: normal: S1, S2 - Labs CBC & Chem 7: 02/23/22 05:48 02/23/22 05:48 Labs: Abnormal Lab Results - Last 24 Hours (Table) 02/22/22 02/22/22 02/22/22 Range/Units 07:03 07:03 11:28 WBC 13.3 H (3.8-10.6) k/uL RBC 2.50 L (4.30-5.90) m/uL Hgb 8.2 L (13.0-17.5) gm/dL Hct 25.3 L (39.0-53.0) % MCV 101.2 H (80.0-100.0) fL Chloride 111 H (98-107) mmol/L BUN 29 H (9-20) mg/dL Creatinine (0.66-1.25) mg/dL Glucose 123 H (74-99) mg/dL POC Glucose (mg/dL) 181 H (70-110) mg/dL Calcium 7.9 L (8.4-10.2) mg/dL Magnesium 2.5 H (1.6-2.3) mg/dL AST 71 H (17-59) U/L ALT 62 H (4-49) U/L Total Protein 5.5 L (6.3-8.2) g/dL Albumin 3.4 L (3.5-5.0) g/dL 02/22/22 02/22/22 02/23/22 Range/Units 17:08 20:32 05:48 WBC 14.6 H (3.8-10.6) k/uL RBC 2.41 L (4.30-5.90) m/uL Hgb 8.1 L (13.0-17.5) gm/dL Hct 24.3 L (39.0-53.0) % MCV 100.8 H (80.0-100.0) fL Chloride (98-107) mmol/L BUN (9-20) mg/dL Creatinine (0.66-1.25) mg/dL Glucose (74-99) mg/dL POC Glucose (mg/dL) 170 H 158 H (70-110) mg/dL Calcium (8.4-10.2) mg/dL Magnesium (1.6-2.3) mg/dL AST (17-59) U/L ALT (4-49) U/L Total Protein (6.3-8.2) g/dL Albumin (3.5-5.0) g/dL 02/23/22 02/23/22 Range/Units 05:48 06:25 WBC (3.8-10.6) k/uL RBC (4.30-5.90) m/uL Hgb (13.0-17.5) gm/dL Hct (39.0-53.0) % MCV (80.0-100.0) fL Chloride (98-107) mmol/L BUN 35 H (9-20) mg/dL Creatinine 1.29 H (0.66-1.25) mg/dL Glucose 120 H (74-99) mg/dL POC Glucose (mg/dL) 162 H (70-110) mg/dL Calcium 7.8 L (8.4-10.2) mg/dL Magnesium (1.6-2.3) mg/dL AST (17-59) U/L ALT (4-49) U/L Total Protein (6.3-8.2) g/dL Albumin (3.5-5.0) g/dL Assessment and Plan Assessment: Assessment CAD and status post CABG as described above Hypertension Dyslipidemia Paroxysmal atrial fibrillation Plan Continue the current medical regimen DC amiodarone IV and start the patient on amiodarone by mouth later on
[2022-02-23] MEDS: IPRATROPIUM-ALBUTEROL 3 ML NEB INHALATION SCH ×4 (08:15→21:36)
[2022-02-23] MEDS: SYMBICORT 160-4.5 MCG INHALER INHALATION SCH ×2 (08:16→21:37)
[2022-02-23] MEDS: ACETYLCYSTEINE 800 MG/4 ML VIAL INHALATION SCH ×4 (08:16→21:37)
[2022-02-23] MEDS: FERROUS SULFATE 325 MG TAB PO SCH ×2 (08:29→18:52)
[2022-02-23] MEDS: guaiFENesin-DM 600/30MG 1 EACH TAB.ER.12H PO SCH ×2 (08:29→20:18)
[2022-02-23] MEDS: PANTOPRAZOLE 40 MG TABLET PO SCH (08:29)
[2022-02-23] MEDS: METOPROLOL TARTRATE 50 MG TAB PO SCH ×2 (08:29→20:18)
[2022-02-23] MEDS: FOLIC ACID 1 MG TAB PO SCH (08:29)
[2022-02-23] MEDS: CLOPIDOGREL 75 MG TAB PO SCH (08:29)
[2022-02-23] MEDS: HEPARIN SODIUM,PORCINE/PF 5,000 UNIT/0.5 ML SYRINGE SQ SCH ×2 (08:29→17:14)
[2022-02-23] MEDS: ASPIRIN 325 MG TAB PO SCH (08:29)
[2022-02-23] MEDS: AMIODARONE 200 MG TAB PO SCH ×2 (08:29→20:18)
[2022-02-23] MEDS: ATORVASTATIN 40 MG TAB PO SCH (08:29)
[2022-02-23] MEDS: ASCORBIC ACID 500 MG TAB PO SCH ×2 (08:29→18:51)
--- NOTE | 2022-02-23 08:32 | XR ---
EXAMINATION TYPE: XR chest 2V DATE OF EXAM: 02/23/2022 6:11 AM COMPARISON: Chest radiograph from one day prior. TECHNIQUE: XR chest 2V Frontal and lateral views of the chest. CLINICAL INDICATION:Male, 76 years old with history of post cardiac surgery; FINDINGS: Lungs/Pleura: No evidence of focal consolidation or pneumothorax. Blunting of the costophrenic angles is present. Pulmonary vascularity: Unremarkable. Heart/mediastinum: Cardiomediastinal silhouette is unremarkable. Left atrial appendage occlusion jacquie ce is present. Musculoskeletal: No acute osseous pathology. Midline sternotomy wires are noted. IMPRESSION: Trace bilateral pleural effusions which may be minimally increased from prior.
[2022-02-23] MEDS ORDERED: FUROSEMIDE 10 MG/ML 4 ML VIAL IV STA (08:39)
--- NOTE | 2022-02-23 08:55 | P.PN ---
Subjective Progress Note Date: 02/23/22 Principal diagnosis: Coronary artery disease with critical left main stenosis, unstable angina. Previous medical history of hypertension, hyperlipidemia, daily EtOH use, previous tobacco dependence, osteoarthritis, and family history of premature coronary artery disease (father had myocardial infarction at age 55) POD #5 coronary artery bypass grafting 4, left internal mammary artery sequential to the diagonal and left anterior descending artery, left radial artery from the aorta to the obtuse marginal artery, reverse saphenous vein graft from the aorta to the posterior lateral artery, endoscopic left radial and right greater saphenous vein harvest, left atrial appendage ligation with a #35 mm AtriClip, graft flow measurements using the [employer] flow meter, intraoper ative transesophageal echocardiogram Postoperative acute blood loss anemia and thrombocytopenia, expected given hemodilution and cardiopulmonary bypass pump Hypotension, expected given preoperative calcium channel yessy use likely causing vasoplegia Paroxysmal atrial fibrillation, known common occurrence after open heart surgery, not a complication, currently in sinus rhythm The patient was seen and examined this morning sitting up in a recliner in the intensive care unit in no acute distress eating breakfast. He does complain of some postoperative pain, lack of sleep, denies shortness of breath, but does state he is feeling better today than yesterday. Currently in sinus rhythm with heart rate in the 80s, blood pressure stable. He did go into atrial fibrillation yesterday, was treated with IV amiodarone, converted back to sinus rhythm this morning around 1 AM. He is alert and oriented 3. Currently on room air with oxygen saturation in the low 90s, able to achieve 750 mL on his incentive spirometry. He did ambulate in hallway yesterday and received first postoperative shower. No other new concerns. Objective - Vital Signs Vital signs: Vital Signs Temp 98.0 F 02/23/22 04:00 Pulse 75 02/23/22 07:00 Resp 27 H 02/23/22 07:00 BP 130/60 02/23/22 07:00 Pulse Ox 92 L 02/23/22 07:00 FiO2 45 02/18/22 20:00 Intake & Output 02/22/22 02/23/22 02/23/22 18:59 06:59 18:59 Intake Total 250 412.503 Output Total 1675 1300 Balance -1425 -887.497 Weight 97.7 kg Intake: Intake, IV Titration 172.503 Amount Amiodarone 450 mg In 172.503 Dextrose 5% in Water 250 ml @ 0.5 MG/MIN 16.667 mls/hr IV .Q15H [facility] Rx#: [id number] Oral 250 240 Output: Urine 1675 1300 Other: Voiding Method Urinal Urinal ABP, PAP, CO, CI - Last Documented Arterial Blood Pressure 116/41 Pulmonary Artery Pressure 31/11 Cardiac Output 6.3 Cardiac Index 3 - Exam CONSTITUTIONAL: Appears comfortable, cooperative, no acute distress RESPIRATORY: Lungs sounds diminished bilaterally. Respirations even, nonlabored. Currently on room air with oxygen saturation 92%. Able to achieve 750 mL on his incentive spirometry. Strong nonproductive cough. CARDIOVASCULAR: S1, S2 present. Regular rate and rhythm, sinus rhythm on telemetry. Sternum stable. Palpable peripheral pulses bilaterally. Trace bilateral lower extremity edema present. No calf pain or tenderness noted. Heart hugger in place with patient demonstrating appropriate use. Antiembolism stockings, SCDs present. GASTROINTESTINAL: Abdomen soft, nontender, distended. Active bowel sounds present 4 quadrants. Tolerating diet. Positive bowel movement 02/21 GENITOURINARY: Continues to void, output 2975 mL in the last 24 hours INTEGUMENTARY: Skin is warm and dry. Anterior chest incision well approximated. Right lower extremity EVH site well approximated without redness or drainage. NEUROLOGIC: Cranial nerves II through XII intact MUSKULOSKELETAL: Able to move all extremities, strength equal bilaterally PSYCHIATRIC: Alert and oriented to person, place, and time, appropriate affect - Allied health notes Allied health notes reviewed: nursing - Labs CBC & Chem 7: 02/23/22 05:48 02/23/22 05:48 Labs: Abnormal Lab Results - Last 24 Hours (Table) 02/22/22 02/22/22 02/22/22 Range/Units 11:28 17:08 20:32 WBC (3.8-10.6) k/uL RBC (4.30-5.90) m/uL Hgb (13.0-17.5) gm/dL Hct (39.0-53.0) % MCV (80.0-100.0) fL BUN (9-20) mg/dL Creatinine (0.66-1.25) mg/dL Glucose (74-99) mg/dL POC Glucose (mg/dL) 181 H 170 H 158 H (70-110) mg/dL Calcium (8.4-10.2) mg/dL 02/23/22 02/23/22 02/23/22 Range/Units 05:48 05:48 06:25 WBC 14.6 H (3.8-10.6) k/uL RBC 2.41 L (4.30-5.90) m/uL Hgb 8.1 L (13.0-17.5) gm/dL Hct 24.3 L (39.0-53.0) % MCV 100.8 H (80.0-100.0) fL BUN 35 H (9-20) mg/dL Creatinine 1.29 H (0.66-1.25) mg/dL Glucose 120 H (74-99) mg/dL POC Glucose (mg/dL) 162 H (70-110) mg/dL Calcium 7.8 L (8.4-10.2) mg/dL - Imaging and Cardiology Chest x-ray: image reviewed Assessment and Plan Assessment: 1. Coronary artery disease with critical left main stenosis, unstable angina, status post 4 vessel CABG 2. Preserved left ventricular systolic function, EF 55-60% 3. Mild mitral and tricuspid regurgitation on transthoracic echocardiogram from 01/27/2022 4. Newly diagnosed diabetes, hemoglobin A1c 7.2% 5. History of hypertension 6. Hyperlipidemia, cholesterol 217, LDL 113, triglycerides 183 7. Daily EtOH use, 8. Previous tobacco dependence 9. Severe COPD, FEV1 34% of predicted 10. Osteoarthritis 11. Family history of premature coronary artery disease (father had myocardial infarction at age 55) 12. Postoperative acute blood loss anemia and thrombocytopenia, expected 13. Hypotension, expected 14. Paroxysmal atrial fibrillation Plan: 1. Continue to maximize medical therapy with aspirin, Plavix, statin, beta yessy. Will increase beta yessy therapy as tolerated, increase to 50 mg twice a day today 2. Continue amlodipine added for radial artery spasm prophylaxis 3. Continue amiodarone for A. fib prophylaxis, will transition to oral. No indication for anticoagulation unless an atrial fibrillation greater than 24 hours 4. Incentive spirometry 10 times every hour while awake. Bronchodilators per pulmonology 5. Increase activity, ambulate as tolerated. PT/OT/cardiac rehab consulted. Shower daily 6. Will monitor daily labs and x-rays. Electrolyte replacement per protocol. Will give 40 mg IVP lasix today 7. GI/DVT prophylaxis 8. Pain control with current medication regimen. Avoid narcotics 9. Insulin management per internal medicine. Patient considered newly diagnosed diabetic, needs tight blood sugar control 10. Strict accurate intake and output. Daily weights 11. Will place transfer orders for [address] [place] [id number] cardiac stepdown unit today, may transfer when bed available 12. Discharge planning a progress. Anticipate discharge to home with home care in the next 24-48 hours. 13. More recommendations to follow based on patient's progress
--- NOTE | 2022-02-23 09:31 | P.PN ---
Subjective Progress Note Date: 02/23/22 This is a 76-year-old white male with history of multiple medical problems including hypertension, dyslipidemia, remote smoking history, patient had about a [id number] smoking history but he quit smoking 40 years ago. Patient has significant family history of early onset coronary artery disease, history of degenerative joint disease, drinks on the average of 3 glasses of liquor on a daily basis. Over the last few months, patient has been noticing burning sensation of the chest with activity. This was also associated with shortness of breath. Patient was referred to cardiology, and apparently had abnormal stress test. This was further evaluated by cardiac catheterization. Which showed a critical left main stenosis in the range of 99.9%, 70% stenosis to proximal and midportion sugar of LAD severe disease noted in the distal RCA and the ostial of the PDA branch of the right coronary artery. Hence the patient was seen by cardiothoracic surgery, and he is scheduled to undergo myocardial revascularization tomorrow. Considering his smoking history, and considering his abnormal PFT, this consult was initiated. His PFT showed severe obstructive and restrictive lung disease. Although clinically the patient does not seem to be Obstructed. Nonetheless the patient is not active he has an extremely sedentary lifestyle for the last 3 years mostly because of his chronic low back pain and right hip pain secondary to degenerative joint disease patient has not been physically active for the last 2 or 3 years he has a very sedentary lifestyle. Denies cough denies wheezing denies shortness of breath at rest. Never been diagnosed with COPD, and never been on any bronchodilators. The patient is seen today 02/18/2022 in follow-up in the immediate postoperative period in the intensive care unit. He had undergone coronary artery bypass grafting 4. CARREON sequential to diagonal and LAD, left radial artery to the obtuse marginal artery and a saphenous vein graft to the posterior lateral artery. Left atrial appendage ligation with a thick #35 mm atrophic clip. He is currently intubated on mechanical ventilator at settings of assist control mode at a rate of 14, tidal volume 550, FiO2 100% and a PEEP of 5. Blood gases revealed a PaO2 of 392, pCO2 39, pH 7.40. He is on a nitroglycerin drip at 5 mcg/m. Propofol at 25 mcg/kg/m. He initially was on norepinephrine at 0.01 mg/ m. He is receiving albumin. He has left pleural chest tubes 2 and a mediastinal chest tube in place. Cardiac output 4.3. Index 2.0. White count 5.6. Hemoglobin 8.1. INR 1.3. Glucose 100. Reevaluated today on 02/19/22, patient underwent coronary artery bypass grafting 4 yesterday, I was able to extubate the patient at 20:55, he tolerated the extubation well, patient is doing well from the pulmonary perspective, however he is still relatively with marginal blood pressure, requiring dopamine and norepinephrine. Continues to have mediastinal/left chest tubes, chest x-ray is showing mostly left lower lobe atelectasis, no evidence of congestive heart failure. Hemoglobin is a bit low today at 7.1, and he will be receiving a unit of packed RBCs. Patient is on dopamine at 2 mcg/kg/m he is also on a low-dose norepinephrine at 0.06 mcg/kg/m. Continues to have right IJ [place]-Teddy catheter and right radial arterial line. CVP today is 10. WBC count is 10.5-year-old woman is 7.1. Basic metabolic profile is normal renal profile is slightly worse with creatinine of 1.24 today. Reevaluated today on 02/20/22, patient remains in the ICU, he is now postoperative day #2. Patient is doing well, he is sitting in a recliner, feels generally weak, he is in a bit of pain, remains on dopamine at 20 mcg/kg/m, he is off norepinephrine, received a unit of packed RBCs yesterday. He is on 4 L nasal cannula, not in distress, continues to have multiple lines continues to have mediastinal left pleural chest tube in place, and he has a right IJ jugular/[place]-Teddy catheter. Chest x-ray is showing slight improvement in his left lower lobe atelectasis and there is a small tiny left pleural effusion, no evidence of pulmonary edema, no evidence of infiltrate. CBC is relatively unremarkable, hemoglobin is 7.7 today. Basic metabolic profile is normal renal profile is normal with a BUN of 24 creatinine 1.12 improved compared to creatinine from yesterday The patient is seen today 02/21/2022 in follow-up in the intensive care unit. Postoperative day #3. He is doing well. Currently sitting up in a chair at the bedside. Awake and alert in no acute distress. Maintaining good O2 saturations in the 90s on 2 L/m per nasal cannula. He has normal saline at 20 ML's per hour. He has received 1 unit of packed red blood cells this admission. White count 13.1. Hemoglobin 8.0. Platelets 97,000. Sodium 141. Potassium 4.2. BUN 30. Creatinine 1.02. A ST 118. ALT 58. Needs increased encouragement regarding the use the incentive spirometer. Remains on Symbicort, DuoNeb inhalations, Mucinex. Heparin for DVT prophylaxis. The patient is seen today 02/22/2022 in follow-up in the intensive care unit. Postoperative day #4. He is currently sitting up in a chair at the bedside. He is awake and alert. Maintaining O2 saturations in the low 90s on room air. He is having difficulty expectorating mucus. He's been coughing frequently. He is now in atrial fibrillation with a rapid ventricular response. He's been initiated on amiodarone. He is continued on Mucinex, Symbicort, DuoNeb inhalations. His x-ray reveals persistent pleuroparenchymal changes that have improved compared to previous. Mild residual venous congestion and small bilateral effusions with basilar infiltrates. No pneumothorax. He continues to work with the incentive spirometer. White count 13.3. Hemoglobin 8.2. Platelets 158. Sodium 142. Potassium 4.1. BUN 29. Creatinine 1.09. Glucose 123. AST 71. ALT 61. Magnesium 2.5. The patient is seen today 02/23/2022 in follow-up in the intensive care unit. Postoperative day #5. He is currently sitting up in a chair at the bedside. Awake and alert in no acute distress. Maintaining O2 saturations in the 90s on room air. He is back in sinus rhythm. He is still on amiodarone at 0.5 mg/m. He is still having some cough and congestion. A bit better today compared to yesterday. Afebrile. Hemodynamically stable. He's been on DuoNeb inhalations, Symbicort, Mucinex. Chest x-ray shows trace bilateral pleural effusions. No consolidation. No pneumothorax. White count 14.6. Hemoglobin 8.1. Sodium 140. Potassium 4.0. BUN 35. Creatinine 1.29. Objective - Vital Signs Vital signs: Vital Signs Temp 98.4 F 02/23/22 08:00 Pulse 90 02/23/22 08:32 Resp 22 02/23/22 08:00 BP 132/76 02/23/22 08:00 Pulse Ox 93 L 02/23/22 08:00 FiO2 45 02/18/22 20:00 Intake & Output 02/22/22 02/23/22 02/23/22 18:59 06:59 18:59 Intake Total 250 412.503 118 Output Total 1675 1300 0 Balance -1425 -887.497 118 Weight 97.7 kg 97.7 kg Intake: Intake, IV Titration 172.503 Amount Amiodarone 450 mg In 172.503 Dextrose 5% in Water 250 ml @ 0.5 MG/MIN 16.667 mls/hr IV .Q15H PRN Rx#: [id number] Oral 250 240 118 Output: Urine 1675 1300 0 Other: Voiding Method Urinal Urinal ABP, PAP, CO, CI - Last Documented Arterial Blood Pressure 116/41 Pulmonary Artery Pressure 31/11 Cardiac Output 6.3 Cardiac Index 3 - Exam GENERAL EXAM: Awake, alert 76-year-old male patient, on room air, up in the chair at the bedside, comfortable in no apparent distress. HEAD: Normocephalic. EYES: Sluggish reaction of pupils, equal size. NOSE: Clear with pink turbinates. THROAT: No erythema or exudates. NECK: No masses, no JVD. CHEST: Sternal dressing dry and intact. Heart Hugger in place. LUNGS: Equal air entry with bilateral scattered rhonchi. CVS: S1 and S2 normal with no audible murmur, regular rhythm. ABDOMEN: No hepatosplenomegaly, normal bowel sounds, no guarding or rigidity. SPINE: No scoliosis or deformity SKIN: No rashes CENTRAL NERVOUS SYSTEM: Sedated, tone is normal in all 4 extremities. EXTREMITIES: SCDs in place. There is no peripheral edema. No clubbing, no cyanosis. Peripheral pulses are intact. - Labs CBC & Chem 7: 02/23/22 05:48 02/23/22 05:48 Labs: Abnormal Lab Results - Last 24 Hours (Table) 02/22/22 02/22/22 02/22/22 Range/Units 11:28 17:08 20:32 WBC (3.8-10.6) k/uL RBC (4.30-5.90) m/uL Hgb (13.0-17.5) gm/dL Hct (39.0-53.0) % MCV (80.0-100.0) fL BUN (9-20) mg/dL Creatinine (0.66-1.25) mg/dL Glucose (74-99) mg/dL POC Glucose (mg/dL) 181 H 170 H 158 H (70-110) mg/dL Calcium (8.4-10.2) mg/dL 02/23/22 02/23/22 02/23/22 Range/Units 05:48 05:48 06:25 WBC 14.6 H (3.8-10.6) k/uL RBC 2.41 L (4.30-5.90) m/uL Hgb 8.1 L (13.0-17.5) gm/dL Hct 24.3 L (39.0-53.0) % MCV 100.8 H (80.0-100.0) fL BUN 35 H (9-20) mg/dL Creatinine 1.29 H (0.66-1.25) mg/dL Glucose 120 H (74-99) mg/dL POC Glucose (mg/dL) 162 H (70-110) mg/dL Calcium 7.8 L (8.4-10.2) mg/dL Assessment and Plan Assessment: Severe coronary artery disease with critical left main stenosis. Status post coronary artery bypass grafting 4. CARREON to the diagonal and LAD. Left radial artery to the obtuse marginal artery, saphenous vein graft to the posterior lateral artery. Postoperative day #5. Atrial fibrillation with a rapid ventricular response requiring amiodarone drip, not an unexpected outcome of open heart surgery. Severe chronic obstructive pulmonary disease and some component of restrictive lung disease, FEV1 is in the range of 34% of the predicted. Newly diagnosed diabetes, hemoglobin A1c 7.2 Benign essential hypertension History of alcohol daily use Ex-smoker Family history of premature coronary artery disease Degenerative joint disease Plan: The patient was seen and evaluated Chest x-ray, medications and labs reviewed Mild leukocytosis, check a pro-calcitonin Currently in sinus rhythm Stable and on room air Continue bronchodilators, Mucinex Encouraged the increased use of the incentive spirometer Increase his activity as tolerated We will continue to follow I have personally seen and examined the patient, performed the documentation and the assessment and plan as written. Number of minutes spent on the visit: 10.
[2022-02-23] MEDS: THIAMINE 100 MG TAB PO SCH (10:55)
[2022-02-23 12:02] LABS: Glucose,Whole Blood 135 mg/dL (70-110)
[2022-02-23] MEDS: MULTIVITAMINS, THERA 1 EACH TAB PO SCH (12:59)
[2022-02-23] MEDS: amLODIPine 10 MG TAB PO SCH (12:59)
--- NOTE | 2022-02-23 13:22 | P.PN ---
Subjective Progress Note Date: 02/22/22 02/21/2022: Patient was seen in the intensive care unit, he is postop day #3 a 4 vessel coronary bypass graft. He had undergone coronary artery bypass grafting 4. CARREON sequential to diagonal and LAD, left radial artery to the obtuse marginal artery and a saphenous vein graft to the posterior lateral artery. Left atrial appendage ligation with a thick #35 mm atrophic clip. He was having chest pains for the past several month he described as heartburn. He underwent a stress test that was POS and then a cath showing significant coronary disease He is currently resting comfortably intensive care unit. His chest tube in. He denies any chest pains, pressures, short of breath, nausea or vomiting. His is at bedside. Care was discussed with her. The nurse was present as well. New onset diabetic. A1c was 7.2. His admission hemoglobin was 14.3. Today it is 8.0. He has received 1 unit packed red blood cells. Other chemistries electrolytes are normal today. 02/22/2022 earlier in the morning patient, having frequent nonproductive coughing ,attempting to cough up mucus, desatted into the low 90s on room air,developed atrial fibrillation with RVR, heart rates greater than 150, charan used and placed on Amiodarone drip. O2 sat currently in the mid 90s on room air. Chest x-ray reported trace bilateral pleural effusions minimally increased from prior.Afebrile,WBC 13.3. Hemoglobin 8.2, platelets 158. Sodium 142. Potassium 4.1, magnesium 2.5. BUN 29. Creatinine 1.08. AST 71. ALT 62. Blood sugars controlled. Objective - Vital Signs Vital signs: Vital Signs Temp 98.3 F 02/22/22 08:00 Pulse 125 H 02/22/22 12:14 Resp 21 02/22/22 10:00 BP 108/68 02/22/22 10:00 Pulse Ox 95 02/22/22 10:00 FiO2 45 02/18/22 20:00 Intake & Output 02/21/22 02/22/22 02/22/22 18:59 06:59 18:59 Intake Total 787 540 250 Output Total 480 525 475 Balance 307 15 -225 Weight 99.1 kg Intake: IV 187 0.9NS PRESSURE BAGS 27 Sodium Chloride 0.9% 1, 160 000 ml @ 20 mls/hr IV . Q24H LEEROY Rx#:[id number] Oral 600 540 250 Output: Chest Tube Drainage 30 Chest Tube Left Left 30 Pleural/Mediastinal Urine 450 525 475 Other: Voiding Method Urinal Urinal Urinal # Voids 1 # Bowel Movements 1 ABP, PAP, CO, CI - Last Documented Arterial Blood Pressure 116/41 Pulmonary Artery Pressure 31/11 Cardiac Output 6.3 Cardiac Index 3 - Exam - Exam General: Alert and oriented 3 ,Sitting up in chair, currently coughing, respiratory effort mildly increased. Neck: supple, no JVD. Cardiovascular: S1S2 is normal, There is a regular rate and rhythm. No murmur, rub or gallop is appreciated. Wearing Heart hugger. Positive edema. Respiratory: Mildly labored,audible congestion , fine bibasilar crackles and rhonchi Gastrointestinal: Soft, non-distended, non-tender abdomen without masses or organomegaly noted.No rebound or guarding present. +Bowel sounds Neurological: CN II-XII grossly intact, no focal deficits Skin: Skin is warm and dry, no rashes noted. - Labs CBC & Chem 7: 02/23/22 05:48 02/23/22 05:48 Labs: Abnormal Lab Results - Last 24 Hours (Table) 02/21/22 02/21/22 02/22/22 Range/Units 16:54 20:24 06:50 WBC (3.8-10.6) k/uL RBC (4.30-5.90) m/uL Hgb (13.0-17.5) gm/dL Hct (39.0-53.0) % MCV (80.0-100.0) fL Chloride (98-107) mmol/L BUN (9-20) mg/dL Glucose (74-99) mg/dL POC Glucose (mg/dL) 179 H 137 H 148 H (70-110) mg/dL Calcium (8.4-10.2) mg/dL Magnesium (1.6-2.3) mg/dL AST (17-59) U/L ALT (4-49) U/L Total Protein (6.3-8.2) g/dL Albumin (3.5-5.0) g/dL 02/22/22 02/22/22 02/22/22 Range/Units 07:03 07:03 11:28 WBC 13.3 H (3.8-10.6) k/uL RBC 2.50 L (4.30-5.90) m/uL Hgb 8.2 L (13.0-17.5) gm/dL Hct 25.3 L (39.0-53.0) % MCV 101.2 H (80.0-100.0) fL Chloride 111 H (98-107) mmol/L BUN 29 H (9-20) mg/dL Glucose 123 H (74-99) mg/dL POC Glucose (mg/dL) 181 H (70-110) mg/dL Calcium 7.9 L (8.4-10.2) mg/dL Magnesium 2.5 H (1.6-2.3) mg/dL AST 71 H (17-59) U/L ALT 62 H (4-49) U/L Total Protein 5.5 L (6.3-8.2) g/dL Albumin 3.4 L (3.5-5.0) g/dL Assessment and Plan Assessment: Status post CABG in a patient with CAD with critical left main disease, in a patient with family history of CAD, father had MO at age 55 New-onset Paroxysmal A. fib with RVR, on amiodarone drip COPD Daily alcohol abuse, reports 3-4 shots daily Diabetes mellitus, newly diagnosed, A1c 7.2 History of nicotine dependence, quit smoking over 40 years ago History of Spinal stenosis, degenerative joint disease Hypertension Hyperlipidemia Osteoarthritis Obesity, BMI 30.9 Plan: Continue on current medication regime ,monitoring and symptomatic treatment. Antiarrhythmics, amiodarone drip. IV push Lasix ordered as per CTS. aggressive pulmonary toileting with Mucinex, nebulized bronchodilators, incentive spirometer reinforced. The impression and plan of care has been dictated as directed. : I performed a history and examination of this patient, discussed the same with the dictator. I agree with the dictator's note ,documented as a scribe. Any additional findings or plans will be noted.
--- NOTE | 2022-02-23 13:38 | P.PN ---
Subjective Progress Note Date: 02/23/22 02/21/2022: Patient was seen in the intensive care unit, he is postop day #3 a 4 vessel coronary bypass graft. He had undergone coronary artery bypass grafting 4. CARREON sequential to diagonal and LAD, left radial artery to the obtuse marginal artery and a saphenous vein graft to the posterior lateral artery. Left atrial appendage ligation with a thick #35 mm atrophic clip. He was having chest pains for the past several month he described as heartburn. He underwent a stress test that was POS and then a cath showing significant coronary disease He is currently resting comfortably intensive care unit. His chest tube in. He denies any chest pains, pressures, short of breath, nausea or vomiting. His is at bedside. Care was discussed with her. The nurse was present as well. New onset diabetic. A1c was 7.2. His admission hemoglobin was 14.3. Today it is 8.0. He has received 1 unit packed red blood cells. Other chemistries electrolytes are normal today. 02/22/2022 earlier in the morning patient, having frequent nonproductive coughing ,attempting to cough up mucus, desatted into the low 90s on room air,developed atrial fibrillation with RVR, heart rates greater than 150, charan used and placed on Amiodarone drip. O2 sat currently in the mid 90s on room air. Chest x-ray reported trace bilateral pleural effusions minimally increased from prior.Afebrile,WBC 13.3. Hemoglobin 8.2, platelets 158. Sodium 142. Potassium 4.1, magnesium 2.5. BUN 29. Creatinine 1.08. AST 71. ALT 62. Blood sugars controlled. 02/23/2022 converted in the operational trainer hours to sinus rhythm, transitioned to oral amiodarone. Maintaining O2 sats in the 90s. Chest x-ray reporting trace bilateral pleural effusions may be minimally increased from prior. Receiving another dose of Lasix IV push today as per CTS. BUN 35, creatinine 1.29 . Electrolytes stable .Afebrile,WBC 14.6, pro calcitonin pending. Blood sugars ranging from 120-170. Positive bowel movement. Objective - Vital Signs Vital signs: Vital Signs Temp 98.4 F 02/23/22 08:00 Pulse 95 02/23/22 12:15 Resp 22 02/23/22 08:00 BP 132/76 02/23/22 08:00 Pulse Ox 93 L 02/23/22 08:00 FiO2 45 02/18/22 20:00 Intake & Output 02/22/22 02/23/22 02/23/22 18:59 06:59 18:59 Intake Total 250 412.503 118 Output Total 1675 1300 0 Balance -1425 -887.497 118 Weight 97.7 kg 97.7 kg Intake: Intake, IV Titration 172.503 Amount Amiodarone 450 mg In 172.503 Dextrose 5% in Water 250 ml @ 0.5 MG/MIN 16.667 mls/hr IV .Q15H PRN Rx#: [id number] Oral 250 240 118 Output: Urine 1675 1300 0 Other: Voiding Method Urinal Urinal # Voids 1 # Bowel Movements 1 ABP, PAP, CO, CI - Last Documented Arterial Blood Pressure 116/41 Pulmonary Artery Pressure 31/11 Cardiac Output 6.3 Cardiac Index 3 - Exam - Exam General: Alert and oriented 3 ,Sitting up in chair,NAD Neck: supple, no JVD. Cardiovascular: S1S2 is normal, There is a regular rate and rhythm. No murmur, rub or gallop is appreciated. Wearing Heart hugger. Positive edema. Respiratory: Bilateral air entry, scattered rhonchi with fine bibasilar crackles Gastrointestinal: Soft, non-distended, non-tender abdomen,No rebound or gu arding present. +Bowel sounds Neurological: CN II-XII grossly intact, no focal deficits Skin: Skin is warm and dry, no rashes noted. - Labs CBC & Chem 7: 02/23/22 05:48 02/23/22 05:48 Labs: Abnormal Lab Results - Last 24 Hours (Table) 02/22/22 02/22/22 02/23/22 Range/Units 17:08 20:32 05:48 WBC 14.6 H (3.8-10.6) k/uL RBC 2.41 L (4.30-5.90) m/uL Hgb 8.1 L (13.0-17.5) gm/dL Hct 24.3 L (39.0-53.0) % MCV 100.8 H (80.0-100.0) fL BUN (9-20) mg/dL Creatinine (0.66-1.25) mg/dL Glucose (74-99) mg/dL POC Glucose (mg/dL) 170 H 158 H (70-110) mg/dL Calcium (8.4-10.2) mg/dL 02/23/22 02/23/22 02/23/22 Range/Units 05:48 06:25 12:01 WBC (3.8-10.6) k/uL RBC (4.30-5.90) m/uL Hgb (13.0-17.5) gm/dL Hct (39.0-53.0) % MCV (80.0-100.0) fL BUN 35 H (9-20) mg/dL Creatinine 1.29 H (0.66-1.25) mg/dL Glucose 120 H (74-99) mg/dL POC Glucose (mg/dL) 162 H 135 H (70-110) mg/dL Calcium 7.8 L (8.4-10.2) mg/dL Assessment and Plan Assessment: Status post CABG in a patient with CAD with critical left main disease, in a patient with family history of CAD, father had RI at age 55 New-onset Paroxysmal A. fib with RVR, status post amiodarone drip. COPD Daily alcohol abuse, reports 3-4 shots daily Diabetes mellitus, newly diagnosed, A1c 7.2 History of nicotine dependence, quit smoking over 40 years ago History of Spinal stenosis, degenerative joint disease Hypertension Hyperlipidemia Osteoarthritis Obesity, BMI 30.9 Plan: Continue on current medication regime ,monitoring and symptomatic treatment. Antiarrhythmics transitioned to oral. maintain aggressive pulmonary toileting with nebulized bronchodilators, incentive spirometer reinforced. Increase ambulation as tolerated, PT/OT. Tight control of blood sugars, small dose of Lantus added to med regimen. Close monitoring of Accu-Cheks. The impression and plan of care has been dictated as directed. : I performed a history and examination of this patient, discussed the same with the dictator. I agree with the dictator's note ,documented as a scribe. Any additional findings or plans will be noted.
[2022-02-23] MEDS ORDERED: METOPROLOL TARTRATE 25 MG TAB PO STA (16:21)
[2022-02-23 17:01] LABS: Glucose,Whole Blood 174 mg/dL (70-110)
[2022-02-23] MEDS: INSULIN DETEMIR (LEVEMIR) 100 UNIT/ML SYR SQ SCH (17:14)
[2022-02-23] MEDS: DAPAGLIFLOZIN PROPANEDIOL 5 MG TABLET PO SCH (18:52)
[2022-02-23 20:10] LABS: Glucose,Whole Blood 138 mg/dL (70-110)
[2022-02-23] MEDS: SENNOSIDES-DOCUSATE SODIUM 1 EACH TAB PO SCH (20:18)
[2022-02-24] MEDS: HEPARIN SODIUM,PORCINE/PF 5,000 UNIT/0.5 ML SYRINGE SQ SCH ×2 (01:09→08:28)
[2022-02-24] MEDS: ACETAMINOPHEN TAB 500 MG TAB PO PRN ×2 (04:10→21:10)
[2022-02-24 06:25] LABS: HCT 24.6 % (39.0-53.0); HGB 8.2 gm/dL (13.0-17.5); Hypochromasia Slight; MCHC 33.2 g/dL (31.0-37.0); MCV 102.4 fL (80.0-100.0); Macrocytosis Slight; Platelet Count 239 k/uL (150-450); RBC 2.41 m/uL (4.30-5.90); RDW 15.1 % (11.5-15.5); WBC 15.5 k/uL (3.8-10.6)
[2022-02-24 06:41] LABS: Calcium 7.9 mg/dL (8.4-10.2); Magnesium 2.4 mg/dL (1.6-2.3)
[2022-02-24] MEDS: INSULIN ASPART (NovoLOG) 100 UNIT/ML VIAL SQ SCH ×4 (07:39→21:10)
[2022-02-24] MEDS: INSULIN DETEMIR (LEVEMIR) 100 UNIT/ML SYR SQ SCH ×2 (07:41→08:30)
[2022-02-24] MEDS: IPRATROPIUM-ALBUTEROL 3 ML NEB INHALATION SCH ×4 (07:51→19:45)
[2022-02-24] MEDS: SYMBICORT 160-4.5 MCG INHALER INHALATION SCH ×2 (07:51→19:45)
[2022-02-24] MEDS: ACETYLCYSTEINE 800 MG/4 ML VIAL INHALATION SCH ×4 (07:51→19:46)
--- NOTE | 2022-02-24 07:54 | P.PN ---
Subjective Progress Note Date: 02/24/22 Principal diagnosis: CAD and status post CABG The patient is a pleasant 76-year-old gentleman is known to have hypertension and dyslipidemia was seen in the office recently for symptoms of chest discomfort. He underwent initially a stress test and that came in to be ischemic with anterolateral lateral ischemia. Subsequently he underwent a heart catheterization and that revealed critical disease involving the distal left main coronary artery as well as distal RCA. He underwent CABG 4 with CARREON sequentially to LAD and diagonal and radial artery to obtuse marginal as well as SVG to PDA. February [id number] The patient was seen this morning. He is overall doing well. He is stable hemodynamically. He is on antiplatelet. He is an intermediate intensity statin. I would suggest increase the dose of statin to high intensity once the liver function tests improved. Beside that the chest x-ray was reviewed and seems to be slightly wet and I would suggest also giving the patient the 20 mg of Lasix IV. Beside that continue the current medical regimen and continue mo nitor the kidney function and electrolytes as well as monitor the hemoglobin. February 222021 The patient was seen and evaluated this morning. Overall he is doing well and stable from a perivascular standpoint of view. Hemodynamically he is stable with pressure being slightly on the higher side. The dose of Dilaudid been was increased yesterday. We might need to consider adjusting his blood pressure medication if the pressure remains above 1 40 mmHg. He remains in sinus mechanism. On examination he does have bilateral rhonchi mainly in the bases and I would advise giving the patient some Lasix if the creatinine is a stable this morning. Beside that continue the current medical regimen and continue monitor the kidney function and electrolytes and the patient potentially Be transferred out of the intensive care unit. February 232021 The patient was seen and evaluated this morning. The patient appeared to be stable from the cardiovascular standpoint of view. He went into A. fib with RVR yesterday and currently is in sinus rhythm and he is on amiodarone IV which going to be changed into amiodarone by mouth later on today. He still is slightly congested and trying to cough. Otherwise easily mechanically stable. He is on maximize medical treatment. Hemoglobin and kidney function are stable. February 242021 The patient was seen and evaluated this morning. Currently he is in atrial fibrillation with heart rate of 150 bpm. I advised the patient a bolus of am iodarone IV hoping to convert him to sinus mechanism B the dose of beta yessy has increased yesterday. Also I believe the patient needs to be on oral anticoagulation since he has been in and out of atrial fibrillation for at least 24 hours. Objective - Vital Signs Vital signs: Vital Signs Temp 98.9 F 02/24/22 04:00 Pulse 130 H 02/24/22 04:00 Resp 19 02/24/22 04:00 BP 139/89 02/24/22 04:00 Pulse Ox 91 L 02/24/22 04:00 FiO2 45 02/18/22 20:00 Intake & Output 02/23/22 02/24/22 02/24/22 18:59 06:59 18:59 Intake Total 118 450 Output Total 0 400 Balance 118 50 Intake: Oral 118 450 Output: Urine 0 400 Other: Voiding Method Urinal Urinal # Voids 1 # Bowel Movements 1 ABP, PAP, CO, CI - Last Documented Arterial Blood Pressure 116/41 Pulmonary Artery Pressure 31/11 Cardiac Output 6.3 Cardiac Index 3 - Constitutional General appearance: Present: no acute distress - Respiratory Respiratory: bilateral: diminished - Cardiovascular Rhythm: irregularly irregular - Labs CBC & Chem 7: 02/24/22 05:18 02/24/22 05:18 Labs: Abnormal Lab Results - Last 24 Hours (Table) 02/23/22 02/23/22 02/23/22 Range/Units 05:48 12:01 16:59 WBC (3.8-10.6) k/uL RBC (4.30-5.90) m/uL Hgb (13.0-17.5) gm/dL Hct (39.0-53.0) % MCV (80.0-100.0) fL BUN (9-20) mg/dL Creatinine (0.66-1.25) mg/dL Glucose (74-99) mg/dL POC Glucose (mg/dL) 135 H 174 H (70-110) mg/dL Calcium (8.4-10.2) mg/dL Magnesium (1.6-2.3) mg/dL Procalcitonin 0.56 H (0.02-0.09) ng/mL 02/23/22 02/24/22 02/24/22 Range/Units 20:08 05:18 05:18 WBC 15.5 H (3.8-10.6) k/uL RBC 2.41 L (4.30-5.90) m/uL Hgb 8.2 L (13.0-17.5) gm/dL Hct 24.6 L (39.0-53.0) % MCV 102.4 H (80.0-100.0) fL BUN 41 H (9-20) mg/dL Creatinine 1.37 H (0.66-1.25) mg/dL Glucose 111 H (74-99) mg/dL POC Glucose (mg/dL) 138 H (70-110) mg/dL Calcium 7.9 L (8.4-10.2) mg/dL Magnesium 2.4 H (1.6-2.3) mg/dL Procalcitonin (0.02-0.09) ng/mL Assessment and Plan Assessment: Assessment CAD and status post CABG as described above Hypertension Dyslipidemia Paroxysmal atrial fibrillation Plan Continue the current medical regimen I advised start the patient on oral anticoagulation I advised give the patient a bolus of amiodarone IV
[2022-02-24] MEDS: DEXTROSE 5% IN WATER 100 ML with AMIODARONE 150 MG IV PRN (08:00)
[2022-02-24] MEDS: AMIODARONE 200 MG TAB PO SCH ×2 (08:28→21:10)
[2022-02-24] MEDS: METOPROLOL TARTRATE 50 MG TAB PO SCH ×2 (08:28→21:09)
[2022-02-24] MEDS: ASCORBIC ACID 500 MG TAB PO SCH ×2 (08:28→17:41)
[2022-02-24] MEDS: CLOPIDOGREL 75 MG TAB PO SCH (08:28)
[2022-02-24] MEDS: FERROUS SULFATE 325 MG TAB PO SCH ×2 (08:28→17:41)
[2022-02-24] MEDS: ASPIRIN 325 MG TAB PO SCH (08:28)
[2022-02-24] MEDS: THIAMINE 100 MG TAB PO SCH (08:28)
[2022-02-24] MEDS: PANTOPRAZOLE 40 MG TABLET PO SCH (08:28)
[2022-02-24] MEDS: FOLIC ACID 1 MG TAB PO SCH (08:28)
[2022-02-24] MEDS: guaiFENesin-DM 600/30MG 1 EACH TAB.ER.12H PO SCH ×2 (08:28→21:32)
[2022-02-24] MEDS: ATORVASTATIN 40 MG TAB PO SCH (08:28)
--- NOTE | 2022-02-24 09:19 | XR ---
EXAMINATION TYPE: XR chest 2V DATE OF EXAM: 02/24/2022 COMPARISON: 02/23/2022 TECHNIQUE: PA and lateral views submitted. HISTORY: Postcardiac surgery FINDINGS: Small bilateral effusions. Heart is enlarged. Postoperative change. Correlate for underlying COPD. No pneumothorax. Osseous structures intact interrupted the shoulders. IMPRESSION: 1. Cardiomegaly with bilateral lower lobe infiltrate and small effusion stable.
[2022-02-24] MEDS ORDERED: FUROSEMIDE 10 MG/ML 4 ML VIAL IV STA (09:51)
[2022-02-24] MEDS ORDERED: POTASSIUM CHLORIDE ER 10 MEQ TAB.ER.PRT PO STA (09:52)
--- NOTE | 2022-02-24 09:54 | P.PN ---
Subjective Progress Note Date: 02/24/22 Principal diagnosis: Coronary artery disease with critical left main stenosis, unstable angina. Past medical history significant for hypertension, hyperlipidemia, daily EtOH use, previous tobacco dependence, osteoarthritis, and family history of premature coronary artery disease (father had myocardial infarction at age 55) POD #6 coronary artery bypass grafting 4, left internal mammary artery sequential to the diagonal and left anterior descending artery, left radial artery from the aorta to the obtuse marginal artery, reverse saphenous vein graft from the aorta to the posterior lateral artery, endoscopic left radial and right greater saphenous vein harvest, left atrial appendage ligation with a #35 mm AtriClip, graft flow measurements using the Attention Pointstim flow meter, intraoperative transesophageal echocardiogram Postoperative acute blood loss anemia and thrombocytopenia, expected given hemodilution and cardiopulmonary bypass pump. Hypotension, expected given preoperative calcium channel yessy use likely causing vasoplegia. Paroxysmal atrial fibrillation, known common occurrence after open heart surgery, not a complication, currently in sinus rhythm. The patient was seen and examined in follow-up today 02/24/2022 at his bedside in the intensive care unit. Currently he is sitting up to bedside chair, is awake, alert, oriented 3 and is in no acute distress. He denies any complaints of pain or shortness of breath at this time, although his bedside monitor is showing atrial fibrillation with RVR heart rate in the 130s. He remains on amiodarone 400 mg by mouth twice a day and his beta yessy was increased to 50 mg by mouth twice a day yesterday. The patient was given 1 dose of amiodarone 150 mg IV piggyback 1 now ordered by cardiology. Oxygen saturations are 94% on room air and he is achieving 1250 mL on his incentive spirometry with enco uragement. Laboratory results this morning show a WBC count of 15.5, hemoglobin 8.2, hematocrit 24.6, platelets 239, sodium 139, potassium 4.0, chloride 105, CO2 24, BUN 41, creatinine 1.37, calcium 7.9 and magnesium 2.4. He has been afebrile the last 24 hours. Chest x-ray reviewed. Objective - Vital Signs Vital signs: Vital Signs Temp 98.2 F 02/24/22 08:00 Pulse 137 H 02/24/22 08:00 Resp 22 02/24/22 08:00 BP 126/65 02/24/22 08:00 Pulse Ox 95 02/24/22 08:00 FiO2 45 02/18/22 20:00 Intake & Output 02/23/22 02/24/22 02/24/22 18:59 06:59 18:59 Intake Total 118 450 Output Total 0 400 Balance 118 50 Intake: Oral 118 450 Output: Urine 0 400 Other: Voiding Method Urinal Urinal # Voids 1 # Bowel Movements 1 ABP, PAP, CO, CI - Last Documented Arterial Blood Pressure 116/41 Pulmonary Artery Pressure 31/11 Cardiac Output 6.3 Cardiac Index 3 - Exam CONSTITUTIONAL: Sitting up to the bedside chair in the intensive care unit, appears comfortable, cooperative, no apparent acute distress. HEENT: Neck is supple, no JVD, no lymphadenopathy. RESPIRATORY: Lungs sounds essentially clear throughout, diminished to his bilateral bases. Respirations are symmetrical and nonlabored. Currently on room air with oxygen saturations 94%. Able to achieve 1250 mL on his incentive sp irometry. Strong cough. CARDIOVASCULAR: Irregular rhythm and tachycardic rate. S1 and S2 present, negative for S3, gallop or murmur. Sternum is stable, occasional clicking felt. Palpable peripheral pulses bilaterally, +1 edema to his bilateral lower extremities. No calf pain or tenderness noted. Heart hugger in place with patient demonstrating appropriate use. Knee-high MARCK hose and sequential compression devices in place to his bilateral lower extremities. GASTROINTESTINAL: Abdomen soft, nontender, nondistended. Active bowel sounds present 4 quadrants. Tolerating diet. Passing flatus. No guarding or rigidity. Bowel movement yesterday 02/23/2022 GENITOURINARY: Continues to void, 400 mL of urine output in the last 8 hours. INTEGUMENTARY: Skin is warm and dry with no evidence of clubbing or cyanosis. Midline sternal incision clean dry and well approximated, covered with dry intact dressing. Right lower extremity EVH sites well approximated without redness or drainage. Left arm radial artery harvest sites clean, dry and approximated. No drainage or redness is present. NEUROLOGIC: Cranial nerves II through XII intact. No focal deficits. MUSKULOSKELETAL: Able to move all extremities, strength equal bilaterally, generalized weakness. PSYCHIATRIC: Alert and oriented to person place and time, appropriate affect. - Allied health notes Allied health notes reviewed: nursing - Labs CBC & Chem 7: 02/24/22 05:18 02/24/22 05:18 Labs: Abnormal Lab Results - Last 24 Hours (Table) 02/23/22 02/23/22 02/23/22 Range/Units 05:48 12:01 16:59 WBC (3.8-10.6) k/uL RBC (4.30-5.90) m/uL Hgb (13.0-17.5) gm/dL Hct (39.0-53.0) % MCV (80.0-100.0) fL BUN (9-20) mg/dL Creatinine (0.66-1.25) mg/dL Glucose (74-99) mg/dL POC Glucose (mg/dL) 135 H 174 H (70-110) mg/dL Calcium (8.4-10.2) mg/dL Magnesium (1.6-2.3) mg/dL Procalcitonin 0.56 H (0.02-0.09) ng/mL 02/23/22 02/24/22 02/24/22 Range/Units 20:08 05:18 05:18 WBC 15.5 H (3.8-10.6) k/uL RBC 2.41 L (4.30-5.90) m/uL Hgb 8.2 L (13.0-17.5) gm/dL Hct 24.6 L (39.0-53.0) % MCV 102.4 H (80.0-100.0) fL BUN 41 H (9-20) mg/dL Creatinine 1.37 H (0.66-1.25) mg/dL Glucose 111 H (74-99) mg/dL POC Glucose (mg/dL) 138 H (70-110) mg/dL Calcium 7.9 L (8.4-10.2) mg/dL Magnesium 2.4 H (1.6-2.3) mg/dL Procalcitonin (0.02-0.09) ng/mL - Imaging and Cardiology Chest x-ray: report reviewed, image reviewed Assessment and Plan Assessment: 1. Coronary artery disease with critical left main stenosis, unstable angina, status post 4 vessel CABG 2. Preserved left ventricular systolic function, EF 55-60% 3. Mild mitral and tricuspid regurgitation on transthoracic echocardiogram from 01/27/2022 4. Newly diagnosed diabetes, hemoglobin A1c 7.2% 5. History of hypertension 6. Hyperlipidemia, cholesterol 217, LDL 113, triglycerides 183 7. Daily EtOH use, 8. Previous tobacco dependence 9. Severe COPD, FEV1 34% of predicted 10. Osteoarthritis 11. Family history of premature coronary artery disease (father had myocardial infarction at age 55) 12. Postoperative acute blood loss anemia and thrombocytopenia, expected 13. Hypotension, expected 14. Paroxysmal atrial fibrillation Plan: 1. Continue to maximize medical therapy with aspirin, Plavix, statin, beta yessy. Will increase beta yessy therapy as tolerated, increase to 50 mg twice a day yesterday 02/23/2022 2. Continue amlodipine added for radial artery spasm prophylaxis 3. Continue amiodarone 400 mg by mouth twice a day for A. fib prophylaxis. Amiodarone 150 mg IV piggyback bolus given 1 per cardiology recommendations. Patient was started on Eliquis 5 mg by mouth twice a day for anticoagulation. 4. Encourage use of incentive spirometry 10 times every hour while awake. Bronchodilators per pulmonology/critical care management recommendations. 5. Increase activity, ambulate as tolerated. PT/OT/cardiac rehab following. Shower daily. 6. Will monitor daily labs and chest x-rays. Electrolyte replacement per protocol. Will give 40 mg IVP lasix today and potassium chloride 10 mEq by mouth 1 now. 7. GI/DVT prophylaxis. 8. Pain control with current medication regimen. Continue to avoid narcotics. 9. Insulin management per internal medicine. Patient considered newly diagno sed diabetic, needs tight blood sugar control 10. Strict accurate intake and output. Daily weights. 11. Transfer to [address] [place] [id number] cardiac stepdown unit today when bed available. 12. Discharge planning a progress. Anticipate discharge to home with home care in the next 24 hours. 13. More recommendations to follow based on clinical course. Time with Patient: Greater than 30
[2022-02-24] MEDS: APIXABAN 5 MG TAB PO SCH ×2 (10:27→21:09)
--- NOTE | 2022-02-24 11:13 | P.PN ---
Subjective Progress Note Date: 02/24/22 This is a 76-year-old white male with history of multiple medical problems including hypertension, dyslipidemia, remote smoking history, patient had about a [id number] smoking history but he quit smoking 40 years ago. Patient has significant family history of early onset coronary artery disease, history of degenerative joint disease, drinks on the average of 3 glasses of liquor on a daily basis. Over the last few months, patient has been noticing burning sensation of the chest with activity. This was also associated with shortness of breath. Patient was referred to cardiology, and apparently had abnormal stress test. This was further evaluated by cardiac catheterization. Which showed a critical left main stenosis in the range of 99.9%, 70% stenosis to proximal and midportion sugar of LAD severe disease noted in the distal RCA and the ostial of the PDA branch of the right coronary artery. Hence the patient was seen by cardiothoracic surgery, and he is scheduled to undergo myocardial revascularization tomorrow. Considering his smoking history, and considering his abnormal PFT, this consult was initiated. His PFT showed severe obstructive and restrictive lung disease. Although clinically the patient does not seem to be Obstructed. Nonetheless the patient is not active he has an extremely sedentary lifestyle for the last 3 years mostly because of his chronic low back pain and right hip pain secondary to degenerative joint disease patient has not been physically active for the last 2 or 3 years he has a very sedentary lifestyle. Denies cough denies wheezing denies shortness of breath at rest. Never been diagnosed with COPD, and never been on any bronchodilators. The patient is seen today 02/18/2022 in follow-up in the immediate postoperative period in the intensive care unit. He had undergone coronary artery bypass grafting 4. CARREON sequential to diagonal and LAD, left radial artery to the obtuse marginal artery and a saphenous vein graft to the posterior lateral artery. Left atrial appendage ligation with a thick #35 mm atrophic clip. He is currently intubated on mechanical ventilator at settings of assist control mode at a rate of 14, tidal volume 550, FiO2 100% and a PEEP of 5. Blood gases revealed a PaO2 of 392, pCO2 39, pH 7.40. He is on a nitroglycerin drip at 5 mcg/m. Propofol at 25 mcg/kg/m. He initially was on norepinephrine at 0.01 mg/ m. He is receiving albumin. He has left pleural chest tubes 2 and a mediastinal chest tube in place. Cardiac output 4.3. Index 2.0. White count 5.6. Hemoglobin 8.1. INR 1.3. Glucose 100. Reevaluated today on 02/19/22, patient underwent coronary artery bypass grafting 4 yesterday, I was able to extubate the patient at 20:55, he tolerated the extubation well, patient is doing well from the pulmonary perspective, however he is still relatively with marginal blood pressure, requiring dopamine and norepinephrine. Continues to have mediastinal/left chest tubes, chest x-ray is showing mostly left lower lobe atelectasis, no evidence of congestive heart failure. Hemoglobin is a bit low today at 7.1, and he will be receiving a unit of packed RBCs. Patient is on dopamine at 2 mcg/kg/m he is also on a low-dose norepinephrine at 0.06 mcg/kg/m. Continues to have right IJ Ridgely-Teddy catheter and right radial arterial line. CVP today is 10. WBC count is 10.5-year-old woman is 7.1. Basic metabolic profile is normal renal profile is slightly worse with creatinine of 1.24 today. Reevaluated today on 02/20/22, patient remains in the ICU, he is now postoperative day #2. Patient is doing well, he is sitting in a recliner, feels generally weak, he is in a bit of pain, remains on dopamine at 20 mcg/kg/m, he is off norepinephrine, received a unit of packed RBCs yesterday. He is on 4 L nasal cannula, not in distress, continues to have multiple lines continues to have mediastinal left pleural chest tube in place, and he has a right IJ jugular/Ridgely-Teddy catheter. Chest x-ray is showing slight improvement in his left lower lobe atelectasis and there is a small tiny left pleural effusion, no evidence of pulmonary edema, no evidence of infiltrate. CBC is relatively unremarkable, hemoglobin is 7.7 today. Basic metabolic profile is normal renal profile is normal with a BUN of 24 creatinine 1.12 improved compared to creatinine from yesterday The patient is seen today 02/21/2022 in follow-up in the intensive care unit. Postoperative day #3. He is doing well. Currently sitting up in a chair at the bedside. Awake and alert in no acute distress. Maintaining good O2 saturations in the 90s on 2 L/m per nasal cannula. He has normal saline at 20 ML's per hour. He has received 1 unit of packed red blood cells this admission. White count 13.1. Hemoglobin 8.0. Platelets 97,000. Sodium 141. Potassium 4.2. BUN 30. Creatinine 1.02. A ST 118. ALT 58. Needs increased encouragement regarding the use the incentive spirometer. Remains on Symbicort, DuoNeb inhalations, Mucinex. Heparin for DVT prophylaxis. The patient is seen today 02/22/2022 in follow-up in the intensive care unit. Postoperative day #4. He is currently sitting up in a chair at the bedside. He is awake and alert. Maintaining O2 saturations in the low 90s on room air. He is having difficulty expectorating mucus. He's been coughing frequently. He is now in atrial fibrillation with a rapid ventricular response. He's been initiated on amiodarone. He is continued on Mucinex, Symbicort, DuoNeb inhalations. His x-ray reveals persistent pleuroparenchymal changes that have improved compared to previous. Mild residual venous congestion and small bilateral effusions with basilar infiltrates. No pneumothorax. He continues to work with the incentive spirometer. White count 13.3. Hemoglobin 8.2. Platelets 158. Sodium 142. Potassium 4.1. BUN 29. Creatinine 1.09. Glucose 123. AST 71. ALT 61. Magnesium 2.5. The patient is seen today 02/23/2022 in follow-up in the intensive care unit. Postoperative day #5. He is currently sitting up in a chair at the bedside. Awake and alert in no acute distress. Maintaining O2 saturations in the 90s on room air. He is back in sinus rhythm. He is still on amiodarone at 0.5 mg/m. He is still having some cough and congestion. A bit better today compared to yesterday. Afebrile. Hemodynamically stable. He's been on DuoNeb inhalations, Symbicort, Mucinex. Chest x-ray shows trace bilateral pleural effusions. No consolidation. No pneumothorax. White count 14.6. Hemoglobin 8.1. Sodium 140. Potassium 4.0. BUN 35. Creatinine 1.29. The patient is seen today 02/24/2022 in follow-up in the intensive care unit. Postoperative day #6. He is awake and alert in no acute distress. Sitting up in a chair at the bedside. Maintaining O2 saturations in the 90s on room air. No IV fluids. This x-ray shows cardiomegaly with bilateral lower lobe infiltrates and small effusions. No significant change. He is status post 1 u nit of packed red blood cells this admission. Current hemoglobin 8.2. White count 15.5. Platelets 239. Sodium 139. Potassium 4.0. BUN 41. Creatinine 1.37. Glucose 111. Magnesium 2.4. He is continued on oral amiodarone. Anticoagulated with Eliquis. Pro-calcitonin was 0.56. Objective - Vital Signs Vital signs: Vital Signs Temp 98.2 F 02/24/22 08:00 Pulse 137 H 02/24/22 08:00 Resp 22 02/24/22 08:00 BP 126/65 02/24/22 08:00 Pulse Ox 95 02/24/22 08:00 FiO2 45 02/18/22 20:00 Intake & Output 02/23/22 02/24/22 02/24/22 18:59 06:59 18:59 Intake Total 118 450 Output Total 0 400 Balance 118 50 Intake: Oral 118 450 Output: Urine 0 400 Other: Voiding Method Urinal Urinal # Voids 1 # Bowel Movements 1 ABP, PAP, CO, CI - Last Documented Arterial Blood Pressure 116/41 Pulmonary Artery Pressure 31/11 Cardiac Output 6.3 Cardiac Index 3 - Exam GENERAL EXAM: Awake, alert 76-year-old male patient, on room air, up in the chair at the bedside, comfortable in no apparent distress. HEAD: Normocephalic. EYES: Normal reaction of pupils, equal size. NOSE: Clear with pink turbinates. THROAT: No erythema or exudates. NECK: No masses, no JVD. CHEST: Sternal dressing dry and intact. Heart Hugger in place. LUNGS: Equal air entry with bilateral scattered rhonchi. CVS: S1 and S2 normal with no audible murmur, regular rhythm. ABDOMEN: No hepatosplenomegaly, normal bowel sounds, no guarding or rigidity. SPINE: No scoliosis or deformity SKIN: No rashes CENTRAL NERVOUS SYSTEM: No focal deficits, tone is normal in all 4 extremities. EXTREMITIES: SCDs in place. There is no peripheral edema. No clubbing, no cyanosis. Peripheral pulses are intact. - Labs CBC & Chem 7: 02/24/22 05:18 02/24/22 05:18 Labs: Abnormal Lab Results - Last 24 Hours (Table) 02/23/22 02/23/22 02/23/22 Range/Units 05:48 12:01 16:59 WBC (3.8-10.6) k/uL RBC (4.30-5.90) m/uL Hgb (13.0-17.5) gm/dL Hct (39.0-53.0) % MCV (80.0-100.0) fL BUN (9-20) mg/dL Creatinine (0.66-1.25) mg/dL Glucose (74-99) mg/dL POC Glucose (mg/dL) 135 H 174 H (70-110) mg/dL Calcium (8.4-10.2) mg/dL Magnesium (1.6-2.3) mg/dL Procalcitonin 0.56 H (0.02-0.09) ng/mL 02/23/22 02/24/22 02/24/22 Range/Units 20:08 05:18 05:18 WBC 15.5 H (3.8-10.6) k/uL RBC 2.41 L (4.30-5.90) m/uL Hgb 8.2 L (13.0-17.5) gm/dL Hct 24.6 L (39.0-53.0) % MCV 102.4 H (80.0-100.0) fL BUN 41 H (9-20) mg/dL Creatinine 1.37 H (0.66-1.25) mg/dL Glucose 111 H (74-99) mg/dL POC Glucose (mg/dL) 138 H (70-110) mg/dL Calcium 7.9 L (8.4-10.2) mg/dL Magnesium 2.4 H (1.6-2.3) mg/dL Procalcitonin (0.02-0.09) ng/mL Assessment and Plan Assessment: Severe coronary artery disease with critical left main stenosis. Status post coronary artery bypass grafting 4. CARREON to the diagonal and LAD. Left radial artery to the obtuse marginal artery, saphenous vein graft to the posterior lateral artery. Postoperative day #5. Atrial fibrillation with a rapid ventricular response requiring amiodarone drip, not an unexpected outcome of open heart surgery. Severe chronic obstructive pulmonary disease and some component of restrictive lung disease, FEV1 is in the range of 34% of the predicted. Newly diagnosed diabetes, hemoglobin A1c 7.2 Benign essential hypertension History of alcohol daily use Ex-smoker Family history of premature coronary artery disease Degenerative joint disease Plan: The patient was seen and evaluated Chest x-ray, medications and labs reviewed Currently in sinus rhythm Stable and on room air Home once cleared by CT services I have personally seen and examined the patient, performed the documentation and the assessment and plan as written. Number of minutes spent on the visit: 10.
[2022-02-24 11:25] LABS: Glucose,Whole Blood 155 mg/dL (70-110)
[2022-02-24] MEDS: amLODIPine 10 MG TAB PO SCH (12:10)
[2022-02-24] MEDS: MULTIVITAMINS, THERA 1 EACH TAB PO SCH (12:10)
--- NOTE | 2022-02-24 15:57 | P.CONS ---
History of Present Illness - Chief Complaint Cardiac debility - History of Present Illness I had the opportunity to see patient for inpatient rehab consultation with regard to cardiac debility. Patient was admitted February 16 Dr. Juárez for cardiac catheterization which demonstrated severe cardiac disease. Evaluated by Dr. Stauffer who did perform 4 vessel CABG February 18. Seen in ICU by Dr. Khan. Also seen medically by Dr. Green. Chest x-rays followed for cardiomegaly and bilateral lower lobe infiltrates. Has started therapy. PT reports minimal assistance for bed mobility, transfer, gait 64 feet, hand-held. Endurance limited. OT reports independent with feeding, minimal assistance for grooming, moderate assistance for upper dressing, maximal assistance for lower dressing, bathing, toileting and minimal assistance functional mobility and transfers. Previous functional history as elicited from patient corroborative by : 76-year-old right-handed white male who is lives in one form with . Both retired. generally does the cooking and laundry patient previously did most of the driving. Otherwise independent with standing shower and gait without device. PCP Dr. Brambila. Denies tobacco and has occasional drink. Review of Systems Review of systems: ENT: Denies sneezes or discharge. Eyes: Denies discharge or photophobia. Cardiac: [id number] sternal discomfort. Pulmonary: Moderate shortness of breath. Gastrointestinal: Denies nausea, emesis, constipation, diarrhea. Genitourinary: Denies discharge or frequency. Musculoskeletal: Denies muscle or bone aches. Neurologic: Denies motor or sensory change. Psychiatric: Anxious. Endocrine: Denies shakes or sweats. Oncology: Denies cancers. Dermatologic: Denies rash, itching, pruritus. ALLERGY/immunology: Denies sneezes, rashes. Past Medical History Past Medical History: Chest Pain / Angina, Hyperlipidemia, Hypertension, Osteoarthritis (OA) Additional Past Medical History / Comment(s): pancreatitis, gout-under control. SEE DR. JUÁREZ'S [facility] P History of Any Multi-Drug Resistant Organisms: None Reported Past Surgical History: Cholecystectomy, Joint Replacement, Orthopedic Surgery, Tonsillectomy Additional Past Surgical History / Comment(s): BILAT cataract surgery, rt knee replacement, arthroscopy lt knee, MACULAR HOLE REPAIR Past Anesthesia/Blood Transfusion Reactions: No Reported Reaction Past Psychological History: No Psychological Hx Reported Smoking Status: Former smoker Past Alcohol Use History: Daily Additional Past Alcohol Use History / Comment(s): QUIT SMOKING 40 YEARS AGO. HAS 3 ALCOHOLIC DRINKS NIGHTLY Past Drug Use History: None Reported - Past Family History Sister(s) Family Medical History: Cancer Additional Family Medical History / Comment(s): cancer base of tongue Father Family Medical History: Myocardial Infarction (DC) Medications and Allergies Home Medications Medication Instructions Recorded Confirmed Type Furosemide [Lasix] 20 mg PO DAILY 01/27/20 02/16/22 History Potassium Chloride ER [K-Dur 10] 10 meq PO HS 01/27/20 02/16/22 History amLODIPine [Norvasc] 5 mg PO DAILY 01/27/20 02/16/22 History atenoloL [Tenormin] 100 mg PO BID 01/27/20 02/16/22 History hydrALAZINE HCL 25 mg PO BID 01/27/20 02/16/22 History Multivitamins, Thera [Multivitamin 1 each PO 1200 tab 01/29/20 02/16/22 Rx (formulary)] Aspirin EC [Ecotrin Low Dose] 81 mg PO DAILY 02/14/22 02/16/22 History Isosorbide Mononitrate [Isosorbide 30 mg PO DAILY 02/14/22 02/16/22 History Mononitrate ER] Allergies Allergy/AdvReac Type Severity Reaction Status Date / Time No Known Allergies Allergy Verified 02/16/22 11:00 Physical Exam Vitals: Vital Signs Temp Pulse Pulse Resp BP BP Pulse Ox 02/24/22 15:38 96 02/24/22 15:26 98 02/24/22 12:00 98.6 F 62 24 110/63 97 02/24/22 11:44 99 02/24/22 11:30 97 02/24/22 08:00 98.2 F 137 H 22 126/65 95 02/24/22 07:53 116 H 02/24/22 04:00 98.9 F 130 H 19 139/89 91 L 02/24/22 00:00 98.0 F 62 17 108/62 91 L 02/23/22 21:55 64 02/23/22 21:43 66 02/23/22 20:00 98.0 F 68 17 124/64 93 L 02/23/22 16:00 98.5 F 126 H 18 112/80 92 L Intake and Output 02/24/22 02/24/22 02/24/22 06:59 14:59 22:59 Intake Total 200 480 Output Total 400 500 Balance -200 -20 Intake: Oral 200 480 Output: Urine 400 500 Other: Voiding Method Urinal # Voids 1 Weight 97.7 kg Skin: Atrophic, intact. General: Medium build and comfortable appearance. Head: Normocephalic, atraumatic. Eyes: Symmetric. Pupils equal round. Ears: Symmetric. Hearing within normal limits. Mouth: Clear. Neck: Supple. Carotid without bruit. Cardiac: Sternotomy scar clean and dressed. Heart hugger. Lungs: Clear anteriorly and posteriorly. Abdomen: Soft active nontender, overweight. Extremities: Normal tone. Neurological: Mental status: Alert, cooperative, pleasant. Cranial nerves: Symmetric facial tone and trapezius. Motor: Active movement all 4 limbs and at least antigravity. Sensation: Intact throughout. DTRs: Symmetric and equal throughout. Mobility: Sitting in Camille chair and did not attempt to sit or stand on my own. Results CBC & Chem 7: 02/24/22 05:18 02/24/22 05:18 Labs: Abnormal Lab Results - Last 24 Hours (Table) 02/23/22 02/23/22 02/23/22 Range/Units 05:48 16:59 20:08 WBC (3.8-10.6) k/uL RBC (4.30-5.90) m/uL Hgb (13.0-17.5) gm/dL Hct (39.0-53.0) % MCV (80.0-100.0) fL BUN (9-20) mg/dL Creatinine (0.66-1.25) mg/dL Glucose (74-99) mg/dL POC Glucose (mg/dL) 174 H 138 H (70-110) mg/dL Calcium (8.4-10.2) mg/dL Magnesium (1.6-2.3) mg/dL Procalcitonin 0.56 H (0.02-0.09) ng/mL 02/24/22 02/24/22 02/24/22 Range/Units 05:18 05:18 11:24 WBC 15.5 H (3.8-10.6) k/uL RBC 2.41 L (4.30-5.90) m/uL Hgb 8.2 L (13.0-17.5) gm/dL Hct 24.6 L (39.0-53.0) % MCV 102.4 H (80.0-100.0) fL BUN 41 H (9-20) mg/dL Creatinine 1.37 H (0.66-1.25) mg/dL Glucose 111 H (74-99) mg/dL POC Glucose (mg/dL) 155 H (70-110) mg/dL Calcium 7.9 L (8.4-10.2) mg/dL Magnesium 2.4 H (1.6-2.3) mg/dL Procalcitonin (0.02-0.09) ng/mL Assessment and Plan (1) ACS (acute coronary syndrome) Current Visit: Yes Status: Acute Code(s): I24.9 - ACUTE ISCHEMIC HEART DISEASE, UNSPECIFIED SNOMED Code(s): 608128913 (2) Blood loss anemia Current Visit: Yes Status: Acute Code(s): D50.0 - IRON DEFICIENCY ANEMIA SECONDARY TO BLOOD LOSS (CHRONIC) SNOMED Code(s): 159819988 (3) Essential (primary) hypertension Current Visit: Yes Status: Acute Code(s): I10 - ESSENTIAL (PRIMARY) HYPERTENSION SNOMED Code(s): 93561603 (4) S/P CABG x 4 Current Visit: Yes Status: Acute Code(s): Z95.1 - PRESENCE OF AORTOCORONARY BYPASS GRAFT SNOMED Code(s): 060976654 (5) Type 2 diabetes mellitus with hyperglycemia Current Visit: Yes Status: Acute Code(s): E11.65 - TYPE 2 DIABETES MELLITUS WITH HYPERGLYCEMIA SNOMED Code(s): 383445024345216 Plan: Comments and plan: At this time PT and OT have just started. We'll follow closely with yourself. Patient currently appears to be somewhat debilitated and would anticipate an extended recovery course rather than discharge or return straight home, i.e. IDR. We will continue to follow closely with yourself.
[2022-02-24 16:30] LABS: Glucose,Whole Blood 146 mg/dL (70-110)
[2022-02-24] MEDS: DAPAGLIFLOZIN PROPANEDIOL 5 MG TABLET PO SCH (17:41)
[2022-02-24 21:05] LABS: Glucose,Whole Blood 170 mg/dL (70-110)
[2022-02-24] MEDS: SENNOSIDES-DOCUSATE SODIUM 1 EACH TAB PO SCH ×2 (21:08→21:09)
[2022-02-25] MEDS: ACETAMINOPHEN TAB 500 MG TAB PO PRN ×2 (03:29→23:25)
[2022-02-25 06:25] LABS: Glucose,Whole Blood 125 mg/dL (70-110)
[2022-02-25] MEDS: INSULIN DETEMIR (LEVEMIR) 100 UNIT/ML SYR SQ SCH (06:29)
[2022-02-25] MEDS: FERROUS SULFATE 325 MG TAB PO SCH ×2 (06:29→17:27)
[2022-02-25] MEDS: PANTOPRAZOLE 40 MG TABLET PO SCH (06:29)
[2022-02-25] MEDS: ASCORBIC ACID 500 MG TAB PO SCH ×2 (06:29→17:27)
[2022-02-25] MEDS: INSULIN ASPART (NovoLOG) 100 UNIT/ML VIAL SQ SCH ×4 (06:30→20:20)
[2022-02-25] MEDS: ASPIRIN 81 MG PO SCH (07:55)
[2022-02-25] MEDS: APIXABAN 5 MG TAB PO SCH ×2 (07:55→20:19)
[2022-02-25] MEDS: THIAMINE 100 MG TAB PO SCH (07:55)
[2022-02-25] MEDS: AMIODARONE 200 MG TAB PO SCH ×2 (07:55→20:19)
[2022-02-25] MEDS: FOLIC ACID 1 MG TAB PO SCH (07:55)
[2022-02-25] MEDS: ATORVASTATIN 40 MG TAB PO SCH (07:55)
[2022-02-25] MEDS: METOPROLOL TARTRATE 50 MG TAB PO SCH ×4 (07:56→20:20)
[2022-02-25] MEDS: guaiFENesin-DM 600/30MG 1 EACH TAB.ER.12H PO SCH ×2 (07:56→20:19)
[2022-02-25] MEDS: ACETYLCYSTEINE 800 MG/4 ML VIAL INHALATION SCH ×4 (08:21→20:41)
[2022-02-25] MEDS: IPRATROPIUM-ALBUTEROL 3 ML NEB INHALATION SCH ×4 (08:21→20:41)
[2022-02-25] MEDS: SYMBICORT 160-4.5 MCG INHALER INHALATION SCH ×2 (08:22→20:41)
[2022-02-25] MEDS ORDERED: METOPROLOL TARTRATE 50 MG TAB PO STA (08:39)
[2022-02-25] MEDS ORDERED: METOPROLOL TARTRATE 50 MG TAB PO SCH ×2 (09:00→21:00)
[2022-02-25 09:14] LABS: Albumin 3.3 g/dL (3.5-5.0); Calcium 7.9 mg/dL (8.4-10.2); Potassium 3.6 mmol/L (3.5-5.1); Total Bilirubin 1.5 mg/dL (0.2-1.3); Total Protein 5.8 g/dL (6.3-8.2)
--- NOTE | 2022-02-25 09:28 | XR ---
EXAMINATION TYPE: XR chest 1V portable DATE OF EXAM: 02/25/2022 COMPARISON: 02/24/2022 HISTORY: Shortness of breath TECHNIQUE: Single frontal view of the chest is obtained. FINDINGS: Heart is enlarged. Underlying COPD and postsurgical changes noted. There is now diffuse in terstitial pattern with bilateral infiltrate and pleural effusion. No pneumothorax. Arthropathy shoul ders. Hypertrophic changes of the spine. IMPRESSION: 1. Persistent bilateral infiltrate and pleural effusion correlate for CHF otherwise consider pneumoni a. 2. COPD.
[2022-02-25 09:38] LABS: Anisocytosis Slight; Basophils # (A) 0.1 k/uL (0-0.2); Basophils % (A) 0 %; Eosinophils # (A) 0.4 k/uL (0-0.7); Eosinophils % (A) 3 %; HGB 8.4 gm/dL (13.0-17.5); Hypochromasia Slight; Lymphocytes # (A) 2.1 k/uL (1.0-4.8); Lymphocytes % (A) 14 %; MCH 32.6 pg (25.0-35.0); MCHC 32.1 g/dL (31.0-37.0); MCV 101.7 fL (80.0-100.0); Macrocytosis Slight; Mean Platelet Volume 9.5; Monocytes # (A) 0.9 k/uL (0-1.0); Monocytes % (A) 6 %; Neutrophils # (A) 11.8 k/uL (1.3-7.7); Neutrophils % (A) 76 %; Platelet Count 319 k/uL (150-450); Poikilocytosis Slight; RBC 2.56 m/uL (4.30-5.90); RDW 16.8 % (11.5-15.5); WBC 15.6 k/uL (3.8-10.6)
--- NOTE | 2022-02-25 12:07 | P.PN ---
Subjective Progress Note Date: 02/25/22 Principal diagnosis: Coronary artery disease with critical left main stenosis, unstable angina. Past medical history significant for hypertension, hyperlipidemia, daily EtOH use, previous tobacco dependence, osteoarthritis, and family history of premature coronary artery disease (father had myocardial infarction at age 55) POD #7 coronary artery bypass grafting 4, left internal mammary artery sequential to the diagonal and left anterior descending artery, left radial artery from the aorta to the obtuse marginal artery, reverse saphenous vein graft from the aorta to the posterior lateral artery, endoscopic left radial and right greater saphenous vein harvest, left atrial appendage ligation with a #35 mm AtriClip, graft flow measurements using the [employer] flow meter, intraoperative transesophageal echocardiogram Postoperative acute blood loss anemia and thrombocytopenia, expected given hemodilution and cardiopulmonary bypass pump. Hypotension, expected given preoperative calcium channel yessy use likely causing vasoplegia. Paroxysmal atrial fibrillation, known common occurrence after open heart surgery, not a complication. The patient was seen and examined today 02/25/2022 at his bedside on the cardiac stepdown unit. Currently the patient is sitting up to the bedside chair, is awake, alert, oriented 3 and is in no acute apparent distress. Denies any complaints of shortness of breath with just sitting there, although he reports that he has some shortness of breath with activity and denies any complaints of pain at this time. He did go into atrial fibrillation this morning with RVR heart rate 131 BPM, he was in normal sinus rhythm throughout the night. Metoprolol tartrate was increased to 50 mg 3 times a day per cardiology recommendations. He continues on amiodarone 400 mg by mouth twice a day. Oxygen saturations are 96% on room room air and he is achieving 1250 mL on his incentive spirometry with much encouragement. The patient has been up ambulating in the hallway with assistance from nursing and therapy staff, although the nurse reports the patient is complaining of shortness of breath with ambulating. Laboratory results today show a WBC count of 15.6, hemoglobin 8.4, hematocrit 26.0, platelets 319, sodium 138, potassium 3.6, BUN 37, creatinine 1.50, calcium 7.9, and total bilirubin 1.5. Chest x-ray reviewed. Objective - Vital Signs Vital signs: Vital Signs Temp 98.1 F 02/25/22 08:00 Pulse 101 H 02/25/22 11:32 Resp 18 02/25/22 08:00 BP 126/71 02/25/22 08:00 Pulse Ox 94 L 02/25/22 08:00 FiO2 45 02/18/22 20:00 Intake & Output 02/24/22 02/25/22 02/25/22 18:59 06:59 18:59 Intake Total 480 300 354 Output Total 500 600 Balance -20 -300 354 Weight 97.7 kg Intake: Oral 480 300 354 Output: Urine 500 600 Other: Voiding Method Indwelling Catheter Indwelling Catheter # Voids 1 2 ABP, PAP, CO, CI - Last Documented Arterial Blood Pressure 116/41 Pulmonary Artery Pressure 31/11 Cardiac Output 6.3 Cardiac Index 3 - Exam CONSTITUTIONAL: Sitting up to the bedside chair in the intensive care unit, appears comfortable, cooperative, no apparent acute distress. HEENT: Neck is supple, no JVD, no lymphadenopathy. RESPIRATORY: Lungs sounds essentially clear throughout, diminished to his bilateral bases. Respirations are symmetrical and nonlabored. Currently on room air with oxygen saturations 94%. Able to achieve 1250 mL on his incentive spirometry. Strong cough. CARDIOVASCULAR: Irregular rhythm and tachycardic rate. S1 and S2 present, negative for S3, gallop or murmur. Sternum is stable, occasional clicking felt. Palpable peripheral pulses bilaterally, +1 edema to his bilateral lower extre mities. No calf pain or tenderness noted. Heart hugger in place with patient demonstrating appropriate use. Knee-high MARCK hose and sequential compression devices in place to his bilateral lower extremities. GASTROINTESTINAL: Abdomen soft, nontender, nondistended. Active bowel sounds present 4 quadrants. Tolerating diet. Passing flatus. No guarding or rigidity. Bowel movement yesterday 02/24/2022 GENITOURINARY: Continues to void, 600 mL of urine output in the last 8 hours. INTEGUMENTARY: Skin is warm and dry with no evidence of clubbing or cyanosis. Midline sternal incision clean dry and well approximated, covered with dry intact dressing. Right lower extremity EVH sites well approximated without redness or drainage. Left arm radial artery harvest sites clean, dry and approx imated. No drainage or redness is present. NEUROLOGIC: Cranial nerves II through XII intact. No focal deficits. MUSKULOSKELETAL: Able to move all extremities, strength equal bilaterally, generalized weakness. PSYCHIATRIC: Alert and oriented to person place and time, appropriate affect. - Allied health notes Allied health notes reviewed: nursing - Labs CBC & Chem 7: 02/25/22 08:35 02/25/22 08:35 Labs: Abnormal Lab Results - Last 24 Hours (Table) 02/24/22 02/24/22 02/25/22 Range/Units 16:28 21:04 06:24 WBC (3.8-10.6) k/uL RBC (4.30-5.90) m/uL Hgb (13.0-17.5) gm/dL Hct (39.0-53.0) % MCV (80.0-100.0) fL RDW (11.5-15.5) % Neutrophils # (1.3-7.7) k/uL BUN (9-20) mg/dL Creatinine (0.66-1.25) mg/dL Glucose (74-99) mg/dL POC Glucose (mg/dL) 146 H 170 H 125 H (70-110) mg/dL Calcium (8.4-10.2) mg/dL Total Bilirubin (0.2-1.3) mg/dL Total Protein (6.3-8.2) g/dL Albumin (3.5-5.0) g/dL 02/25/22 02/25/22 Range/Units 08:35 08:35 WBC 15.6 H (3.8-10.6) k/uL RBC 2.56 L (4.30-5.90) m/uL Hgb 8.4 L (13.0-17.5) gm/dL Hct 26.0 L (39.0-53.0) % MCV 101.7 H (80.0-100.0) fL RDW 16.8 H (11.5-15.5) % Neutrophils # 11.8 H (1.3-7.7) k/uL BUN 37 H (9-20) mg/dL Creatinine 1.50 H (0.66-1.25) mg/dL Glucose 116 H (74-99) mg/dL POC Glucose (mg/dL) (70-110) mg/dL Calcium 7.9 L (8.4-10.2) mg/dL Total Bilirubin 1.5 H (0.2-1.3) mg/dL Total Protein 5.8 L (6.3-8.2) g/dL Albumin 3.3 L (3.5-5.0) g/dL - Imaging and Cardiology Chest x-ray: report reviewed, image reviewed Assessment and Plan Assessment: 1. Coronary artery disease with critical left main stenosis, unstable angina, status post 4 vessel CABG 2. Preserved left ventricular systolic function, EF 55-60% 3. Mild mitral and tricuspid regurgitation on transthoracic echocardiogram from 01/27/2022 4. Newly diagnosed diabetes, hemoglobin A1c 7.2% 5. History of hypertension 6. Hyperlipidemia, cholesterol 217, LDL 113, triglycerides 183 7. Daily EtOH use, drinks 3 shots of liquor per day 8. Previous tobacco dependence 9. Severe COPD, FEV1 34% of predicted 10. Osteoarthritis 11. Family history of premature coronary artery disease (father had myocardial infarction at age 55) 12. Postoperative acute blood loss anemia and thrombocytopenia, expected 13. Hypotension, expected 14. Paroxysmal atrial fibrillation 15. Medical debility Plan: 1. Continue to maximize medical therapy with aspirin, Plavix, statin, beta yessy. Metoprolol tartrate increased to 50 mg by mouth 3 times a day by cardiology today. 2. Continue amlodipine for radial artery spasm prophylaxis 3. Continue amiodarone 400 mg by mouth twice a day for A. fib prophylaxis. Continue Eliquis 5 mg by mouth twice a day for anticoagulation. 4. Encourage use of incentive spirometry 10 times every hour while awake. Bronchodilators per pulmonology/critical care management recommendations. 5. Increase activity, ambulate as tolerated. PT/OT/cardiac rehab following. Shower daily. 6. Will monitor daily labs and chest x-rays. Electrolyte replacement per protocol. Will give 40 mg IVP lasix today and potassium chloride 10 mEq by mouth 1 now. 7. GI/DVT prophylaxis. 8. Pain control with current medication regimen. Continue to avoid narcotics. 9. Insulin management per internal medicine. Patient considered newly diagnosed diabetic, needs tight blood sugar control 10. Strict accurate intake and output. Daily weights. 11. Discharge planning a progress. Anticipate discharge to inpatient rehab in the next 24-[address] Giang note consulted noted and appreciated. 13. No diuretics today. 14. More recommendations to follow based on clinical course. Time with Patient: Greater than 30
[2022-02-25 12:14] LABS: Glucose,Whole Blood 189 mg/dL (70-110)
[2022-02-25] MEDS: MULTIVITAMINS, THERA 1 EACH TAB PO SCH (12:37)
--- NOTE | 2022-02-25 13:59 | P.PN ---
Subjective Progress Note Date: 02/25/22 Principal diagnosis: Status post CABG. The patient is seen today 02/22/2022 in follow-up in the intensive care unit. Postoperative day #4. He is currently sitting up in a chair at the bedside. He is awake and alert. Maintaining O2 saturations in the low 90s on room air. He is having difficulty expectorating mucus. He's been coughing frequently. He is now in atrial fibrillation with a rapid ventricular response. He's been initiated on amiodarone. He is continued on Mucinex, Symbicort, DuoNeb inhalations. His x-ray reveals persistent pleuroparenchymal changes that have improved compared to previous. Mild residual venous congestion and small bilateral effusions with basilar infiltrates. No pneumothorax. He continues to work with the incentive spirometer. White count 13.3. Hemoglobin 8.2. Platelets 158. Sodium 142. Potassium 4.1. BUN 29. Creatinine 1.09. Glucose 123. AST 71. ALT 61. Magnesium 2.5. The patient is seen today 02/23/2022 in follow-up in the intensive care unit. Postoperative day #5. He is currently sitting up in a chair at the bedside. Awake and alert in no acute distress. Maintaining O2 saturations in the 90s on room air. He is back in sinus rhythm. He is still on amiodarone at 0.5 mg/m. He is still having some cough and congestion. A bit better today compared to yesterday. Afebrile. Hemodynamically stable. He's been on DuoNeb inhalations, Symbicort, Mucinex. Chest x-ray shows trace bilateral pleural effusions. No consolidation. No pneumothorax. White count 14.6. Hemoglobin 8.1. Sodium 140. Potassium 4.0. BUN 35. Creatinine 1.29. The patient is seen today 02/24/2022 in follow-up in the intensive care unit. Postoperative day #6. He is awake and alert in no acute distress. Sitting up in a chair at the bedside. Maintaining O2 saturations in the 90s on room air. No IV fluids. This x-ray shows cardiomegaly with bilateral lower lobe infiltrates and small effusions. No significant change. He is status post 1 unit of packed red blood cells this admission. Current hemoglobin 8.2. White count 15.5. Platelets 239. Sodium 139. Potassium 4.0. BUN 41. Creatinine 1.37. Glucose 111. Magnesium 2.4. He is continued on oral amiodarone. Anticoagulated with Eliquis. Pro-calcitonin was 0.56. Progress note dated 02/25/2022. The patient is seen today in room 355. He's on room air. No IV fluids. He appears to be doing relatively well. The patient has no complaints today. Hoping to be discharged soon. White count 15.6, hemoglobin 8.4, hematocrit 26, and platelet count 319,000. Sodium 138, potassium 3.6, chlorides 103, CO2 24, BUN 37, creatinine 1.50. Chest x-ray shows changes of COPD, and persistent bilateral infiltrates and pleural effusion, likely consistent with CHF. Objective - Vital Signs Vital signs: Vital Signs Temp 98.1 F 02/25/22 08:00 Pulse 63 02/25/22 12:00 Resp 18 02/25/22 12:00 BP 99/58 02/25/22 12:00 Pulse Ox 96 02/25/22 12:00 FiO2 45 02/18/22 20:00 Intake & Output 02/24/22 02/25/22 02/25/22 18:59 06:59 18:59 Intake Total 480 300 354 Output Total 500 600 Balance -20 -300 354 Weight 97.7 kg Intake: Oral 480 300 354 Output: Urine 500 600 Other: Voiding Method Indwelling Catheter Indwelling Catheter # Voids 1 2 ABP, PAP, CO, CI - Last Documented Arterial Blood Pressure 116/41 Pulmonary Artery Pressure 31/11 Cardiac Output 6.3 Cardiac Index 3 - Exam No acute distress, oriented 3. Currently on room air. No respiratory d ifficulty. HEENT examination is grossly unremarkable. Neck supple. Full range of motion. No adenopathy thyromegaly or neck vein distention. Cardiovascular examination reveals regular rhythm rate. S1-S2 normal. No S3 or S4. No discernible murmur noted. Heart sounds are distant. Heart rate 99 bpm. Lungs reveal mostly clear breath sounds. Minimal scattered rhonchi. No wheezes. No crackles. Breath sounds equal bilaterally. Room air saturation 98% Abdomen soft bowel sounds are heard. No masses or tenderness. Extremities are intact. No cyanosis clubbing or edema. Skin is without rash or lesion. Neurologic examination is brief but nonfocal. - Labs CBC & Chem 7: 02/25/22 08:35 02/25/22 08:35 Labs: Abnormal Lab Results - Last 24 Hours (Table) 02/24/22 02/24/22 02/25/22 Range/Units 16:28 21:04 06:24 WBC (3.8-10.6) k/uL RBC (4.30-5.90) m/uL Hgb (13.0-17.5) gm/dL Hct (39.0-53.0) % MCV (80.0-100.0) fL RDW (11.5-15.5) % Neutrophils # (1.3-7.7) k/uL BUN (9-20) mg/dL Creatinine (0.66-1.25) mg/dL Glucose (74-99) mg/dL POC Glucose (mg/dL) 146 H 170 H 125 H (70-110) mg/dL Calcium (8.4-10.2) mg/dL Total Bilirubin (0.2-1.3) mg/dL Total Protein (6.3-8.2) g/dL Albumin (3.5-5.0) g/dL 02/25/22 02/25/22 02/25/22 Range/Units 08:35 08:35 12:07 WBC 15.6 H (3.8-10.6) k/uL RBC 2.56 L (4.30-5.90) m/uL Hgb 8.4 L (13.0-17.5) gm/dL Hct 26.0 L (39.0-53.0) % MCV 101.7 H (80.0-100.0) fL RDW 16.8 H (11.5-15.5) % Neutrophils # 11.8 H (1.3-7.7) k/uL BUN 37 H (9-20) mg/dL Creatinine 1.50 H (0.66-1.25) mg/dL Glucose 116 H (74-99) mg/dL POC Glucose (mg/dL) 189 H (70-110) mg/dL Calcium 7.9 L (8.4-10.2) mg/dL Total Bilirubin 1.5 H (0.2-1.3) mg/dL Total Protein 5.8 L (6.3-8.2) g/dL Albumin 3.3 L (3.5-5.0) g/dL Assessment and Plan Assessment: Severe coronary artery disease with critical left main stenosis. Status post coronary artery bypass grafting 4. CARREON to the diagonal and LAD. Left radial artery to the obtuse marginal artery, saphenous vein graft to the posterior lateral artery. Postoperative day #6. Atrial fibrillation with a rapid ventricular response. Severe chronic obstructive pulmonary disease and some component of restrictive lung disease, FEV1 is in the range of 34% of the predicted. Newly diagnosed diabetes. Benign essential hypertension. History of alcohol daily use. Ex-smoker. Family history of premature coronary artery disease. Degenerative joint disease. Plan: Plan dated 02/25/2022. The patient was transferred out of the intensive care unit. He is now seen in room 355. The patient is not on any oxygen. Not receiving any IV fluids. Clinically, he looks reasonably stable. The patient's hoping to be discharged soon. Labs, x-rays, and medications are reviewed. Prognosis is guarded. We will continue to follow the patient make recommendations along the way. Time with Patient: Less than 30
--- NOTE | 2022-02-25 14:44 | P.PN ---
Subjective This is a 76-year-old male with past medical history of hypertension, dyslipidemia, tobacco dependence quit about 40 years ago, family history of ear ly onset coronary artery disease. He follows in the office with Dr. Juárez. He presented for a cardiac catheterization planned on 02/16/2022. Initially he was having chest tightness and shortness of breath. He was referred to Dr. Juárez and He underwent TTE which revealed EF 55-60%, no significant wall motion abnormalities, mild mitral regurgitation, mild tricuspid regurgitation. He underwent a myocardial perfusion imaging stress test which showed anterolateral ischemia. It was recommended he undergo a cardiac cath. This was completed on which revealed critical left main stenosis in the range of 99.9%, a 70% stenosis to his proximal to midportion of his left anterior descending nicolas nary artery, collaterals are filling the LAD from the right coronary artery, and severe disease involving the distal right coronary artery and the ostial of the PDA branch of the right coronary artery. CT surgery was consulted for CABG evaluation. He underwent four-vessel CABG with left internal mammary artery sequential to the diagonal and left anterior descending artery, left radial artery from the aorta to the obtuse marginal artery, reverse saphenous vein graft from the aorta to the posterior lateral artery on 02/18/2022 02/25/2022 Patient seen and examined at bedside, up in the bedside chair. No complaints. He has been in and out of atrial fibrillation with RVR. Currently in A fib with HR 120s-130s. His BP and oxygen saturations are stable. He is using his incentive spirometry at bedside. Ambulating in the halls with nursing assistance. Some shortness of breath with ambulating Meds: Amiodarone 400 mg twice a day, amlodipine 10 mg daily, Eliquis 5 mg twice a day, aspirin 81 mg daily, atorvastatin 40 mg daily, metoprolol tartrate 50mg BID. GENERAL: In no acute distress. NECK: Supple without JVD LUNGS: Breath sounds diminished to auscultation bilaterally. Respiration equal and unlabored. No wheezes, rales or rhonchi. HEART: Irregular tachycardic rate and rhythm without murmurs, rubs or gallops. S1 and S2 heard. EXTREMITIES: Normal range of motion, 1+ bilateral lower edema. No clubbing or cyanosis. Peripheral pulses intact. ASSESSMENT Coronary artery disease with critical left main stenosis, status post 4 vessel CABG on 02/18/2022 Post operative paroxysmal atrial fibrillation, currently on Eliquis Type 2 Diabetes History of hypertension History of tobacco use COPD Family history of coronary artery disease, early onset Dyslipidemia PLAN Increase metoprolol to 50mg BID Continue amiodarone Continue anticoagulation with Eliquis Continue to maximize medical therapy Supportive care We will continue follow patient and make recommendations accordingly Nurse Practitioner note has been reviewed, I agree with a documented findings and plan of care. Patient was seen and examined. Objective - Vital Signs Vital signs: Vital Signs Temp 98.1 F 02/25/22 08:00 Pulse 63 02/25/22 12:00 Resp 18 02/25/22 12:00 BP 99/58 02/25/22 12:00 Pulse Ox 96 02/25/22 12:00 FiO2 45 02/18/22 20:00 Intake & Output 02/24/22 02/25/22 02/25/22 18:59 06:59 18:59 Intake Total 480 300 354 Output Total 500 600 Balance -20 -300 354 Weight 97.7 kg 97.7 kg Intake: Oral 480 300 354 Output: Urine 500 600 Other: Voiding Method Indwelling Catheter Indwelling Catheter # Voids 1 2 ABP, PAP, CO, CI - Last Documented Arterial Blood Pressure 116/41 Pulmonary Artery Pressure 31/11 Cardiac Output 6.3 Cardiac Index 3 - Labs CBC & Chem 7: 02/25/22 08:35 02/25/22 08:35 Labs: Abnormal Lab Results - Last 24 Hours (Table) 02/24/22 02/24/22 02/25/22 Range/Units 16:28 21:04 06:24 WBC (3.8-10.6) k/uL RBC (4.30-5.90) m/uL Hgb (13.0-17.5) gm/dL Hct (39.0-53.0) % MCV (80.0-100.0) fL RDW (11.5-15.5) % Neutrophils # (1.3-7.7) k/uL BUN (9-20) mg/dL Creatinine (0.66-1.25) mg/dL Glucose (74-99) mg/dL POC Glucose (mg/dL) 146 H 170 H 125 H (70-110) mg/dL Calcium (8.4-10.2) mg/dL Total Bilirubin (0.2-1.3) mg/dL Total Protein (6.3-8.2) g/dL Albumin (3.5-5.0) g/dL 02/25/22 02/25/22 02/25/22 Range/Units 08:35 08:35 12:07 WBC 15.6 H (3.8-10.6) k/uL RBC 2.56 L (4.30-5.90) m/uL Hgb 8.4 L (13.0-17.5) gm/dL Hct 26.0 L (39.0-53.0) % MCV 101.7 H (80.0-100.0) fL RDW 16.8 H (11.5-15.5) % Neutrophils # 11.8 H (1.3-7.7) k/uL BUN 37 H (9-20) mg/dL Creatinine 1.50 H (0.66-1.25) mg/dL Glucose 116 H (74-99) mg/dL POC Glucose (mg/dL) 189 H (70-110) mg/dL Calcium 7.9 L (8.4-10.2) mg/dL Total Bilirubin 1.5 H (0.2-1.3) mg/dL Total Protein 5.8 L (6.3-8.2) g/dL Albumin 3.3 L (3.5-5.0) g/dL
--- NOTE | 2022-02-25 16:05 | P.PN ---
Subjective Progress Note Date: 02/24/22 02/21/2022: Patient was seen in the intensive care unit, he is postop day #3 a 4 vessel coronary bypass graft. He had undergone coronary artery bypass grafting 4. CARREON sequential to diagonal and LAD, left radial artery to the obtuse marginal artery and a saphenous vein graft to the posterior lateral artery. Left atrial appendage ligation with a thick #35 mm atrophic clip. He was having chest pains for the past several month he described as heartburn. He underwent a stress test that was POS and then a cath showing significant coronary disease He is currently resting comfortably intensive care unit. His chest tube in. He denies any chest pains, pressures, short of breath, nausea or vomiting. His is at bedside. Care was discussed with her. The nurse was present as well. New onset diabetic. A1c was 7.2. His admission hemoglobin was 14.3. Today it is 8.0. He has received 1 unit packed red blood cells. Other chemistries electrolytes are normal today. 02/22/2022 earlier in the morning patient, having frequent nonproductive coughing ,attempting to cough up mucus, desatted into the low 90s on room air,developed atrial fibrillation with RVR, heart rates greater than 150, charan used and placed on Amiodarone drip. O2 sat currently in the mid 90s on room air. Chest x-ray reported trace bilateral pleural effusions minimally increased from prior.Afebrile,WBC 13.3. Hemoglobin 8.2, platelets 158. Sodium 142. Potassium 4.1, magnesium 2.5. BUN 29. Creatinine 1.08. AST 71. ALT 62. Blood sugars controlled. 02/23/2022 converted in the perennial house manager hours to sinus rhythm, transitioned to oral amiodarone. Maintaining O2 sats in the 90s. Chest x-ray reporting trace bilateral pleural effusions may be minimally increased from prior. Receiving another dose of Lasix IV push today as per CTS. BUN 35, creatinine 1.29 . Electrolytes stable .Afebrile,WBC 14.6, pro calcitonin pending. Blood sugars ranging from 120-170. Positive bowel movement. 02/24/2022 yesterday beta yessy increased, transitioned to oral amiodarone ,returned to A. fib with RVR, heart rate in the 130s, received additional amiodarone IV piggyback. Anticoagulated with Eliquis. Maintaining O2 sats in the 90s on room air, complains of exertional shortness of breath. Chest x-ray reporting bilateral lower lobe infiltrate and small effusion stable. Pro calcitonin 0.56 .hemoglobin 8.2, platelets 239 ,electrolytes within normal limits, BUN 41, creatinine 1.37. Afebrile, WBC 14. Incentive spirometer up to 1200. Blood sugars controlled. Objective - Vital Signs Vital signs: Vital Signs Temp 98.6 F 02/24/22 12:00 Pulse 96 02/24/22 15:38 Resp 24 02/24/22 12:00 BP 110/63 02/24/22 12:00 Pulse Ox 97 02/24/22 12:00 FiO2 45 02/18/22 20:00 Intake & Output 02/23/22 02/24/22 02/24/22 18:59 06:59 18:59 Intake Total 118 450 480 Output Total 0 400 500 Balance 118 50 -20 Weight 97.7 kg Intake: Oral 118 450 480 Output: Urine 0 400 500 Other: Voiding Method Urinal Urinal # Voids 1 1 # Bowel Movements 1 ABP, PAP, CO, CI - Last Documented Arterial Blood Pressure 116/41 Pulmonary Artery Pressure 31/11 Cardiac Output 6.3 Cardiac Index 3 - Exam - Exam General: Alert and oriented 3 ,Sitting up in chair,NAD Neck: supple, no JVD. Cardiovascular: S1S2 is normal, irregular, tachycardic, No murmur, rub or gallop is appreciated. Wearing Heart hugger. Positive edema. Respiratory: Bilateral air entry, scattered rhonchi with decreased fine bibasilar crackles Gastrointestinal: Soft, non-distended, non-tender abdomen,No rebound or guarding present. +Bowel sounds Neurological: CN II-XII grossly intact, no focal deficits Skin: Skin is warm and dry, no rashes noted. - Labs CBC & Chem 7: 02/25/22 08:35 02/25/22 08:35 Labs: Abnormal Lab Results - Last 24 Hours (Table) 02/23/22 02/23/22 02/23/22 Range/Units 05:48 16:59 20:08 WBC (3.8-10.6) k/uL RBC (4.30-5.90) m/uL Hgb (13.0-17.5) gm/dL Hct (39.0-53.0) % MCV (80.0-100.0) fL BUN (9-20) mg/dL Creatinine (0.66-1.25) mg/dL Glucose (74-99) mg/dL POC Glucose (mg/dL) 174 H 138 H (70-110) mg/dL Calcium (8.4-10.2) mg/dL Magnesium (1.6-2.3) mg/dL Procalcitonin 0.56 H (0.02-0.09) ng/mL 02/24/22 02/24/22 02/24/22 Range/Units 05:18 05:18 11:24 WBC 15.5 H (3.8-10.6) k/uL RBC 2.41 L (4.30-5.90) m/uL Hgb 8.2 L (13.0-17.5) gm/dL Hct 24.6 L (39.0-53.0) % MCV 102.4 H (80.0-100.0) fL BUN 41 H (9-20) mg/dL Creatinine 1.37 H (0.66-1.25) mg/dL Glucose 111 H (74-99) mg/dL POC Glucose (mg/dL) 155 H (70-110) mg/dL Calcium 7.9 L (8.4-10.2) mg/dL Magnesium 2.4 H (1.6-2.3) mg/dL Procalcitonin (0.02-0.09) ng/mL Assessment and Plan Assessment: Status post CABG in a patient with CAD with critical left main disease, in a patient with family history of CAD, father had [facility] at age 55 New-onset Paroxysmal A. fib with RVR, status post amiodarone drip. COPD Daily alcohol abuse, reports 3-4 shots daily Diabetes mellitus, newly diagnosed, A1c 7.2 History of nicotine dependence, quit smoking over 40 years ago History of Spinal stenosis, degenerative joint disease Hypertension Hyperlipidemia Osteoarthritis Obesity, BMI 30.9 Plan: Continue on current medication regime ,monitoring and symptomatic treatment. Antiarrhythmics. Maintain aggressive pulmonary toileting with nebulized bronchodilators, incentive spirometer reinforced. PT/OT/Dr. Grimaldo for inpatient rehab consult in place. Tight control of blood sugars, close monitoring of Accu-Cheks. The impression and plan of care has been dictated as directed. : I performed a history and examination of this patient, discussed the same with the dictator. I agree with the dictator's note ,documented as a scribe. Any additional findings or plans will be noted.
[2022-02-25] MEDS: amLODIPine 5 MG TAB PO SCH (16:21)
--- NOTE | 2022-02-25 16:31 | P.PN ---
Subjective Progress Note Date: 02/25/22 02/21/2022: Patient was seen in the intensive care unit, he is postop day #3 a 4 vessel coronary bypass graft. He had undergone coronary artery bypass grafting 4. CARREON sequential to diagonal and LAD, left radial artery to the obtuse marginal artery and a saphenous vein graft to the posterior lateral artery. Left atrial appendage ligation with a thick #35 mm atrophic clip. He was having chest pains for the past several month he described as heartburn. He underwent a stress test that was POS and then a cath showing significant coronary disease He is currently resting comfortably intensive care unit. His chest tube in. He denies any chest pains, pressures, short of breath, nausea or vomiting. His is at bedside. Care was discussed with her. The nurse was present as well. New onset diabetic. A1c was 7.2. His admission hemoglobin was 14.3. Today it is 8.0. He has received 1 unit packed red blood cells. Other chemistries electrolytes are normal today. 02/22/2022 earlier in the morning patient, having frequent nonproductive coughing ,attempting to cough up mucus, desatted into the low 90s on room air,developed atrial fibrillation with RVR, heart rates greater than 150, charan used and placed on Amiodarone drip. O2 sat currently in the mid 90s on room air. Chest x-ray reported trace bilateral pleural effusions minimally increased from prior.Afebrile,WBC 13.3. Hemoglobin 8.2, platelets 158. Sodium 142. Potassium 4.1, magnesium 2.5. BUN 29. Creatinine 1.08. AST 71. ALT 62. Blood sugars controlled. 02/23/2022 converted in the underwriting service representative hours to sinus rhythm, transitioned to oral amiodarone. Maintaining O2 sats in the 90s. Chest x-ray reporting trace bilateral pleural effusions may be minimally increased from prior. Receiving another dose of Lasix IV push today as per CTS. BUN 35, creatinine 1.29 . Electrolytes stable .Afebrile,WBC 14.6, pro calcitonin pending. Blood sugars ranging from 120-170. Positive bowel movement. 02/24/2022 yesterday beta yessy increased, transitioned to oral amiodarone ,returned to A. fib with RVR, heart rate in the 130s, received additional amiodarone IV piggyback. Anticoagulated with Eliquis. Maintaining O2 sats in the 90s on room air, complains of exertional shortness of breath. Chest x-ray reporting bilateral lower lobe infiltrate and small effusion stable. Pro calcitonin 0.56 .hemoglobin 8.2, platelets 239 ,electrolytes within normal limits, BUN 41, creatinine 1.37. Afebrile, WBC 14. Incentive spirometer up to 1200. Blood sugars controlled. 02/25/2022 transferred out of ICU,currently on stepdown unit. Continues to fluctuate in and out of atrial fibrillation with RVR. Reports he was only able to ambulate to his doorway earlier today, developed significant exertional dyspnea, lightheadedness, weakness -felt like his legs were going to buckle. RN quickly obtained a chair for patient to sit down at the door-hypotensive with reported blood pressure down into the 90s. After sitting for a few minutes, ambulated back to recliner, with repeat blood pressure of 71/48. Within a few minutes patient's blood pressure continued to improve,100/66.telemetry reported he had converted to normal sinus rhythm. Complains of constipation, no bowel movement for 2-3 days. Maintaining O2 sats in the 90s on room air. Denies chest pain, palpitations or increasing shortness of breath. Objective - Vital Signs Vital signs: Vital Signs Temp 98.1 F 02/25/22 08:00 Pulse 96 02/25/22 08:42 Resp 18 02/25/22 08:00 BP 126/71 02/25/22 08:00 Pulse Ox 94 L 02/25/22 08:00 FiO2 45 02/18/22 20:00 Intake & Output 02/24/22 02/25/22 02/25/22 18:59 06:59 18:59 Intake Total 480 300 354 Output Total 500 600 Balance -20 -300 354 Weight 97.7 kg Intake: Oral 480 300 354 Output: Urine 500 600 Other: Voiding Method Indwelling Catheter Indwelling Catheter # Voids 1 2 ABP, PAP, CO, CI - Last Documented Arterial Blood Pressure 116/41 Pulmonary Artery Pressure 31/11 Cardiac Output 6.3 Cardiac Index 3 - Exam - Exam General: Alert and oriented 3 ,Sitting up in chair,NAD Neck: supple, no JVD. Cardiovascular: S1S2 is normal, regular, No murmur, rub or gallop is appreciated. Wearing Heart hugger. Positive edema. Respiratory: Bilateral air entry, scattered rhonchi with decreased fine bibasilar crackles Gastrointestinal: Soft, non-distended, non-tender abdomen,No rebound or guarding present. +Bowel sounds Neurological: CN II-XII grossly intact, no focal deficits Skin: Skin is warm and dry, no rashes noted. - Labs CBC & Chem 7: 02/25/22 08:35 02/25/22 08:35 Labs: Abnormal Lab Results - Last 24 Hours (Table) 02/24/22 02/24/22 02/25/22 Range/Units 16:28 21:04 06:24 WBC (3.8-10.6) k/uL RBC (4.30-5.90) m/uL Hgb (13.0-17.5) gm/dL Hct (39.0-53.0) % MCV (80.0-100.0) fL RDW (11.5-15.5) % Neutrophils # (1.3-7.7) k/uL BUN (9-20) mg/dL Creatinine (0.66-1.25) mg/dL Glucose (74-99) mg/dL POC Glucose (mg/dL) 146 H 170 H 125 H (70-110) mg/dL Calcium (8.4-10.2) mg/dL Total Bilirubin (0.2-1.3) mg/dL Total Protein (6.3-8.2) g/dL Albumin (3.5-5.0) g/dL 02/25/22 02/25/22 Range/Units 08:35 08:35 WBC 15.6 H (3.8-10.6) k/uL RBC 2.56 L (4.30-5.90) m/uL Hgb 8.4 L (13.0-17.5) gm/dL Hct 26.0 L (39.0-53.0) % MCV 101.7 H (80.0-100.0) fL RDW 16.8 H (11.5-15.5) % Neutrophils # 11.8 H (1.3-7.7) k/uL BUN 37 H (9-20) mg/dL Creatinine 1.50 H (0.66-1.25) mg/dL Glucose 116 H (74-99) mg/dL POC Glucose (mg/dL) (70-110) mg/dL Calcium 7.9 L (8.4-10.2) mg/dL Total Bilirubin 1.5 H (0.2-1.3) mg/dL Total Protein 5.8 L (6.3-8.2) g/dL Albumin 3.3 L (3.5-5.0) g/dL Assessment and Plan Assessment: Status post CABG in a patient with CAD with critical left main disease, in a patient with family history of CAD, father had [place] at age 55 New-onset Paroxysmal A. fib with RVR, status post amiodarone drip. COPD Daily alcohol abuse, reports 3-4 shots daily Diabetes mellitus, newly diagnosed, A1c 7.2 History of nicotine dependence, quit smoking over 40 years ago History of Spinal stenosis, degenerative joint disease Hypertension Hyperlipidemia Osteoarthritis Obesity, BMI 30.9 Plan: Continue on current medication regime ,monitoring and symptomatic treatment. Continues on amiodarone with beta yessy increased. Maintain aggressive pulmonary toileting with nebulized bronchodilators, incentive s pirometer reinforced. PT/OT, continues to be evaluated by [facility] inpatient rehab. Sputum culture pending. Ensure supplements between meals. Colace added to med regimen with Senokot increased. The impression and plan of care has been dictated as directed. : I performed a history and examination of this patient, discussed the same with the dictator. I agree with the dictator's note ,documented as a scribe. Any additional findings or plans will be noted.
[2022-02-25 17:03] LABS: Glucose,Whole Blood 97 mg/dL (70-110)
[2022-02-25] MEDS: DAPAGLIFLOZIN PROPANEDIOL 5 MG TABLET PO SCH (17:27)
[2022-02-25] MEDS: DOCUSATE 100 MG CAP PO SCH ×2 (17:28→20:19)
[2022-02-25 20:05] LABS: Glucose,Whole Blood 208 mg/dL (70-110)
[2022-02-25] MEDS: SENNOSIDES-DOCUSATE SODIUM 1 EACH TAB PO SCH (20:19)
[2022-02-26] MEDS: ACETAMINOPHEN TAB 500 MG TAB PO PRN ×2 (03:20→20:57)
[2022-02-26] MEDS ORDERED: FUROSEMIDE 20 MG TAB PO STA (05:05)
--- NOTE | 2022-02-26 05:05 | P.PN ---
Subjective Progress Note Date: 02/26/22 Principal diagnosis: CAD and status post CABG The patient is a pleasant 76-year-old gentleman is known to have hypertension and dyslipidemia was seen in the office recently for symptoms of chest discomfort. He underwent initially a stress test and that came in to be ischemic with anterolateral lateral ischemia. Subsequently he underwent a heart catheterization and that revealed critical disease involving the distal left main coronary artery as well as distal RCA. He underwent CABG 4 with CARREON sequentially to LAD and diagonal and radial artery to obtuse marginal as well as SVG to PDA. February [id number] The patient was seen this morning. He is overall doing well. He is stable hemodynamically. He is on antiplatelet. He is an intermediate intensity statin. I would suggest increase the dose of statin to high intensity once the liver function tests improved. Beside that the chest x-ray was reviewed and seems to be slightly wet and I would suggest also giving the patient the 20 mg of Lasix IV. Beside that continue the current medical regimen and continue mo nitor the kidney function and electrolytes as well as monitor the hemoglobin. February 222021 The patient was seen and evaluated this morning. Overall he is doing well and stable from a perivascular standpoint of view. Hemodynamically he is stable with pressure being slightly on the higher side. The dose of Dilaudid been was increased yesterday. We might need to consider adjusting his blood pressure medication if the pressure remains above 1 40 mmHg. He remains in sinus mechanism. On examination he does have bilateral rhonchi mainly in the bases and I would advise giving the patient some Lasix if the creatinine is a stable this morning. Beside that continue the current medical regimen and continue monitor the kidney function and electrolytes and the patient potentially Be transferred out of the intensive care unit. February 232021 The patient was seen and evaluated this morning. The patient appeared to be stable from the cardiovascular standpoint of view. He went into A. fib with RVR yesterday and currently is in sinus rhythm and he is on amiodarone IV which going to be changed into amiodarone by mouth later on today. He still is slightly congested and trying to cough. Otherwise easily mechanically stable. He is on maximize medical treatment. Hemoglobin and kidney function are stable. February 242021 The patient was seen and evaluated this morning. Currently he is in atrial fibrillation with heart rate of 150 bpm. I advised the patient a bolus of am iodarone IV hoping to convert him to sinus mechanism B the dose of beta yessy has increased yesterday. Also I believe the patient needs to be on oral anticoagulation since he has been in and out of atrial fibrillation for at least 24 hours. February 262021 The patient was seen and evaluated this morning. He has been maintaining sinus mechanism after we increased the beta yessy yesterday. Currently he is on oral anticoagulation. On examination he does have mild bilateral lower extrem ities edema. Otherwise he does have clear breathing sounds bilaterally. I'm going to give the patient 20 mg of Lasix by mouth once and I would suggest possibly discharged on 20 mg by mouth Lasix daily giving the bilateral lower extremities edema. Otherwise the patient potentially can be discharged in the next 12-24 hours. He is on maximize medical treatment Objective - Vital Signs Vital signs: Vital Signs Temp 97.9 F 02/26/22 03:18 Pulse 63 02/26/22 03:18 Resp 20 02/26/22 03:18 BP 126/67 02/26/22 03:18 Pulse Ox 91 L 02/26/22 03:18 FiO2 45 02/18/22 20:00 Intake & Output 02/25/22 02/25/22 02/26/22 06:59 18:59 06:59 Intake Total 300 354 Output Total 600 Balance -300 354 Weight 97.7 kg 97.7 kg 100 kg Intake: Oral 300 354 Output: Urine 600 Other: Voiding Method Urinal Urinal Indwelling Catheter # Voids 2 # Bowel Movements 0 ABP, PAP, CO, CI - Last Documented Arterial Blood Pressure 116/41 Pulmonary Artery Pressure 31/11 Cardiac Output 6.3 Cardiac Index 3 - Constitutional General appearance: Present: no acute distress - Respiratory Respiratory: bilateral: CTA - Cardiovascular Rhythm: regular - Labs CBC & Chem 7: 02/25/22 08:35 02/25/22 08:35 Labs: Abnormal Lab Results - Last 24 Hours (Table) 02/25/22 02/25/22 02/25/22 Range/Units 06:24 08:35 08:35 WBC 15.6 H (3.8-10.6) k/uL RBC 2.56 L (4.30-5.90) m/uL Hgb 8.4 L (13.0-17.5) gm/dL Hct 26.0 L (39.0-53.0) % MCV 101.7 H (80.0-100.0) fL RDW 16.8 H (11.5-15.5) % Neutrophils # 11.8 H (1.3-7.7) k/uL BUN 37 H (9-20) mg/dL Creatinine 1.50 H (0.66-1.25) mg/dL Glucose 116 H (74-99) mg/dL POC Glucose (mg/dL) 125 H (70-110) mg/dL Calcium 7.9 L (8.4-10.2) mg/dL Total Bilirubin 1.5 H (0.2-1.3) mg/dL Total Protein 5.8 L (6.3-8.2) g/dL Albumin 3.3 L (3.5-5.0) g/dL 02/25/22 02/25/22 Range/Units 12:07 20:04 WBC (3.8-10.6) k/uL RBC (4.30-5.90) m/uL Hgb (13.0-17.5) gm/dL Hct (39.0-53.0) % MCV (80.0-100.0) fL RDW (11.5-15.5) % Neutrophils # (1.3-7.7) k/uL BUN (9-20) mg/dL Creatinine (0.66-1.25) mg/dL Glucose (74-99) mg/dL POC Glucose (mg/dL) 189 H 208 H (70-110) mg/dL Calcium (8.4-10.2) mg/dL Total Bilirubin (0.2-1.3) mg/dL Total Protein (6.3-8.2) g/dL Albumin (3.5-5.0) g/dL Assessment and Plan Assessment: Assessment CAD and status post CABG as described above Hypertension Dyslipidemia Paroxysmal atrial fibrillation Plan Continue the current medical regimen Give the patient 20 mg Lasix by mouth once Suggest discharge the patient on small dose of oral diuretics Follow-up with the patient
[2022-02-26 06:03] LABS: Glucose,Whole Blood 113 mg/dL (70-110)
[2022-02-26] MEDS: INSULIN DETEMIR (LEVEMIR) 100 UNIT/ML SYR SQ SCH (06:14)
[2022-02-26] MEDS: FERROUS SULFATE 325 MG TAB PO SCH ×2 (06:14→17:37)
[2022-02-26] MEDS: INSULIN ASPART (NovoLOG) 100 UNIT/ML VIAL SQ SCH ×4 (06:14→20:54)
[2022-02-26] MEDS: ASCORBIC ACID 500 MG TAB PO SCH ×2 (06:14→17:37)
[2022-02-26] MEDS: PANTOPRAZOLE 40 MG TABLET PO SCH (06:14)
--- NOTE | 2022-02-26 07:04 | XR ---
EXAMINATION TYPE: XR chest 1V portable DATE OF EXAM: 02/26/2022 HISTORY: Post Op CABG COMPARISON: 02/25/2022 TECHNIQUE: Single view of the chest is submitted. FINDINGS: Post operative changes of CABG. No sizeable pneumothorax. Left basilar Pleural-parenchymal opacities may reflect atelectasis. The heart is enlarged. IMPRESSION: 1. Left basilar Pleural-parenchymal opacities may reflect atelectasis.
[2022-02-26] MEDS: ACETYLCYSTEINE 800 MG/4 ML VIAL INHALATION SCH ×4 (09:02→20:13)
[2022-02-26] MEDS: SYMBICORT 160-4.5 MCG INHALER INHALATION SCH ×2 (09:02→20:14)
[2022-02-26] MEDS: IPRATROPIUM-ALBUTEROL 3 ML NEB INHALATION SCH ×4 (09:02→20:14)
[2022-02-26 10:06] LABS: Anisocytosis Slight; HGB 8.8 gm/dL (13.0-17.5); Hypochromasia Moderate; MCH 32.7 pg (25.0-35.0); MCHC 31.3 g/dL (31.0-37.0); MCV 104.6 fL (80.0-100.0); Macrocytosis Moderate; Mean Platelet Volume 8.8; Platelet Count 387 k/uL (150-450); Poikilocytosis Slight; RBC 2.68 m/uL (4.30-5.90); RDW 16.4 % (11.5-15.5); WBC 18.4 k/uL (3.8-10.6)
[2022-02-26 10:20] LABS: Albumin 3.5 g/dL (3.5-5.0); Calcium 8.1 mg/dL (8.4-10.2); Magnesium 2.4 mg/dL (1.6-2.3); Total Bilirubin 1.6 mg/dL (0.2-1.3); Total Protein 6.1 g/dL (6.3-8.2)
[2022-02-26] MEDS: SENNOSIDES-DOCUSATE SODIUM 1 EACH TAB PO SCH ×2 (10:27→20:53)
[2022-02-26] MEDS: ASPIRIN 81 MG PO SCH ×2 (10:28→18:35)
[2022-02-26] MEDS: ATORVASTATIN 40 MG TAB PO SCH (10:28)
[2022-02-26] MEDS: METOPROLOL TARTRATE 50 MG TAB PO SCH ×3 (10:28→20:53)
[2022-02-26] MEDS: THIAMINE 100 MG TAB PO SCH (10:28)
[2022-02-26] MEDS: FOLIC ACID 1 MG TAB PO SCH (10:28)
[2022-02-26] MEDS: DOCUSATE 100 MG CAP PO SCH ×2 (10:28→20:53)
[2022-02-26] MEDS: APIXABAN 5 MG TAB PO SCH ×2 (10:28→20:53)
[2022-02-26] MEDS: AMIODARONE 200 MG TAB PO SCH ×2 (10:28→20:53)
[2022-02-26] MEDS: guaiFENesin-DM 600/30MG 1 EACH TAB.ER.12H PO SCH ×2 (10:29→20:53)
--- NOTE | 2022-02-26 10:41 | P.PN ---
Subjective Progress Note Date: 02/26/22 Principal diagnosis: Coronary artery disease with critical left main stenosis, unstable angina. Past medical history significant for hypertension, hyperlipidemia, daily EtOH use, previous tobacco dependence, osteoarthritis, and family history of premature coronary artery disease (father had myocardial infarction at age 55) POD #8 coronary artery bypass grafting 4, left internal mammary artery sequential to the diagonal and left anterior descending artery, left radial artery from the aorta to the obtuse marginal artery, reverse saphenous vein graft from the aorta to the posterior lateral artery, endoscopic left radial and right greater saphenous vein harvest, left atrial appendage ligation with a #35 mm AtriClip, graft flow measurements using the CoupFlipstim flow meter, intraoperative transesophageal echocardiogram Postoperative acute blood loss anemia and thrombocytopenia, expected given hemodilution and cardiopulmonary bypass pump. Hypotension, expected given preoperative calcium channel yessy use likely causing vasoplegia. Paroxysmal atrial fibrillation, known common occurrence after open heart surgery, not a complication. The patient was seen and examined at his bedside today 02/26/2022 on the cardiac stepdown unit. Currently sitting up to the bedside chair, is awake, alert, oriented 3 and is in no acute apparent distress. Denies any complaints of pain or shortness of breath at this time with sitting in the chair. He reports he feels somewhat improved today, although reports he did not sleep well throughout the night. He has been up ambulating in the cardiac stepdown unit hallway with standby assistance from nursing and therapy staff. He reports he is ambulating a little bit better each day and feels like he is gaining some strength. Oxygen saturations are 96% on room air and he is achieving 1000 mL on his incentive spirometry with encouragement. No further reports of atrial fibrillation in the last 12 hours and his remote telemetry is currently showing normal sinus rhythm with a heart rate of 73 bpm. He continues on metoprolol tartrate 50 mg by mouth 3 times a day and amiodarone 400 mg by mouth twice a day. Laboratory results this morning show a WBC count trending up at 18.4, hemoglobin 8.8, hematocrit 28.0, platelets 387, sodium 138, potassium 4.0, CO2 20, BUN 45, creatinine 1.48, glucose 128, calcium 8.1, magnesium 2.4, and total bilirubin 1.6. Sputum culture was collected yesterday and results are pending. He reports he is coughing up some terry, greenish colored sputum. Chest x-ray was reviewed. His been afebrile the last 24 hours. Objective - Vital Signs Vital signs: Vital Signs Temp 97.9 F 02/26/22 03:18 Pulse 95 02/26/22 09:17 Resp 20 02/26/22 03:18 BP 126/67 02/26/22 03:18 Pulse Ox 91 L 02/26/22 03:18 FiO2 45 02/18/22 20:00 Intake & Output 02/25/22 02/26/22 02/26/22 18:59 06:59 18:59 Intake Total 354 400 Output Total 675 Balance 354 -275 Weight 97.7 kg 100 kg Intake: Oral 354 400 Output: Urine 675 Other: Voiding Method Urinal Indwelling Catheter # Voids 2 # Bowel Movements 0 1 ABP, PAP, CO, CI - Last Documented Arterial Blood Pressure 116/41 Pulmonary Artery Pressure 31/11 Cardiac Output 6.3 Cardiac Index 3 - Exam CONSTITUTIONAL: Sitting up to the bedside chair on the cardiac stepdown unit, appears comfortable, cooperative, no apparent acute distress. HEENT: Neck is supple, no JVD, no lymphadenopathy. RESPIRATORY: Lungs sounds essentially clear throughout, diminished to his bilateral bases. Respirations are symmetrical and nonlabored. Currently on room air with oxygen saturations 96%. Able to achieve 1000 mL on his incentive spirometry. Strong cough. CARDIOVASCULAR: Regular rhythm and rate. S1 and S2 present, negative for S3, gallop or murmur. Sternum is stable, occasional clicking felt. Palpable peripheral pulses bilaterally, +1 edema to his bilateral lower extremities. No calf pain or tenderness noted. Heart hugger in place with patient demonstrating appropriate use. Knee-high MARCK hose and sequential compression devices in place to his bilateral lower extremities. Remote telemetry showing normal sinus rhythm heart rate 73 BPM. GASTROINTESTINAL: Abdomen soft, nontender, nondistended. Active bowel sounds present 4 quadrants. Tolerating diet. Passing flatus. No guarding or rigidity. Bowel movement yesterday 02/25/2022 GENITOURINARY: Continues to void, 675 mL of urine output in the last 8 hours. INTEGUMENTARY: Skin is warm and dry with no evidence of clubbing or cyanosis. Midline sternal incision clean dry and well approximated, covered with dry intact dressing. Right lower extremity EVH sites well approximated without redness or drainage. Left arm radial artery harvest sites clean, dry and approximated. No drainage or redness is present. NEUROLOGIC: Cranial nerves II through XII intact. No focal deficits. MUSKULOSKELETAL: Able to move all extremities, strength equal bilaterally, generalized weakness. PSYCHIATRIC: Alert and oriented to person place and time, appropriate affect. - Allied health notes Allied health notes reviewed: nursing - Labs CBC & Chem 7: 02/26/22 08:49 02/26/22 08:49 Labs: Abnormal Lab Results - Last 24 Hours (Table) 02/25/22 02/25/22 02/26/22 Range/Units 12:07 20:04 06:02 WBC (3.8-10.6) k/uL RBC (4.30-5.90) m/uL Hgb (13.0-17.5) gm/dL Hct (39.0-53.0) % MCV (80.0-100.0) fL RDW (11.5-15.5) % Carbon Dioxide (22-30) mmol/L BUN (9-20) mg/dL Creatinine (0.66-1.25) mg/dL Glucose (74-99) mg/dL POC Glucose (mg/dL) 189 H 208 H 113 H (70-110) mg/dL Calcium (8.4-10.2) mg/dL Magnesium (1.6-2.3) mg/dL Total Bilirubin (0.2-1.3) mg/dL Total Protein (6.3-8.2) g/dL 02/26/22 02/26/22 Range/Units 08:49 08:49 WBC 18.4 H (3.8-10.6) k/uL RBC 2.68 L (4.30-5.90) m/uL Hgb 8.8 L (13.0-17.5) gm/dL Hct 28.0 L (39.0-53.0) % MCV 104.6 H (80.0-100.0) fL RDW 16.4 H (11.5-15.5) % Carbon Dioxide 20 L (22-30) mmol/L BUN 45 H (9-20) mg/dL Creatinine 1.48 H (0.66-1.25) mg/dL Glucose 128 H (74-99) mg/dL POC Glucose (mg/dL) (70-110) mg/dL Calcium 8.1 L (8.4-10.2) mg/dL Magnesium 2.4 H (1.6-2.3) mg/dL Total Bilirubin 1.6 H (0.2-1.3) mg/dL Total Protein 6.1 L (6.3-8.2) g/dL - Imaging and Cardiology Chest x-ray: report reviewed, image reviewed Assessment and Plan Assessment: 1. Coronary artery disease with critical left main stenosis, unstable angina, status post 4 vessel CABG 2. Preserved left ventricular systolic function, EF 55-60% 3. Mild mitral and tricuspid regurgitation on transthoracic echocardiogram from 01/27/2022 4. Newly diagnosed diabetes, hemoglobin A1c 7.2% 5. History of hypertension 6. Hyperlipidemia, cholesterol 217, LDL 113, triglycerides 183 7. Daily EtOH use, drinks 3 shots of liquor per day 8. Previous tobacco dependence 9. Severe COPD, FEV1 34% of predicted 10. Osteoarthritis 11. Family history of premature coronary artery disease (father had myocardial infarction at age 55) 12. Postoperative acute blood loss anemia and thrombocytopenia, expected 13. Hypotension, expected 14. Paroxysmal atrial fibrillation 15. Medical debility Plan: 1. Continue to maximize medical therapy with aspirin, Plavix, statin, and beta yessy. Metoprolol tartrate increased to 50 mg by mouth 3 times a day by cardiology yesterday. 2. Continue amlodipine for radial artery spasm prophylaxis 3. Continue amiodarone 400 mg by mouth twice a day for A. fib prophylaxis. Continue Eliquis 5 mg by mouth twice a day for anticoagulation. 4. Encourage use of incentive spirometry 10 times every hour while awake. Bronchodilators per pulmonology/critical care management recommendations. 5. Increase activity, ambulate as tolerated. PT/OT/cardiac rehab following. Shower daily. 6. Will monitor daily labs and chest x-rays. Electrolyte replacement per protocol. 7. GI/DVT prophylaxis. 8. Pain control with current medication regimen. Continue to avoid narcotics. 9. Insulin management per internal medicine. Patient considered newly diagnosed diabetic with a preoperative hemoglobin A1c of 7.2%, needs tight blood sugar control 10. Strict accurate intake and output. Daily weights. 11. Discharge planning a progress. Anticipate discharge to inpatient rehab in the next 24-[address] Giang is following for evaluation to inpatient rehab. 13. More recommendations to follow based on clinical course. Time with Patient: Greater than 30
[2022-02-26] MEDS ORDERED: PIPERACILLIN-TAZOBACTAM 3.375 GM in SODIUM CHLORIDE 0.9% 100 ML IVPB ONE (10:45)
[2022-02-26] MEDS: amLODIPine 5 MG TAB PO SCH ×2 (11:59→18:34)
[2022-02-26] MEDS ORDERED: ALBUMIN HUMAN 25% 50 ML in EMPTY BAG 1 BAG IVPB ONE (12:08)
[2022-02-26 12:10] LABS: Glucose,Whole Blood 161 mg/dL (70-110)
[2022-02-26] MEDS: MULTIVITAMINS, THERA 1 EACH TAB PO SCH (12:15)
--- NOTE | 2022-02-26 12:20 | P.PN ---
Subjective Progress Note Date: 02/26/22 Principal diagnosis: Status post CABG. The patient is seen today 02/22/2022 in follow-up in the intensive care unit. Postoperative day #4. He is currently sitting up in a chair at the bedside. He is awake and alert. Maintaining O2 saturations in the low 90s on room air. He is having difficulty expectorating mucus. He's been coughing frequently. He is now in atrial fibrillation with a rapid ventricular response. He's been initiated on amiodarone. He is continued on Mucinex, Symbicort, DuoNeb inhalations. His x-ray reveals persistent pleuroparenchymal changes that have improved compared to previous. Mild residual venous congestion and small bilateral effusions with basilar infiltrates. No pneumothorax. He continues to work with the incentive spirometer. White count 13.3. Hemoglobin 8.2. Platelets 158. Sodium 142. Potassium 4.1. BUN 29. Creatinine 1.09. Glucose 123. AST 71. ALT 61. Magnesium 2.5. The patient is seen today 02/23/2022 in follow-up in the intensive care unit. Postoperative day #5. He is currently sitting up in a chair at the bedside. Awake and alert in no acute distress. Maintaining O2 saturations in the 90s on room air. He is back in sinus rhythm. He is still on amiodarone at 0.5 mg/m. He is still having some cough and congestion. A bit better today compared to yesterday. Afebrile. Hemodynamically stable. He's been on DuoNeb inhalations, Symbicort, Mucinex. Chest x-ray shows trace bilateral pleural effusions. No consolidation. No pneumothorax. White count 14.6. Hemoglobin 8.1. Sodium 140. Potassium 4.0. BUN 35. Creatinine 1.29. The patient is seen today 02/24/2022 in follow-up in the intensive care unit. Postoperative day #6. He is awake and alert in no acute distress. Sitting up in a chair at the bedside. Maintaining O2 saturations in the 90s on room air. No IV fluids. This x-ray shows cardiomegaly with bilateral lower lobe infiltrates and small effusions. No significant change. He is status post 1 unit of packed red blood cells this admission. Current hemoglobin 8.2. White count 15.5. Platelets 239. Sodium 139. Potassium 4.0. BUN 41. Creatinine 1.37. Glucose 111. Magnesium 2.4. He is continued on oral amiodarone. Anticoagulated with Eliquis. Pro-calcitonin was 0.56. Progress note dated 02/25/2022. The patient is seen today in room 355. He's on room air. No IV fluids. He appears to be doing relatively well. The patient has no complaints today. Hoping to be discharged soon. White count 15.6, hemoglobin 8.4, hematocrit 26, and platelet count 319,000. Sodium 138, potassium 3.6, chlorides 103, CO2 24, BUN 37, creatinine 1.50. Chest x-ray shows changes of COPD, and persistent bilateral infiltrates and pleural effusion, likely consistent with CHF. Progress note dated 02/26/2022. The patient is again seen today in room 355. The patient is currently on 2 L of oxygen. The patient did have increasing shortness of breath. No IV fluids. The patient was placed on Zosyn empirically, for possible pneumonia left lower lobe. Pro-calcitonin level was a bit high. White count 18.4, hemoglobin 8.8, hematocrit 28, platelet count 387,000. Sodium, potassium, chloride were all normal. CO2 is 20, anion gap 14, BUN 45, and creatinine 1.48. Pro-calcitonin level from February 23 was 0.56. Chest x-ray shows some left basilar atelectasis and/or infiltrate. Objective - Vital Signs Vital signs: Vital Signs Temp 97.7 F 02/26/22 11:56 Pulse 92 02/26/22 12:12 Resp 2 L 02/26/22 11:56 BP 120/60 02/26/22 11:56 Pulse Ox 98 02/26/22 11:56 FiO2 45 02/18/22 20:00 Intake & Output 02/25/22 02/26/22 02/26/22 18:59 06:59 18:59 Intake Total 354 400 Output Total 675 Balance 354 -275 Weight 97.7 kg 100 kg Intake: Oral 354 400 Output: Urine 675 Other: Voiding Method Urinal Indwelling Catheter # Voids 2 # Bowel Movements 0 1 ABP, PAP, CO, CI - Last Documented Arterial Blood Pressure 116/41 Pulmonary Artery Pressure 31/11 Cardiac Output 6.3 Cardiac Index 3 - Exam No acute distress, oriented 3. Currently on 2 L. No respiratory difficulty. HEENT examination is grossly unremarkable. Neck supple. Full range of motion. No adenopathy thyromegaly or neck vein distention. Cardiovascular examination reveals regular rhythm rate. S1-S2 normal. No S3 or S4. No discernible murmur noted. Heart sounds are distant. Heart rate 92 bpm. Lungs reveal mostly clear breath sounds. Minimal scattered rhonchi. No wheezes. No crackles. Breath sounds equal bilaterally. 2 L saturation is 98% Abdomen soft bowel sounds are heard. No masses or tenderness. Extremities are intact. No cyanosis clubbing or edema. Skin is without rash or lesion. Neurologic examination is brief but nonfocal. - Labs CBC & Chem 7: 02/26/22 08:49 02/26/22 08:49 Labs: Abnormal Lab Results - Last 24 Hours (Table) 02/25/22 02/26/22 02/26/22 Range/Units 20:04 06:02 08:49 WBC 18.4 H (3.8-10.6) k/uL RBC 2.68 L (4.30-5.90) m/uL Hgb 8.8 L (13.0-17.5) gm/dL Hct 28.0 L (39.0-53.0) % MCV 104.6 H (80.0-100.0) fL RDW 16.4 H (11.5-15.5) % Carbon Dioxide (22-30) mmol/L BUN (9-20) mg/dL Creatinine (0.66-1.25) mg/dL Glucose (74-99) mg/dL POC Glucose (mg/dL) 208 H 113 H (70-110) mg/dL Calcium (8.4-10.2) mg/dL Magnesium (1.6-2.3) mg/dL Total Bilirubin (0.2-1.3) mg/dL Total Protein (6.3-8.2) g/dL 02/26/22 02/26/22 Range/Units 08:49 11:56 WBC (3.8-10.6) k/uL RBC (4.30-5.90) m/uL Hgb (13.0-17.5) gm/dL Hct (39.0-53.0) % MCV (80.0-100.0) fL RDW (11.5-15.5) % Carbon Dioxide 20 L (22-30) mmol/L BUN 45 H (9-20) mg/dL Creatinine 1.48 H (0.66-1.25) mg/dL Glucose 128 H (74-99) mg/dL POC Glucose (mg/dL) 161 H (70-110) mg/dL Calcium 8.1 L (8.4-10.2) mg/dL Magnesium 2.4 H (1.6-2.3) mg/dL Total Bilirubin 1.6 H (0.2-1.3) mg/dL Total Protein 6.1 L (6.3-8.2) g/dL Microbiology - Last 24 Hours (Table) 02/25/22 15:15 Sputum Culture - Preliminary Sputum Assessment and Plan Assessment: Severe coronary artery disease with critical left main stenosis. Status post coronary artery bypass grafting 4. CRAREON to the diagonal and LAD. Left radial artery to the obtuse marginal artery, saphenous vein graft to the posterior lateral artery. Postoperative day #7. Atrial fibrillation with a rapid ventricular response. Severe chronic obstructive pulmonary disease and some component of restrictive lung disease, FEV1 is in the range of 34% of the predicted. Newly diagnosed diabetes. Benign essential hypertension. History of alcohol daily use. Ex-smoker. Family history of premature coronary artery disease. Degenerative joint disease. Plan: Plan dated 02/25/2022. The patient was transferred out of the intensive care unit. He is now seen in room 355. The patient is not on any oxygen. Not receiving any IV fluids. Clinically, he looks reasonably stable. The patient's hoping to be discharged soon. Labs, x-rays, and medications are reviewed. Prognosis is guarded. We will continue to follow the patient make recommendations along the way. Plan dated 02/26/2022. The patient was placed back on oxygen because of shortness of breath and lower saturations. Chest x-ray shows some patchy atelectasis or infiltrate at the left lung base. The patient's pro-calcitonin level was 0.56. At the urging of cardiothoracic surgery, we added Zosyn, empirically. Culture data has been negative. Labs, x-rays, medications are reviewed. Prognosis is guarded. We will continue to follow make recommendations along the way. Time with Patient: Less than 30
--- NOTE | 2022-02-26 12:24 | P.PN ---
Subjective 02/21/2022: Patient was seen in the intensive care unit, he is postop day #3 a 4 vessel coronary bypass graft. He had undergone coronary artery bypass grafting 4. CARREON sequential to diagonal and LAD, left radial artery to the obtuse marginal artery and a saphenous vein graft to the posterior lateral artery. Left atrial appendage ligation with a thick #35 mm atrophic clip. He was having chest pains for the past several month he described as heartburn. He underwent a stress test that was POS and then a cath showing significant coronary disease He is currently resting comfortably intensive care unit. His chest tube in. He denies any chest pains, pressures, short of breath, nausea or vomiting. His is at bedside. Care was discussed with her. The nurse was present as well. New onset diabetic. A1c was 7.2. His admission hemoglobin was 14.3. Today it is 8.0. He has received 1 unit packed red blood cells. Other chemistries electrolytes are normal today. 02/22/2022 earlier in the morning patient, having frequent nonproductive coughing ,attempting to cough up mucus, desatted into the low 90s on room air,developed atrial fibrillation with RVR, heart rates greater than 150, bolused and placed on Amiodarone drip. O2 sat currently in the mid 90s on room air. Chest x-ray reported trace bilateral pleural effusions minimally increased from prior.Afebrile,WBC 13.3. Hemoglobin 8.2, platelets 158. Sodium 142. Potassium 4.1, magnesium 2.5. BUN 29. Creatinine 1.08. AST 71. ALT 62. Blood sugars controlled. 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 Maintaining O2 sats in the 90s. Chest x-ray reporting trace bilateral pleural effusions may be minimally increased from prior. Receiving another dose of Lasix IV push today as per CTS. BUN 35, creatinine 1.29 . Electrolytes stable .Afebrile,WBC 14.6, pro calcitonin pending. Blood sugars ranging from 120-170. Positive bowel movement. 02/24/2022 yesterday beta yessy increased, transitioned to oral amiodarone ,returned to A. fib with RVR, heart rate in the 130s, received additional amiodarone IV piggyback. Anticoagulated with Eliquis. Maintaining O2 sats in the 90s on room air, complains of exertional shortness of breath. Chest x-ray reporting bilateral lower lobe infiltrate and small effusion stable. Pro calcitonin 0.56 .hemoglobin 8.2, platelets 239 ,electrolytes within normal limits, BUN 41, creatinine 1.37. Afebrile, WBC 14. Incentive spirometer up to 1200. Blood sugars controlled. 02/25/2022 transferred out of ICU,currently on stepdown unit. Continues to fluctuate in and out of atrial fibrillation with RVR. Reports he was only able to ambulate to his doorway earlier today, developed significant exertional dyspnea, lightheadedness, weakness -felt like his legs were going to buckle. RN quickly obtained a chair for patient to sit down at the door-hypotensive with reported blood pressure down into the 90s. After sitting for a few minutes, ambulated back to recliner, with repeat blood pressure of 71/48. Within a few minutes patient's blood pressure continued to improve,100/66.telemetry reported he had converted to normal sinus rhythm. Complains of constipation, no bowel movement for 2-3 days. Maintaining O2 sats in the 90s on room air. Denies chest pain, palpitations or increasing shortness of breath. 02/26/2022: Patient was seen in the stepdown unit. He is status post 4 vessel coronary bypass graft. He is postop day how date. He currently has paroxysmal Atrial fibrillation with RVR. She feels short of breath and fatigue. He was able to ambulate quite a bit better yesterday and today. Currently still uncomfortable and short of breath. Staff report that there is some drainage from the harvest site are his right popliteal fossa. Dr. Joe and nurse practitioner Jay De Santiago are here now for further evaluation of him. Most recent heart rate was 108, pulse oximetry is 90% on 2 L O2 via nasal cannula. Blood pressure control. 's for today show a worsening WBC count 18,400, up from 15,600 yesterday. Hemoglobin is remained stable and actually improved, now 8.8. Chemistry show a similar GFR now 45. The sputum cultures pending. Chest x-ray today shows left basilar pleural parenchymal opacities that may reflect atelectasis. Medication list was reviewed today. He is been started on Zosyn antibiotic coverage. Objective - Vital Signs Vital signs: Vital Signs Temp 97.7 F 02/26/22 11:56 Pulse 108 H 02/26/22 11:56 Resp 2 L 02/26/22 11:56 BP 120/60 02/26/22 11:56 Pulse Ox 98 02/26/22 11:56 FiO2 45 02/18/22 20:00 Intake & Output 02/25/22 02/26/22 02/26/22 18:59 06:59 18:59 Intake Total 354 400 Output Total 675 Balance 354 -275 Weight 97.7 kg 100 kg Intake: Oral 354 400 Output: Urine 675 Other: Voiding Method Urinal Indwelling Catheter # Voids 2 # Bowel Movements 0 1 ABP, PAP, CO, CI - Last Documented Arterial Blood Pressure 116/41 Pulmonary Artery Pressure 31/11 Cardiac Output 6.3 Cardiac Index 3 - Exam General: The patient is awake and alert, in mild distress, he has chest binder in place. He is having a little bit of trouble breathing at this time. Neck: The neck is supple, there is no thyromegaly, lymphadenopathy, tenderness or JVD. Cardiovascular: S1S2 is normal, There is tachycardic rate and irregular rhythm consistent with atrial fibrillation approximately 120 bpm No murmur, rub or gallop is appreciated. Respiratory: Lungs are slightly coarse to auscultation bilaterally, respirations are non-labored, breath sounds are equal. There is minimal basilar rales Gastrointestinal: Soft, non-distended, non-tender abdomen without masses or organomegaly noted. There is no rebound or guarding present. Bowel sounds are unremarkable. Musculoskeletal: Normal ROM, no tenderness, There is +2 pedal edema. Compression hose are in place. There is no calf tenderness or swelling. No cords were appreciated. Neurological: CN II-XII intact, there are no obvious motor or sensory deficits. Coordination appears grossly intact. Speech is normal. Skin: Skin is warm and dry, vein harvesting site from the right popliteal fossa area is open with minimal discharge - Labs CBC & Chem 7: 02/26/22 08:49 02/26/22 08:49 Labs: Abnormal Lab Results - Last 24 Hours (Table) 02/25/22 02/25/22 02/26/22 Range/Units 12:07 20:04 06:02 WBC (3.8-10.6) k/uL RBC (4.30-5.90) m/uL Hgb (13.0-17.5) gm/dL Hct (39.0-53.0) % MCV (80.0-100.0) fL RDW (11.5-15.5) % Carbon Dioxide (22-30) mmol/L BUN (9-20) mg/dL Creatinine (0.66-1.25) mg/dL Glucose (74-99) mg/dL POC Glucose (mg/dL) 189 H 208 H 113 H (70-110) mg/dL Calcium (8.4-10.2) mg/dL Magnesium (1.6-2.3) mg/dL Total Bilirubin (0.2-1.3) mg/dL Total Protein (6.3-8.2) g/dL 02/26/22 02/26/22 02/26/22 Range/Units 08:49 08:49 11:56 WBC 18.4 H (3.8-10.6) k/uL RBC 2.68 L (4.30-5.90) m/uL Hgb 8.8 L (13.0-17.5) gm/dL Hct 28.0 L (39.0-53.0) % MCV 104.6 H (80.0-100.0) fL RDW 16.4 H (11.5-15.5) % Carbon Dioxide 20 L (22-30) mmol/L BUN 45 H (9-20) mg/dL Creatinine 1.48 H (0.66-1.25) mg/dL Glucose 128 H (74-99) mg/dL POC Glucose (mg/dL) 161 H (70-110) mg/dL Calcium 8.1 L (8.4-10.2) mg/dL Magnesium 2.4 H (1.6-2.3) mg/dL Total Bilirubin 1.6 H (0.2-1.3) mg/dL Total Protein 6.1 L (6.3-8.2) g/dL Microbiology - Last 24 Hours (Table) 02/25/22 15:15 Sputum Culture - Preliminary Sputum Assessment and Plan (1) S/P CABG x 4 Current Visit: Yes Status: Acute Code(s): Z95.1 - PRESENCE OF AORTOCORONARY BYPASS GRAFT SNOMED Code(s): 691621776 (2) Type 2 diabetes mellitus with hyperglycemia Current Visit: Yes Status: Acute Code(s): E11.65 - TYPE 2 DIABETES MELLITUS WITH HYPERGLYCEMIA SNOMED Code(s): 925436888482016 (3) Essential (primary) hypertension Current Visit: Yes Status: Acute Code(s): I10 - ESSENTIAL (PRIMARY) HYPERTENSION SNOMED Code(s): 20927329 (4) Mixed hyperlipidemia Current Visit: Yes Status: Acute Code(s): E78.2 - MIXED HYPERLIPIDEMIA SNOMED Code(s): 128478416 (5) ACS (acute coronary syndrome) Current Visit: Yes Status: Acute Code(s): I24.9 - ACUTE ISCHEMIC HEART DISEASE, UNSPECIFIED SNOMED Code(s): 899024989 (6) Blood loss anemia Current Visit: Yes Status: Acute Code(s): D50.0 - IRON DEFICIENCY ANEMIA SECONDARY TO BLOOD LOSS (CHRONIC) SNOMED Code(s): 462022926 (7) Atherosclerotic heart disease Current Visit: Yes Status: Acute Code(s): I25.10 - ATHSCL HEART DISEASE OF [place] CORONARY ARTERY W/O ANG PCTRS SNOMED Code(s): 391095657 (8) COPD (chronic obstructive pulmonary disease) Current Visit: Yes Status: Acute Code(s): J44.9 - CHRONIC OBSTRUCTIVE PULMONARY DISEASE, UNSPECIFIED SNOMED Code(s): 51690722 Plan: He'll continue his current medications treatments. Defer management of his atrial fibrillation to cardiology. Cardiothoracic surgery is evaluating him at this time I'll wait further recommendations from them as well. Repeat labs in a.m. and closely monitor his hemoglobin and his kidney functions. His kidney function is still adequate for these infarcts he can.. There is no objections from thoracic surgery, I'll have him apply Silvadene to the area is right popliteal fossa and monitored for further wound care. We will reevaluate in next 24 hours.
[2022-02-26 12:32] LABS: Band Neutrophils % 1 %; Eosinophils # (M) 0.37 k/uL (0-0.7); Lymphocytes # (M) 3.31 k/uL (1.0-4.8); Metamyelocytes # (M) 0.18 k/uL (0); Metamyelocytes % 1 %; Monocytes # (M) 1.84 k/uL (0-1.0); Myelocytes # (M) 0.18 k/uL (0); Myelocytes % 1 %; Neutrophils % (M) 70 %; Nucleated Red Blood Cells 0 /100 WBC (0-0); Polychromasia Present; Total Cells Counted 200
[2022-02-26] MEDS ORDERED: FUROSEMIDE 10 MG/ML 2 ML VIAL IV ONE (13:30)
[2022-02-26] MEDS ORDERED: PIPERACILLIN-TAZOBACTAM 3.375 GM in SODIUM CHLORIDE 0.9% 100 ML IVPB SCH (16:00)
[2022-02-26] MEDS ORDERED: VANCOMYCIN IV PER PHARMACY 1 EACH MISC MISCELLANE PRN (16:11)
[2022-02-26 17:08] LABS: Glucose,Whole Blood 206 mg/dL (70-110)
[2022-02-26] MEDS: DAPAGLIFLOZIN PROPANEDIOL 5 MG TABLET PO SCH (17:36)
--- NOTE | 2022-02-26 17:41 | US ---
EXAMINATION TYPE: US venous doppler duplex UE RT DATE OF EXAM: 02/26/2022 COMPARISON: NONE CLINICAL HISTORY: swelling forearm. Swelling within forearm. No hx of DVT. Patient is on eliquis. SIDE PERFORMED: Right arm Right Arm: No evidence of DVT in the right upper extremity. Internal echoes noted within the disc cep halic and basilic vein from below the elbow down through the wrist. Paucity of color-flow is seen wit hin these vessels in these segments. No compression is noted within the cephalic and basilic veins at the level of the wrist and distal to the elbow. No defined fluid collections within the visualized soft tissues. IMPRESSION: 1. No evidence for deep vein thrombosis of the right upper extremity. 2. Superficial thromboses of the right cephalic and basilic veins.
[2022-02-26] MEDS: VANCOMYCIN 1,500 MG in SODIUM CHLORIDE 0.9% 500 ML 500 ML IVPB SCH (18:12)
[2022-02-26] MEDS: MUPIROCIN 2% OINT 22 GM TUBE NASAL SCH (18:34)
[2022-02-26] MEDS: ISOSORBIDE MONONITRATE ER 30 MG TAB.ER.24H PO SCH (18:34)
[2022-02-26] MEDS: SODIUM CHLORIDE 0.9% 1,000 ML in EMPTY BAG 1 BAG IV SCH (18:34)
[2022-02-26] MEDS: atenoloL 50 MG TAB PO SCH (18:35)
[2022-02-26] MEDS: FUROSEMIDE 20 MG TAB PO SCH (18:35)
[2022-02-26] MEDS: hydrALAZINE HCL 25 MG TAB PO SCH (18:35)
[2022-02-26 20:06] LABS: Glucose,Whole Blood 115 mg/dL (70-110)
[2022-02-26] MEDS: CEFEPIME 2 GM in SODIUM CHLORIDE 0.9% 100 ML IVPB SCH (21:35)
--- NOTE | 2022-02-26 23:30 | P.CONS ---
History of Present Illness - Reason for Consult Consult date: 02/26/22 Elevated WBC Requesting physician: Jay De Santiago - Chief Complaint Shortness of breath and right upper extremity swelling x few days - History of Present Illness Patient is a 76-year-old male electively admitted to the hospital on 02/16/2022 in this patient for status post coronary bypass grafting x4 and left atrial appendage ligation patient has been in the hospital recovering from his surgery, the patient has been afebrile throughout his hospital stay however the patient noticed to have a worsening of his white count white count is up to 18.4 today that has been slowly trending up since 02/21/2022 patient has been complaining of swelling and pain to the right upper extremity site of his previous IV morphine the laking pain rated 4-10 radiation also complaining of bruising and pain into the right thigh area and did have some open wound to the right thigh from the vein grafting site pain at that location is more of a dull aching 5-6 or 10 and no radiation, patient is currently on 2 L nasal cannula denies any chest pain or shortness of breath he did have some cough not bring up any sputum patient did have a chest x-ray left basilar pleural parenchymal opacity likely atelectasis patient was started on Zosyn infectious was consulted because of his elevated white count Review of Systems Positive point has been mentioned in the HPI rest of the systems are negative Past Medical History Past Medical History: Chest Pain / Angina, Hyperlipidemia, Hypertension, Osteoarthritis (OA) Additional Past Medical History / Comment(s): pancreatitis, gout-under control. SEE DR. BECK'S H & P History of Any Multi-Drug Resistant Organisms: None Reported Past Surgical History: Cholecystectomy, Joint Replacement, Orthopedic Surgery, Tonsillectomy Additional Past Surgical History / Comment(s): BILAT cataract surgery, rt knee replacement, arthroscopy lt knee, MACULAR HOLE REPAIR Past Anesthesia/Blood Transfusion Reactions: No Reported Reaction Past Psychological History: No Psychological Hx Reported Smoking Status: Former smoker Past Alcohol Use History: Daily Additional Past Alcohol Use History / Comment(s): QUIT SMOKING 40 YEARS AGO. HAS 3 ALCOHOLIC DRINKS NIGHTLY Past Drug Use History: None Reported - Past Family History Sister(s) Family Medical History: Cancer Additional Family Medical History / Comment(s): cancer base of tongue Father Family Medical History: Myocardial Infarction ([place]) Medications and Allergies Home Medications Medication Instructions Recorded Confirmed Type Furosemide [Lasix] 20 mg PO DAILY 01/27/20 02/16/22 History Multivitamins, Thera [Multivitamin 1 each PO 1200 tab 01/29/20 02/16/22 Rx (formulary)] Aspirin EC [Ecotrin Low Dose] 81 mg PO DAILY 02/14/22 02/16/22 History Acetaminophen Tab [Tylenol] 1,000 mg PO Q4HR PRN tab 03/01/22 Rx Amiodarone [Cordarone] 200 mg PO BID tab 03/01/22 Rx Apixaban [Eliquis] 5 mg PO BID tab 03/01/22 Rx Ascorbic Acid [Vitamin C] 500 mg PO BID-W/MEALS tab 03/01/22 Rx Atorvastatin [Lipitor] 40 mg PO DAILY tab 03/01/22 Rx Benzocaine/Menthol Lozeng [Cepacol 1 each MUCOUS MEM Q2H PRN lozenge 03/01/22 Rx lozenge] Budesonide-Formot 160-4.5 Mcg 2 puff INHALATION RT-BID each 03/01/22 Rx [Symbicort 160-4.5 Mcg Inhaler] Cefepime [Maxipime] 2 gm IVPB Q12HR 7 Days each 03/01/22 Rx Dapagliflozin Propanediol [Farxiga] 5 mg PO Q24H tab 03/01/22 Rx Ferrous Sulfate [Iron (65 MG 325 mg PO BID-W/MEALS tab 03/01/22 Rx Elemental)] Folic Acid 1 mg PO DAILY tab 03/01/22 Rx INSULIN ASPART (NovoLOG) [NovoLOG 0 unit SQ ACHS each 03/01/22 Rx (formulary)] Insulin Detemir (Levemir) [Levemir] 10 unit SQ DAILY@0700 each 03/01/22 Rx Ipratropium-Albuterol Nebulize 3 ml INHALATION RT-Q2H PRN each 03/01/22 Rx [Duoneb 0.5 mg-3 mg/3 ml Soln] Ipratropium-Albuterol Nebulize 3 ml INHALATION RT-QID each 03/01/22 Rx [Duoneb 0.5 mg-3 mg/3 ml Soln] Magnesium Hydroxide [Milk of 2,400 mg PO BID PRN ml 03/01/22 Rx Magnesia Concentrate] Metoprolol Tartrate [Lopressor] 100 mg PO BID tab 03/01/22 Rx Pantoprazole [Protonix] 40 mg PO AC-BRKFST tab 03/01/22 Rx SILVER sulfADIAZINE CREAM 1 applic TOPICAL BID each 03/01/22 Rx [Silvadene Cream] Sennosides-Docusate Sodium 2 each PO BID tab 03/01/22 Rx [Senokot-S] Thiamine [Vitamin B-1] 100 mg PO DAILY tab 03/01/22 Rx Vancomycin 1,500 mg IVPB Q24H 7 Days each 03/01/22 Rx amLODIPine [Norvasc] 5 mg PO DAILY@1200 #0 03/01/22 02/16/22 Rx bisacodyL [Dulcolax] 10 mg RECTAL DAILY PRN suppositor 03/01/22 Rx guaiFENesin-DM 600/30MG [Mucinex 1 each PO Q12HR tab 03/01/22 Rx Dm] polyethylene glycoL 3350 [Miralax] 17 gm PO DAILY packet 03/01/22 Rx Allergies Allergy/AdvReac Type Severity Reaction Status Date / Time No Known Allergies Allergy Verified 02/16/22 11:00 Physical Exam Vitals: Vital Signs Temp Pulse Pulse Resp BP Pulse Ox 02/26/22 12:24 92 02/26/22 12:12 92 02/26/22 11:56 97.7 F 108 H 2 L 120/60 98 02/26/22 09:17 95 02/26/22 09:05 95 02/26/22 08:00 97.5 F L 74 18 117/58 94 L 02/26/22 03:18 97.9 F 63 20 126/67 91 L 02/25/22 23:29 97.5 F L 61 22 122/67 92 L 02/25/22 20:54 100 02/25/22 20:41 98 02/25/22 19:28 97.9 F 62 20 128/63 96 02/25/22 17:27 100 02/25/22 17:15 100 02/25/22 15:47 98.0 F 65 18 125/65 91 L Intake and Output 02/25/22 02/26/22 02/26/22 22:59 06:59 14:59 Intake Total 400 240 Output Total 675 Balance -275 240 Intake: Oral 400 240 Output: Urine 675 Other: Voiding Method Urinal Indwelling Catheter # Voids 2 # Bowel Movements 0 1 Weight 100 kg GENERAL DESCRIPTION: Elderly male lying in bed, no distress. No tachypnea or accessory muscle of respiration use. HEENT: Shows Pallor , no scleral icterus. Oral mucous membrane is dry. No pharyngeal erythema or thrush NECK: Trachea central, no thyromegaly. LUNGS: Unlabored breathing. Decreased breath sound at the base. HEART: S1, S2, regular rate and rhythm. No loud murmur ABDOMEN: Soft, no tenderness , guarding or rigidity, no organomegaly EXTREMITIES: Right upper extremity did have some swelling no significant redness right medial thigh did have a large bruise and a wound from the vein graft site no foul-smelling drainage. SKIN: No rash, no masses palpable. NEUROLOGICAL: The patient is awake, alert, oriented x3, mood and affect normal. Results CBC & Chem 7: 03/01/22 10:30 03/01/22 10:30 Labs: Abnormal Lab Results - Last 24 Hours (Table) 02/25/22 02/26/22 02/26/22 Range/Units 20:04 06:02 08:49 WBC 18.4 H (3.8-10.6) k/uL RBC 2.68 L (4.30-5.90) m/uL Hgb 8.8 L (13.0-17.5) gm/dL Hct 28.0 L (39.0-53.0) % MCV 104.6 H (80.0-100.0) fL RDW 16.4 H (11.5-15.5) % Neutrophils # (Manual) 13.00 H (1.3-7.7) k/uL Monocytes # (Manual) 1.84 H (0-1.0) k/uL Metamyelocytes # (Man) 0.18 H (0) k/uL Myelocytes # (Manual) 0.18 H (0) k/uL Carbon Dioxide (22-30) mmol/L BUN (9-20) mg/dL Creatinine (0.66-1.25) mg/dL Glucose (74-99) mg/dL POC Glucose (mg/dL) 208 H 113 H (70-110) mg/dL Calcium (8.4-10.2) mg/dL Magnesium (1.6-2.3) mg/dL Total Bilirubin (0.2-1.3) mg/dL Total Protein (6.3-8.2) g/dL 02/26/22 02/26/22 Range/Units 08:49 11:56 WBC (3.8-10.6) k/uL RBC (4.30-5.90) m/uL Hgb (13.0-17.5) gm/dL Hct (39.0-53.0) % MCV (80.0-100.0) fL RDW (11.5-15.5) % Neutrophils # (Manual) (1.3-7.7) k/uL Monocytes # (Manual) (0-1.0) k/uL Metamyelocytes # (Man) (0) k/uL Myelocytes # (Manual) (0) k/uL Carbon Dioxide 20 L (22-30) mmol/L BUN 45 H (9-20) mg/dL Creatinine 1.48 H (0.66-1.25) mg/dL Glucose 128 H (74-99) mg/dL POC Glucose (mg/dL) 161 H (70-110) mg/dL Calcium 8.1 L (8.4-10.2) mg/dL Magnesium 2.4 H (1.6-2.3) mg/dL Total Bilirubin 1.6 H (0.2-1.3) mg/dL Total Protein 6.1 L (6.3-8.2) g/dL Microbiology - Last 24 Hours (Table) 02/25/22 15:15 Sputum Culture - Preliminary Sputum Assessment and Plan (1) Leukocytosis Status: Acute Code(s): D72.829 - ELEVATED WHITE BLOOD CELL COUNT, UNSPECIFIED SNOMED Code(s): 500928342 Plan: 1patient with elevated white count which is likely multifactorial with the possibility of right forearm thrombophlebitis/cellulitis at the site of his previous IV spinal cellulitis of the right thigh from his previous vein grafting site, pneumonia less likely but not entirely excluded and will need to cover for the resistant gram-positive as well as gram-negative in this patient symptom started while in the hospital for 10 days. 2we will obtain blood cultures CRP and a procalcitonin. 3we will repeat Dopplers of the right upper extremity. 4discontinue Zosyn. 5we will start the patient on vancomycin pharmacy to dose and cefepime while waiting for the culture to finalize We will follow on clinical condition and cultures to further adjust medication if needed Thank you for this consultation will follow this patient along with you Time with Patient: Greater than 30
[2022-02-27 04:01] LABS: Anisocytosis Slight; Basophils % (A) 0 %; Eosinophils # (A) 0.5 k/uL (0-0.7); Eosinophils % (A) 3 %; HCT 24.5 % (39.0-53.0); Hypochromasia Moderate; Lymphocytes # (A) 2.2 k/uL (1.0-4.8); Lymphocytes % (A) 15 %; MCH 33.8 pg (25.0-35.0); MCHC 32.6 g/dL (31.0-37.0); MCV 103.7 fL (80.0-100.0); Macrocytosis Moderate; Mean Platelet Volume 8.6; Monocytes # (A) 0.9 k/uL (0-1.0); Monocytes % (A) 6 %; Neutrophils # (A) 10.7 k/uL (1.3-7.7); Neutrophils % (A) 74 %; Platelet Count 377 k/uL (150-450); Poikilocytosis Slight; RBC 2.36 m/uL (4.30-5.90); RDW 16.7 % (11.5-15.5); WBC 14.4 k/uL (3.8-10.6)
[2022-02-27 04:14] LABS: Albumin 3.2 g/dL (3.5-5.0); Calcium 7.8 mg/dL (8.4-10.2); Potassium 4.1 mmol/L (3.5-5.1); Total Bilirubin 1.1 mg/dL (0.2-1.3); Total Protein 5.6 g/dL (6.3-8.2)
[2022-02-27] MEDS ORDERED: FUROSEMIDE 10 MG/ML 2 ML VIAL IV ONE (05:39)
--- NOTE | 2022-02-27 05:40 | P.PN ---
Subjective Progress Note Date: 02/27/22 Principal diagnosis: CAD and status post CABG The patient is a pleasant 76-year-old gentleman is known to have hypertension and dyslipidemia was seen in the office recently for symptoms of chest discomfort. He underwent initially a stress test and that came in to be ischemic with anterolateral lateral ischemia. Subsequently he underwent a heart catheterization and that revealed critical disease involving the distal left main coronary artery as well as distal RCA. He underwent CABG 4 with CARREON sequentially to LAD and diagonal and radial artery to obtuse marginal as well as SVG to PDA. February [id number] The patient was seen this morning. He is overall doing well. He is stable hemodynamically. He is on antiplatelet. He is an intermediate intensity statin. I would suggest increase the dose of statin to high intensity once the liver function tests improved. Beside that the chest x-ray was reviewed and seems to be slightly wet and I would suggest also giving the patient the 20 mg of Lasix IV. Beside that continue the current medical regimen and continue mo nitor the kidney function and electrolytes as well as monitor the hemoglobin. February 222021 The patient was seen and evaluated this morning. Overall he is doing well and stable from a perivascular standpoint of view. Hemodynamically he is stable with pressure being slightly on the higher side. The dose of Dilaudid been was increased yesterday. We might need to consider adjusting his blood pressure medication if the pressure remains above 1 40 mmHg. He remains in sinus mechanism. On examination he does have bilateral rhonchi mainly in the bases and I would advise giving the patient some Lasix if the creatinine is a stable this morning. Beside that continue the current medical regimen and continue monitor the kidney function and electrolytes and the patient potentially Be transferred out of the intensive care unit. February 232021 The patient was seen and evaluated this morning. The patient appeared to be stable from the cardiovascular standpoint of view. He went into A. fib with RVR yesterday and currently is in sinus rhythm and he is on amiodarone IV which going to be changed into amiodarone by mouth later on today. He still is slightly congested and trying to cough. Otherwise easily mechanically stable. He is on maximize medical treatment. Hemoglobin and kidney function are stable. February 242021 The patient was seen and evaluated this morning. Currently he is in atrial fibrillation with heart rate of 150 bpm. I advised the patient a bolus of am iodarone IV hoping to convert him to sinus mechanism B the dose of beta yessy has increased yesterday. Also I believe the patient needs to be on oral anticoagulation since he has been in and out of atrial fibrillation for at least 24 hours. February 262021 The patient was seen and evaluated this morning. He has been maintaining sinus mechanism after we increased the beta yessy yesterday. Currently he is on oral anticoagulation. On examination he does have mild bilateral lower extrem ities edema. Otherwise he does have clear breathing sounds bilaterally. I'm going to give the patient 20 mg of Lasix by mouth once and I would suggest possibly discharged on 20 mg by mouth Lasix daily giving the bilateral lower extremities edema. Otherwise the patient potentially can be discharged in the next 12-24 hours. He is on maximize medical treatment February 272021 The patient was seen and evaluated this morning. He is more short of breath than yesterday or the day before. No chest pain or chest discomfort. He still having low oxygen saturation on room air and currently is on 2 L to keep the saturation above 90%. On examination he does have few crackles bilaterally and he is to have mild bilateral lower extremity edema. Beside that he was diagnosed with right lower extremity cellulitis and currently infectious disease on the case and he is on antibiotic. Beside that he has been maintaining normal sinus mechanism. Hemodynamically he is a stable with bradycardia and heart rate in the 50s. I'm going to give the patient 20 mg of Lasix IV. Monitor the kidney function and electrolytes. Decrease the dose of amiodarone from 400 mg by mouth twice a day to 200 mg by mouth twice a day in light of the bradycardia. The chest x-ray from yesterday showed atelectasis only. But overall he seems to be slightly hypervolemic. Beside that we'll continue the current medical regimen including dual antiplatelet therapy and statin and beta yessy. Objective - Vital Signs Vital signs: Vital Signs Temp 97.4 F L 02/27/22 04:00 Pulse 57 L 02/27/22 04:00 Resp 22 02/27/22 04:00 BP 139/70 02/27/22 04:00 Pulse Ox 96 02/27/22 04:00 FiO2 45 02/18/22 20:00 Intake & Output 02/26/22 02/26/22 02/27/22 06:59 18:59 06:59 Intake Total 400 240 Output Total 675 Balance -275 240 Weight 100 kg 96.4 kg Intake: Oral 400 240 Output: Urine 675 Other: Voiding Method Indwelling Catheter Toilet Urinal Urinal # Voids 2 # Bowel Movements 1 ABP, PAP, CO, CI - Last Documented Arterial Blood Pressure 116/41 Pulmonary Artery Pressure 31/11 Cardiac Output 6.3 Cardiac Index 3 - Constitutional General appearance: Present: no acute distress - Respiratory Respiratory: bilateral: rales - Cardiovascular Rhythm: regular Heart sounds: normal: S1, S2 - Labs CBC & Chem 7: 02/27/22 03:20 02/27/22 03:20 Labs: Abnormal Lab Results - Last 24 Hours (Table) 02/26/22 02/26/22 02/26/22 Range/Units 06:02 08:49 08:49 WBC 18.4 H (3.8-10.6) k/uL RBC 2.68 L (4.30-5.90) m/uL Hgb 8.8 L (13.0-17.5) gm/dL Hct 28.0 L (39.0-53.0) % MCV 104.6 H (80.0-100.0) fL RDW 16.4 H (11.5-15.5) % Neutrophils # (1.3-7.7) k/uL Neutrophils # (Manual) 13.00 H (1.3-7.7) k/uL Monocytes # (Manual) 1.84 H (0-1.0) k/uL Metamyelocytes # (Man) 0.18 H (0) k/uL Myelocytes # (Manual) 0.18 H (0) k/uL Sodium (137-145) mmol/L Carbon Dioxide 20 L (22-30) mmol/L BUN 45 H (9-20) mg/dL Creatinine 1.48 H (0.66-1.25) mg/dL Glucose 128 H (74-99) mg/dL POC Glucose (mg/dL) 113 H (70-110) mg/dL Calcium 8.1 L (8.4-10.2) mg/dL Magnesium 2.4 H (1.6-2.3) mg/dL Total Bilirubin 1.6 H (0.2-1.3) mg/dL C-Reactive Protein (<1.0) mg/dL Total Protein 6.1 L (6.3-8.2) g/dL Albumin (3.5-5.0) g/dL Procalcitonin (0.02-0.09) ng/mL 02/26/22 02/26/22 02/26/22 Range/Units 11:56 16:34 16:34 WBC (3.8-10.6) k/uL RBC (4.30-5.90) m/uL Hgb (13.0-17.5) gm/dL Hct (39.0-53.0) % MCV (80.0-100.0) fL RDW (11.5-15.5) % Neutrophils # (1.3-7.7) k/uL Neutrophils # (Manual) (1.3-7.7) k/uL Monocytes # (Manual) (0-1.0) k/uL Metamyelocytes # (Man) (0) k/uL Myelocytes # (Manual) (0) k/uL Sodium (137-145) mmol/L Carbon Dioxide (22-30) mmol/L BUN (9-20) mg/dL Creatinine (0.66-1.25) mg/dL Glucose (74-99) mg/dL POC Glucose (mg/dL) 161 H (70-110) mg/dL Calcium (8.4-10.2) mg/dL Magnesium (1.6-2.3) mg/dL Total Bilirubin (0.2-1.3) mg/dL C-Reactive Protein 9.0 H (<1.0) mg/dL Total Protein (6.3-8.2) g/dL Albumin (3.5-5.0) g/dL Procalcitonin 0.37 H (0.02-0.09) ng/mL 02/26/22 02/26/22 02/27/22 Range/Units 17:04 20:04 03:20 WBC 14.4 H (3.8-10.6) k/uL RBC 2.36 L (4.30-5.90) m/uL Hgb 8.0 L (13.0-17.5) gm/dL Hct 24.5 L (39.0-53.0) % MCV 103.7 H (80.0-100.0) fL RDW 16.7 H (11.5-15.5) % Neutrophils # 10.7 H (1.3-7.7) k/uL Neutrophils # (Manual) (1.3-7.7) k/uL Monocytes # (Manual) (0-1.0) k/uL Metamyelocytes # (Man) (0) k/uL Myelocytes # (Manual) (0) k/uL Sodium (137-145) mmol/L Carbon Dioxide (22-30) mmol/L BUN (9-20) mg/dL Creatinine (0.66-1.25) mg/dL Glucose (74-99) mg/dL POC Glucose (mg/dL) 206 H 115 H (70-110) mg/dL Calcium (8.4-10.2) mg/dL Magnesium (1.6-2.3) mg/dL Total Bilirubin (0.2-1.3) mg/dL C-Reactive Protein (<1.0) mg/dL Total Protein (6.3-8.2) g/dL Albumin (3.5-5.0) g/dL Procalcitonin (0.02-0.09) ng/mL 02/27/22 Range/Units 03:20 WBC (3.8-10.6) k/uL RBC (4.30-5.90) m/uL Hgb (13.0-17.5) gm/dL Hct (39.0-53.0) % MCV (80.0-100.0) fL RDW (11.5-15.5) % Neutrophils # (1.3-7.7) k/uL Neutrophils # (Manual) (1.3-7.7) k/uL Monocytes # (Manual) (0-1.0) k/uL Metamyelocytes # (Man) (0) k/uL Myelocytes # (Manual) (0) k/uL Sodium 136 L (137-145) mmol/L Carbon Dioxide (22-30) mmol/L BUN 48 H (9-20) mg/dL Creatinine 1.52 H (0.66-1.25) mg/dL Glucose (74-99) mg/dL POC Glucose (mg/dL) (70-110) mg/dL Calcium 7.8 L (8.4-10.2) mg/dL Magnesium (1.6-2.3) mg/dL Total Bilirubin (0.2-1.3) mg/dL C-Reactive Protein (<1.0) mg/dL Total Protein 5.6 L (6.3-8.2) g/dL Albumin 3.2 L (3.5-5.0) g/dL Procalcitonin (0.02-0.09) ng/mL Microbiology - Last 24 Hours (Table) 02/25/22 15:15 Sputum Culture - Preliminary Sputum Assessment and Plan Assessment: Assessment CAD and status post CABG as described above Hypertension Dyslipidemia Paroxysmal atrial fibrillation Sinus bradycardia Right lower extremity cellulitis Plan Continue the current medical regimen Give the patient 20 mg Lasix by mouth once Decrease the dose of amiodarone in the light of bradycardia Continue monitor the kidney function and electrolytes Antibiotic as suggested by infectious disease service Follow-up with the patient
[2022-02-27 06:05] LABS: Glucose,Whole Blood 135 mg/dL (70-110)
[2022-02-27] MEDS: FERROUS SULFATE 325 MG TAB PO SCH ×2 (06:20→17:39)
[2022-02-27] MEDS: INSULIN DETEMIR (LEVEMIR) 100 UNIT/ML SYR SQ SCH (06:20)
[2022-02-27] MEDS: PANTOPRAZOLE 40 MG TABLET PO SCH (06:20)
[2022-02-27] MEDS: ASCORBIC ACID 500 MG TAB PO SCH ×2 (06:20→17:39)
[2022-02-27] MEDS: INSULIN ASPART (NovoLOG) 100 UNIT/ML VIAL SQ SCH ×4 (06:21→20:48)
--- NOTE | 2022-02-27 07:37 | XR ---
EXAMINATION TYPE: XR chest 2V DATE OF EXAM: 02/27/2022 COMPARISON: 02/26/2022 HISTORY: Postop cardiac surgery TECHNIQUE: Frontal and lateral views of the chest are obtained. FINDINGS: Scattered senescent parenchymal changes noted. Hyperinflation compatible with COPD. Median sternotomy with atrial appendage clip in place. Continued pulmonary venous congestion with sma ll effusions. Mediastinal structures are stable and grossly unremarkable. No evidence for hilar prominence. Degenerative changes dorsal spine. IMPRESSION: 1. Continued pulmonary venous congestion with small effusions. Overall stable examination.
[2022-02-27] MEDS: IPRATROPIUM-ALBUTEROL 3 ML NEB INHALATION SCH ×4 (08:30→20:26)
[2022-02-27] MEDS: SYMBICORT 160-4.5 MCG INHALER INHALATION SCH ×2 (08:30→20:26)
[2022-02-27] MEDS: ACETYLCYSTEINE 800 MG/4 ML VIAL INHALATION SCH ×4 (08:30→20:26)
[2022-02-27] MEDS: ASPIRIN 81 MG PO SCH (09:48)
[2022-02-27] MEDS: FOLIC ACID 1 MG TAB PO SCH (09:48)
[2022-02-27] MEDS: METOPROLOL TARTRATE 50 MG TAB PO SCH ×3 (09:48→20:47)
[2022-02-27] MEDS: ATORVASTATIN 40 MG TAB PO SCH (09:49)
[2022-02-27] MEDS: DOCUSATE 100 MG CAP PO SCH ×2 (09:49→20:47)
[2022-02-27] MEDS: SENNOSIDES-DOCUSATE SODIUM 1 EACH TAB PO SCH ×2 (09:49→20:47)
[2022-02-27] MEDS: AMIODARONE 200 MG TAB PO SCH ×2 (09:49→20:48)
[2022-02-27] MEDS: guaiFENesin-DM 600/30MG 1 EACH TAB.ER.12H PO SCH ×2 (09:49→20:48)
[2022-02-27] MEDS: THIAMINE 100 MG TAB PO SCH (09:50)
[2022-02-27] MEDS: CEFEPIME 2 GM in SODIUM CHLORIDE 0.9% 100 ML IVPB SCH ×2 (09:50→21:21)
[2022-02-27] MEDS: APIXABAN 5 MG TAB PO SCH (09:50)
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
--- NOTE | 2022-02-27 11:21 | P.PN ---
Subjective Progress Note Date: 02/27/22 Principal diagnosis: Status post CABG. The patient is seen today 02/22/2022 in follow-up in the intensive care unit. Postoperative day #4. He is currently sitting up in a chair at the bedside. He is awake and alert. Maintaining O2 saturations in the low 90s on room air. He is having difficulty expectorating mucus. He's been coughing frequently. He is now in atrial fibrillation with a rapid ventricular response. He's been initiated on amiodarone. He is continued on Mucinex, Symbicort, DuoNeb inhalations. His x-ray reveals persistent pleuroparenchymal changes that have improved compared to previous. Mild residual venous congestion and small bilateral effusions with basilar infiltrates. No pneumothorax. He continues to work with the incentive spirometer. White count 13.3. Hemoglobin 8.2. Platelets 158. Sodium 142. Potassium 4.1. BUN 29. Creatinine 1.09. Glucose 123. AST 71. ALT 61. Magnesium 2.5. The patient is seen today 02/23/2022 in follow-up in the intensive care unit. Postoperative day #5. He is currently sitting up in a chair at the bedside. Awake and alert in no acute distress. Maintaining O2 saturations in the 90s on room air. He is back in sinus rhythm. He is still on amiodarone at 0.5 mg/m. He is still having some cough and congestion. A bit better today compared to yesterday. Afebrile. Hemodynamically stable. He's been on DuoNeb inhalations, Symbicort, Mucinex. Chest x-ray shows trace bilateral pleural effusions. No consolidation. No pneumothorax. White count 14.6. Hemoglobin 8.1. Sodium 140. Potassium 4.0. BUN 35. Creatinine 1.29. The patient is seen today 02/24/2022 in follow-up in the intensive care unit. Postoperative day #6. He is awake and alert in no acute distress. Sitting up in a chair at the bedside. Maintaining O2 saturations in the 90s on room air. No IV fluids. This x-ray shows cardiomegaly with bilateral lower lobe infiltrates and small effusions. No significant change. He is status post 1 unit of packed red blood cells this admission. Current hemoglobin 8.2. White count 15.5. Platelets 239. Sodium 139. Potassium 4.0. BUN 41. Creatinine 1.37. Glucose 111. Magnesium 2.4. He is continued on oral amiodarone. Anticoagulated with Eliquis. Pro-calcitonin was 0.56. Progress note dated 02/25/2022. The patient is seen today in room 355. He's on room air. No IV fluids. He appears to be doing relatively well. The patient has no complaints today. Hoping to be discharged soon. White count 15.6, hemoglobin 8.4, hematocrit 26, and platelet count 319,000. Sodium 138, potassium 3.6, chlorides 103, CO2 24, BUN 37, creatinine 1.50. Chest x-ray shows changes of COPD, and persistent bilateral infiltrates and pleural effusion, likely consistent with CHF. Progress note dated 02/26/2022. The patient is again seen today in room 355. The patient is currently on 2 L of oxygen. The patient did have increasing shortness of breath. No IV fluids. The patient was placed on Zosyn empirically, for possible pneumonia left lower lobe. Pro-calcitonin level was a bit high. White count 18.4, hemoglobin 8.8, hematocrit 28, platelet count 387,000. Sodium, potassium, chloride were all normal. CO2 is 20, anion gap 14, BUN 45, and creatinine 1.48. Pro-calcitonin level from February 23 was 0.56. Chest x-ray shows some left basilar atelectasis and/or infiltrate. Progress note dated 02/27/2022. The patient is again seen in room 355. He remains on 2 L of oxygen. Saturations are 95%. Right upper extremity Doppler was negative for DVT. Chest x-rays consistent with fluid overload/CHF. White count 14.4, hemoglobin 8, hematocrit 24.5, platelet count 377,000. Sodium 136, potassium 4.1, chlorides 103, CO2 26, BUN 48, creatinine 1.52. Objective - Vital Signs Vital signs: Vital Signs Temp 97.4 F L 02/27/22 04:00 Pulse 94 02/27/22 08:47 Resp 22 02/27/22 04:00 BP 139/70 02/27/22 04:00 Pulse Ox 95 02/27/22 08:34 FiO2 45 02/18/22 20:00 Intake & Output 02/26/22 02/27/22 02/27/22 18:59 06:59 18:59 Intake Total 240 1000 118 Output Total 700 500 Balance 240 300 -382 Weight 96.4 kg 95.8 kg Intake: Intake, IV Titration 600 Amount Cefepime 2 gm In Sodium 100 Chloride 0.9% 100 ml @ 25 mls/hr IVPB Q12HR [facility] Rx #:[id number] Vancomycin 1,500 mg In 500 Sodium Chloride 0.9% 500 ml 500 ml @ 167 mls/hr IVPB Q24H [facility] Rx#: [id number] Oral 240 400 118 Output: Urine 700 500 Other: Voiding Method Toilet Urinal Urinal # Voids 2 ABP, PAP, CO, CI - Last Documented Arterial Blood Pressure 116/41 Pulmonary Artery Pressure 31/11 Cardiac Output 6.3 Cardiac Index 3 - Exam No acute distress, oriented 3. Currently on 2 L. No respiratory difficulty. HEENT examination is grossly unremarkable. Neck supple. Full range of motion. No adenopathy thyromegaly or neck vein distention. Cardiovascular examination reveals regular rhythm rate. S1-S2 normal. No S3 or S4. No discernible murmur noted. Heart sounds are distant. Heart rate 94 bpm. Lungs reveal mostly clear breath sounds. Minimal scattered rhonchi. No wheezes. No crackles. Breath sounds equal bilaterally. 2 L saturation is 97 % Abdomen soft bowel sounds are heard. No masses or tenderness. Extremities are intact. No cyanosis clubbing or edema. Skin is without rash or lesion. Neurologic examination is brief but nonfocal. - Labs CBC & Chem 7: 02/27/22 03:20 02/27/22 03:20 Labs: Abnormal Lab Results - Last 24 Hours (Table) 02/26/22 02/26/22 02/26/22 Range/Units 08:49 11:56 16:34 WBC (3.8-10.6) k/uL RBC (4.30-5.90) m/uL Hgb (13.0-17.5) gm/dL Hct (39.0-53.0) % MCV (80.0-100.0) fL RDW (11.5-15.5) % Neutrophils # (1.3-7.7) k/uL Neutrophils # (Manual) 13.00 H (1.3-7.7) k/uL Monocytes # (Manual) 1.84 H (0-1.0) k/uL Metamyelocytes # (Man) 0.18 H (0) k/uL Myelocytes # (Manual) 0.18 H (0) k/uL Sodium (137-145) mmol/L BUN (9-20) mg/dL Creatinine (0.66-1.25) mg/dL POC Glucose (mg/dL) 161 H (70-110) mg/dL Calcium (8.4-10.2) mg/dL C-Reactive Protein 9.0 H (<1.0) mg/dL Total Protein (6.3-8.2) g/dL Albumin (3.5-5.0) g/dL Procalcitonin (0.02-0.09) ng/mL 02/26/22 02/26/22 02/26/22 Range/Units 16:34 17:04 20:04 WBC (3.8-10.6) k/uL RBC (4.30-5.90) m/uL Hgb (13.0-17.5) gm/dL Hct (39.0-53.0) % MCV (80.0-100.0) fL RDW (11.5-15.5) % Neutrophils # (1.3-7.7) k/uL Neutrophils # (Manual) (1.3-7.7) k/uL Monocytes # (Manual) (0-1.0) k/uL Metamyelocytes # (Man) (0) k/uL Myelocytes # (Manual) (0) k/uL Sodium (137-145) mmol/L BUN (9-20) mg/dL Creatinine (0.66-1.25) mg/dL POC Glucose (mg/dL) 206 H 115 H (70-110) mg/dL Calcium (8.4-10.2) mg/dL C-Reactive Protein (<1.0) mg/dL Total Protein (6.3-8.2) g/dL Albumin (3.5-5.0) g/dL Procalcitonin 0.37 H (0.02-0.09) ng/mL 02/27/22 02/27/22 02/27/22 Range/Units 03:20 03:20 06:04 WBC 14.4 H (3.8-10.6) k/uL RBC 2.36 L (4.30-5.90) m/uL Hgb 8.0 L (13.0-17.5) gm/dL Hct 24.5 L (39.0-53.0) % MCV 103.7 H (80.0-100.0) fL RDW 16.7 H (11.5-15.5) % Neutrophils # 10.7 H (1.3-7.7) k/uL Neutrophils # (Manual) (1.3-7.7) k/uL Monocytes # (Manual) (0-1.0) k/uL Metamyelocytes # (Man) (0) k/uL Myelocytes # (Manual) (0) k/uL Sodium 136 L (137-145) mmol/L BUN 48 H (9-20) mg/dL Creatinine 1.52 H (0.66-1.25) mg/dL POC Glucose (mg/dL) 135 H (70-110) mg/dL Calcium 7.8 L (8.4-10.2) mg/dL C-Reactive Protein (<1.0) mg/dL Total Protein 5.6 L (6.3-8.2) g/dL Albumin 3.2 L (3.5-5.0) g/dL Procalcitonin (0.02-0.09) ng/mL Microbiology - Last 24 Hours (Table) 02/25/22 15:15 Gram Stain - Preliminary Sputum Sputum Culture - Preliminary Assessment and Plan Assessment: Severe coronary artery disease with critical left main stenosis. Status post coronary artery bypass grafting 4. CARREON to the diagonal and LAD. Left radial artery to the obtuse marginal artery, saphenous vein graft to the posterior lateral artery. Postoperative day #8. Atrial fibrillation with a rapid ventricular response. Severe chronic obstructive pulmonary disease and some component of restrictive lung disease, FEV1 is in the range of 34% of the predicted. Newly diagnosed diabetes. Benign essential hypertension. History of alcohol daily use. Ex-smoker. Family history of premature coronary artery disease. Degenerative joint disease. Plan: Plan dated 02/25/2022. The patient was transferred out of the intensive care unit. He is now seen in room 355. The patient is not on any oxygen. Not receiving any IV fluids. Clinically, he looks reasonably stable. The patient's hoping to be discharged soon. Labs, x-rays, and medications are reviewed. Prognosis is guarded. We will continue to follow the patient make recommendations along the way. Plan dated 02/26/2022. The patient was placed back on oxygen because of shortness of breath and lower saturations. Chest x-ray shows some patchy atelectasis or infiltrate at the left lung base. The patient's pro-calcitonin level was 0.56. At the urging of cardiothoracic surgery, we added Zosyn, empirically. Culture data has been negative. Labs, x-rays, medications are reviewed. Prognosis is guarded. We will continue to follow make recommendations along the way. Plan dated 02/27/2022. The patient is about the same today as he was yesterday. He remains on 2 L of oxygen. Chest x-rays consistent with mild fluid overload. The right upper extremity Doppler was negative for DVT. The patient is not receiving any IV fluids. We will continue to follow make recommendations along the way. We did add Zosyn empirically. Pro-calcitonin level was 0.56. Prognosis is guarded. Time with Patient: Less than 30
[2022-02-27 11:32] LABS: Glucose,Whole Blood 206 mg/dL (70-110)
--- NOTE | 2022-02-27 11:48 | US ---
EXAMINATION TYPE: US chest DATE OF EXAM: 02/27/2022 COMPARISON: NONE CLINICAL HISTORY: Left pleural effusion with marking. TECHNIQUE: Targeted ultrasound of the posterior lower left hemithorax EXAM MEASUREMENTS: Left Pleural Effusion pocket size: 5.2 cm Left side NOT marked for possible thoracentesis outside the dept. due to anterior location of lung Pulmonologists are able to review the images in the patient?s EMR. IMPRESSIONS: As above
[2022-02-27] MEDS: MULTIVITAMINS, THERA 1 EACH TAB PO SCH (12:12)
[2022-02-27] MEDS: polyethylene glycoL 3350 17 GM POWD.PACK PO SCH (12:12)
[2022-02-27] MEDS: amLODIPine 5 MG TAB PO SCH (12:12)
--- NOTE | 2022-02-27 12:22 | P.PN ---
Subjective 02/21/2022: Patient was seen in the intensive care unit, he is postop day #3 a 4 vessel coronary bypass graft. He had undergone coronary artery bypass grafting 4. CARREON sequential to diagonal and LAD, left radial artery to the obtuse marginal artery and a saphenous vein graft to the posterior lateral artery. Left atrial appendage ligation with a thick #35 mm atrophic clip. He was having chest pains for the past several month he described as heartburn. He underwent a stress test that was POS and then a cath showing significant coronary disease He is currently resting comfortably intensive care unit. His chest tube in. He denies any chest pains, pressures, short of breath, nausea or vomiting. His is at bedside. Care was discussed with her. The nurse was present as well. New onset diabetic. A1c was 7.2. His admission hemoglobin was 14.3. Today it is 8.0. He has received 1 unit packed red blood cells. Other chemistries electrolytes are normal today. 02/22/2022 earlier in the morning patient, having frequent nonproductive coughing ,attempting to cough up mucus, desatted into the low 90s on room air,developed atrial fibrillation with RVR, heart rates greater than 150, bolused and placed on Amiodarone drip. O2 sat currently in the mid 90s on room air. Chest x-ray reported trace bilateral pleural effusions minimally increased from prior.Afebrile,WBC 13.3. Hemoglobin 8.2, platelets 158. Sodium 142. Potassium 4.1, magnesium 2.5. BUN 29. Creatinine 1.08. AST 71. ALT 62. Blood sugars controlled. 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 Maintaining O2 sats in the 90s. Chest x-ray reporting trace bilateral pleural effusions may be minimally increased from prior. Receiving another dose of Lasix IV push today as per CTS. BUN 35, creatinine 1.29 . Electrolytes stable .Afebrile,WBC 14.6, pro calcitonin pending. Blood sugars ranging from 120-170. Positive bowel movement. 02/24/2022 yesterday beta yessy increased, transitioned to oral amiodarone ,returned to A. fib with RVR, heart rate in the 130s, received additional amiodarone IV piggyback. Anticoagulated with Eliquis. Maintaining O2 sats in the 90s on room air, complains of exertional shortness of breath. Chest x-ray reporting bilateral lower lobe infiltrate and small effusion stable. Pro calcitonin 0.56 .hemoglobin 8.2, platelets 239 ,electrolytes within normal limits, BUN 41, creatinine 1.37. Afebrile, WBC 14. Incentive spirometer up to 1200. Blood sugars controlled. 02/25/2022 transferred out of ICU,currently on stepdown unit. Continues to fluctuate in and out of atrial fibrillation with RVR. Reports he was only able to ambulate to his doorway earlier today, developed significant exertional dyspnea, lightheadedness, weakness -felt like his legs were going to buckle. RN quickly obtained a chair for patient to sit down at the door-hypotensive with reported blood pressure down into the 90s. After sitting for a few minutes, ambulated back to recliner, with repeat blood pressure of 71/48. Within a few minutes patient's blood pressure continued to improve,100/66.telemetry reported he had converted to normal sinus rhythm. Complains of constipation, no bowel movement for 2-3 days. Maintaining O2 sats in the 90s on room air. Denies chest pain, palpitations or increasing shortness of breath. 02/26/2022: Patient was seen in the stepdown unit. He is status post 4 vessel coronary bypass graft. He is postop day how date. He currently has paroxysmal Atrial fibrillation with RVR. She feels short of breath and fatigue. He was able to ambulate quite a bit better yesterday and today. Currently still uncomfortable and short of breath. Staff report that there is some drainage from the harvest site are his right popliteal fossa. Dr. Joe and nurse practitioner Jay De Santiago are here now for further evaluation of him. Most recent heart rate was 108, pulse oximetry is 90% on 2 L O2 via nasal cannula. Blood pressure control. 's for today show a worsening WBC count 18,400, up from 15,600 yesterday. Hemoglobin is remained stable and actually improved, now 8.8. Chemistry show a similar GFR now 45. The sputum cultures pending. Chest x-ray today shows left basilar pleural parenchymal opacities that may reflect atelectasis. Medication list was reviewed today. He is been started on Zosyn antibiotic coverage. 02/27/2022: Patient this point feels slightly improved. He is having less shortness of breath and he did earlier today. He has had less paroxysmal atrial fibrillation. He is still not ambulating very well. He has Silvadene cream and a little dressing to the right popliteal fossa harvest site. There is concerns about his right antecubital fossa is a became redder yesterday and looked more cellulitic. Ultrasound of this area showed superficial thrombosis but no DVT. Vital signs remained stable. Weight is down from 100 KG's to 95.8 KG. Leukocytosis is now improved from 18 4-14 4. Chemistries show a ongoing wors ening kidney function with a GFR now 44. Glucoses remained stable. Sputum culture shows multiple bacteria including gram-positive cocci gram-negative bacilli and gram-positive bacilli along with rare PMNs. Chest ultrasound shows left pleural effusion pocket. Infectious diseases seen the patient and switched him from Zosyn to vancomycin and cefepime. He had an abnormal CRP and pro calcitonin. He remains on other medications as reviewed Objective - Vital Signs Vital signs: Vital Signs Temp 97.6 F 02/27/22 08:00 Pulse 94 02/27/22 08:47 Resp 24 02/27/22 08:00 BP 142/63 02/27/22 08:00 Pulse Ox 95 02/27/22 08:34 FiO2 45 02/18/22 20:00 Intake & Output 02/26/22 02/27/22 02/27/22 18:59 06:59 18:59 Intake Total 240 1000 118 Output Total 700 500 Balance 240 300 -382 Weight 96.4 kg 95.8 kg Intake: Intake, IV Titration 600 Amount Cefepime 2 gm In Sodium 100 Chloride 0.9% 100 ml @ 25 mls/hr IVPB Q12HR [facility] Rx #:[id number] Vancomycin 1,500 mg In 500 Sodium Chloride 0.9% 500 ml 500 ml @ 167 mls/hr IVPB Q24H [facility] Rx#: [id number] Oral 240 400 118 Output: Urine 700 500 Other: Voiding Method Toilet Urinal Urinal Urinal # Voids 2 ABP, PAP, CO, CI - Last Documented Arterial Blood Pressure 116/41 Pulmonary Artery Pressure 31/11 Cardiac Output 6.3 Cardiac Index 3 - Exam General: The patient is awake and alert, in minimal finding distress, he has chest binder in place. He is breathing easier than he was yesterday. Neck: The neck is supple, there is no thyromegaly, lymphadenopathy, tenderness or JVD. Cardiovascular: S1S2 is normal, There is tachycardic rate and irregular rhythm consistent with atrial fibrillation approximately 120 bpm No murmur, rub or gallop is appreciated. Respiratory: Lungs are slightly coarse to auscultation bilaterally, respirations are non-labored, breath sounds are minimally more diminished on the left side t There is minimal basilar rales, Gastrointestinal: Soft, non-distended, non-tender abdomen without masses or organomegaly noted. There is no rebound or guarding present. Bowel sounds are unremarkable. Musculoskeletal: Normal ROM, no tenderness, There is +2 pedal edema. Compression hose are in place. There is no calf tenderness or swelling. No cor ds were appreciated. Neurological: CN II-XII intact, there are no obvious motor or sensory deficits. Coordination appears grossly intact. Speech is normal. Skin: Skin is warm and dry, vein harvesting site from the right popliteal fossa area is open with minimal discharge, there is fading erythema at the right antecubital fossa there is a demarcated area that appears smaller. - Labs CBC & Chem 7: 02/27/22 03:20 02/27/22 03:20 Labs: Abnormal Lab Results - Last 24 Hours (Table) 02/26/22 02/26/22 02/26/22 Range/Units 08:49 16:34 16:34 WBC (3.8-10.6) k/uL RBC (4.30-5.90) m/uL Hgb (13.0-17.5) gm/dL Hct (39.0-53.0) % MCV (80.0-100.0) fL RDW (11.5-15.5) % Neutrophils # (1.3-7.7) k/uL Neutrophils # (Manual) 13.00 H (1.3-7.7) k/uL Monocytes # (Manual) 1.84 H (0-1.0) k/uL Metamyelocytes # (Man) 0.18 H (0) k/uL Myelocytes # (Manual) 0.18 H (0) k/uL Sodium (137-145) mmol/L BUN (9-20) mg/dL Creatinine (0.66-1.25) mg/dL POC Glucose (mg/dL) (70-110) mg/dL Calcium (8.4-10.2) mg/dL C-Reactive Protein 9.0 H (<1.0) mg/dL Total Protein (6.3-8.2) g/dL Albumin (3.5-5.0) g/dL Procalcitonin 0.37 H (0.02-0.09) ng/mL 02/26/22 02/26/22 02/27/22 Range/Units 17:04 20:04 03:20 WBC 14.4 H (3.8-10.6) k/uL RBC 2.36 L (4.30-5.90) m/uL Hgb 8.0 L (13.0-17.5) gm/dL Hct 24.5 L (39.0-53.0) % MCV 103.7 H (80.0-100.0) fL RDW 16.7 H (11.5-15.5) % Neutrophils # 10.7 H (1.3-7.7) k/uL Neutrophils # (Manual) (1.3-7.7) k/uL Monocytes # (Manual) (0-1.0) k/uL Metamyelocytes # (Man) (0) k/uL Myelocytes # (Manual) (0) k/uL Sodium (137-145) mmol/L BUN (9-20) mg/dL Creatinine (0.66-1.25) mg/dL POC Glucose (mg/dL) 206 H 115 H (70-110) mg/dL Calcium (8.4-10.2) mg/dL C-Reactive Protein (<1.0) mg/dL Total Protein (6.3-8.2) g/dL Albumin (3.5-5.0) g/dL Procalcitonin (0.02-0.09) ng/mL 02/27/22 02/27/22 02/27/22 Range/Units 03:20 06:04 11:30 WBC (3.8-10.6) k/uL RBC (4.30-5.90) m/uL Hgb (13.0-17.5) gm/dL Hct (39.0-53.0) % MCV (80.0-100.0) fL RDW (11.5-15.5) % Neutrophils # (1.3-7.7) k/uL Neutrophils # (Manual) (1.3-7.7) k/uL Monocytes # (Manual) (0-1.0) k/uL Metamyelocytes # (Man) (0) k/uL Myelocytes # (Manual) (0) k/uL Sodium 136 L (137-145) mmol/L BUN 48 H (9-20) mg/dL Creatinine 1.52 H (0.66-1.25) mg/dL POC Glucose (mg/dL) 135 H 206 H (70-110) mg/dL Calcium 7.8 L (8.4-10.2) mg/dL C-Reactive Protein (<1.0) mg/dL Total Protein 5.6 L (6.3-8.2) g/dL Albumin 3.2 L (3.5-5.0) g/dL Procalcitonin (0.02-0.09) ng/mL Microbiology - Last 24 Hours (Table) 02/25/22 15:15 Gram Stain - Preliminary Sputum Sputum Culture - Preliminary Assessment and Plan (1) S/P CABG x 4 Current Visit: Yes Status: Acute Code(s): Z95.1 - PRESENCE OF AORTOCORONARY BYPASS GRAFT SNOMED Code(s): 136690148 (2) Type 2 diabetes mellitus with hyperglycemia Current Visit: Yes Status: Acute Code(s): E11.65 - TYPE 2 DIABETES MELLITUS WITH HYPERGLYCEMIA SNOMED Code(s): 855983225503340 (3) Essential (primary) hypertension Current Visit: Yes Status: Acute Code(s): I10 - ESSENTIAL (PRIMARY) HYPERTENSION SNOMED Code(s): 32650099 (4) Mixed hyperlipidemia Current Visit: Yes Status: Acute Code(s): E78.2 - MIXED HYPERLIPIDEMIA SNOMED Code(s): 082734823 (5) ACS (acute coronary syndrome) Current Visit: Yes Status: Acute Code(s): I24.9 - ACUTE ISCHEMIC HEART DISEASE, UNSPECIFIED SNOMED Code(s): 437724191 (6) Blood loss anemia Current Visit: Yes Status: Acute Code(s): D50.0 - IRON DEFICIENCY ANEMIA SECONDARY TO BLOOD LOSS (CHRONIC) SNOMED Code(s): 820026600 (7) Atherosclerotic heart disease Current Visit: Yes Status: Acute Code(s): I25.10 - ATHSCL HEART DISEASE OF [place] CORONARY ARTERY W/O ANG PCTRS SNOMED Code(s): 501951371 (8) COPD (chronic obstructive pulmonary disease) Current Visit: Yes Status: Acute Code(s): J44.9 - CHRONIC OBSTRUCTIVE PULMONARY DISEASE, UNSPECIFIED SNOMED Code(s): 22014191 (9) Pleural effusion Current Visit: Yes Status: Acute Code(s): J90 - PLEURAL EFFUSION, NOT E LSEWHERE CLASSIFIED SNOMED Code(s): 44776959 (10) Leukocytosis Current Visit: Yes Status: Acute Code(s): D72.829 - ELEVATED WHITE BLOOD CELL COUNT, UNSPECIFIED SNOMED Code(s): 005420422 (11) Cellulitis of right forearm Current Visit: Yes Status: Acute Code(s): L03.113 - CELLULITIS OF RIGHT UPPER LIMB SNOMED Code(s): 22681907 Plan: He'll continue his current medications treatments. Defer management of his atrial fibrillation to cardiology. Cardiothoracic surgery is evaluating him at this time I'll wait further recommendations from them as well. He now has pleural effusion on the left side . Repeat labs in a.m. and closely monitor his hemoglobin and his kidney functions. His kidney function continues to slowly decrease, I will ask nephrology to see him as well. Further recommendations from infectious disease regarding his leukocytosis, cellulitis to the right antecubital fossa, drainage from the right popliteal fossae harvest site, We will reevaluate in next 24 hours.
--- NOTE | 2022-02-27 15:44 | P.PN ---
Subjective Progress Note Date: 02/27/22 Principal diagnosis: Leukocytosis Patient is a 76-year-old male electively admitted to the hospital on 02/16/2022 in this patient for status post coronary bypass grafting x4 and left atrial appendage ligation patient has been in the hospital recovering from his surgery, patient was noticed to have elevated white count from previous infectious disease consultation he did have a right upper extremity superficial thrombophlebitis from an IV site and did have a some cellulitis to right thigh area and question of pneumonia. On today's evaluation that is 02/27/2022, the patient is afebrile patient is currently breathing comfortably on a 5 L nasal cannula, the patient denies having any chest pain no worsening cough or sputum production no abdominal pain pain and discomfort with right upper extremity has decreased in intensity and no diarrhea Objective - Vital Signs Vital signs: Vital Signs Temp 97.6 F 02/27/22 08:00 Pulse 94 02/27/22 08:47 Resp 24 02/27/22 08:00 BP 142/63 02/27/22 08:00 Pulse Ox 95 02/27/22 08:34 FiO2 45 02/18/22 20:00 Intake & Output 02/26/22 02/27/22 02/27/22 18:59 06:59 18:59 Intake Total 240 1000 236 Output Total 700 500 Balance 240 300 -264 Weight 96.4 kg 95.8 kg Intake: Intake, IV Titration 600 Amount Cefepime 2 gm In Sodium 100 Chloride 0.9% 100 ml @ 25 mls/hr IVPB Q12HR [facility] Rx #:[id number] Vancomycin 1,500 mg In 500 Sodium Chloride 0.9% 500 ml 500 ml @ 167 mls/hr IVPB Q24H [facility] Rx#: [id number] Oral 240 400 236 Output: Urine 700 500 Other: Voiding Method Toilet Urinal Urinal Urinal # Voids 2 ABP, PAP, CO, CI - Last Documented Arterial Blood Pressure 116/41 Pulmonary Artery Pressure 31/11 Cardiac Output 6.3 Cardiac Index 3 - Exam GENERAL DESCRIPTION: An elderly male lying in bed in no distress RESPIRATORY SYSTEM: Unlabored breathing , decreased breath sounds at bases HEART: S1 S2 regular rate and rhythm , ABDOMEN: Soft , no tenderness EXTREMITIES: Right forearm swelling has slightly decreased right thigh swelling has slightly decreased - Labs CBC & Chem 7: 02/27/22 03:20 02/27/22 03:20 Labs: Abnormal Lab Results - Last 24 Hours (Table) 02/26/22 02/26/22 02/26/22 Range/Units 16:34 16:34 17:04 WBC (3.8-10.6) k/uL RBC (4.30-5.90) m/uL Hgb (13.0-17.5) gm/dL Hct (39.0-53.0) % MCV (80.0-100.0) fL RDW (11.5-15.5) % Neutrophils # (1.3-7.7) k/uL Sodium (137-145) mmol/L BUN (9-20) mg/dL Creatinine (0.66-1.25) mg/dL POC Glucose (mg/dL) 206 H (70-110) mg/dL Calcium (8.4-10.2) mg/dL C-Reactive Protein 9.0 H (<1.0) mg/dL Total Protein (6.3-8.2) g/dL Albumin (3.5-5.0) g/dL Procalcitonin 0.37 H (0.02-0.09) ng/mL 02/26/22 02/27/22 02/27/22 Range/Units 20:04 03:20 03:20 WBC 14.4 H (3.8-10.6) k/uL RBC 2.36 L (4.30-5.90) m/uL Hgb 8.0 L (13.0-17.5) gm/dL Hct 24.5 L (39.0-53.0) % MCV 103.7 H (80.0-100.0) fL RDW 16.7 H (11.5-15.5) % Neutrophils # 10.7 H (1.3-7.7) k/uL Sodium 136 L (137-145) mmol/L BUN 48 H (9-20) mg/dL Creatinine 1.52 H (0.66-1.25) mg/dL POC Glucose (mg/dL) 115 H (70-110) mg/dL Calcium 7.8 L (8.4-10.2) mg/dL C-Reactive Protein (<1.0) mg/dL Total Protein 5.6 L (6.3-8.2) g/dL Albumin 3.2 L (3.5-5.0) g/dL Procalcitonin (0.02-0.09) ng/mL 02/27/22 02/27/22 Range/Units 06:04 11:30 WBC (3.8-10.6) k/uL RBC (4.30-5.90) m/uL Hgb (13.0-17.5) gm/dL Hct (39.0-53.0) % MCV (80.0-100.0) fL RDW (11.5-15.5) % Neutrophils # (1.3-7.7) k/uL Sodium (137-145) mmol/L BUN (9-20) mg/dL Creatinine (0.66-1.25) mg/dL POC Glucose (mg/dL) 135 H 206 H (70-110) mg/dL Calcium (8.4-10.2) mg/dL C-Reactive Protein (<1.0) mg/dL Total Protein (6.3-8.2) g/dL Albumin (3.5-5.0) g/dL Procalcitonin (0.02-0.09) ng/mL Microbiology - Last 24 Hours (Table) 02/25/22 15:15 Gram Stain - Preliminary Sputum Sputum Culture - Preliminary Assessment and Plan (1) Leukocytosis Current Visit: Yes Status: Acute Code(s): D72.829 - ELEVATED WHITE BLOOD CELL COUNT, UNSPECIFIED SNOMED Code(s): 496560773 Plan: 1patient with elevated white count which is likely multifactorial with the possibility of right forearm thrombophlebitis/cellulitis at the site of his previous IV spinal cellulitis of the right thigh from his previous vein grafting site, pneumonia less likely but not entirely excluded and will need to cover for the resistant gram-positive as well as gram-negative in this patient symptom started while in the hospital for more than 10 days. 2 blood cultures are currently pending 3 Dopplers of the right upper extremity did show evidence of superficial thrombophlebitis. 4patient white count is trending down and we will continue the patient on vancomycin pharmacy to dose and cefepime while waiting for the culture to finalize Time with Patient: Less than 30
[2022-02-27 16:38] LABS: Glucose,Whole Blood 155 mg/dL (70-110)
[2022-02-27] MEDS: VANCOMYCIN 1,500 MG in SODIUM CHLORIDE 0.9% 500 ML 500 ML IVPB SCH (17:39)
[2022-02-27] MEDS: DAPAGLIFLOZIN PROPANEDIOL 5 MG TABLET PO SCH (17:39)
[2022-02-27 20:32] LABS: Glucose,Whole Blood 142 mg/dL (70-110)
[2022-02-27] MEDS: ACETAMINOPHEN TAB 500 MG TAB PO PRN (20:49)
[2022-02-28 06:08] LABS: Glucose,Whole Blood 136 mg/dL (70-110)
[2022-02-28] MEDS: INSULIN DETEMIR (LEVEMIR) 100 UNIT/ML SYR SQ SCH (06:10)
[2022-02-28] MEDS: PANTOPRAZOLE 40 MG TABLET PO SCH (06:11)
[2022-02-28] MEDS: FERROUS SULFATE 325 MG TAB PO SCH ×2 (06:11→16:00)
[2022-02-28] MEDS: ASCORBIC ACID 500 MG TAB PO SCH ×2 (06:11→16:00)
[2022-02-28] MEDS: INSULIN ASPART (NovoLOG) 100 UNIT/ML VIAL SQ SCH ×4 (06:11→21:28)
[2022-02-28 07:59] LABS: Anisocytosis Slight; Basophils # (A) 0.1 k/uL (0-0.2); Basophils % (A) 0 %; Eosinophils # (A) 0.5 k/uL (0-0.7); Eosinophils % (A) 3 %; HCT 27.5 % (39.0-53.0); HGB 8.5 gm/dL (13.0-17.5); Hypochromasia Marked; Lymphocytes # (A) 1.9 k/uL (1.0-4.8); Lymphocytes % (A) 14 %; MCH 33.1 pg (25.0-35.0); MCHC 31.1 g/dL (31.0-37.0); MCV 106.6 fL (80.0-100.0); Macrocytosis Moderate; Mean Platelet Volume 8.4; Monocytes # (A) 0.9 k/uL (0-1.0); Monocytes % (A) 7 %; Neutrophils # (A) 10.2 k/uL (1.3-7.7); Neutrophils % (A) 74 %; Platelet Count 436 k/uL (150-450); Poikilocytosis Slight; RBC 2.58 m/uL (4.30-5.90); RDW 16.7 % (11.5-15.5); WBC 13.8 k/uL (3.8-10.6)
--- NOTE | 2022-02-28 08:00 | XR ---
EXAMINATION TYPE: XR chest 2V DATE OF EXAM: 02/28/2022 6:28 AM COMPARISON: Chest radiograph from one day prior. TECHNIQUE: XR chest 2V Frontal and lateral views of the chest. CLINICAL INDICATION:Male, 76 years old with history of Postoperative cardiac surgery; FINDINGS: Lungs/Pleura: There is no evidence of pleural effusion, focal consolidation, or pneumothorax. Pulmonary vascularity: Mild pulmonary vascular congestion which is similar prior. Heart/mediastinum: Cardiomediastinal silhouette is enlarged and stable. Left atrial appendage occlusi on device is present. Musculoskeletal: No acute osseous pathology. IMPRESSION: Stable pulmonary vascular congestion with cardiomegaly.
[2022-02-28 08:12] LABS: Magnesium 2.5 mg/dL (1.6-2.3); Potassium 4.1 mmol/L (3.5-5.1)
[2022-02-28] MEDS ORDERED: FUROSEMIDE 10 MG/ML 4 ML VIAL IV STA (08:36)
[2022-02-28] MEDS ORDERED: POTASSIUM CHLORIDE ER 10 MEQ TAB.ER.PRT PO STA (08:36)
[2022-02-28] MEDS: ATORVASTATIN 40 MG TAB PO SCH (08:41)
[2022-02-28] MEDS: ASPIRIN 81 MG PO SCH (08:41)
[2022-02-28] MEDS: AMIODARONE 200 MG TAB PO SCH ×2 (08:42→21:26)
[2022-02-28] MEDS: CEFEPIME 2 GM in SODIUM CHLORIDE 0.9% 100 ML IVPB SCH ×2 (08:42→21:27)
[2022-02-28] MEDS: SENNOSIDES-DOCUSATE SODIUM 1 EACH TAB PO SCH ×2 (08:42→21:25)
[2022-02-28] MEDS: DOCUSATE 100 MG CAP PO SCH ×2 (08:42→21:25)
[2022-02-28] MEDS: polyethylene glycoL 3350 17 GM POWD.PACK PO SCH (08:42)
[2022-02-28] MEDS: THIAMINE 100 MG TAB PO SCH (08:42)
[2022-02-28] MEDS: FOLIC ACID 1 MG TAB PO SCH (08:42)
[2022-02-28] MEDS: METOPROLOL TARTRATE 50 MG TAB PO SCH ×3 (08:42→21:26)
[2022-02-28] MEDS: ACETYLCYSTEINE 800 MG/4 ML VIAL INHALATION SCH (09:03)
[2022-02-28] MEDS: SYMBICORT 160-4.5 MCG INHALER INHALATION SCH ×2 (09:03→22:04)
[2022-02-28] MEDS: IPRATROPIUM-ALBUTEROL 3 ML NEB INHALATION SCH ×5 (09:04→22:04)
[2022-02-28] MEDS: guaiFENesin-DM 600/30MG 1 EACH TAB.ER.12H PO SCH ×2 (10:24→21:28)
--- NOTE | 2022-02-28 10:25 | P.PN ---
Subjective Progress Note Date: 02/28/22 PROGRESS NOTE The patient is a 76-year-old male who had evidence of severe CAD, underwent CABG on February 16 as with CARREON sequential to the diagonal and LAD, radial to the OM and SVG to the posterolateral branch. He's feeling better today, has mild dyspnea and no chest pain. He is ambulating. He denies any dizziness or palpitations. He has no nausea. He continues to be in sinus mechanism. He received intravenous diuretics. He had redness in the right upper extremity was evidence of cellulitis and has been on antibiotics. He is using his incentive spirometry. Medications: Amiodarone 200 mg twice a day, amlodipine 5 mg daily, aspirin once a day, Lipitor 40 mg daily, insulin, metoprolol 50 mg 3 times a day PHYSICAL EXAMINATION: Blood pressure 140/60 heart rate 70 LUNGS: Few crackles at the base HEART: Regular rate and rhythm, S1, S2. No S3. systolic ejection murmur ABDOMEN: Soft, nontender, no organomegaly EXTREMETIES: [Trace to 1+, redness on the right upper extremity LAB: Hemoglobin 8.5, BUN 41, creatinine 1.45. Potassium 4.1. IMPRESSION: 1. Status post CABG 2. History of hypertension 3. Hyperlipidemia 4. Cellulitis 5. Acute renal injury, stabilizing PLAN: 1. Continue present therapy 2. Diuretics as needed 3. Antibiotics for infectious disease 4. Increase physical activity 5. Depending on his progress hopefully home soon. Objective - Vital Signs Vital signs: Vital Signs Temp 97.4 F L 02/28/22 08:30 Pulse 72 02/28/22 09:15 Resp 18 02/28/22 08:30 BP 140/64 02/28/22 08:30 Pulse Ox 96 02/28/22 09:05 FiO2 45 02/18/22 20:00 Intake & Output 02/27/22 02/28/22 02/28/22 18:59 06:59 18:59 Intake Total 354 500 118 Output Total 1300 900 Balance -946 -400 118 Weight 97.6 kg Intake: Intake, IV Titration 100 Amount Cefepime 2 gm In Sodium 100 Chloride 0.9% 100 ml @ 25 mls/hr IVPB Q12HR [facility] Rx #:[id number] Oral 354 400 118 Output: Urine 1300 900 Other: Voiding Method Urinal Urinal Urinal # Voids 2 # Bowel Movements 1 ABP, PAP, CO, CI - Last Documented Arterial Blood Pressure 116/41 Pulmonary Artery Pressure / Cardiac Output 6.3 Cardiac Index 3 - Labs CBC & Chem 7: 02/28/22 06:56 02/28/22 06:56 Labs: Abnormal Lab Results - Last 24 Hours (Table) 02/27/22 02/27/22 02/27/22 Range/Units 11:30 16:32 20:31 WBC (3.8-10.6) k/uL RBC (4.30-5.90) m/uL Hgb (13.0-17.5) gm/dL Hct (39.0-53.0) % MCV (80.0-100.0) fL RDW (11.5-15.5) % Neutrophils # (1.3-7.7) k/uL BUN (9-20) mg/dL Creatinine (0.66-1.25) mg/dL Glucose (74-99) mg/dL POC Glucose (mg/dL) 206 H 155 H 142 H (70-110) mg/dL Calcium (8.4-10.2) mg/dL Magnesium (1.6-2.3) mg/dL 02/28/22 02/28/22 02/28/22 Range/Units 06:03 06:56 06:56 WBC 13.8 H (3.8-10.6) k/uL RBC 2.58 L (4.30-5.90) m/uL Hgb 8.5 L (13.0-17.5) gm/dL Hct 27.5 L (39.0-53.0) % MCV 106.6 H (80.0-100.0) fL RDW 16.7 H (11.5-15.5) % Neutrophils # 10.2 H (1.3-7.7) k/uL BUN 41 H (9-20) mg/dL Creatinine 1.45 H (0.66-1.25) mg/dL Glucose 102 H (74-99) mg/dL POC Glucose (mg/dL) 136 H (70-110) mg/dL Calcium 8.0 L (8.4-10.2) mg/dL Magnesium 2.5 H (1.6-2.3) mg/dL Microbiology - Last 24 Hours (Table) 02/25/22 15:15 Gram Stain - Final Sputum Sputum Culture - Final 02/26/22 16:39 Blood Culture - Preliminary Blood No Growth after 24 hours
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
[2022-02-28] MEDS: APIXABAN 5 MG TAB PO SCH ×2 (11:13→21:25)
[2022-02-28] MEDS: amLODIPine 5 MG TAB PO SCH (11:13)
[2022-02-28] MEDS: MULTIVITAMINS, THERA 1 EACH TAB PO SCH (11:13)
[2022-02-28 11:33] LABS: Glucose,Whole Blood 208 mg/dL (70-110)
[2022-02-28] MEDS ORDERED: AMIODARONE 200 MG TAB PO STA (15:28)
--- NOTE | 2022-02-28 15:39 | P.PN ---
Subjective Progress Note Date: 02/28/22 02/21/2022: Patient was seen in the intensive care unit, he is postop day #3 a 4 vessel coronary bypass graft. He had undergone coronary artery bypass grafting 4. CARREON sequential to diagonal and LAD, left radial artery to the obtuse marginal artery and a saphenous vein graft to the posterior lateral artery. Left atrial appendage ligation with a thick #35 mm atrophic clip. He was having chest pains for the past several month he described as heartburn. He underwent a stress test that was POS and then a cath showing significant coronary disease He is currently resting comfortably intensive care unit. His chest tube in. He denies any chest pains, pressures, short of breath, nausea or vomiting. His is at bedside. Care was discussed with her. The nurse was present as well. New onset diabetic. A1c was 7.2. His admission hemoglobin was 14.3. Today it is 8.0. He has received 1 unit packed red blood cells. Other chemistries electrolytes are normal today. 02/22/2022 earlier in the morning patient, having frequent nonproductive coughing ,attempting to cough up mucus, desatted into the low 90s on room air,developed atrial fibrillation with RVR, heart rates greater than 150, charan used and placed on Amiodarone drip. O2 sat currently in the mid 90s on room air. Chest x-ray reported trace bilateral pleural effusions minimally increased from prior.Afebrile,WBC 13.3. Hemoglobin 8.2, platelets 158. Sodium 142. Potassium 4.1, magnesium 2.5. BUN 29. Creatinine 1.08. AST 71. ALT 62. Blood sugars controlled. 02/23/2022 converted in the transportation maintenance operator hours to sinus rhythm, transitioned to oral amiodarone. Maintaining O2 sats in the 90s. Chest x-ray reporting trace bilateral pleural effusions may be minimally increased from prior. Receiving another dose of Lasix IV push today as per CTS. BUN 35, creatinine 1.29 . Electrolytes stable .Afebrile,WBC 14.6, pro calcitonin pending. Blood sugars ranging from 120-170. Positive bowel movement. 02/24/2022 yesterday beta yessy increased, transitioned to oral amiodarone ,returned to A. fib with RVR, heart rate in the 130s, received additional amiodarone IV piggyback. Anticoagulated with Eliquis. Maintaining O2 sats in the 90s on room air, complains of exertional shortness of breath. Chest x-ray reporting bilateral lower lobe infiltrate and small effusion stable. Pro calcitonin 0.56 .hemoglobin 8.2, platelets 239 ,electrolytes within normal limits, BUN 41, creatinine 1.37. Afebrile, WBC 14. Incentive spirometer up to 1200. Blood sugars controlled. 02/25/2022 transferred out of ICU,currently on stepdown unit. Continues to fluctuate in and out of atrial fibrillation with RVR. Reports he was only able to ambulate to his doorway earlier today, developed significant exertional dyspnea, lightheadedness, weakness -felt like his legs were going to buckle. RN quickly obtained a chair for patient to sit down at the door-hypotensive with reported blood pressure down into the 90s. After sitting for a few minutes, ambulated back to recliner, with repeat blood pressure of 71/48. Within a few minutes patient's blood pressure continued to improve,100/66.telemetry reported he had converted to normal sinus rhythm. Complains of constipation, no bowel movement for 2-3 days. Maintaining O2 sats in the 90s on room air. Denies chest pain, palpitations or increasing shortness of breath 02/28/2022. Maintained on cefepime, vancomycin as per ID. afebrile , WBC trending down, 13.8.Reports shortness of breath improving-but does report exertional shortness of breath. Incentive spirometer up to 1200. Chest x-ray reporting stable pulmonary vascular congestion. Maintaining O2 sats in the high 90s on 2 L nasal cannula. Denies lightheadedness dizziness or focal deficits. Telemetry sinus. Tolerating diet intake (50-100%) with no nausea vomiting or diarrhea. BUN 41, creatinine 1.45. Objective - Vital Signs Vital signs: Vital Signs Temp 97.6 F 02/28/22 11:15 Pulse 74 02/28/22 11:15 Resp 18 02/28/22 11:15 BP 146/64 02/28/22 11:15 Pulse Ox 93 L 02/28/22 11:15 FiO2 45 02/18/22 20:00 Intake & Output 12/11/22 12/12/22 12/12/22 18:59 06:59 18:59 Intake Total 354 500 118 Output Total 1300 900 450 Balance -944 -400 -665 Weight 97.6 kg Intake: Intake, IV Titration 100 Amount Cefepime 2 gm In Sodium 100 Chloride 0.9% 100 ml @ 25 mls/hr IVPB Q12HR [facility] Rx #:[id number] Oral 354 400 118 Output: Urine 1300 900 450 Other: Voiding Method Urinal Urinal Urinal # Voids 2 # Bowel Movements 1 ABP, PAP, CO, CI - Last Documented Arterial Blood Pressure 116/41 Pulmonary Artery Pressure 31/11 Cardiac Output 6.3 Cardiac Index 3 - Exam - Exam General: Alert and oriented 3 ,Sitting up in chair,NAD Neck: supple, no JVD. Cardiovascular: S1S2 is normal, regular, No murmur, rub or gallop is appreciated. Wearing Heart hugger. Positive edema. Respiratory: Unlabored, Bilateral air entry, decreased fine bibasilar crackles Gastrointestinal: Soft, non-distended, non-tender abdomen,No rebound or guarding present. +Bowel sounds Neurological: CN II-XII grossly intact, no focal deficits Skin: Skin is warm and dry, right forearm and right thigh edema decreased. - Labs CBC & Chem 7: 02/28/22 06:56 02/28/22 06:56 Labs: Abnormal Lab Results - Last 24 Hours (Table) 02/27/22 02/27/22 02/28/22 Range/Units 16:32 20:31 06:03 WBC (3.8-10.6) k/uL RBC (4.30-5.90) m/uL Hgb (13.0-17.5) gm/dL Hct (39.0-53.0) % MCV (80.0-100.0) fL RDW (11.5-15.5) % Neutrophils # (1.3-7.7) k/uL BUN (9-20) mg/dL Creatinine (0.66-1.25) mg/dL Glucose (74-99) mg/dL POC Glucose (mg/dL) 155 H 142 H 136 H (70-110) mg/dL Calcium (8.4-10.2) mg/dL Magnesium (1.6-2.3) mg/dL 12/12/22 12/12/22 12/12/22 Range/Units 06:56 06:56 11:31 WBC 13.8 H (3.8-10.6) k/uL RBC 2.58 L (4.30-5.90) m/uL Hgb 8.5 L (13.0-17.5) gm/dL Hct 27.5 L (39.0-53.0) % MCV 106.6 H (80.0-100.0) fL RDW 16.7 H (11.5-15.5) % Neutrophils # 10.2 H (1.3-7.7) k/uL BUN 41 H (9-20) mg/dL Creatinine 1.45 H (0.66-1.25) mg/dL Glucose 102 H (74-99) mg/dL POC Glucose (mg/dL) 208 H (70-110) mg/dL Calcium 8.0 L (8.4-10.2) mg/dL Magnesium 2.5 H (1.6-2.3) mg/dL Microbiology - Last 24 Hours (Table) 02/25/22 15:15 Gram Stain - Final Sputum Sputum Culture - Final 02/26/22 16:39 Blood Culture - Preliminary Blood No Growth after 24 hours Assessment and Plan Assessment: Status post CABG in a patient with CAD with critical left main disease, in a patient with family history of CAD, father had [facility] at age 55 New-onset Paroxysmal A. fib with RVR, status post amiodarone drip. Leukocytosis improving Right upper extremity superficial thrombophlebitis reported per Doppler,ce llulitis COPD Daily alcohol abuse, reports 3-4 shots daily Diabetes mellitus, newly diagnosed, A1c 7.2 History of nicotine dependence, quit smoking over 40 years ago History of Spinal stenosis, degenerative joint disease Hypertension Hyperlipidemia Osteoarthritis Obesity, BMI 30.9 Plan: Continue on current medication regime ,monitoring and symptomatic treatment. Continue aggressive pulmonary toileting with nebulized bronchodilators, incentive spirometer reinforced. PT/OT.Evaluation by [facility] inpatient rehab.continues/discharge planning in progress for tomorrow as per cardiothoracic surgery. The impression and plan of care has been dictated as directed. : I performed a history and examination of this patient, discussed the same with the dictator. I agree with the dictator's note ,documented as a scribe. Any additional findings or plans will be noted.
[2022-02-28] MEDS: VANCOMYCIN 1,500 MG in SODIUM CHLORIDE 0.9% 500 ML 500 ML IVPB SCH (16:00)
[2022-02-28] MEDS: DAPAGLIFLOZIN PROPANEDIOL 5 MG TABLET PO SCH (16:00)
[2022-02-28 16:28] LABS: Glucose,Whole Blood 138 mg/dL (70-110)
--- NOTE | 2022-02-28 17:08 | P.PN ---
Progress Note - Text Asked to review patient. PT now reports mininmal assist for bed mobility and supervision for transfers and gait total 147 ft, hand held assist. OT reports independenet for feed, suprevisison for groom and upper dress, min to mod asist for lower dress and min montse t for bathiong. Most insurances require PT and OT needs. Will have to see if this is enough for IPR admision criteria. I will have IPR get back to you after this inquiry.
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
[2022-02-28 20:16] LABS: Glucose,Whole Blood 209 mg/dL (70-110)
[2022-02-28] MEDS: ACETAMINOPHEN TAB 500 MG TAB PO PRN (21:24)
[2022-03-01 06:06] LABS: Glucose,Whole Blood 115 mg/dL (70-110)
[2022-03-01] MEDS: FERROUS SULFATE 325 MG TAB PO SCH (06:27)
[2022-03-01] MEDS: INSULIN ASPART (NovoLOG) 100 UNIT/ML VIAL SQ SCH ×2 (06:27→11:45)
[2022-03-01] MEDS: INSULIN DETEMIR (LEVEMIR) 100 UNIT/ML SYR SQ SCH (06:27)
[2022-03-01] MEDS: ASCORBIC ACID 500 MG TAB PO SCH (06:27)
[2022-03-01] MEDS: PANTOPRAZOLE 40 MG TABLET PO SCH (06:27)
--- NOTE | 2022-03-01 08:36 | XR ---
EXAMINATION TYPE: XR chest 1V portable DATE OF EXAM: 03/01/2022 COMPARISON: 02/28/2022 HISTORY: Post CABG TECHNIQUE: Single frontal view of the chest is obtained. FINDINGS: Postoperative changes are seen with bilateral infiltrate and pleural effusion. Hypertrophi c and degenerative changes spine. Arthropathy of the shoulders. No pneumothorax. Hyperinflation sugge sts COPD. IMPRESSION: Bilateral infiltrate and pleural effusion stable.
[2022-03-01] MEDS: APIXABAN 5 MG TAB PO SCH (08:51)
[2022-03-01] MEDS: DOCUSATE 100 MG CAP PO SCH (08:51)
[2022-03-01] MEDS: THIAMINE 100 MG TAB PO SCH (08:51)
[2022-03-01] MEDS: SENNOSIDES-DOCUSATE SODIUM 1 EACH TAB PO SCH (08:51)
[2022-03-01] MEDS: METOPROLOL TARTRATE 50 MG TAB PO SCH (08:51)
[2022-03-01] MEDS: ASPIRIN 81 MG PO SCH (08:51)
[2022-03-01] MEDS: FOLIC ACID 1 MG TAB PO SCH (08:51)
[2022-03-01] MEDS: ATORVASTATIN 40 MG TAB PO SCH (08:52)
[2022-03-01] MEDS: CEFEPIME 2 GM in SODIUM CHLORIDE 0.9% 100 ML IVPB SCH (08:52)
[2022-03-01] MEDS: guaiFENesin-DM 600/30MG 1 EACH TAB.ER.12H PO SCH (08:52)
[2022-03-01] MEDS: AMIODARONE 200 MG TAB PO SCH (08:52)
[2022-03-01] MEDS: polyethylene glycoL 3350 17 GM POWD.PACK PO SCH (08:53)
[2022-03-01] MEDS ORDERED: METOPROLOL TARTRATE 50 MG TAB PO STA (09:41)
--- NOTE | 2022-03-01 09:48 | US ---
EXAMINATION TYPE: US chest DATE OF EXAM: 03/01/2022 COMPARISON: CXR, US CLINICAL HISTORY: poss thoracentesis. Effusions TECHNIQUE: Targeted ultrasound of the posterior lower bilateral hemithoraces EXAM MEASUREMENTS: Right Pleural Effusion pocket size: 2.7 cm Right skin surface to fluid distance: 3.3 cm Left Pleural Effusion pocket size: 5.1 cm Left skin surface to fluid distance: 3.3 cm Right side NOT marked for possible thoracentesis outside the dept. Left side marked for possible thoracentesis outside the dept. Pulmonologists are able to review the images in the patient?s EMR. IMPRESSIONS: As above
--- NOTE | 2022-03-01 09:52 | P.PN ---
Subjective Progress Note Date: 03/01/22 Principal diagnosis: Coronary artery disease with critical left main stenosis, unstable angina. Previous medical history of hypertension, hyperlipidemia, daily EtOH use, previous tobacco dependence, osteoarthritis, and family history of premature coronary artery disease (father had myocardial infarction at age 55) POD #11 coronary artery bypass grafting 4, left internal mammary artery sequential to the diagonal and left anterior descending artery, left radial artery from the aorta to the obtuse marginal artery, reverse saphenous vein graft from the aorta to the posterior lateral artery, endoscopic left radial and right greater saphenous vein harvest, left atrial appendage ligation with a #35 mm AtriClip, graft flow measurements using the Rifinitistim flow meter, intraope rative transesophageal echocardiogram Postoperative acute blood loss anemia and thrombocytopenia, expected given hemodilution and cardiopulmonary bypass pump Hypotension, expected given preoperative calcium channel yessy use likely causing vasoplegia Paroxysmal atrial fibrillation, known common occurrence after open heart surgery, not a complication The patient was seen and examined this morning sitting up in a recliner in the intensive care unit in no acute distress eating breakfast. States he doesn't feel good, complains of shortness of breath with ambulation. Currently in atrial fibrillation with heart rate in the high 90s to low 100s, blood pressure stable. Remains on oral amiodarone, metoprolol, as well as Eliquis. He is alert and oriented 3. Currently on 2 L nasal cannula with oxygen saturation in the high 90s, able to achieve 1000 mL on his incentive spirometry. Patient needs much encouragement for any activity. Insurance authorization has been improved for inpatient rehab today. No other new concerns. Objective - Vital Signs Vital signs: Vital Signs Temp 97.4 F L 03/01/22 08:50 Pulse 108 H 03/01/22 08:50 Resp 18 03/01/22 08:50 BP 123/70 03/01/22 08:50 Pulse Ox 97 03/01/22 08:50 FiO2 45 02/18/22 20:00 Intake & Output 02/28/22 03/01/22 03/01/22 18:59 06:59 18:59 Intake Total 354 240 Output Total 770 1020 Balance -416 -1020 240 Weight 98.7 kg Intake: Oral 354 240 Output: Urine 770 1020 Other: Voiding Method Urinal Urinal Urinal ABP, PAP, CO, CI - Last Documented Arterial Blood Pressure 116/41 Pulmonary Artery Pressure 31/11 Cardiac Output 6.3 Cardiac Index 3 - Exam CONSTITUTIONAL: Appears comfortable, cooperative, no acute distress RESPIRATORY: Lungs sounds diminished bilaterally. Respirations even, nonlabored currently. Currently on 2 L nasal cannula with oxygen saturation 98%. Able to achieve 1000 mL on his incentive spirometry. Strong productive cough. CARDIOVASCULAR: S1, S2 present. Irregular rate and rhythm, atrial fibrillation on telemetry. Sternum stable, some clicking present. Palpable peripheral pulses bilaterally. Trace bilateral lower extremity edema present. No calf pain or tenderness noted. Heart hugger in place with patient occasionally demonstrating appropriate use. Antiembolism stockings, SCDs present. GASTROINTESTINAL: Abdomen soft, nontender, distended. Active bowel sounds present 4 quadrants. Tolerating diet. Positive bowel movement 02/28 GENITOURINARY: Continues to void, output 1290 mL in the last 24 hours INTEGUMENTARY: Skin is warm and dry. Anterior chest incision well appr oximated. Right lower extremity EVH site well approximated. Right arm IV site red and slightly swollen NEUROLOGIC: Cranial nerves II through XII intact MUSKULOSKELETAL: Able to move all extremities, strength equal bilaterally PSYCHIATRIC: Alert and oriented to person, place, and time, appropriate affect - Allied health notes Allied health notes reviewed: nursing - Labs CBC & Chem 7: 03/01/22 10:30 03/01/22 10:30 Labs: Abnormal Lab Results - Last 24 Hours (Table) 02/28/22 02/28/22 02/28/22 Range/Units 11:31 16:27 20:15 POC Glucose (mg/dL) 208 H 138 H 209 H (70-110) mg/dL 03/01/22 Range/Units 06:05 POC Glucose (mg/dL) 115 H (70-110) mg/dL Microbiology - Last 24 Hours (Table) 02/26/22 16:39 Blood Culture - Preliminary Blood No Growth after 48 hours 02/25/22 15:15 Gram Stain - Final Sputum Sputum Culture - Final - Imaging and Cardiology Chest x-ray: report reviewed, image reviewed Assessment and Plan Assessment: 1. Coronary artery disease with critical left main stenosis, unstable angina, status post 4 vessel CABG 2. Preserved left ventricular systolic function, EF 55-60% 3. Mild mitral and tricuspid regurgitation on transthoracic echocardiogram from 01/27/2022 4. Newly diagnosed diabetes, hemoglobin A1c 7.2% 5. History of hypertension 6. Hyperlipidemia, cholesterol 217, LDL 113, triglycerides 183 7. Daily EtOH use, 8. Previous tobacco dependence 9. Severe COPD, FEV1 34% of predicted 10. Osteoarthritis 11. Family history of premature coronary artery disease (father had myocardial infarction at age 55) 12. Postoperative acute blood loss anemia and thrombocytopenia, expected 13. Hypotension, expected 14. Paroxysmal atrial fibrillation, status post left atrial appendage ligation 15. Medical debility 16. Leukocytosis, cultures negative Plan: 1. Continue to maximize medical therapy with low-dose aspirin, statin, beta yessy. Will increase beta yessy therapy as tolerated, increase to 100 mg twice a day today 2. Continue amlodipine added for radial artery spasm prophylaxis 3. Continue amiodarone for A. fib prophylaxis. Continue Eliquis for anticoagulation 4. Incentive spirometry 10 times every hour while awake. Bronchodilators per pulmonology 5. Increase activity, ambulate as tolerated. PT/OT/cardiac rehab following. Shower daily 6. Will monitor daily labs and x-rays. Electrolyte replacement per protocol. We will give 40 mg IV push Lasix today 7. GI/DVT prophylaxis 8. Pain control with current medication regimen. Avoid narcotics 9. Insulin management per internal medicine. Patient considered newly diagnosed diabetic, needs tight blood sugar control 10. Strict accurate intake and output. Daily weights 11. Patient to continue on IV cefepime and vanco x [address] Choi 12. Discharge planning in progress. Anticipate discharge to inpatient rehab at this afternoon 13. More recommendations to follow based on patient's progress
[2022-03-01] MEDS: IPRATROPIUM-ALBUTEROL 3 ML NEB INHALATION SCH ×3 (10:01→16:58)
[2022-03-01 10:54] LABS: Anisocytosis Slight; Basophils % (A) 0 %; Eosinophils # (A) 0.4 k/uL (0-0.7); Eosinophils % (A) 3 %; HCT 26.4 % (39.0-53.0); HGB 8.5 gm/dL (13.0-17.5); Hypochromasia Marked; Lymphocytes # (A) 1.5 k/uL (1.0-4.8); Lymphocytes % (A) 12 %; MCH 33.5 pg (25.0-35.0); MCV 104.8 fL (80.0-100.0); Macrocytosis Moderate; Monocytes # (A) 0.8 k/uL (0-1.0); Monocytes % (A) 6 %; Neutrophils # (A) 9.8 k/uL (1.3-7.7); Neutrophils % (A) 78 %; Platelet Count 442 k/uL (150-450); Poikilocytosis Slight; RBC 2.52 m/uL (4.30-5.90); RDW 16.3 % (11.5-15.5); WBC 12.6 k/uL (3.8-10.6)
[2022-03-01] MEDS: SYMBICORT 160-4.5 MCG INHALER INHALATION SCH (11:21)
[2022-03-01] MEDS: amLODIPine 5 MG TAB PO SCH (11:21)
[2022-03-01] MEDS: MULTIVITAMINS, THERA 1 EACH TAB PO SCH (11:21)
[2022-03-01 11:25] LABS: Albumin 3.2 g/dL (3.5-5.0); Calcium 7.8 mg/dL (8.4-10.2); Total Bilirubin 1.2 mg/dL (0.2-1.3)
[2022-03-01 11:28] VITALS: BMI 31.2
[2022-03-01 11:32] LABS: Potassium 4.1 mmol/L (3.5-5.1)
[2022-03-01 11:33] VITALS: TEMP 97.6
[2022-03-01 11:33] LABS: Glucose,Whole Blood 146 mg/dL (70-110)
[2022-03-01] MEDS ORDERED: FUROSEMIDE 10 MG/ML 4 ML VIAL IV STA (11:35)
[2022-03-01] MEDS ORDERED: VANCOMYCIN 1,500 MG in SODIUM CHLORIDE 0.9% 500 ML 500 ML IVPB SCH (13:00)
--- NOTE | 2022-03-01 13:41 | P.PN ---
Subjective Progress Note Date: 03/01/22 PROGRESS NOTE The patient is a 76-year-old male who had evidence of severe CAD, underwent CABG on February 16 as with CARREON sequential to the diagonal and LAD, radial to the OM and SVG to the posterolateral branch. He's feeling better today, has mild dyspnea and no chest pain. He is ambulating. He denies any dizziness or palpitations. He has no nausea. He continues to be in sinus mechanism. He received intravenous diuretics. He had redness in the right upper extremity was evidence of cellulitis and has been on antibiotics. He is using his incentive spirometry. March 01: The patient continues to be dyspneic but better. He is back in atrial fibrillation, persistent. He denies any chest discomfort or dizziness, he denies any palpitations. He denies any nausea. His ventricular response is controlled. Medications: Amiodarone 200 mg twice a day, amlodipine 5 mg daily, aspirin once a day, Lipitor 40 mg daily, insulin, metoprolol 50 mg 3 times a day,Eliquis 5 mg twice a day,Farxiga 5 mg daily. PHYSICAL EXAMINATION: Blood pressure 120/70 heart rate 90 LUNGS: Decreased breath sounds at the bases HEART: Irregular rate and rhythm, S1, S2. No S3. systolic ejection murmur ABDOMEN: Soft, nontender, no organomegaly EXTREMETIES: [1+ to 2+ bilaterally, LAB: Hemoglobin 8.5, BUN 41, creatinine 1.15. Potassium 4.1. IMPRESSION: 1. Status post CABG 2. History of hypertension 3. Hyperlipidemia, treated 4. Cellulitis 5. Acute renal injury, resolved 6. Recurrent atrial fibrillation, anticoagulated, heart rate controlled 7. Peripheral edema PLAN: 1. Continue present therapy 2. Diuretics as needed 3. Antibiotics for infectious disease 4. Increase physical activity 5. Probable transfer to rehab soon. 6. If he remains in atrial fibrillation as outpatient and consider cardi oversion in 4-6 weeks. Objective - Vital Signs Vital signs: Vital Signs Temp 97.6 F 03/01/22 11:20 Pulse 96 03/01/22 11:34 Resp 18 03/01/22 11:20 BP 120/76 03/01/22 11:20 Pulse Ox 94 L 03/01/22 11:32 FiO2 45 02/18/22 20:00 Intake & Output 02/28/22 03/01/2222 18:59 06:59 18:59 Intake Total 354 240 Output Total 770 1020 Balance -416 -1020 240 Weight 98.7 kg 98.7 kg Intake: Oral 354 240 Output: Urine 770 1020 Other: Voiding Method Urinal Urinal Urinal ABP, PAP, CO, CI - Last Documented Arterial Blood Pressure 116/41 Pulmonary Artery Pressure 31/11 Cardiac Output 6.3 Cardiac Index 3 - Labs CBC & Chem 7: 03/01/22 10:30 03/01/22 10:30 Labs: Abnormal Lab Results - Last 24 Hours (Table) 02/28/22 02/28/22 03/01/22 Range/Units 16:27 20:15 06:05 WBC (3.8-10.6) k/uL RBC (4.30-5.90) m/uL Hgb (13.0-17.5) gm/dL Hct (39.0-53.0) % MCV (80.0-100.0) fL RDW (11.5-15.5) % Neutrophils # (1.3-7.7) k/uL Sodium (137-145) mmol/L BUN (9-20) mg/dL Glucose (74-99) mg/dL POC Glucose (mg/dL) 138 H 209 H 115 H (70-110) mg/dL Calcium (8.4-10.2) mg/dL Total Protein (6.3-8.2) g/dL Albumin (3.5-5.0) g/dL 03/01/22 03/01/22 03/01/22 Range/Units 10:30 10:30 11:31 WBC 12.6 H (3.8-10.6) k/uL RBC 2.52 L (4.30-5.90) m/uL Hgb 8.5 L (13.0-17.5) gm/dL Hct 26.4 L (39.0-53.0) % MCV 104.8 H (80.0-100.0) fL RDW 16.3 H (11.5-15.5) % Neutrophils # 9.8 H (1.3-7.7) k/uL Sodium 136 L (137-145) mmol/L BUN 33 H (9-20) mg/dL Glucose 118 H (74-99) mg/dL POC Glucose (mg/dL) 146 H (70-110) mg/dL Calcium 7.8 L (8.4-10.2) mg/dL Total Protein 6.0 L (6.3-8.2) g/dL Albumin 3.2 L (3.5-5.0) g/dL Microbiology - Last 24 Hours (Table) 02/26/22 16:39 Blood Culture - Preliminary Blood No Growth after 48 hours 02/25/22 15:15 Gram Stain - Final Sputum Sputum Culture - Final
--- NOTE | 2022-03-01 13:52 | P.DS ---
Providers Date of admission: 02/17/22 07:39 Expected date of discharge: 03/01/22 Attending physician: Aniceto Stauffer MD Consults: 02/16/22 14:25 Consult Physician Urgent Consulting Provider: Jeb Joe Consult Reason/Comments: Left main disease Do you want consulting provider notified?: Already Contacted 02/17/22 08:57 Consult Physician Routine Consulting Provider: Bo Juárez Consult Reason/Comments: cardiology management Do you want consulting provider notified?: Already Contacted 02/17/22 09:57 Consult Physician Routine Consulting Provider: Wan Steve Consult Reason/Comments: preop cardiac surgery Do you want consulting provider notified?: Yes 02/17/22 09:58 Consult Physician Routine Consulting Provider: Lacho Brambila Jr Consult Reason/Comments: med mgmt; preop cardiac surgery Do you want consulting provider notified?: Yes 02/17/22 12:55 Consult to Anesthesia Routine Consulting Provider: Anesthesia,Services Consult Reason/Comments: Cardiac Surgery Pre-Op 02/24/22 11:23 Consult Physician Routine Consulting Provider: Desean Giang Consult Reason/Comments: Evaluation for inpatient rehab Do you want consulting provider notified?: Yes 02/26/22 12:07 Consult Physician Routine Consulting Provider: Gerson Choi Consult Reason/Comments: Elevated WBC count Do you want consulting provider notified?: Yes 02/28/22 15:02 Consult Physician Routine Consulting Provider: Desean Giang Consult Reason/Comments: Evaluation and patient rehab Do you want consulting provider notified?: Yes Primary care physician: [facility] Course: FINAL DIAGNOSIS: 1. Coronary artery disease with critical left main stenosis, unstable angina 2. Preserved left ventricular systolic function, EF 55-60% 3. Mild mitral and tricuspid regurgitation on transthoracic echocardiogram 4. Newly diagnosed diabetes, hemoglobin A1c 7.2% 5. History of hypertension 6. Hyperlipidemia, cholesterol 217, LDL 113, triglycerides 183 7. Daily EtOH use 8. Previous tobacco dependence 9. Severe COPD, FEV1 34% of predicted 10. Osteoarthritis 11. Family history of premature CAD 12. Postoperative acute blood loss anemia and thrombocytopenia 13. Hypotension 14. Paroxysmal atrial fibrillation 15. Medical debility 16. Leukocytosis, cultures negative PRINCIPAL PROCEDURE: 1. Coronary artery bypass grafting 4, left internal mammary artery sequential to the diagonal and left anterior descending artery, left radial artery from the aorta to the obtuse marginal artery, reverse saphenous vein graft from the aorta to the posterior lateral artery 2. Endoscopic left radial and right greater saphenous vein harvest 3. Left atrial appendage ligation with a #35 mm AtriClip 4. Graft flow measurements using the Medistim flowmeter 5. Intraoperative transesophageal echocardiogram HISTORY OF PRESENT ILLNESS: This is a 76-year-old gentleman who follows with Dr. Brambila on an outpatient basis for primary care along with Dr. Juárez for c ardiology. Over the previous 4-6 months the patient reports he had been having episodes of burning type chest pain, chest tightness, with associated shortness of breath. He underwent stress testing demonstrating anterolateral ischemia and was recommended to undergo heart catheterization which demonstrated critical left main stenosis 99%, proximal to mid LAD stenosis 70% with collaterals filling the LAD from the right coronary system, and severe disease involving the distal right coronary artery and ostial PDA branch. Consultation was placed to Dr. Joe from cardiothoracic surgery. He was recommended to undergo urgent coronary artery bypass surgery. The usual perioperative course was discussed in detail with the patient and his family, all risks and benefits were explained, all questions were answered, and consent was obtained to proceed with surgery. The patient was kept inpatient due to the nature of his disease process. HOSPITAL COURSE: The patient was brought to the preoperative area 02/18/2022, prepared in the usual fashion, and subsequently taken to the operating room where Dr. Stauffer performed four-vessel CABG. Upon completion of surgery the patient was transferred to the cardiovascular intensive care unit where he was recovered and monitored hemodynamically. He was extubated, all lines, tubes, and drips were discontinued when appropriate, and he was transferred to 3 cardiac stepdown unit for further monitoring and rehabilitation. His oxygen was titrated down, he continued to work with physical and occupational therapy, he was tolerating oral diet, his pain was controlled, and he was ready to be discharged to [facility] inpatient rehab on postoperative day #11 for continued physician management along with improved strength training and i ncreased mobility. He received written and verbal instruction regarding his medications, activity restrictions, signs and symptoms requiring physician notification, and follow-up appointments. Patient Condition at Discharge: Stable Plan - Discharge Summary Discharge Rx Participant: Yes New Discharge Prescriptions: New Benzocaine/Menthol Lozeng [Cepacol lozenge] 1 each MUCOUS MEM Q2H PRN lozenge PRN Reason: Sore Throat Amiodarone [Cordarone] 200 mg PO BID tab bisacodyL [Dulcolax] 10 mg RECTAL DAILY PRN suppositor PRN Reason: Constipation Ferrous Sulfate [Iron (65 MG Elemental)] 325 mg PO BID-W/MEALS tab polyethylene glycoL 3350 [Miralax] 17 gm PO DAILY packet guaiFENesin-DM 600/30MG [Mucinex Dm] 1 each PO Q12HR tab Pantoprazole [Protonix] 40 mg PO AC-BRKFST tab Sennosides-Docusate Sodium [Senokot-S] 2 each PO BID tab Budesonide-Formot 160-4.5 Mcg [Symbicort 160-4.5 Mcg Inhaler] 2 puff INHALATION RT-BID each Ascorbic Acid [Vitamin C] 500 mg PO BID-W/MEALS tab Ipratropium-Albuterol Nebulize [Duoneb 0.5 mg-3 mg/3 ml Soln] 3 ml INHALATION RT-QID each Ipratropium-Albuterol Nebulize [Duoneb 0.5 mg-3 mg/3 ml Soln] 3 ml INHALATION RT-Q2H PRN each PRN Reason: Shortness Of Breath Or Wheezing Apixaban [Eliquis] 5 mg PO BID tab Dapagliflozin Propanediol [Farxiga] 5 mg PO Q24H tab Folic Acid 1 mg PO DAILY tab Insulin Detemir (Levemir) [Levemir] 10 unit SQ DAILY@0700 each Atorvastatin [Lipitor] 40 mg PO DAILY tab Metoprolol Tartrate [Lopressor] 100 mg PO BID tab Cefepime [Maxipime] 2 gm IVPB Q12HR 7 Days each Magnesium Hydroxide [Milk of Magnesia Concentrate] 2,400 mg PO BID PRN ml PRN Reason: Constipation INSULIN ASPART (NovoLOG) [NovoLOG (formulary)] 0 unit SQ ACHS each SILVER sulfADIAZINE CREAM [Silvadene Cream] 1 applic TOPICAL BID each Acetaminophen Tab [Tylenol] 1,000 mg PO Q4HR PRN tab PRN Reason: Fever And/ Or Pain Vancomycin 1,500 mg IVPB Q24H 7 Days each Thiamine [Vitamin B-1] 100 mg PO DAILY tab Continue Furosemide [Lasix] 20 mg PO DAILY Multivitamins, Thera [Multivitamin (formulary)] 1 each PO 1200 tab Aspirin EC [Ecotrin Low Dose] 81 mg PO DAILY Changed amLODIPine [Norvasc] 5 mg PO DAILY@1200 #0 Discontinued Potassium Chloride ER [K-Dur 10] 10 meq PO HS atenoloL [Tenormin] 100 mg PO BID hydrALAZINE HCL 25 mg PO BID Isosorbide Mononitrate [Isosorbide Mononitrate ER] 30 mg PO DAILY Discharge Medication List Furosemide [Lasix] 20 mg PO DAILY 01/27/20 [History] Multivitamins, Thera [Multivitamin (formulary)] 1 each PO 1200 tab 01/29/20 [Rx] Aspirin EC [Ecotrin Low Dose] 81 mg PO DAILY 02/14/22 [History] Acetaminophen Tab [Tylenol] 1,000 mg PO Q4HR PRN tab 03/01/22 [Rx] Amiodarone [Cordarone] 200 mg PO BID tab 03/01/22 [Rx] Apixaban [Eliquis] 5 mg PO BID tab 03/01/22 [Rx] Ascorbic Acid [Vitamin C] 500 mg PO BID-W/MEALS tab 03/01/22 [Rx] Atorvastatin [Lipitor] 40 mg PO DAILY tab 03/01/22 [Rx] Benzocaine/Menthol Lozeng [Cepacol lozenge] 1 each MUCOUS MEM Q2H PRN lozenge 03/01/22 [Rx] Budesonide-Formot 160-4.5 Mcg [Symbicort 160-4.5 Mcg Inhaler] 2 puff INHALATION RT-BID each 03/01/22 [Rx] Cefepime [Maxipime] 2 gm IVPB Q12HR 7 Days each 03/01/22 [Rx] Dapagliflozin Propanediol [Farxiga] 5 mg PO Q24H tab 03/01/22 [Rx] Ferrous Sulfate [Iron (65 MG Elemental)] 325 mg PO BID-W/MEALS tab 03/01/22 [Rx] Folic Acid 1 mg PO DAILY tab 03/01/22 [Rx] INSULIN ASPART (NovoLOG) [NovoLOG (formulary)] 0 unit SQ ACHS each 03/01/22 [Rx] Insulin Detemir (Levemir) [Levemir] 10 unit SQ DAILY@0700 each 03/01/22 [Rx] Ipratropium-Albuterol Nebulize [Duoneb 0.5 mg-3 mg/3 ml Soln] 3 ml INHALATION RT-Q2H PRN each 03/01/22 [Rx] Ipratropium-Albuterol Nebulize [Duoneb 0.5 mg-3 mg/3 ml Soln] 3 ml INHALATION RT-QID each 03/01/22 [Rx] Magnesium Hydroxide [Milk of Magnesia Concentrate] 2,400 mg PO BID PRN ml 03/01/22 [Rx] Metoprolol Tartrate [Lopressor] 100 mg PO BID tab 03/01/22 [Rx] Pantoprazole [Protonix] 40 mg PO AC-BRKFST tab 03/01/22 [Rx] SILVER sulfADIAZINE CREAM [Silvadene Cream] 1 applic TOPICAL BID each 03/01/22 [Rx] Sennosides-Docusate Sodium [Senokot-S] 2 each PO BID tab 03/01/22 [Rx] Thiamine [Vitamin B-1] 100 mg PO DAILY tab 03/01/22 [Rx] Vancomycin 1,500 mg IVPB Q24H 7 Days each 03/01/22 [Rx] amLODIPine [Norvasc] 5 mg PO DAILY@1200 #0 03/01/22 [Rx] bisacodyL [Dulcolax] 10 mg RECTAL DAILY PRN suppositor 03/01/22 [Rx] guaiFENesin-DM 600/30MG [Mucinex Dm] 1 each PO Q12HR tab 03/01/22 [Rx] polyethylene glycoL 3350 [Miralax] 17 gm PO DAILY packet 03/01/22 [Rx] Follow up Appointment(s)/Referral(s): Wan Steve MD [STAFF PHYSICIAN] - 1 Week (Please make follow-up appointment upon discharge from rehab) [facility],Cardiac [NON-STAFF] - 4 Weeks (You will receive a phone call in approximately 4-6 weeks for evaluation for cardiac rehab) [facility] - Bo Juárez MD [STAFF PHYSICIAN] - 1 Week (Please make follow-up appointment upon discharge from rehab ) Lacho Brambila Jr, [Primary Care Provider] - 1 Week (Please make follow-up appointment upon discharge from rehab) Aniceto Stauffer MD [STAFF PHYSICIAN] - 03/25/22 12:00 pm Patient Instructions/Handouts: *Surgery [facility] - After Heart Catheterization - Call Specialist Instructions Activity/Diet/Wound Care/Special Instructions: CONSULTS AT [facility] INPATIENT REHAB: Dr. Juárez for cardiology Dr. Steve for pulmonology Dr. Brambila for internal medicine Dr. Choi for infectious disease Labs to be drawn daily at [facility]: CBC, BMP DISCHARGE INSTRUCTIONS: 1. No driving for 4 weeks, or until physician gives their ok. 2. The patient should sleep in their own bed, no medical bed needed. 3. Stairs are not an issue. If the bedroom is upstairs, it is advised that the patient go up at night and down in the morning for the first week. Go slowly, using handrail and take 1 step at a time. 4. MARCK hose are to be worn for 30 days post surgery or until physician discontinues. 5. Heart hugger is to be worn 100% of the time until physician discontinues.(except when showering) 6. No lifting, pushing, or pulling more than 10 pounds for 12 weeks. The physician will advise of any restriction changes. 7. The patient is expected to continue the prescribed walking program. 8. Continue pain control per as needed orders. 9. Continue with incentive spirometry and splinting/heart hugger until otherwise directed by the physician. 10. Must shower daily using liquid antibacterial soap 11. Routine sternal incision care. No powders, lotions, ointments on incisions. No dressings are necessary on incisions unless they are draining. Dermabond tape is to remain on sternal incision until surgeon follow-up. 12. Please call surgeon/PRODUCT SUPPORT MANAGER for temp greater than 101 F or purulent drainage from incisions. 13. You should weigh yourself daily, record and bring log with you to follow up appointments. 14. A Red armband has been placed on the patient. It should be worn for 30 days post discharge from surgery and will be removed by the cardiac surgeons. If an ER visit is necessary, please make sure the number on the Red armband is called before going to ER. 15. You have been referred to and are expected to begin Cardiac Rehab in approximately 4-6 weeks. HOME HEALTH SERVICES TO PROVIDE UPON DISCHARGE FROM INPATIENT REHAB: RN SKILLED HOME CARE SERVICES FOR POST-OP SURGICAL PATIENTS WITH THE FOLLOWING: Coronary Artery Bypass Surgery (CABG), Mitral Valve Replacement/Repair ( MVR), Aortic Valve Replacement/Repair (AVR) RN TO CONTINUE EDUCATION FROM ``ROAD TO A HEALTH HEART PATIENT EDUCATION MANUAL (GIVEN TO PATIENT IN THE HOSPITAL) MEDICATION RECONCILIATION WITH EDUCATION NEEDED ON FIRST HOME VISIT EMPHASIZE IMPORTANCE OF WEARING BREAST SUPPORT/HEART HUGGER ENCOURAGE USE OF INCENTIVE SPIROMETER 10 X EVERY HOUR WHILE AWAKE ENCOURAGE UTILIZATION OF LOWER EXTREMITY COMPRESSION STOCKINGS/MARCK HOSE and ELEVATE LEGS ABOVE LEVEL OF HEART WHILE AT REST. ENCOURAGE AMBULATION 3-5x/day INCREASING TOLERATES, WHILE AVOIDING EXTREMES IN TEMPERATURE FREQUENCY: RN TO OPEN THE PATIENT WITHIN 24 HOURS OF DISCHARGE FROM INPATIENT REHAB WITH TELEHEALTH INSTALLED AT [facility] [place], RN TO VISIT 2-3 X A WEEK FOR 4 WEEKS ESTABLISHED BY PATIENT NEEDS. TELEHEALTH PARAMETERS: WEIGHT: NOTIFY MD OF WEIGHT GAIN OF 2 LBS IN 24 HOURS OR 5 LBS IN ONE WEEK HR: NOTIFY MD OF HR <55 BPM OR HR>100 BPM BP: NOTIFY MD IF BP <90/55 OR BP>140/100 O2 SAT: NOTIFY MD IF PO2<93% ON ROOM AIR SEND TELEHEALTH REPORT TO GUIDE CRUISE AND CARDIOVASCULAR SURGEON THE FIRST WEEK OF CARE AND THEN BI-WEEKLY. PLEASE ADDITIONALLY COMMUNICATE ANY ABNORMALS AND NEW FINDINGS TO THE SURGEONS OFFICE. Discharge Disposition: DC/TRNS INTERMEDIATE CARE FAC
--- NOTE | 2022-03-01 14:24 | P.PN ---
Subjective Progress Note Date: 03/01/22 On 02/28/2022, the patient is being seen for a follow-up. The patient's postop day #9. The patient underwent four-vessel bypass surgery including CARREON to LAD and the patient the left radial artery to obtuse marginal branch and saphenous vein graft to posterior lateral artery. The patient currently is on 2 L of Oxymizer nasal cannula. The patient has a 5 cm pocket based on ultrasound of the chest that was done. Nevertheless, he is not having any significant respiratory distress and I decided not to do any thoracentesis at this point. The patient is also nature fibrillation. The patient is going to be started on anticoagulants. Other comorbid conditions include diabetes mellitus, hypertens ion and previous history of a cold use. The patient has a WBC count 13.8 with a hemoglobin of 8.5. He had developed an acute kidney injury. Nevertheless, creatinine is stable at 1.4 with a BUN of 41 and his sodium level of 139. Potassium level is at 4.1. Pro-calcitonin level is was at 0.37. The patient remains on aspirin, and the granulation with Eliquis 5 mg by mouth twice daily will be started. The patient is on accommodation of metoprolol 50 mg by mouth 3 times a day and amiodarone 200 mg by mouth twice a day. The patient is on amlodipine for blood pressure control. As far as antibiotic coverage, he is on accommodation of cefepime and vancomycin and this was given as the patient had an elevated white cell count suspecting a right forearm cellulitis/thrombophlebitis. Cultures were negative. Pro-calcitonin level was slightly elevated. Infectious diseases are on the case. On 03/03/2022, the patient is postop day #10. Patient is still struggling and he feels weak on today's evaluation. He remains on oxygen at 2 L nasal cannula. As mentioned, and bilateral pleural effusions. He remains active fibrillation. Rate is under control and the patient is currently on a combination of amiodarone 200 mg 2 twice a day, and metoprolol 100 mg by mouth twice a day and the patient is also on anticoagulations was started yesterday. The patient was also started on broad-spectrum antibiotics and currently is on a, mixed apnea vancomycin. The right upper extremity remains swollen. No evidence of any significant cellulitis. No evidence of any deep DVT and the patient has some superficial thrombophlebitis. Pro-calcitonin level was slightly elevated. On today's blood work, the BUN is 33 with a creatinine of 1.1. The vesicles at 12.6 with a hemoglobin of 8.5 and a platelet count of 442. He is weak. He gets exhausted with limited amount of walking. He is on be treatments [id number]. Surgical one-sided over the chest is dry clean and intact. He remains on Levemir insulin 10 units in addition to a slight scattered coverage. Objective - Vital Signs Vital signs: Vital Signs Temp 97.6 F 03/01/22 11:20 Pulse 96 03/01/22 11:34 Resp 18 03/01/22 11:20 BP 120/76 03/01/22 11:20 Pulse Ox 94 L 03/01/22 11:32 FiO2 45 02/18/22 20:00 Intake & Output 02/28/22 03/01/22 03/01/22 18:59 06:59 18:59 Intake Total 354 240 Output Total 770 1020 Balance -416 -1020 240 Weight 98.7 kg 98.7 kg Intake: Oral 354 240 Output: Urine 770 1020 Other: Voiding Method Urinal Urinal Urinal ABP, PAP, CO, CI - Last Documented Arterial Blood Pressure 116/41 Pulmonary Artery Pressure 31/11 Cardiac Output 6.3 Cardiac Index 3 - Exam CONSTITUTIONAL: Sitting up to the bedside chair on the cardiac stepdown unit, appears comfortable, cooperative, no apparent acute distress. HEENT: Neck is supple, no JVD, no lymphadenopathy. RESPIRATORY: Lungs sounds essentially clear throughout, diminished to his bilateral bases left greater than right, few scattered crackles to his bilateral bases. Respirations are symmetrical and nonlabored. Currently on 2 L nasal cannula with oxygen saturations 97%. Able to achieve 1250 mL on his incentive spirometry. Strong productive cough, thin, terry colored sputum. CARDIOVASCULAR: Regular rhythm and rate. S1 and S2 present, negative for S3, gallop or murmur. Sternum is stable, occasional clicking felt. Palpable peripheral pulses bilaterally, +1 edema to his bilateral lower extremities. No calf pain or tenderness noted. Surgical support bra and Heart hugger in place with patient demonstrating appropriate use. Knee-high MARCK hose and sequential compression devices in place to his bilateral lower extremities. Remote telemetry showing normal sinus rhythm heart rate 73 BPM. GASTROINTESTINAL: Abdomen soft, nontender, nondistended. Active bowel sounds present 4 quadrants. Tolerating diet. Passing flatus. No guarding or rigidity. Bowel movement 02/27/2022 GENITOURINARY: Continues to void, 900 mL of urine output in the last 8 hours. INTEGUMENTARY: Skin is warm and dry with no evidence of clubbing or cyanosis. Midline sternal incision clean dry and well approximated, covered with dry intact dressing. Right lower extremity EVH sites well approximated without redness or drainage. There is some excoriated area surrounding the right lower extremity EVH site at his knee which appears to be from a tape burn. No drainag e present. Left arm radial artery harvest sites clean, dry and approximated. No drainage or redness is present. Cellulitis to his right forearm. NEUROLOGIC: Cranial nerves II through XII intact. No focal deficits. MUSKULOSKELETAL: Able to move all extremities, strength equal bilaterally, gene ralized weakness. PSYCHIATRIC: Alert and oriented to person place and time, appropriate affect. - Labs CBC & Chem 7: 03/01/22 10:30 03/01/22 10:30 Labs: Abnormal Lab Results - Last 24 Hours (Table) 02/28/22 02/28/22 03/01/22 Range/Units 16:27 20:15 06:05 WBC (3.8-10.6) k/uL RBC (4.30-5.90) m/uL Hgb (13.0-17.5) gm/dL Hct (39.0-53.0) % MCV (80.0-100.0) fL RDW (11.5-15.5) % Neutrophils # (1.3-7.7) k/uL Sodium (137-145) mmol/L BUN (9-20) mg/dL Glucose (74-99) mg/dL POC Glucose (mg/dL) 138 H 209 H 115 H (70-110) mg/dL Calcium (8.4-10.2) mg/dL Total Protein (6.3-8.2) g/dL Albumin (3.5-5.0) g/dL 03/01/22 03/01/22 03/01/22 Range/Units 10:30 10:30 11:31 WBC 12.6 H (3.8-10.6) k/uL RBC 2.52 L (4.30-5.90) m/uL Hgb 8.5 L (13.0-17.5) gm/dL Hct 26.4 L (39.0-53.0) % MCV 104.8 H (80.0-100.0) fL RDW 16.3 H (11.5-15.5) % Neutrophils # 9.8 H (1.3-7.7) k/uL Sodium 136 L (137-145) mmol/L BUN 33 H (9-20) mg/dL Glucose 118 H (74-99) mg/dL POC Glucose (mg/dL) 146 H (70-110) mg/dL Calcium 7.8 L (8.4-10.2) mg/dL Total Protein 6.0 L (6.3-8.2) g/dL Albumin 3.2 L (3.5-5.0) g/dL Microbiology - Last 24 Hours (Table) 02/26/22 16:39 Blood Culture - Preliminary Blood No Growth after 48 hours 02/25/22 15:15 Gram Stain - Final Sputum Sputum Culture - Final Assessment and Plan Plan: Severe coronary artery disease with critical left main stenosis. Status post coronary artery bypass grafting 4. CARREON to the diagonal and LAD. Left radial artery to the obtuse marginal artery, saphenous vein graft to the posterior lateral artery. Postoperative day #10 Acute hypoxic respiratory failure, on oxygen and currently he is on oxygen at 2 L/m nasal cannula Left-sided pleural effusion, expected outcome of surgery and the patient is a 5 cm pocket on the ultrasound of the chest. The chest exit from today is still showing bilateral pleural effusion left more than right, stable Atrial fibrillation with a rapid ventricular response, currently on metoprolol and amiodarone. The patient is also on long-term anticoagulation with Eliquis 5 mg by mouth twice a day. Severe chronic obstructive pulmonary disease and some component of restrictive lung disease, FEV1 is in the range of 34% of the predicted. Newly diagnosed diabetes. Patient is currently on Levemir 10 units along with that the patient is on a sliding scale coverage. Benign essential hypertension. History of alcohol daily use. Ex-smoker. Family history of premature coronary artery disease. Degenerative joint disease. Increased lower extremity edema NAVIN, creatinine is improving and the creatinine is down to 1.1 Leukocytosis, improving Increased sputum and the patient is currently on a combination of cefepime and vancomycin. Awaiting sputum cultures. The findings of essentially negative for now Plan: Continue using incentive spirometer Wean FiO2 currently at 2 L Continue metoprolol and amiodarone and this should not requirements with Eliquis Diuretics per the surgical team Using the incentive spirometer Still having exertional dyspnea Creatinine is stable and improving Antibiotic management is per infectious disease, currently on a combination of cefepime and vancomycin. Possible rehabilitation at a time of discharge
--- NOTE | 2022-03-01 14:25 | P.PN ---
Subjective Progress Note Date: 03/01/22 02/21/2022: Patient was seen in the intensive care unit, he is postop day #3 a 4 vessel coronary bypass graft. He had undergone coronary artery bypass grafting 4. CARREON sequential to diagonal and LAD, left radial artery to the obtuse marginal artery and a saphenous vein graft to the posterior lateral artery. Left atrial appendage ligation with a thick #35 mm atrophic clip. He was having chest pains for the past several month he described as heartburn. He underwent a stress test that was POS and then a cath showing significant coronary disease He is currently resting comfortably intensive care unit. His chest tube in. He denies any chest pains, pressures, short of breath, nausea or vomiting. His is at bedside. Care was discussed with her. The nurse was present as well. New onset diabetic. A1c was 7.2. His admission hemoglobin was 14.3. Today it is 8.0. He has received 1 unit packed red blood cells. Other chemistries electrolytes are normal today. 02/22/2022 earlier in the morning patient, having frequent nonproductive coughing ,attempting to cough up mucus, desatted into the low 90s on room air,developed atrial fibrillation with RVR, heart rates greater than 150, charan used and placed on Amiodarone drip. O2 sat currently in the mid 90s on room air. Chest x-ray reported trace bilateral pleural effusions minimally increased from prior.Afebrile,WBC 13.3. Hemoglobin 8.2, platelets 158. Sodium 142. Potassium 4.1, magnesium 2.5. BUN 29. Creatinine 1.08. AST 71. ALT 62. Blood sugars controlled. 02/23/2022 converted in the investigator vice hours to sinus rhythm, transitioned to oral amiodarone. Maintaining O2 sats in the 90s. Chest x-ray reporting trace bilateral pleural effusions may be minimally increased from prior. Receiving another dose of Lasix IV push today as per CTS. BUN 35, creatinine 1.29 . Electrolytes stable .Afebrile,WBC 14.6, pro calcitonin pending. Blood sugars ranging from 120-170. Positive bowel movement. 02/24/2022 yesterday beta yessy increased, transitioned to oral amiodarone ,returned to A. fib with RVR, heart rate in the 130s, received additional amiodarone IV piggyback. Anticoagulated with Eliquis. Maintaining O2 sats in the 90s on room air, complains of exertional shortness of breath. Chest x-ray reporting bilateral lower lobe infiltrate and small effusion stable. Pro calcitonin 0.56 .hemoglobin 8.2, platelets 239 ,electrolytes within normal limits, BUN 41, creatinine 1.37. Afebrile, WBC 14. Incentive spirometer up to 1200. Blood sugars controlled. 02/25/2022 transferred out of ICU,currently on stepdown unit. Continues to fluctuate in and out of atrial fibrillation with RVR. Reports he was only able to ambulate to his doorway earlier today, developed significant exertional dyspnea, lightheadedness, weakness -felt like his legs were going to buckle. RN quickly obtained a chair for patient to sit down at the door-hypotensive with reported blood pressure down into the 90s. After sitting for a few minutes, ambulated back to recliner, with repeat blood pressure of 71/48. Within a few minutes patient's blood pressure continued to improve,100/66.telemetry reported he had converted to normal sinus rhythm. Complains of constipation, no bowel movement for 2-3 days. Maintaining O2 sats in the 90s on room air. Denies chest pain, palpitations or increasing shortness of breath 02/28/2022. Maintained on cefepime, vancomycin as per ID. afebrile , WBC trending down, 13.8.Reports shortness of breath improving-but does report exertional shortness of breath. Incentive spirometer up to 1200. Chest x-ray reporting stable pulmonary vascular congestion. Maintaining O2 sats in the high 90s on 2 L nasal cannula. Denies lightheadedness dizziness or focal deficits. Telemetry sinus. Tolerating diet intake (50-100%) with no nausea vomiting or diarrhea. BUN 41, creatinine 1.45. 03/01/2022 telemetry atrial fibrillation with controlled ventricular rate. Maintaining O2 sats in the high 90s on 2 L nasal cannula. Chest x-ray reporting stable bilateral infiltrates and pleural effusions, chest ultrasound pending .Continues on antibiotics as per ID. Denies chest pain, palpitations or increas ing shortness of breath. Anticipating discharge later today to inpatient rehab. Objective - Vital Signs Vital signs: Vital Signs Temp 97.6 F 03/01/22 11:20 Pulse 96 03/01/22 11:34 Resp 18 03/01/22 11:20 BP 120/76 03/01/22 11:20 Pulse Ox 94 L 03/01/22 11:32 FiO2 45 02/18/22 20:00 Intake & Output 02/28/22 03/01/22 03/01/22 18:59 06:59 18:59 Intake Total 354 240 Output Total 770 1020 Balance -416 -1020 240 Weight 98.7 kg 98.7 kg Intake: Oral 354 240 Output: Urine 770 1020 Other: Voiding Method Urinal Urinal Urinal ABP, PAP, CO, CI - Last Documented Arterial Blood Pressure 116/41 Pulmonary Artery Pressure 31/11 Cardiac Output 6.3 Cardiac Index 3 - Exam - Exam General: Alert and oriented 3 ,Sitting up in chair,NAD Neck: supple, no JVD. Cardiovascular: S1S2 is normal, irregular, No murmur, rub or gallop is appreciated. Wearing Heart hugger. Positive edema. Respiratory: Unlabored, Bilateral air entry, decreased fine bibasilar crackles Gastrointestinal: Soft, non-distended, non-tender abdomen,No rebound or guarding present. +Bowel sounds Neurological: CN II-XII grossly intact, no focal deficits Skin: Skin is warm and dry, right forearm and right thigh edema decreased. - Labs CBC & Chem 7: 03/01/22 10:30 03/01/22 10:30 Labs: Abnormal Lab Results - Last 24 Hours (Table) 02/28/22 02/28/22 03/01/22 Range/Units 16:27 20:15 06:05 WBC (3.8-10.6) k/uL RBC (4.30-5.90) m/uL Hgb (13.0-17.5) gm/dL Hct (39.0-53.0) % MCV (80.0-100.0) fL RDW (11.5-15.5) % Neutrophils # (1.3-7.7) k/uL Sodium (137-145) mmol/L BUN (9-20) mg/dL Glucose (74-99) mg/dL POC Glucose (mg/dL) 138 H 209 H 115 H (70-110) mg/dL Calcium (8.4-10.2) mg/dL Total Protein (6.3-8.2) g/dL Albumin (3.5-5.0) g/dL 03/01/22 03/01/22 03/01/22 Range/Units 10:30 10:30 11:31 WBC 12.6 H (3.8-10.6) k/uL RBC 2.52 L (4.30-5.90) m/uL Hgb 8.5 L (13.0-17.5) gm/dL Hct 26.4 L (39.0-53.0) % MCV 104.8 H (80.0-100.0) fL RDW 16.3 H (11.5-15.5) % Neutrophils # 9.8 H (1.3-7.7) k/uL Sodium 136 L (137-145) mmol/L BUN 33 H (9-20) mg/dL Glucose 118 H (74-99) mg/dL POC Glucose (mg/dL) 146 H (70-110) mg/dL Calcium 7.8 L (8.4-10.2) mg/dL Total Protein 6.0 L (6.3-8.2) g/dL Albumin 3.2 L (3.5-5.0) g/dL Microbiology - Last 24 Hours (Table) 02/26/22 16:39 Blood Culture - Preliminary Blood No Growth after 48 hours 02/25/22 15:15 Gram Stain - Final Sputum Sputum Culture - Final Assessment and Plan Assessment: Status post CABG in a patient with CAD with critical left main disease, in a patient with family history of CAD, father had NC at age 55 New-onset Paroxysmal A. fib with RVR, status post amiodarone drip. Leukocytosis improving Right upper extremity superficial thrombophlebitis reported per Doppler,cellulitis COPD Daily alcohol abuse, reports 3-4 shots daily Diabetes mellitus, newly diagnosed, A1c 7.2 History of nicotine dependence, quit smoking over 40 years ago History of Spinal stenosis, degenerative joint disease Hypertension Hyperlipidemia Osteoarthritis Obesity, BMI 30.9 Plan: Continue on current medication regime ,monitoring and symptomatic alma tment. Chest ultrasound pending.Discharge planning in progress for the Medical Inpatient Rehab. today as per CTS. Maintain aggressive pulmonary toileting with nebulized bronchodilators, incentive spirometer reinforced. Close monitoring of Accu-Cheks, continue on current med regimen of Lantus and sliding scale. Follow-up with PCP in 1 week after discharge from rehab. The impression and plan of care has been dictated as directed. : I performed a history and examination of this patient, discussed the same with the dictator. I agree with the dictator's note ,documented as a scribe. Any additional findings or plans will be noted.
[2022-03-01 16:01] VITALS: BP 120/76; PULSE 104; RESP 18
[2022-03-01 16:28] LABS: Glucose,Whole Blood 219 mg/dL (70-110)
[2022-03-01] MEDS ORDERED: METOPROLOL TARTRATE 50 MG TAB PO SCH (21:00)
[2022-03-02] MEDS ORDERED: VANCOMYCIN TROUGH DUE 1 EACH MISC MISCELLANE ONE (04:00)
--- NOTE | 2022-03-04 07:32 | CDI ---
Documentation Clarification Form Date: 03/04/22 From: Sakshi Perea Admit Date: 02/17/2022 07:39:00 AM Patient Name: Alfred Chavez Visit Number: [id number] Discharge Date: 03/01/2022 04:58:00 PM ATTENTION: The Clinical Documentation Specialists (CDI) and [facility] Coding Staff appreciate your assistance in clarifying documentation. Please respond to the clarification below the line at the bottom and electronically sign. The CDI & [facility] Coding staff will review the response and follow-up if needed. Please note: Queries are made part of the Legal Health Record. If you have any questions, please contact the author of this message via ITS. Dr. Aniceto Stauffer, Your patient has the documented diagnosis of Preserved left ventricular systolic function, EF 55-60% in your discharge summary. Additional information regarding the [type, acuity] of CHF is requested. History/Risk Factors: CAD w [place], atrial fibrillation, cellulitis RLE, ABLA, thrombophlebitis of RUE, CABG Clinical Indicators: Per Dr Viveros patient has CHF. 02/25 VS/Pulse OX: T 98.0, P 63, R 18, BP 99/58 & 125/66 Q2 91 BNP: none avaliable 02/08 Echocardiogram Results: Normal left ventricular systolic function with no obvious regional wall motion abnormalities. Left ventricular ejection fraction is estimated at 55-60%. 02/24 Chest X Ray: Persistent bilateral infiltrate and pleural effusion correlate for CHF otherwise consider Pneumonia. Treatment: Lasix IV In your professional opinion, can you please clarify the [acuity and type] of CHF if known? [ ] Acute Diastolic Heart Failure (preserved EF) [ ] Chronic Diastolic Heart Failure (preserved EF) [ ] Acute on Chronic Diastolic Heart Failure (preserved EF) [ ] Other, please specify [x] Unable to determine MTDD
--- NOTE | 2022-03-04 07:56 | CDI ---
Documentation Clarification Form Date: 03/04/22 From: Sakshi Perea Admit Date: 02/17/2022 07:39:00 AM Patient Name: Alfred Chavez Visit Number: [id number] Discharge Date: 03/01/2022 04:58:00 PM ATTENTION: The Clinical Documentation Specialists (CDI) and [facility] Coding Staff appreciate your assistance in clarifying documentation. Please respond to the clarification below the line at the bottom and electronically sign. The CDI & [facility] Coding staff will review the response and follow-up if needed. Please note: Queries are made part of the Legal Health Record. If you have any questions, please contact the author of this message via ITS. Dr. Aniceto Stauffer, Conflicting documentation has been found in the medical record. As attending physician, please provide clarification. Per Dr Cloud on 02/28 & 03/01 PN "Acute hypoxic respiratory failure". Per your documentation no mention of acute hypoxic respiratory failure. History/Risk Factors: CAD w [place], atrial fibrillation, cellulitis RLE, ABLA, thrombophlebitis of RUE, CABG Clinical Indicator (s) (02/19 - 03/01): O2 99 (3L), 94 (3L), 90, 91, 92, 93, 93, (4L) On 02/20 oxygen requirements started decreasing, 02/22 back on 2L oxygen 91/96, when on room air drops to 91, Treatment: Oxygen Please clarify which diagnosis is most appropriate: [ x] Acute hypoxic respiratory failure, confirmed and treated [ ] Acute hypoxic respiratory failure, not present [ ] Other, please specify [ ] Unable to determine MTDD
--- NOTE | 2022-03-05 21:56 | P.PN ---
Subjective Progress Note Date: 02/28/22 Principal diagnosis: Leukocytosis Patient is a 76-year-old male electively admitted to the hospital on 02/16/2022 in this patient for status post coronary bypass grafting x4 and left atrial appendage ligation patient has been in the hospital recovering from his surgery, patient was noticed to have elevated white count from previous infectious disease consultation he did have a right upper extremity superficial thrombophlebitis from an IV site and did have a some cellulitis to right thigh area and question of pneumonia. On today's evaluation that is 02/28/2022, the patient remains to be afebrile, patient is currently breathing comfortably and is down to 2 L nasal cannula, the patient denies having any chest pain no worsening cough or sputum production no abdominal pain pain and discomfort with right upper extremity has decreased in intensity Objective - Vital Signs Vital signs: Vital Signs Temp 97.6 F 02/28/22 11:15 Pulse 74 02/28/22 11:15 Resp 18 02/28/22 11:15 BP 146/64 02/28/22 11:15 Pulse Ox 93 L 02/28/22 11:15 FiO2 45 02/18/22 20:00 Intake & Output 02/27/22 02/28/22 02/28/22 18:59 06:59 18:59 Intake Total 354 500 236 Output Total 1300 900 450 Balance -946 -400 -214 Weight 97.6 kg Intake: Intake, IV Titration 100 Amount Cefepime 2 gm In Sodium 100 Chloride 0.9% 100 ml @ 25 mls/hr IVPB Q12HR [facility] Rx #:[id number] Oral 354 400 236 Output: Urine 1300 900 450 Other: Voiding Method Urinal Urinal Urinal # Voids 2 # Bowel Movements 1 ABP, PAP, CO, CI - Last Documented Arterial Blood Pressure 116/41 Pulmonary Artery Pressure 31/11 Cardiac Output 6.3 Cardiac Index 3 - Exam GENERAL DESCRIPTION: An elderly male lying in bed in no distress RESPIRATORY SYSTEM: Unlabored breathing , decreased breath sounds at bases HEART: S1 S2 regular rate and rhythm , ABDOMEN: Soft , no tenderness EXTREMITIES: Right forearm swelling has slightly decreased right thigh swelling has slightly decreased - Labs CBC & Chem 7: 03/01/22 10:30 03/01/22 10:30 Labs: Abnormal Lab Results - Last 24 Hours (Table) 02/27/22 02/27/2222 Range/Units 16:32 20:31 06:03 WBC (3.8-10.6) k/uL RBC (4.30-5.90) m/uL Hgb (13.0-17.5) gm/dL Hct (39.0-53.0) % MCV (80.0-100.0) fL RDW (11.5-15.5) % Neutrophils # (1.3-7.7) k/uL BUN (9-20) mg/dL Creatinine (0.66-1.25) mg/dL Glucose (74-99) mg/dL POC Glucose (mg/dL) 155 H 142 H 136 H (70-110) mg/dL Calcium (8.4-10.2) mg/dL Magnesium (1.6-2.3) mg/dL 02/28/22 02/28/22 02/28/22 Range/Units 06:56 06:56 11:31 WBC 13.8 H (3.8-10.6) k/uL RBC 2.58 L (4.30-5.90) m/uL Hgb 8.5 L (13.0-17.5) gm/dL Hct 27.5 L (39.0-53.0) % MCV 106.6 H (80.0-100.0) fL RDW 16.7 H (11.5-15.5) % Neutrophils # 10.2 H (1.3-7.7) k/uL BUN 41 H (9-20) mg/dL Creatinine 1.45 H (0.66-1.25) mg/dL Glucose 102 H (74-99) mg/dL POC Glucose (mg/dL) 208 H (70-110) mg/dL Calcium 8.0 L (8.4-10.2) mg/dL Magnesium 2.5 H (1.6-2.3) mg/dL Microbiology - Last 24 Hours (Table) 02/25/22 15:15 Gram Stain - Final Sputum Sputum Culture - Final 02/26/22 16:39 Blood Culture - Preliminary Blood No Growth after 24 hours Assessment and Plan (1) Leukocytosis Status: Acute Code(s): D72.829 - ELEVATED WHITE BLOOD CELL COUNT, UNSPECIFIED SNOMED Code(s): 124323288 Plan: 1patient with elevated white count which is likely multifactorial with the possibility of right forearm thrombophlebitis/cellulitis at the site of his previous IV spinal cellulitis of the right thigh from his previous vein grafting site, pneumonia less likely but not entirely excluded and will need to cover for the resistant gram-positive as well as gram-negative in this patient symptom started while in the hospital for more than 10 days. 2 blood cultures are so far negative 3 Dopplers of the right upper extremity did show evidence of superficial thrombophlebitis. 4patient white count is trending down , patient has shown some clinical improvement, the patient will continue the patient on vancomycin pharmacy to dose and cefepime while waiting for the culture to finalize Time with Patient: Less than 30
--- NOTE | 2022-03-05 21:58 | P.PN ---
Subjective Progress Note Date: 03/01/22 Principal diagnosis: Leukocytosis Patient is a 76-year-old male electively admitted to the hospital on 02/16/2022 in this patient for status post coronary bypass grafting x4 and left atrial appendage ligation patient has been in the hospital recovering from his surgery, patient was noticed to have elevated white count from previous infectious disease consultation he did have a right upper extremity superficial thrombophlebitis from an IV site and did have a some cellulitis to right thigh area and question of pneumonia. On today's evaluation that is 03/01/2022, the patient denies any fever or chills, patient is breathing comfortably on 2 L nasal cannula, the patient denies having any chest pain, the patient cough is decreased intensity no nausea no vomiting no abdominal pain or diarrhea right upper extremity swelling and discomfort slightly decreased Objective - Vital Signs Vital signs: Vital Signs Temp 97.6 F 03/01/22 11:20 Pulse 96 03/01/22 11:34 Resp 18 03/01/22 11:20 BP 120/76 03/01/22 11:20 Pulse Ox 94 L 03/01/22 11:32 FiO2 45 02/18/22 20:00 Intake & Output 02/28/22 03/01/22 03/01/22 18:59 06:59 18:59 Intake Total 354 240 Output Total 770 1020 Balance -416 -1020 240 Weight 98.7 kg 98.7 kg Intake: Oral 354 240 Output: Urine 770 1020 Other: Voiding Method Urinal Urinal Urinal ABP, PAP, CO, CI - Last Documented Arterial Blood Pressure 116/41 Pulmonary Artery Pressure 31/11 Cardiac Output 6.3 Cardiac Index 3 - Exam GENERAL DESCRIPTION: An elderly male lying in bed in no distress RESPIRATORY SYSTEM: Unlabored breathing , decreased breath sounds at bases HEART: S1 S2 regular rate and rhythm , ABDOMEN: Soft , no tenderness EXTREMITIES: Right forearm swelling has decreased right thigh swelling has slightly decreased, no drainage - Labs CBC & Chem 7: 03/01/22 10:30 03/01/22 10:30 Labs: Abnormal Lab Results - Last 24 Hours (Table) 02/28/22 02/28/22 03/01/22 Range/Units 16:27 20:15 06:05 WBC (3.8-10.6) k/uL RBC (4.30-5.90) m/uL Hgb (13.0-17.5) gm/dL Hct (39.0-53.0) % MCV (80.0-100.0) fL RDW (11.5-15.5) % Neutrophils # (1.3-7.7) k/uL Sodium (137-145) mmol/L BUN (9-20) mg/dL Glucose (74-99) mg/dL POC Glucose (mg/dL) 138 H 209 H 115 H (70-110) mg/dL Calcium (8.4-10.2) mg/dL Total Protein (6.3-8.2) g/dL Albumin (3.5-5.0) g/dL 03/01/22 03/01/22 03/01/22 Range/Units 10:30 10:30 11:31 WBC 12.6 H (3.8-10.6) k/uL RBC 2.52 L (4.30-5.90) m/uL Hgb 8.5 L (13.0-17.5) gm/dL Hct 26.4 L (39.0-53.0) % MCV 104.8 H (80.0-100.0) fL RDW 16.3 H (11.5-15.5) % Neutrophils # 9.8 H (1.3-7.7) k/uL Sodium 136 L (137-145) mmol/L BUN 33 H (9-20) mg/dL Glucose 118 H (74-99) mg/dL POC Glucose (mg/dL) 146 H (70-110) mg/dL Calcium 7.8 L (8.4-10.2) mg/dL Total Protein 6.0 L (6.3-8.2) g/dL Albumin 3.2 L (3.5-5.0) g/dL Microbiology - Last 24 Hours (Table) 02/26/22 16:39 Blood Culture - Preliminary Blood No Growth after 48 hours 02/25/22 15:15 Gram Stain - Final Sputum Sputum Culture - Final Assessment and Plan (1) Leukocytosis Status: Acute Code(s): D72.829 - ELEVATED WHITE BLOOD CELL COUNT, UNSPECIFIED SNOMED Code(s): 688980954 Plan: 1patient with elevated white count which is likely multifactorial with the possibility of right forearm thrombophlebitis/cellulitis at the site of his previous IV spinal cellulitis of the right thigh from his previous vein grafting site, pneumonia less likely but not entirely excluded and will need to cover for the resistant gram-positive as well as gram-negative in this patient symptom started while in the hospital for more than 10 days. 2 blood cultures are so far negative 3 Dopplers of the right upper extremity did show evidence of superficial thrombophlebitis. 4patient white count is down to 12,000, culture has been negative for any resistant pathogen and the patient has shown clinical improvement patient is in the process of going to [facility] he will continue with the vancomycin cefepime for about a week and close follow-up at that facility Time with Patient: Less than 30
== END 2022-03-01 16:58 | DRG 233 ==
LOC: CATHCVL 10:38 → 3SCARD 14:54 → CATHCVL 02-17 07:27 → 3SCARD 02-17 07:39 → 2SICU 02-18 07:18 → 3SCARD 02-24 20:53
PROVIDERS: ADMIT Thoracic Surgery (Cardiothoracic Vascular Surgery); ATTEND Thoracic Surgery (Cardiothoracic Vascular Surgery)
PROC: 021009W Bypass Coronary Artery, One Artery from Aorta with Autologous Venous Tissue, Open Approach (ICD-10-PCS; principal; 2022-02-18 08:00)
PROC: 02110ZC Bypass Coronary Artery, Two Arteries from Thoracic Artery, Open Approach (ICD-10-PCS; principal; 2022-02-18 08:00)
PROC: 4A1305C Monitoring of Arterial Flow, Coronary, Open Approach (ICD-10-PCS; principal; 2022-02-18 08:00)
PROC: 02100AW Bypass Coronary Artery, One Artery from Aorta with Autologous Arterial Tissue, Open Approach (ICD-10-PCS; principal; 2022-02-18 08:00)
PROC: 5A1221Z Performance of Cardiac Output, Continuous (ICD-10-PCS; principal; 2022-02-18 08:00)
PROC: 02L70CK Occlusion of Left Atrial Appendage with Extraluminal Device, Open Approach (ICD-10-PCS; principal; 2022-02-18 08:00)
PROC: 03BC4ZZ Excision of Left Radial Artery, Percutaneous Endoscopic Approach (ICD-10-PCS; principal; 2022-02-18 08:00)
PROC: 06BP4ZZ Excision of Right Saphenous Vein, Percutaneous Endoscopic Approach (ICD-10-PCS; principal; 2022-02-18 08:00)
PROC: B2111ZZ Fluoroscopy of Multiple Coronary Arteries using Low Osmolar Contrast (ICD-10-PCS; 2022-02-18 08:00)
PROC: B24BZZ4 Ultrasonography of Heart with Aorta, Transesophageal (ICD-10-PCS; 2022-02-18 08:00)
PROC: 30233N1 Transfusion of Nonautologous Red Blood Cells into Peripheral Vein, Percutaneous Approach (ICD-10-PCS; 2022-02-19)
DX: I25.110 Atherosclerotic heart disease of native coronary artery with unstable angina pectoris (principal); J96.01 Acute respiratory failure with hypoxia; N17.9 Acute kidney failure, unspecified; I48.19 Other persistent atrial fibrillation; D62 Acute posthemorrhagic anemia; L03.115 Cellulitis of right lower limb; L03.113 Cellulitis of right upper limb; J98.11 Atelectasis; D69.6 Thrombocytopenia, unspecified; I27.20 Pulmonary hypertension, unspecified; I80.8 Phlebitis and thrombophlebitis of other sites; I95.9 Hypotension, unspecified; I11.0 Hypertensive heart disease with heart failure; J44.9 Chronic obstructive pulmonary disease, unspecified; E11.65 Type 2 diabetes mellitus with hyperglycemia; I70.0 Atherosclerosis of aorta; Z20.822 Contact with and (suspected) exposure to COVID-19; I25.84 Coronary atherosclerosis due to calcified coronary lesion; E78.2 Mixed hyperlipidemia; F10.10 Alcohol abuse, uncomplicated; I08.1 Rheumatic disorders of both mitral and tricuspid valves; R00.1 Bradycardia, unspecified; I65.23 Occlusion and stenosis of bilateral carotid arteries; K59.00 Constipation, unspecified; E86.1 Hypovolemia; M16.11 Unilateral primary osteoarthritis, right hip; J98.4 Other disorders of lung; G89.29 Other chronic pain; M54.50 Low back pain, unspecified; M48.00 Spinal stenosis, site unspecified; K44.9 Diaphragmatic hernia without obstruction or gangrene; E66.9 Obesity, unspecified; Z68.31 Body mass index [BMI] 31.0-31.9, adult; Z79.82 Long term (current) use of aspirin; Z79.899 Other long term (current) drug therapy; Z87.891 Personal history of nicotine dependence; Z96.651 Presence of right artificial knee joint; Z71.3 Dietary counseling and surveillance; Z82.49 Family history of ischemic heart disease and other diseases of the circulatory system
CPT/HCPCS: 71045; 71046; 71250; 76604; 80048; 80053; 80061; 80074; 81003; 82330; 82805; 83036; 83735; 84145; 84443; 85025; 85027; 85520; 85610; 85730; 86140; 86850; 86891; 86900; 86901; 86920; 87040; 87070; 87205; 93454; 93880; 93970; 94002; 94150; 94640; 94760

== ENCOUNTER → 2022-04-04 | Outpatient (CLI) | payer MEDICARE, BC ==
--- NOTE | 2022-04-04 14:55 | XR ---
EXAMINATION TYPE: XR chest 2V DATE OF EXAM: 04/04/2022 COMPARISON: NONE TECHNIQUE: PA and lateral views submitted. HISTORY: Shortness of breath FINDINGS: Heart is enlarged and there is postoperative change with left lower lobe infiltrate and small effusio n. No sizable pneumothorax. Arthropathy of the bilateral shoulder. No overt failure. IMPRESSION: 1. Stable left lower lobe infiltrate and small effusion. 2. Improved right lower lobe infiltrate and small effusion.
== END | disposition home or self-care (01) ==
LOC: RADXRMAIN 14:23
PROVIDERS: ATTEND Thoracic Surgery (Cardiothoracic Vascular Surgery)
DX: J90 Pleural effusion, not elsewhere classified (principal); R06.02 Shortness of breath; R91.8 Other nonspecific abnormal finding of lung field
CPT/HCPCS: 71046

== ENCOUNTER → 2022-11-07 | Outpatient (CLI) | payer MEDICARE, BC ==
--- NOTE | 2022-11-07 08:40 | CT ---
EXAMINATION TYPE: CT brain wo con DATE OF EXAM: 11/07/2022 COMPARISON: None HISTORY: 76-year-old male R42, dizziness TECHNIQUE: Examination was done in axial plane without intravenous contrast. Coronal and sagittal r econstructions performed. CT DLP: 926.5 mGycm Automated exposure control for dose reduction was used. FINDINGS: There is no evidence of acute intracranial hemorrhage, acute ischemic changes, mass, mass-effect, or extra-axial fluid collection. There is no effacement of cerebral sulci or basal subarachnoid cister ns. There is no hydrocephalus. There is no midline shift. Burden-white matter distinction is preserv ed. Partially visualized moderate mucosal thickening maxillary sinuses and trace within the ethmoid air c ells. Leftward nasal septal deviation. Mastoid air cells well pneumatized. Orbits and globes are inta ct. There is mild generalized supratentorial volume loss with moderate patchy white matter hypodensities in both cerebral hemispheres as described calcifications within the bilateral carotid siphons. IMPRESSION: 1. Mild generalized cerebral atrophy and moderate burden of chronic small vessel ischemic disease. No acute intracranial abnormality seen. 2. Partially visualized moderate chronic maxillary sinus disease.
== END | disposition home or self-care (01) ==
LOC: RADCTMAIN 06:52
PROVIDERS: ATTEND Family Medicine
DX: I67.82 Cerebral ischemia (principal); R42 Dizziness and giddiness; J32.0 Chronic maxillary sinusitis; R26.81 Unsteadiness on feet
CPT/HCPCS: 70450

== ENCOUNTER 2023-02-12 06:42 | Inpatient (IN) | payer MEDICARE, BC ==
[2023-02-12 07:40] LABS: Basophils % (A) 0 %; Eosinophils # (A) 0.1 k/uL (0-0.7); Eosinophils % (A) 1 %; HCT 38.7 % (39.0-53.0); HGB 13.5 gm/dL (13.0-17.5); Lymphocytes # (A) 0.4 k/uL (1.0-4.8); Lymphocytes % (A) 6 %; MCH 34.9 pg (25.0-35.0); MCHC 34.9 g/dL (31.0-37.0); Mean Platelet Volume 7.6; Monocytes # (A) 0.2 k/uL (0-1.0); Monocytes % (A) 2 %; Neutrophils # (A) 6.6 k/uL (1.3-7.7); Neutrophils % (A) 90 %; Platelet Count 200 k/uL (150-450); RBC 3.87 m/uL (4.30-5.90); RDW 12.5 % (11.5-15.5); WBC 7.3 k/uL (3.8-10.6)
[2023-02-12 08:02] LABS: Prothrombin Time 10.8 sec (10.0-12.5)
[2023-02-12 08:06] LABS: ALT 377 U/L (4-49); African American GFR (CKD) 85 (>60 ml/min/1.73 sqM); Albumin 3.9 g/dL (3.5-5.0); Alkaline Phosphatase 170 U/L (38-126); Anion Gap 9 mmol/L; Blood Urea Nitrogen 23 mg/dL (9-20); Carbon Dioxide 26 mmol/L (22-30); Chloride 101 mmol/L (98-107); Glucose 157 mg/dL (74-99); Lipase 172 U/L (23-300); Magnesium 1.3 mg/dL (1.6-2.3); Non-African American GFR(CKD) 73 (>60 ml/min/1.73 sqM); Potassium 4.4 mmol/L (3.5-5.1); Sodium 136 mmol/L (137-145); Total Bilirubin 1.8 mg/dL (0.2-1.3); Total Protein 6.8 g/dL (6.3-8.2)
[2023-02-12 08:12] LABS: NT-Pro-B-Type Natriuretic Pept 731 pg/mL
[2023-02-12 08:14] LABS: AST 1088 U/L (17-59)
[2023-02-12 08:29] LABS: Partial Thromboplastin Time 21.7 sec (22.0-30.0)
--- NOTE | 2023-02-12 08:39 | XR ---
EXAMINATION TYPE: XR chest 2V DATE OF EXAM: 02/12/2023 8:13 AM CLINICAL INDICATION:Male, 77 years old with history of Chest Pain; [facility] COMPARISON: Chest radiographs from 04/04/2022 TECHNIQUE: XR chest 2V Frontal and lateral views of the chest. FINDINGS: Lungs/Pleura: There is no evidence of pleural effusion, focal consolidation, or pneumothorax. Pulmonary vascularity: Unremarkable. Heart/mediastinum: Cardiomediastinal silhouette is enlarged and stable. Left atrial appendage occlusi on device is present. Musculoskeletal: No acute osseous pathology. Other findings: None IMPRESSION: No acute cardiopulmonary disease/process.
--- NOTE | 2023-02-12 09:37 | CT ---
EXAMINATION TYPE: CT abdomen pelvis w con CT DLP: 1003.1 mGycm, Automated exposure control for dose reduction was used. DATE OF EXAM: 02/12/2023 9:29 AM COMPARISON: CT abdomen pelvis most recent from CLINICAL INDICATION:Male, 77 years old with history of abd pain, elevated liver enzymes; abd pain TECHNIQUE: Axial CT of the abdomen and pelvis. Sagittal and coronal reformats were created on a [employer] workstation. Contrast used:100 mL of Isovue 300 with IV Contrast, (none if empty) Oral contrast used: without Oral Contrast (none if empty) FINDINGS: LOWER CHEST: Unremarkable ABDOMEN LIVER: Unremarkable GALLBLADDER AND BILE DUCTS: The gallbladder surgically absent. The common bile duct is dilated measur ing 1.5 cm. There are mildly hyperattenuating filling defects within the common bile ducts. PANCREAS: Unremarkable. SPLEEN: Unremarkable. ADRENAL GLANDS: Unremarkable. KIDNEYS AND URETERS: No evidence of hydronephrosis or renal calculus. The ureters are unremarkable. PELVIS BLADDER: Unremarkable REPRODUCTIVE: Unremarkable. ABDOMEN & PELVIS STOMACH AND BOWEL: Stomach and duodenum are unremarkable. No evidence of bowel obstruction. PERITONEUM/RETROPERITONEUM: No evidence of pneumoperitoneum or free fluid. VASCULATURE: Mild atherosclerotic calcifications are present throughout the abdominal aorta and its b ranches. No evidence of aortic aneurysm. MUSCULOSKELETAL: No acute osseous abnormalities. Moderate disc degeneration changes are present throu ghout the thoracolumbar spine. LYMPH NODES: No gross evidence for lymphadenopathy. SOFT TISSUE/ABDOMINAL WALL: Unremarkable IMPRESSION: Dilated common bile duct with at least 2 filling defects identified in this postcholecystectomy patie nt. These may represent residual choledocholithiasis. Consider further evaluation with dedicated ERCP .
[2023-02-12] MEDS: MAGNESIUM SULFATE-D5W PMX 1 GM in DEXTROSE/WATER 1 100ML.BAG IVPB SCH ×2 (10:31→11:41)
--- NOTE | 2023-02-12 11:43 | ED ---
Chest Pain HPI - General Chief Complaint: Chest Pain Stated Complaint: Chest Pain Time Seen by Provider: 02/12/23 07:06 Source: patient Mode of arrival: wheelchair Limitations: no limitations - History of Present Illness Initial Comments: 77-year-old male presents emergency department reporting chest pain. States that the pain began around 2 AM. It was described as an epigastric pain. States that the pain started moving to his left upper chest around 5 AM denies nausea or vomiting. No shortness of breath. Does have a history of coronary disease and states that previous to his bypass one year ago that he did have similar symptoms. Patient takes Eliquis for a history of A. fib. Denies any missed doses. No calf pain or swelling. No fevers, chills or cough. Does admit to drinking 3 hard liquor drinks per day every day. Admits to history of pancreatitis from gallstones. States he did have his gallbladder resected by Dr. cunningham. Denies any fevers. No other alleviating, precipitating modifying factors - Related Data Home Medications Medication Instructions Recorded Confirmed Furosemide [Lasix] 40 mg PO DAILY 01/27/20 02/12/23 Aspirin EC [Ecotrin Low Dose] 81 mg PO DAILY 02/14/22 02/12/23 Amiodarone [Cordarone] 100 mg PO DAILY 02/12/23 02/12/23 Apixaban [Eliquis] 2.5 mg PO BID 02/12/23 02/12/23 Isosorbide Mononitrate ER [Imdur] 30 mg PO DAILY 02/12/23 02/12/23 Losartan [Cozaar] 25 mg PO DAILY 02/12/23 02/12/23 Metoprolol Tartrate [Lopressor] 50 mg PO BID 02/12/23 02/12/23 Potassium Chloride ER [K-Dur 10] 10 meq PO BID 02/12/23 02/12/23 amLODIPine [Norvasc] 2.5 mg PO DAILY 02/12/23 02/12/23 metFORMIN HCL [Glucophage] 500 mg PO BID 02/12/23 02/12/23 Previous Rx's Medication Instructions Recorded Atorvastatin [Lipitor] 40 mg PO DAILY tab 03/01/22 Allergies Allergy/AdvReac Type Severity Reaction Status Date / Time No Known Allergies Allergy Verified 02/12/23 13:38 Review of Systems ROS Statement: Those systems with pertinent positive or pertinent negative responses have been documented in the HPI. ROS Other: All systems not noted in ROS Statement are negative. Past Medical History Past Medical History: Chest Pain / Angina, Hyperlipidemia, Hypertension, Osteoarthritis (OA) Additional Past Medical History / Comment(s): pancreatitis, gout History of Any Multi-Drug Resistant Organisms: None Reported Past Surgical History: Coronary Bypass/CABG Additional Past Surgical History / Comment(s): cataract surgery, rt knee replacement, arthroscopy lt knee, Past Anesthesia/Blood Transfusion Reactions: No Reported Reaction Past Psychological History: No Psychological Hx Reported Smoking Status: Never smoker Past Alcohol Use History: None Reported Past Drug Use History: None Reported - Past Family History Sister(s) Family Medical History: Cancer Additional Family Medical History / Comment(s): cancer base of tongue Father Family Medical History: Myocardial Infarction ([place]) General Exam Limitations: no limitations General appearance: alert, in no apparent distress Head exam: Present: atraumatic, normocephalic, normal inspection Eye exam: Present: normal appearance, PERRL, EOMI. Absent: scleral icterus, conjunctival injection, periorbital swelling ENT exam: Present: normal exam, mucous membranes moist Neck exam: Present: normal inspection. Absent: tenderness, meningismus, lymphadenopathy Respiratory exam: Present: normal lung sounds bilaterally. Absent: respiratory distress, wheezes, rales, rhonchi, stridor Cardiovascular Exam: Present: regular rate, normal rhythm, normal heart sounds. Absent: systolic murmur, diastolic murmur, rubs, gallop, clicks GI/Abdominal exam: Present: soft, tenderness (Epigastric), normal bowel sounds. Absent: distended, guarding, rebound, rigid Extremities exam: Present: normal inspection, full ROM, normal capillary refill. Absent: tenderness, pedal edema, joint swelling, calf tenderness Back exam: Present: normal inspection Neurological exam: Present: alert, oriented X3, CN II-XII intact Psychiatric exam: Present: normal affect, normal mood Skin exam: Present: warm, dry, intact, normal color. Absent: rash Course Vital Signs 02/12/23 02/12/23 02/12/23 06:46 07:37 07:57 Temperature 98.3 F Pulse Rate 101 H 69 98 Respiratory 18 14 18 Rate Blood Pressure 147/71 110/80 117/68 O2 Sat by Pulse 98 94 L 94 L Oximetry 02/12/23 02/12/23 02/12/23 10:30 11:39 13:10 Temperature Pulse Rate 93 98 96 Respiratory 18 8 L 18 Rate Blood Pressure 133/68 132/64 115/63 O2 Sat by Pulse 97 97 96 Oximetry - Reevaluation(s) Reevaluation #1: Dr. Green in room to talk to patient. 02/12/23 11:40 Chest Pain MDM - MDM Was pt. sent in by a medical professional or institution (, PA, WEBSITE PROGRAMMER, urgent care, hospital, or usp...) When possible be specific @ -No Did you speak to anyone other than the patient for history (EMS, parent, family, police, friend...)? What history was obtained from this source @ -Spoke with the patient's for history Did you review nursing and triage notes (agree or disagree)? Why? @ -I reviewed and agree with nursing and triage notes Were old charts reviewed (outside hosp., previous admission, EMS record, old EKG, old radiological studies, urgent care reports/EKG's, usp records)? Report findings @ -I reviewed notes from patient's bypass surgery one year ago Differential Diagnosis (chest pain, altered mental status, abdominal pain women, abdominal pain men, vaginal bleeding, weakness, fever, dyspnea, syncope, headache, dizziness, GI bleed, back pain, seizure, CVA, palpatations, mental health, musculoskeletal)? @ -Differential Abdominal Pain Men: Appendicitis, cholecystitis, diverticulosis, ischemic bowel, pancreatitis, hepatitis, UTI, gastroenteritis, AAA, incarcerated hernia, bowel obstruction, constipation, inflammatory bowel, hepatitis, peptic ulcer disease, splenic infarction, perforated viscus, testicular torsion, this is not meant to be an all-inclusive list Differential Chest Pain: Stable Angina, Unstable Angina, STEMI, NSTEMI Aortic Dissection, Pneumothorax, Musculoskeletal, Esophageal Spasm GERD, Cholecystitis, Pancreatitis, Zoster, this is not meant to be an all-inclusive list. EKG interpreted by me (3pts min.). @ -Yes and demonstrates atrial tachycardia with a rhythm of 101. MS interval 153. QRS 109. QTC of 444. No acute ST segment elevations or depressions X-rays interpreted by me (1pt min.). @ -Yes and demonstrates no acute process CT interpreted by me (1pt min.). @ Yes and demonstrates possible choledocholithiasis U/S interpreted by me (1pt. min.). @ -None done What testing was considered but not performed or refused? (CT, X-rays, U/S, labs)? Why? @ -None What meds were considered but not given or refused? Why? @ -Pain medications however patient refused Did you discuss the management of the patient with other professionals (professionals i.e. DrNate, PA, WEBSITE PROGRAMMER, lab, RT, psych nurse, social work coordinator, bi solutions architect, teacher, police officer booking, rehabilitation case coordinator)? Give summary @ -Spoke with Dr. Green for admission Was smoking cessation discussed for >3mins.? @ -No Was critical care preformed (if so, how long)? @ -No Were there social determinants of health that impacted care today? How? (Homelessness, low income, unemployed, alcoholism, drug addiction, transportation, low edu. Level, literacy, decrease access to med. care, fci, rehab)? @ -No Was there de-escalation of care discussed even if they declined (Discuss DNR or withdrawal of care, Hospice)? DNR status @ -No What co-morbidities impacted this encounter? (DM, HTN, Smoking, COPD, CAD, Cancer, CVA, ARF, Chemo, Hep., AIDS, mental health diagnosis, sleep apnea, morbid obesity)? @ -Cholelithiasis, coronary artery disease Was patient admitted / discharged? Hospital course, mention meds given and route, prescriptions, significant lab abnormalities, going to OR and other pertinent info. @ -.. Upon arrival patient was placed into room 6. Thorough history and physical exam was performed. He is placed on continuous pulse ox and cardiac monitoring. 12-lead EKG was obtained. Laboratory studies are conducted. Chest x-ray was performed. Patient does have significantly elevated liver enzymes. Because of this he is sent over for CT which demonstrates possible choledocholithiasis. Results are discussed with the patient. Discussed the case with Dr. Green. Both Dr. Green and I recommended transfer down to a facility with GI capabilities due to patient's current diagnosis. Patient is refusing to be discharged at this time. States that he would prefer to go home and come back in tomorrow if we do have GI on tomorrow. Informed patient that he should not leave the hospital. He is requesting to stay until tomorrow when she is present. Inform him that he could decompensate tonight and we do not have resources at her facility to take care of his problem. This may lead to permanent bili and even . Patient understood this. Agreeable to accepting the risks of staying in her facility without a GI doctor on staff. Dr. Green was agreeable to his admission. GI will be placed on consult. He is currently pending a bed on the floor in stable condition Undiagnosed new problem with uncertain prognosis? @ -No Drug Therapy requiring intensive monitoring for toxicity (Heparin, Nitro, Insulin, Cardizem)? @ -No Were any procedures done? @ -No Diagnosis/symptom? @ - acute epigastric abdominal pain, acute chest pain, suspected choledocholithiasis, transaminitis, history of coronary disease Acute, or Chronic, or Acute on Chronic? @ -acute Uncomplicated (without systemic symptoms) or Complicated (systemic symptoms)? @ -complicated Side effects of treatment? @ -No Exacerbation, Progression, or Severe Exacerbation? @ -No Poses a threat to life or bodily function? How? (Chest pain, [place], [place], pneumonia, PE, COPD, DKA, ARF, appy, cholecystitis, CVA, Diverticulitis, Homicidal, Suicidal, threat to staff... and all critical care pts) @ -No Disposition Clinical Impression: Chest pain, Epigastric abdominal pain, Transaminitis, Hypomagnesemia Disposition: ADMITTED IP TO THIS [facility] Condition: Stable Is patient prescribed a controlled substance at d/c from ED?: No Time of Disposition: 11:43 Decision to Admit Reason: Admit from EC Decision Date: 02/12/23 Decision Time: 11:43
[2023-02-12] MEDS ORDERED: NALOXONE 0.4 MG/ML 1 ML VIAL IV PRN (11:44)
[2023-02-12] MEDS ORDERED: MORPHINE SULFATE 4 MG/ML SYRINGE IV PRN (11:44)
[2023-02-12] MEDS ORDERED: ONDANSETRON 4 MG/2 ML VIAL IVP PRN (11:44)
[2023-02-12] MEDS ORDERED: ASPIRIN 81 MG PO STA (11:46)
[2023-02-12 12:05] LABS: Glucose,Whole Blood 200 mg/dL (70-110)
[2023-02-12] MEDS ORDERED: FOLIC ACID 1 MG TAB PO SCH (12:15)
[2023-02-12] MEDS ORDERED: PANTOPRAZOLE 40 MG TABLET PO SCH (12:15)
[2023-02-12] MEDS ORDERED: AMIODARONE 200 MG TAB PO SCH (12:15)
[2023-02-12] MEDS ORDERED: DAPAGLIFLOZIN PROPANEDIOL 5 MG TABLET PO SCH (12:15)
[2023-02-12] MEDS ORDERED: LORazepam 0.5 MG TAB PO PRN (12:16)
[2023-02-12] MEDS ORDERED: LORazepam 2 MG/ML INJ IV PRN (12:16)
[2023-02-12] MEDS ORDERED: LORazepam 1 MG TAB PO PRN (12:16)
[2023-02-12] MEDS ORDERED: INSULIN ASPART (NovoLOG) 100 UNIT/ML VIAL SQ SCH (12:30)
--- NOTE | 2023-02-12 12:31 | P.HPIM ---
History of Present Illness H&P Date: 02/12/23 Chief Complaint: Abdominal pain Mat is a 77-year-old male practice. He has been complaining of midepigastric abdominal pain for the past day that it radiated to his left upper quadrant. He reports no significant nausea or vomiting. He reports his stomach felt hard. Due to this he came emergency room and received pain medication which has helped considerably. CT abdomen pelvis showed dilated common bile duct with at least 2 filling defects identified. He underwent a left ENDOscopic cholecystectomy with Dr. Denis Rader 06/01/2020 electively after an admission several months previously to this for gallstone pancreatitis.. He Also history of coronary bypass graft 4 vessels done 02/18/2022. He is on Elequis for atrial fibrillation and anticoagulation. Amiodarone for arrhythmia control. Currently is resting comfortably in the emergency room. He reports his pain is mostly subsided. He denies currently any chest pain pressure or shortness breath nausea vomiting blood in his stool or black stool. We discussed at length the GI will not be available until tomorrow. He strongly wishes to remain here and not be transferred to another facility. I made him a miranda that this could become problematic for his health if he should experience significant symptoms that are not adequately controlled with pain medication for GI can see him. Emergency room staff report that Mat does have 3 large cocktails every day and it has had for 4 a long time. Review of Systems All systems: negative Past Medical History Past Medical History: Atrial Fibrillation, Coronary Artery Disease (CAD), Chest Pain / Angina, Hyperlipidemia, Hypertension, Osteoarthritis (OA) Additional Past Medical History / Comment(s): pancreatitis, gout History of Any Multi-Drug Resistant Organisms: None Reported Past Surgical History: Coronary Bypass/CABG Additional Past Surgical History / Comment(s): cataract surgery, rt knee replacement, arthroscopy lt knee, Past Anesthesia/Blood Transfusion Reactions: No Reported Reaction Past Psychological History: No Psychological Hx Reported Smoking Status: Never smoker Past Alcohol Use History: None Reported, Daily Past Drug Use History: None Reported - Past Family History Sister(s) Family Medical History: Cancer Additional Family Medical History / Comment(s): cancer base of tongue Father Family Medical History: Myocardial Infarction ([place]) 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 [employer] for employment (including self-employed).: No Medications and Allergies Home Medications Medication Instructions Recorded Confirmed Type Furosemide [Lasix] 20 mg PO DAILY 01/27/20 02/16/22 History Multivitamins, Thera [Multivitamin 1 each PO 1200 tab 01/29/20 02/16/22 Rx (formulary)] Aspirin EC [Ecotrin Low Dose] 81 mg PO DAILY 02/14/22 02/16/22 History Acetaminophen Tab [Tylenol] 1,000 mg PO Q4HR PRN tab 03/01/22 Rx Amiodarone [Cordarone] 200 mg PO BID tab 03/01/22 Rx Apixaban [Eliquis] 5 mg PO BID tab 03/01/22 Rx Ascorbic Acid [Vitamin C] 500 mg PO BID-W/MEALS tab 03/01/22 Rx Atorvastatin [Lipitor] 40 mg PO DAILY tab 03/01/22 Rx Benzocaine/Menthol Lozeng [Cepacol 1 each MUCOUS MEM Q2H PRN lozenge 03/01/22 Rx lozenge] Budesonide-Formot 160-4.5 Mcg 2 puff INHALATION RT-BID each 03/01/22 Rx [Symbicort 160-4.5 Mcg Inhaler] Cefepime [Maxipime] 2 gm IVPB Q12HR 7 Days each 03/01/22 Rx Dapagliflozin Propanediol [Farxiga] 5 mg PO Q24H tab 03/01/22 Rx Ferrous Sulfate [Iron (65 MG 325 mg PO BID-W/MEALS tab 03/01/22 Rx Elemental)] Folic Acid 1 mg PO DAILY tab 03/01/22 Rx INSULIN ASPART (NovoLOG) [NovoLOG 0 unit SQ ACHS each 03/01/22 Rx (formulary)] Insulin Detemir (Levemir) [Levemir] 10 unit SQ DAILY@0700 each 03/01/22 Rx Ipratropium-Albuterol Nebulize 3 ml INHALATION RT-Q2H PRN each 03/01/22 Rx [Duoneb 0.5 mg-3 mg/3 ml Soln] Ipratropium-Albuterol Nebulize 3 ml INHALATION RT-QID each 03/01/22 Rx [Duoneb 0.5 mg-3 mg/3 ml Soln] Magnesium Hydroxide [Milk of 2,400 mg PO BID PRN ml 03/01/22 Rx Magnesia Concentrate] Metoprolol Tartrate [Lopressor] 100 mg PO BID tab 03/01/22 Rx Pantoprazole [Protonix] 40 mg PO AC-BRKFST tab 03/01/22 Rx SILVER sulfADIAZINE CREAM 1 applic TOPICAL BID each 03/01/22 Rx [Silvadene Cream] Sennosides-Docusate Sodium 2 each PO BID tab 03/01/22 Rx [Senokot-S] Thiamine [Vitamin B-1] 100 mg PO DAILY tab 03/01/22 Rx Vancomycin 1,500 mg IVPB Q24H 7 Days each 03/01/22 Rx amLODIPine [Norvasc] 5 mg PO DAILY@1200 #0 03/01/22 02/16/22 Rx bisacodyL [Dulcolax] 10 mg RECTAL DAILY PRN suppositor 03/01/22 Rx guaiFENesin-DM 600/30MG [Mucinex 1 each PO Q12HR tab 03/01/22 Rx Dm] polyethylene glycoL 3350 [Miralax] 17 gm PO DAILY packet 03/01/22 Rx Allergies Allergy/AdvReac Type Severity Reaction Status Date / Time No Known Allergies Allergy Verified 02/16/22 11:00 Physical Exam Vitals: Vital Signs Temp Pulse Resp BP Pulse Ox 02/12/23 11:39 98 8 L 132/64 97 02/12/23 10:30 93 18 133/68 97 02/12/23 07:57 98 18 117/68 94 L 02/12/23 07:37 69 14 110/80 94 L 02/12/23 06:46 98.3 F 101 H 18 147/71 98 Intake and Output 02/11/23 02/12/23 02/12/23 22:59 06:59 14:59 Other: Weight 81.647 kg GENERAL: Elderly male well-nourished and in no acute distress. HEAD: Atraumatic, normocephalic. EYES: Pupils equal round and reactive to light, extraocular movements intact, sclera anicteric, conjunctiva are normal. ENT:nares patent, oropharynx clear without exudates. Moist mucous membranes. NECK: Normal range of motion, supple without lymphadenopathy or JVD, no thyromegaly LUNGS: Breath sounds clear to auscultation bilaterally and equal. No wheezes rales or rhonchi. HEART: Regular rate and rhythm without murmurs, rubs or gallops.S1S2 Normal ABDOMEN: Soft, , normoactive bowel sounds. No guarding, no rebound. No masses appreciated. Minimally tender in the midepigastrium EXTREMITIES: Normal range of motion, no pitting or edema. No clubbing or cyanosis. NEUROLOGICAL: Cranial nerves II through XII grossly intact. Normal speech, normal gait. PSYCH: Normal mood, normal affect. SKIN: Warm, Dry, normal turgor, no rashes or lesions noted. Results CBC & Chem 7: 02/12/23 07:19 02/12/23 07:19 Labs: Abnormal Lab Results - Last 24 Hours (Table) 02/12/23 02/12/23 02/12/23 Range/Units 07:19 07:19 07:19 RBC 3.87 L (4.30-5.90) m/uL Hct 38.7 L (39.0-53.0) % Lymphocytes # 0.4 L (1.0-4.8) k/uL APTT 21.7 L (22.0-30.0) sec Sodium 136 L (137-145) mmol/L BUN 23 H (9-20) mg/dL Glucose 157 H (74-99) mg/dL POC Glucose (mg/dL) (70-110) mg/dL Magnesium 1.3 L (1.6-2.3) mg/dL Total Bilirubin 1.8 H (0.2-1.3) mg/dL AST 1088 H (17-59) U/L ALT 377 H (4-49) U/L Alkaline Phosphatase 170 H (38-126) U/L 02/12/23 Range/Units 12:03 RBC (4.30-5.90) m/uL Hct (39.0-53.0) % Lymphocytes # (1.0-4.8) k/uL APTT (22.0-30.0) sec Sodium (137-145) mmol/L BUN (9-20) mg/dL Glucose (74-99) mg/dL POC Glucose (mg/dL) 200 H (70-110) mg/dL Magnesium (1.6-2.3) mg/dL Total Bilirubin (0.2-1.3) mg/dL AST (17-59) U/L ALT (4-49) U/L Alkaline Phosphatase (38-126) U/L CT scan - abdomen: report reviewed Thrombosis Risk Factor Assmnt - DVT/VTE Prophylaxis DVT/VTE Prophylaxis: Pharmacologic Prophylaxis ordered (Resume Elequis) Assessment and Plan (1) Choledocholithiasis Current Visit: Yes Status: Acute Code(s): K80.50 - CALCULUS OF BILE DUCT W/O CHOLANGITIS OR CHOLECYST W/O OBST SNOMED Code(s): 571429093 (2) Epigastric abdominal pain Current Visit: Yes Status: Acute Code(s): R10.13 - EPIGASTRIC PAIN SNOMED Code(s): 19161668 (3) Transaminitis Current Visit: Yes Status: Acute Code(s): R74.01 - ELEVATION OF LEVELS OF LIVER TRANSAMINASE LEVELS SNOMED Code(s): 455646913 (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 Current Visit: Yes Status: Acute Code(s): E11.59 - TYPE 2 DIABETES MELLITUS WITH OTH CIRCULATORY COMPLICATIONS SNOMED Code(s): 94330453 (5) Type 2 diabetes mellitus with other specified complication Current Visit: Yes Status: Acute Code(s): E11.69 - TYPE 2 DIABETES MELLITUS WITH OTHER SPECIFIED COMPLICATION SNOMED Code(s): 63785873 (6) EtOH dependence Current Visit: Yes Status: Acute Code(s): F10.20 - ALCOHOL DEPENDENCE, UNCOMPLICATED SNOMED Code(s): 48490066 (7) Atrial fibrillation Current Visit: Yes Status: Acute Code(s): I48.91 - UNSPECIFIED ATRIAL FIBRILLATION SNOMED Code(s): 11997362 (8) Hypomagnesemia Current Visit: Yes Status: Acute Code(s): E83.42 - HYPOMAGNESEMIA SNOMED Code(s): 311188006 (9) Atherosclerotic heart disease Current Visit: No Status: Acute Code(s): I25.10 - ATHSCL HEART DISEASE OF [place] CORONARY ARTERY W/O ANG PCTRS SNOMED Code(s): 276685031 (10) COPD (chronic obstructive pulmonary disease) Current Visit: No Status: Acute Code(s): J44.9 - CHRONIC OBSTRUCTIVE PULMONARY DISEASE, UNSPECIFIED SNOMED Code(s): 12265125 (11) Essential (primary) hypertension Current Visit: No Status: Acute Code(s): I10 - ESSENTIAL (PRIMARY) HYPERTENSION SNOMED Code(s): 75343454 (12) Mixed hyperlipidemia Current Visit: No Status: Acute Code(s): E78.2 - MIXED HYPERLIPIDEMIA SNOMED Code(s): 457570394 Plan: GI has been counseled to expect him to see him tomorrow. I'll ask cardiology to see him regarding his atrial fibrillation and anticoagulation. This may need to be held for his procedure. We'll put him on Cipro protocol due to his alcohol use. Restart his home medications. Hold metformin, insulin scale multivitamins, morphine sulfate 4 mg every 4 hours as needed for pain repeat labs in a.m., he'll be reevaluated in the next 24 hours.
[2023-02-12] MEDS: SODIUM CHLORIDE 0.9% 1,000 ML IV SCH (13:12)
[2023-02-12] MEDS: MULTIVITAMINS, THERA 1 EACH TAB PO SCH (13:13)
[2023-02-12] MEDS: ATORVASTATIN 40 MG TAB PO SCH (14:48)
[2023-02-12] MEDS: FUROSEMIDE 40 MG TAB PO SCH (14:48)
[2023-02-12] MEDS: METOPROLOL TARTRATE 50 MG TAB PO SCH ×2 (14:48→20:31)
[2023-02-12] MEDS: amLODIPine 2.5 MG TAB PO SCH (14:48)
[2023-02-12] MEDS: APIXABAN 2.5 MG TABLET PO SCH ×2 (14:50→20:33)
[2023-02-12] MEDS: AMIODARONE 100 MG TAB PO SCH (15:09)
[2023-02-12] MEDS ORDERED: IPRATROPIUM-ALBUTEROL 3 ML NEB INHALATION SCH (16:00)
[2023-02-12 16:34] LABS: Glucose,Whole Blood 124 mg/dL (70-110)
[2023-02-12] MEDS ORDERED: SYMBICORT 160-4.5 MCG INHALER INHALATION SCH (20:00)
[2023-02-12 20:53] LABS: Glucose,Whole Blood 120 mg/dL (70-110)
[2023-02-13] MEDS: SODIUM CHLORIDE 0.9% 1,000 ML IV SCH ×2 (04:29→16:15)
[2023-02-13 06:07] LABS: Glucose,Whole Blood 119 mg/dL (70-110)
[2023-02-13 08:47] LABS: Basophils # (A) 0.04 X 10*3/uL (0.00-0.10); Basophils % (A) 0.3 %; Eosinophils # (A) 0.17 X 10*3/uL (0.04-0.35); Eosinophils % (A) 1.4 %; HCT 34.4 % (39.6-50.0); HGB 11.8 g/dL (13.0-17.0); Lymphocytes # (A) 1.61 X 10*3/uL (0.90-5.00); Lymphocytes % (A) 13.5 %; MCH 34.6 pg (27.0-32.0); MCHC 34.3 g/dL (32.0-37.0); MCV 100.9 FL (80.0-97.0); Mean Platelet Volume 10.6 FL (9.5-12.2); Monocytes # (A) 1.07 X 10*3/uL (0.20-1.00); NRBC Per 100 WBC 0 X 10*3/uL (0.00-0.01); Neutrophils # (A) 8.95 X 10*3/uL (1.80-7.70); Neutrophils % (A) 75.3 %; Platelet Count 200 X 10*3/uL (140-440); RBC 3.41 X 10*6/uL (4.40-5.60); RDW 13.8 % (11.5-14.5)
[2023-02-13 08:57] LABS: Lipase 16 U/L (14-60); Magnesium 1.9 mg/dL (1.5-2.4)
[2023-02-13] MEDS ORDERED: ASPIRIN 81 MG PO SCH (09:00)
[2023-02-13] MEDS: FUROSEMIDE 40 MG TAB PO SCH (09:07)
[2023-02-13 09:10] LABS: ALT 318 U/L (10-49); AST 347 U/L (14-35); Albumin 3.3 g/dL (3.8-4.9); Albumin/Globulin Ratio 1.57 Ratio (1.60-3.17); Alkaline Phosphatase 168 U/L (41-126); BUN/Creat Ratio 15.92 Ratio (12.00-20.00); Blood Urea Nitrogen 19.1 mg/dL (9.0-27.0); Calcium 8.4 mg/dL (8.7-10.3); Carbon Dioxide 28.4 mmol/L (21.6-31.8); Chloride 104 mmol/L (96-109); Globulin 2.1 g/dL (1.6-3.3); Glucose 106 mg/dL (70-110); Sodium 142 mmol/L (135-145); Total Bilirubin 3.3 mg/dL (0.3-1.2); Total Protein 5.4 g/dL (6.2-8.2)
[2023-02-13] MEDS: AMIODARONE 100 MG TAB PO SCH (09:37)
[2023-02-13] MEDS: MULTIVITAMINS, THERA 1 EACH TAB PO SCH (09:37)
[2023-02-13] MEDS: THIAMINE 100 MG TAB PO SCH (09:38)
[2023-02-13] MEDS: ATORVASTATIN 40 MG TAB PO SCH (09:38)
[2023-02-13] MEDS: APIXABAN 2.5 MG TABLET PO SCH (09:38)
[2023-02-13] MEDS: METOPROLOL TARTRATE 50 MG TAB PO SCH ×2 (11:06→20:38)
[2023-02-13 11:14] LABS: Glucose,Whole Blood 114 mg/dL (70-110)
[2023-02-13] MEDS: amLODIPine 2.5 MG TAB PO SCH (13:03)
--- NOTE | 2023-02-13 14:27 | P.CRDCN ---
History of Present Illness Consult date: 02/13/23 Reason for Consult (text): Possible ERCP on eliquis History of present illness: History of present illness: This is a 77 year old male patient of Dr. Juárez with past medical history of coronary artery disease status post CABG in 2021 with CARREON to LAD and diagonal and radial artery to OM as well as SVG to RCA and left atrial appendage ligation as well as paroxysmal atrial fibrillation, hypertension, dyslipidemia, recurrent pleural effusions, history of pancreatitis from gallstones. We have been asked to evaluate the patient for possible ERCP on eliquis. Patient states that he developed pain in his abdomen very similar to that he needed his gallbladder removed. It apparently started at 2 in the morning on Monday. No nausea or vomiting. No shortness of breath. Patient came in to the hospital for further evaluation. Patient was found to have filling defects in the common bile duct and has been seen by GI with plan for ERCP tomorrow. Regarding atrial fibrillation, patient states that he has not had any episodes since the post surgical time in February 2022. There has been discussions with Dr. Juárez about stopping his amiodarone and eliquis. Eliquis is currently on hold for anticipated ERCP tomorrow. He last took eliquis on 02/11. Patient drinks 3 alcoholic beverages per day. Patient denies having any pain to the abdomen or chest today. He states he woke up and he felt fine. EKG sinus rhythm Chest x-ray: No acute process CAT scan of the abdomen and pelvis revealed dilated common bile duct with at least 2 filling defects identified in his post cholecystectomy patient. May represent residual choledocholithiasis. WBC 11.9, hemoglobin 11.8, platelet count 200. Electrolytes and renal function are normal. Magnesium 1.9. Liver enzymes are elevated as well as total bilirubin. Lipase 16. Home cardiac medications: Amiodarone 100 mg daily, amlodipine 2.5 mg daily, eliquis 2.5 mg twice daily, aspirin 81 mg daily, atorvastatin 40 mg daily, Lasix 40 mg daily, Imdur 30 mg daily, losartan 25 mg daily, Lopressor 50 g twice daily, potassium chloride 10 mEq twice daily. Echocardiogram performed 03/07/22 revealed normal EF, paracardial effusion, moderate LVH. Review Of Systems: At the time of my evaluation: Constitutional: No fever, no chills. No weakness, fatigue or lethargy. EENT: No headache. No dizziness. Lungs: No shortness of breath, cough, no sputum production. No wheezing. Cardiovascular: No chest pain, no lower extremity edema. No palpitations. No paroxysmal nocturnal dyspnea. No orthopnea. No lightheadedness or dizziness. No syncopal episodes. Abdominal: No abdominal pain. No nausea, vomiting. No diarrhea. No constipation. No bloody or tarry stools. Genitourinary: No dysuria.. No urinary retention. Musculoskeletal: No myalgias. No muscle weakness, no frequent falls. No back pain. No neck pain. Integumentary: No wounds. No rash. No unusual bruising. Neurologic: No aphasia. No facial droop. No change in mentation. No head injury. No headache. Physical examination: Gen: This is a 77-year-old male. He is resting on the edge of the bed and appears to be comfortable and in no acute distress. VS: reviewed HEENT: Head is atraumatic, normocephalic. Pupils equal, round. Sclerae is anicteric. NECK: Supple. No JVD. . LUNGS: Clear to auscultation. No wheezes or rhonchi. No intercostal retractions. HEART: Regular rate and rhythm. Systolic murmur. ABDOMEN: Soft No tenderness. EXTREMITIES: No pedal edema. No calf tenderness. NEUROLOGICAL: Patient is awake, alert and oriented x3. Assessment: Choledocholithiasis History of coronary artery disease status post CABG Paroxysmal atrial fibrillation Hypertension Dyslipidemia History of pleural effusions Plan: Continue to hold eliquis Hold amiodarone Resume patient's other home cardiac medications We'll determine later if patient will resume eliquis. Further recommendations to follow based upon clinical course Thank you kindly for this consultation. Nurse practitioner note has been reviewed, I agree with documented findings and plan of care. Patient was seen and examined. Past Medical History Past Medical History: Chest Pain / Angina, Hyperlipidemia, Hypertension, Osteoarthritis (OA) Additional Past Medical History / Comment(s): pancreatitis, gout History of Any Multi-Drug Resistant Organisms: None Reported Past Surgical History: Coronary Bypass/CABG Additional Past Surgical History / Comment(s): cataract surgery, rt knee replacement, arthroscopy lt knee, Past Anesthesia/Blood Transfusion Reactions: No Reported Reaction Past Psychological History: No Psychological Hx Reported Smoking Status: Never smoker Past Alcohol Use History: None Reported Past Drug Use History: None Reported - Past Family History Sister(s) Family Medical History: Cancer Additional Family Medical History / Comment(s): cancer base of tongue Father Family Medical History: Myocardial Infarction ([place]) Medications and Allergies Home Medications Medication Instructions Recorded Confirmed Type Furosemide [Lasix] 40 mg PO DAILY 01/27/20 02/12/23 History Aspirin EC [Ecotrin Low Dose] 81 mg PO DAILY 02/14/22 02/12/23 History Atorvastatin [Lipitor] 40 mg PO DAILY tab 03/01/22 02/12/23 Rx Amiodarone [Cordarone] 100 mg PO DAILY 02/12/23 02/12/23 History Apixaban [Eliquis] 2.5 mg PO BID 02/12/23 02/12/23 History Isosorbide Mononitrate ER [Imdur] 30 mg PO DAILY 02/12/23 02/12/23 History Losartan [Cozaar] 25 mg PO DAILY 02/12/23 02/12/23 History Metoprolol Tartrate [Lopressor] 50 mg PO BID 02/12/23 02/12/23 History Potassium Chloride ER [K-Dur 10] 10 meq PO BID 02/12/23 02/12/23 History amLODIPine [Norvasc] 2.5 mg PO DAILY 02/12/23 02/12/23 History metFORMIN HCL [Glucophage] 500 mg PO BID 02/12/23 02/12/23 History Allergies Allergy/AdvReac Type Severity Reaction Status Date / Time No Known Allergies Allergy Verified 02/12/23 13:38 Physical Exam Vitals: Vital Signs Temp Pulse Pulse Resp BP BP Pulse Ox 02/13/23 07:15 98.5 F 75 19 125/69 97 02/13/23 01:32 98.5 F 84 18 116/66 92 L 02/12/23 19:09 98.3 F 77 18 116/69 96 02/12/23 14:42 98.1 F 96 17 119/70 98 02/12/23 13:10 96 18 115/63 96 Intake and Output 02/12/23 02/13/23 02/13/23 22:59 06:59 14:59 Intake Total 1080 Balance 1080 Intake: Oral 1080 Other: # Voids 1 Results 02/13/23 05:46 02/13/23 05:46 Cardiac Enzymes 02/12/23 02/12/23 02/13/23 Range/Units 12:22 15:27 05:46 AST 347 H (14-35) U/L Troponin I <0.012 <0.012 (0.000-0.034) ng/mL CBC 02/13/23 Range/Units 05:46 WBC 11.90 H (4.50-10.00) X 10*3/uL RBC 3.41 L (4.40-5.60) X 10*6/uL Hgb 11.8 L (13.0-17.0) g/dL Hct 34.4 L (39.6-50.0) % Plt Count 200 (140-440) X 10*3/uL Comprehensive Metabolic Panel 02/13/23 Range/Units 05:46 Sodium 142 (135-145) mmol/L Potassium 4.0 (3.5-5.5) mmol/L Chloride 104 (96-109) mmol/L Carbon Dioxide 28.4 (21.6-31.8) mmol/L BUN 19.1 (9.0-27.0) mg/dL Creatinine 1.2 (0.6-1.5) mg/dL Glucose 106 (70-110) mg/dL Calcium 8.4 L (8.7-10.3) mg/dL AST 347 H (14-35) U/L ALT 318 H (10-49) U/L Alkaline Phosphatase 168 H (41-126) U/L Total Protein 5.4 L (6.2-8.2) g/dL Albumin 3.3 L (3.8-4.9) g/dL Current Medications Generic Name Dose Route Start Last Admin Trade Name Freq PRN Reason Stop Dose Admin Amiodarone HCl 100 mg 02/12/23 12:30 02/13/23 09:37 Amiodarone 100 Mg Tab PO 100 mg DAILY LEEROY Administration Amlodipine Besylate 2.5 mg 02/12/23 14:15 02/12/23 14:48 Amlodipine 2.5 Mg Tab PO 2.5 mg DAILY@1200 LEEROY Administration Apixaban 2.5 mg 02/12/23 12:15 02/13/23 09:38 Apixaban 2.5 Mg Tablet PO Not Given BID [facility] Protocol Aspirin 81 mg 02/13/23 09:00 02/13/23 09:38 Aspirin 81 Mg PO Not Given DAILY LEEROY Atorvastatin Calcium 40 mg 02/12/23 12:15 02/13/23 09:38 Atorvastatin 40 Mg Tab PO 40 mg DAILY LEEROY Administration Furosemide 40 mg 02/12/23 14:15 02/13/23 09:07 Furosemide 40 Mg Tab PO Not Given DAILY LEEROY Sodium Chloride 1,000 mls @ 75 mls/hr 02/12/23 11:45 02/13/23 04:29 Saline 0.9% IV 75 mls/hr .[id number] LEEROY Administration Lorazepam 0.5 mg 02/12/23 12:16 Lorazepam 0.5 Mg Tab PO Q4HR PRN [place] 4 To 5 Lorazepam 1 mg 02/12/23 12:16 Lorazepam 1 Mg Tab PO Q1HR PRN Alcohol Withdrawal Lorazepam 2 mg 02/12/23 12:16 Lorazepam 2 Mg/Ml Inj IV Q6HR PRN Seizures Metoprolol Tartrate 50 mg 02/12/23 12:15 02/13/23 11:06 Metoprolol Tartrate 50 Mg Tab PO 50 mg BID LEEROY Administration Morphine Sulfate 4 mg 02/12/23 11:44 Morphine Sulfate 4 Mg/Ml Syringe IV Q4HR PRN Severe Pain (Scale 7 to 10) Multivitamins 1 each 02/12/23 12:30 02/13/23 09:37 Multivitamins, Thera 1 Each Tab PO 1 each DAILY LEEROY Administration Naloxone HCl 0.2 mg 02/12/23 11:44 Naloxone 0.4 Mg/Ml 1 Ml Vial IV Q2M PRN Opioid Reversal Ondansetron HCl 4 mg 02/12/23 11:44 Ondansetron 4 Mg/2 Ml Vial IVP Q8HR PRN Nausea And Vomiting Thiamine HCl 100 mg 02/13/23 09:00 02/13/23 09:38 Thiamine 100 Mg Tab PO 100 mg DAILY LEEROY Administration Intake and Output 02/12/23 02/13/23 02/13/23 22:59 06:59 14:59 Intake Total 1080 Balance 1080 Intake: Oral 1080 Other: # Voids 1 02/13/23 05:46 02/13/23 05:46
--- NOTE | 2023-02-13 15:49 | P.CONS ---
History of Present Illness - Reason for Consult Consult date: 02/13/23 Possible choledocholithiasis Requesting physician: Anjelica Limon - Chief Complaint Abdominal pain, chest pain - History of Present Illness This a pleasant 77-year-old male who presented to the emergency department yesterday with complaints of upper abdominal pain that radiated to the left side of his chest. He was concerned for possible heart attack as he has a history of coronary artery disease status post CABG February 2022. Patient also has a history of cholecystectomy for gallstone pancreatitis with Dr. Thakkar in May 2020. On admission he was noted to have elevated liver enzymes with a total bilirubin of 1.8 AST 1088 ALT 377 alkaline phosphatase 170. Currently patient states abdominal pain is completely gone. He states he had a bowel movement yesterday evening and since then he has felt better. No nausea or vomiting. However total bilirubin has gone up to 3.3 today with AST and ALT improving. He did have a CAT scan of the abdomen with contrast that was concerning for CBD dilation with at least 2 filling defects identified Review of Systems REVIEW OF SYSTEMS: CARDIOPULMONARY: Patient reported chest pain yesterday however resolved. No shortness of breath. Gastrointestinal: No abdominal pain at this time. Patient did have upper abdominal pain states it felt like previous gallstone pancreatitis. No nausea or vomiting. No hematemesis, coffee-ground emesis. No rectal bleeding, or melena. GENITOURINARY: No dysuria or hematuria. MUSCULOSKELETAL: Reports normal range of motion. SKIN: No rashes. No jaundice. ENDOCRINE: No chills, fevers. No excessive weight gain or loss. No polydipsia or polyuria. PSYCHIATRIC: Unremarkable. NEUROLOGY: No change in mental status. Denies dizziness, headache. ENT: Vision unremarkable. CONSTITUTIONAL: No recent weight loss. No fever, chills, night sweats. Past Medical History Past Medical History: Chest Pain / Angina, Hyperlipidemia, Hypertension, Osteoarthritis (OA) Additional Past Medical History / Comment(s): pancreatitis, gout History of Any Multi-Drug Resistant Organisms: None Reported Past Surgical History: Coronary Bypass/CABG Additional Past Surgical History / Comment(s): cataract surgery, rt knee replacement, arthroscopy lt knee, Past Anesthesia/Blood Transfusion Reactions: No Reported Reaction Past Psychological History: No Psychological Hx Reported Smoking Status: Never smoker Past Alcohol Use History: None Reported Past Drug Use History: None Reported - Past Family History Sister(s) Family Medical History: Cancer Additional Family Medical History / Comment(s): cancer base of tongue Father Family Medical History: Myocardial Infarction (NE) Medications and Allergies Home Medications Medication Instructions Recorded Confirmed Type Furosemide [Lasix] 40 mg PO DAILY 01/27/20 02/12/23 History Aspirin EC [Ecotrin Low Dose] 81 mg PO DAILY 02/14/22 02/12/23 History Atorvastatin [Lipitor] 40 mg PO DAILY tab 03/01/22 02/12/23 Rx Amiodarone [Cordarone] 100 mg PO DAILY 02/12/23 02/12/23 History Apixaban [Eliquis] 2.5 mg PO BID 02/12/23 02/12/23 History Isosorbide Mononitrate ER [Imdur] 30 mg PO DAILY 02/12/23 02/12/23 History Losartan [Cozaar] 25 mg PO DAILY 02/12/23 02/12/23 History Metoprolol Tartrate [Lopressor] 50 mg PO BID 02/12/23 02/12/23 History Potassium Chloride ER [K-Dur 10] 10 meq PO BID 02/12/23 02/12/23 History amLODIPine [Norvasc] 2.5 mg PO DAILY 02/12/23 02/12/23 History metFORMIN HCL [Glucophage] 500 mg PO BID 02/12/23 02/12/23 History Allergies Allergy/AdvReac Type Severity Reaction Status Date / Time No Known Allergies Allergy Verified 02/12/23 13:38 Physical Exam Vitals: Vital Signs Temp Pulse Pulse Resp BP BP Pulse Ox 02/13/23 07:15 98.5 F 75 19 125/69 97 02/13/23 01:32 98.5 F 84 18 116/66 92 L 02/12/23 19:09 98.3 F 77 18 116/69 96 02/12/23 14:42 98.1 F 96 17 119/70 98 02/12/23 13:10 96 18 115/63 96 02/12/23 11:39 98 8 L 132/64 97 02/12/23 10:30 93 18 133/68 97 Intake and Output 02/12/23 02/13/23 02/13/23 22:59 06:59 14:59 Intake Total 1080 Balance 1080 Intake: Oral 1080 Other: # Voids 1 General appearance: The patient is alert, oriented, appears in no acute distress. HET: Head is normocephalic and atraumatic. Conjunctiva pink. Sclera anicteric. Neck: Supple without lymphadenopathy. Trachea midline. Heart: Regular. Lungs: Equal expansion, normal respiratory effort. Abdomen: Soft, nontender, nondistended with bowel sounds. No guarding or rigidity. Skin: No rashes. No jaundice. Extremities: Normal skin color and turgor. No pedal edema. Neurological: No focal deficits. Alert and oriented x3. Results CBC & Chem 7: 02/13/23 05:46 02/13/23 05:46 Labs: Abnormal Lab Results - Last 24 Hours (Table) 02/12/23 02/12/23 02/12/23 Range/Units 12:03 16:32 20:47 WBC (4.50-10.00) X 10*3/uL RBC (4.40-5.60) X 10*6/uL Hgb (13.0-17.0) g/dL Hct (39.6-50.0) % MCV (80.0-97.0) FL MCH (27.0-32.0) pg Neutrophils # (1.80-7.70) X 10*3/uL Monocytes # (0.20-1.00) X 10*3/uL POC Glucose (mg/dL) 200 H 124 H 120 H (70-110) mg/dL Calcium (8.7-10.3) mg/dL Total Bilirubin (0.3-1.2) mg/dL AST (14-35) U/L ALT (10-49) U/L Alkaline Phosphatase (41-126) U/L Total Protein (6.2-8.2) g/dL Albumin (3.8-4.9) g/dL Albumin/Globulin Ratio (1.60-3.17) Ratio 02/13/23 02/13/23 02/13/23 Range/Units 05:46 05:46 06:04 WBC 11.90 H (4.50-10.00) X 10*3/uL RBC 3.41 L (4.40-5.60) X 10*6/uL Hgb 11.8 L (13.0-17.0) g/dL Hct 34.4 L (39.6-50.0) % MCV 100.9 H (80.0-97.0) FL MCH 34.6 H (27.0-32.0) pg Neutrophils # 8.95 H (1.80-7.70) X 10*3/uL Monocytes # 1.07 H (0.20-1.00) X 10*3/uL POC Glucose (mg/dL) 119 H (70-110) mg/dL Calcium 8.4 L (8.7-10.3) mg/dL Total Bilirubin 3.3 H (0.3-1.2) mg/dL AST 347 H (14-35) U/L ALT 318 H (10-49) U/L Alkaline Phosphatase 168 H (41-126) U/L Total Protein 5.4 L (6.2-8.2) g/dL Albumin 3.3 L (3.8-4.9) g/dL Albumin/Globulin Ratio 1.57 L (1.60-3.17) Ratio CT scan - abdomen: report reviewed (Dilated common bile duct with at least 2 filling defects identified in this postcholecystectomy patient. These may represent residual Choledocholithiasis. Consider further evaluation with dedicated ERCP) Assessment and Plan (1) Choledocholithiasis Narrative/Plan: A 77-year-old male with a history of gallstone pancreatitis status post cholecystectomy in May [address] Thakkar presented with abdominal pain/chest pain in the upper abdomen and left-sided chest. Labs were consistent with a cholestatic pattern likely CBD stone obstruction. Although pain is improved, total bili were moving continues to increase. Plan for ERCP tomorrow continue to hold anticoagulation. Procedure discussed with patient including risks and benefits and he seemingly understands and agrees to proceed. Current Visit: Yes Status: Acute Code(s): K80.50 - CALCULUS OF BILE DUCT W/O CHOLANGITIS OR CHOLECYST W/O OBST SNOMED Code(s): 645036054 (2) Atrial fibrillation Current Visit: Yes Status: Acute Code(s): I48.91 - UNSPECIFIED ATRIAL FI BRILLATION SNOMED Code(s): 57635271 (3) EtOH dependence Current Visit: Yes Status: Acute Code(s): F10.20 - ALCOHOL DEPENDENCE, UNCOMPLICATED SNOMED Code(s): 91940616 (4) Hypomagnesemia Current Visit: Yes Status: Acute Code(s): E83.42 - HYPOMAGNESEMIA SNOMED Code(s): 081437068 (5) Abdominal pain Current Visit: No Status: Acute Code(s): R10.9 - UNSPECIFIED ABDOMINAL PAIN SNOMED Code(s): 51263245 Plan: 1. Continue symptomatic and supportive care 2. Clear liquid diet, Nothing by mouth after midnight 3. Levaquin as ordered one hour prior to procedure 4. Indomethacin as ordered one hour prior to procedure 5. Continue IV fluids, pain medication as needed 6. Daily CBC, CMP Thank you for this consultation, we will continue to follow. Dr. Freddy Venegas I agree with the dictator's note, documented as a scribe by Kandy Paulson.
[2023-02-13 17:10] LABS: Glucose,Whole Blood 136 mg/dL (70-110)
[2023-02-13 19:38] LABS: Glucose,Whole Blood 216 mg/dL (70-110)
[2023-02-14] MEDS: SODIUM CHLORIDE 0.9% 1,000 ML IV SCH ×2 (04:49→11:16)
[2023-02-14 05:18] LABS: Glucose,Whole Blood 125 mg/dL (70-110)
[2023-02-14] MEDS ORDERED: LEVOFLOXACIN 500MG-D5W PMX 500 MG in DEXTROSE/WATER 1 100ML.BAG IVPB SCH ×2 (06:00→12:00)
[2023-02-14] MEDS ORDERED: INDOMETHACIN 100 MG SUPPOSITORY RECTAL ONE ×2 (06:00→12:00)
[2023-02-14] MEDS ORDERED: SODIUM CHLORIDE 0.9% 1,000 ML IV ONE (07:00)
[2023-02-14] MEDS ORDERED: PROPOFOL 10 MG/ML 20 ML VIAL IV ONE (07:00)
[2023-02-14] MEDS ORDERED: GLUCAGON 1 MG/ML VIAL ONE (07:00)
[2023-02-14] MEDS ORDERED: IOPAMIDOL-300 50ML BTL MISCELLANE ONE (07:21)
[2023-02-14] MEDS: THIAMINE 100 MG TAB PO SCH (08:32)
[2023-02-14] MEDS: METOPROLOL TARTRATE 50 MG TAB PO SCH ×2 (08:32→20:27)
[2023-02-14] MEDS: ATORVASTATIN 40 MG TAB PO SCH (08:32)
[2023-02-14] MEDS: MULTIVITAMINS, THERA 1 EACH TAB PO SCH (08:32)
[2023-02-14] MEDS: FUROSEMIDE 40 MG TAB PO SCH (08:32)
[2023-02-14 08:37] LABS: ALT 205 U/L (10-49); AST 139 U/L (14-35); Albumin 3.2 g/dL (3.8-4.9); Albumin/Globulin Ratio 1.45 Ratio (1.60-3.17); Alkaline Phosphatase 167 U/L (41-126); Blood Urea Nitrogen 12.9 mg/dL (9.0-27.0); Calcium 8.2 mg/dL (8.7-10.3); Carbon Dioxide 24.2 mmol/L (21.6-31.8); Chloride 108 mmol/L (96-109); Globulin 2.2 g/dL (1.6-3.3); Glucose 127 mg/dL (70-110); Sodium 141 mmol/L (135-145); Total Bilirubin 1.7 mg/dL (0.3-1.2); Total Protein 5.4 g/dL (6.2-8.2)
--- NOTE | 2023-02-14 08:38 | P.PN ---
Subjective Progress Note Date: 02/14/23 History of present illness: This is a 77 year old male patient of Dr. Juárez with past medical history of co ronary artery disease status post CABG in 2021 with CARREON to LAD and diagonal and radial artery to OM as well as SVG to RCA and left atrial appendage ligation as well as paroxysmal atrial fibrillation, hypertension, dyslipidemia, recurrent pleural effusions, history of pancreatitis from gallstones. We have been asked to evaluate the patient for possible ERCP on eliquis. Patient states that he developed pain in his abdomen very similar to that he needed his gallbladder removed. It apparently started at 2 in the morning on Monday. No nausea or vomiting. No shortness of breath. Patient came in to the hospital for further evaluation. Patient was found to have filling defects in the common bile duct and has been seen by GI with plan for ERCP tomorrow. Regarding atrial fibrillation, patient states that he has not had any episodes since the postsurgical time in February 2022. There has been discussions with Dr. Juárez about stopping his amiodarone and eliquis. Eliquis is currently on hold for anticipated ERCP tomorrow. He last took eliquis on 02/11. Patient drinks 3 alcoholic beverages per day. Patient denies having any pain to the abdomen or chest today. He states he woke up and he felt fine. EKG sinus rhythm Chest x-ray: No acute process CAT scan of the abdomen and pelvis revealed dilated common bile duct with at least 2 filling defects identified in his post cholecystectomy patient. May represent residual choledocholithiasis. WBC 11.9, hemoglobin 11.8, platelet count 200. Electrolytes and renal function are normal. Magnesium 1.9. Liver enzymes are elevated as well as total bilirubin. Lipase 16. Home cardiac medications: Amiodarone 100 mg daily, amlodipine 2.5 mg daily, eliquis 2.5 mg twice daily, aspirin 81 mg daily, atorvastatin 40 mg daily, Lasix 40 mg daily, Imdur 30 mg daily, losartan 25 mg daily, Lopressor 50 g twice daily, potassium chloride 10 mEq twice daily. Echocardiogram performed 03/07/22 revealed normal EF, paracardial effusion, moderate LVH. 02/14 Patient underwent ERCP this morning. Eliquis is on hold we'll plan to resume tomorrow. Patient denies any chest pain or abdominal pain. No palpitations. Heart rate is in the 70s and 80s, blood pressure 132/78, pulse ox 96% on room air. Telemetry is sinus rhythm with PACs Physical examination: Gen: This is a 77-year-old male. He is resting on the edge of the bed and appears to be comfortable and in no acute distress. VS: reviewed HEENT: Head is atraumatic, normocephalic. Pupils equal, round. Sclerae is anicteric. LUNGS: Clear to auscultation. No wheezes or rhonchi. No intercostal retractions. HEART: Regular rate and rhythm. Systolic murmur. ABDOMEN: Soft No tenderness. EXTREMITIES: No pedal edema. NEUROLOGICAL: Patient is awake, alert and oriented x3. Assessment: Choledocholithiasis status post ERCP 02/14 History of coronary artery disease status post CABG Paroxysmal atrial fibrillation Hypertension Dyslipidemia History of pleural effusions Plan: Continue to hold eliquis, plan to resume tomorrow if cleared by GI Hold amiodarone continue to hold at discharge Resume patient's other home cardiac medications Further recommendations to follow based upon clinical course Nurse practitioner note has been reviewed, I agree with documented findings and plan of care. Patient was seen and examined. Objective - Vital Signs Vital signs: Vital Signs Temp 97.9 F 02/14/23 05:56 Pulse 80 02/14/23 05:56 Resp 17 02/14/23 05:56 BP 132/78 02/14/23 05:56 Pulse Ox 96 02/14/23 05:56 FiO2 Intake & Output 02/13/23 02/14/23 02/14/23 18:59 06:59 18:59 Intake Total 500 Balance 500 Intake: IV 500 Other: # Voids 1 - Labs CBC & Chem 7: 02/13/23 05:46 02/13/23 05:46 Labs: Abnormal Lab Results - Last 24 Hours (Table) 02/13/23 02/13/23 02/13/23 Range/Units 05:46 05:46 11:13 WBC 11.90 H (4.50-10.00) X 10*3/uL RBC 3.41 L (4.40-5.60) X 10*6/uL Hgb 11.8 L (13.0-17.0) g/dL Hct 34.4 L (39.6-50.0) % MCV 100.9 H (80.0-97.0) FL MCH 34.6 H (27.0-32.0) pg Neutrophils # 8.95 H (1.80-7.70) X 10*3/uL Monocytes # 1.07 H (0.20-1.00) X 10*3/uL POC Glucose (mg/dL) 114 H (70-110) mg/dL Calcium 8.4 L (8.7-10.3) mg/dL Total Bilirubin 3.3 H (0.3-1.2) mg/dL AST 347 H (14-35) U/L ALT 318 H (10-49) U/L Alkaline Phosphatase 168 H (41-126) U/L Total Protein 5.4 L (6.2-8.2) g/dL Albumin 3.3 L (3.8-4.9) g/dL Albumin/Globulin Ratio 1.57 L (1.60-3.17) Ratio 02/13/23 02/13/23 02/14/23 Range/Units 16:50 19:37 05:16 WBC (4.50-10.00) X 10*3/uL RBC (4.40-5.60) X 10*6/uL Hgb (13.0-17.0) g/dL Hct (39.6-50.0) % MCV (80.0-97.0) FL MCH (27.0-32.0) pg Neutrophils # (1.80-7.70) X 10*3/uL Monocytes # (0.20-1.00) X 10*3/uL POC Glucose (mg/dL) 136 H 216 H 125 H (70-110) mg/dL Calcium (8.7-10.3) mg/dL Total Bilirubin (0.3-1.2) mg/dL AST (14-35) U/L ALT (10-49) U/L Alkaline Phosphatase (41-126) U/L Total Protein (6.2-8.2) g/dL Albumin (3.8-4.9) g/dL Albumin/Globulin Ratio (1.60-3.17) Ratio
[2023-02-14 08:40] LABS: HCT 35.3 % (39.6-50.0); HGB 11.9 g/dL (13.0-17.0); MCH 34.1 pg (27.0-32.0); MCHC 33.7 g/dL (32.0-37.0); MCV 101.1 FL (80.0-97.0); Mean Platelet Volume 10.5 FL (9.5-12.2); NRBC Per 100 WBC 0 X 10*3/uL (0.00-0.01); Platelet Count 205 X 10*3/uL (140-440); RBC 3.49 X 10*6/uL (4.40-5.60); RDW 13.6 % (11.5-14.5); WBC 6.57 X 10*3/uL (4.50-10.00)
--- NOTE | 2023-02-14 08:55 | P.PCN ---
Date of Procedure: 02/14/23 Procedure(s) Performed: Brief history: Patient is a year-old pleasant white male admitted hospital yesterday when he presented with severe epigastric pain of 2 days' duration. He was noted to have elevated serum transaminases/jaundice with Bilirubin 3 and elevated serum transaminases. CT of abdomen to be dilated CBD with distal CBD stone. History of gallbladder surgery several years ago for gallstones. Procedure performed: ERCP with biliary sphincterotomy, balloon stone extraction and CBD stent placement Preoperative diagnoses: Abdominal pain/elevated LFTs and jaundice IV sedation per anesthesia: Procedure: After informed consent was obtained from the patient and after the risks benefits and complications including bleeding perforation and pancreatitis explained in detail the patient was brought into the endoscopy unit. The patient was placed in prone position and IV conscious sedation was administered by anesthesia under continuous monitoring. The Olympus side-viewing duodenoscope was then inserted into the mouth and esophagus intubated without any difficulty. The scope was gradually advanced into the stomach and duodenum. The major papilla was identified without any difficulty. Initial cannulation resulted with the common bile duct appeared dilated measuring at least 1.5 cm in diameter with 2 large filling defects noted. At this time the catheter was removed and a guidewire was passed the CBD and was exchanged with a biliary sphincterotome. At this time bili recent enterotomy performed in 11 o'clock position and was extended to 1 cm. Following this a 11.5 mm balloon was passed over the guidewire into the proximal CBD and gently inflated and withdrawn and one stone was extracted that measured about 5 mm in size. Significant amount of biliary sludge was extracted.. There was one large stone that was more than 1.2 cm in diameter in the proximal CBD and despite multiple attempts I was not able to to extract the stone. Hence at this time I proceeded with a 7-[place], 5 cm pigtail CBD stent in the common bile duct. The pancreatic duct was not cannulated during the entire procedure. Patient tolerated the procedure Impression: Dilated common bile duct with 2 stones measuring 5 mm and 1.2 cm in size status post biliary sphincterotomy, balloon stone extraction of the small stone, large stone could not be extracted, 7-[place] 7 cm pigtail stent placement as described above Pancreatic duct not cannulated intentionally. Recommendations: The findings of this examination were discussed with the patient as well as a family. He'll be started on clear liquid diet. . Monitor labs. Discharge him home today or tomorrow and follow up in office in 2 weeks.
--- NOTE | 2023-02-14 09:41 | FL ---
EXAMINATION TYPE: FL ERCP HISTORY: Fluoroscopy time Impression: 1. Fluoroscopy support provided to the referring physician.
[2023-02-14 11:13] LABS: Glucose,Whole Blood 151 mg/dL (70-110)
[2023-02-14] MEDS: amLODIPine 2.5 MG TAB PO SCH (11:16)
--- NOTE | 2023-02-14 13:08 | P.PN ---
Subjective Progress Note Date: 02/14/23 H&P Date: 02/12/23 Chief Complaint: Abdominal pain Mat is a 77-year-old male practice. He has been complaining of midepigastric abdominal pain for the past day that it radiated to his left upper quadrant. He reports no significant nausea or vomiting. He reports his stomach felt hard. Due to this he came emergency room and received pain medication which has helped considerably. CT abdomen pelvis showed dilated common bile duct with at least 2 filling defects identified. He underwent a left ENDOscopic cholecystectomy with Dr. Denis Rader 06/01/2020 electively after an admission several months previously to this for gallstone pancreatitis.. He Also history of coronary bypass graft 4 vessels done 02/18/2022. He is on Elequis for atrial fibr illation and anticoagulation. Amiodarone for arrhythmia control. Currently is resting comfortably in the emergency room. He reports his pain is mostly subsided. He denies currently any chest pain pressure or shortness breath nausea vomiting blood in his stool or black stool. We discussed at length the GI will not be available until tomorrow. He strongly wishes to remain here and not be transferred to another facility. I made him aware that this could become problematic for his health if he should experience significant symptoms that are not adequately controlled with pain medication for GI can see him. Emergency room staff report that Mat does have 3 large cocktails every day and it has had for 4 a long time. 02/14/23 LFTs improving.Underwent ERCP with biliary stricturotomy, balloon stone extraction and CBD stent placement; dilated common bile duct of 2 stones measuring 5 mm and 1.2 cm in size with balloon stone extraction of the small stone, large stone could not be extracted,pigtail CBD stent placement. Pancreatic duct not cannulated intentionally. Tolerated procedure well. Maintained on IV fluid hydration, tolerating clear liquid diet with no nausea or vomiting. Postprocedure was complaining of some midepigastric discomfort which has resolved after having a couple bowel movements. GI has cleared patient to resume his Eliquis tomorrow. Denies any chest pain, palpitations or shortness of breath. Maintaining O2 sats in the high 90s on room air. Telemetry sinus rh ythm with PVCs. Afebrile. Objective - Vital Signs Vital signs: Vital Signs Temp 97.9 F 02/14/23 05:56 Pulse 64 02/14/23 09:17 Resp 17 02/14/23 05:56 BP 145/78 02/14/23 09:17 Pulse Ox 96 02/14/23 09:17 FiO2 Intake & Output 02/13/23 02/14/23 02/14/23 18:59 06:59 18:59 Intake Total 500 Balance 500 Intake: IV 500 Other: # Voids 1 - Exam GENERAL: Alert and oriented 3, sitting up at side of bed, no acute distress. HEAD: Atraumatic, normocephalic. EYES: Pupils equal round and reactive to light, extraocular movements intact, sclera anicteric, conjunctiva normal.MMM. NECK: Supple, no JVD LUNGS: Unlabored, equal air entry, CTA. HEART: Regular rate and rhythm without murmurs, rubs or gallops.S1S2 Normal ABDOMEN: Soft, , normoactive bowel sounds. Mild mid epigastric tenderness. No guarding, no rebound. +BS. EXTREMITIES: No pitting or edema. No clubbing or cyanosis. NEUROLOGICAL: Cranial nerves II through XII grossly intact. Normal speech, normal gait. SKIN: Warm, Dry, no rashes noted. - Labs CBC & Chem 7: 02/14/23 05:55 02/14/23 05:55 Labs: Abnormal Lab Results - Last 24 Hours (Table) 02/13/23 02/13/23 02/13/23 Range/Units 11:13 16:50 19:37 RBC (4.40-5.60) X 10*6/uL Hgb (13.0-17.0) g/dL Hct (39.6-50.0) % MCV (80.0-97.0) FL MCH (27.0-32.0) pg Glucose (70-110) mg/dL POC Glucose (mg/dL) 114 H 136 H 216 H (70-110) mg/dL Calcium (8.7-10.3) mg/dL Total Bilirubin (0.3-1.2) mg/dL AST (14-35) U/L ALT (10-49) U/L Alkaline Phosphatase (41-126) U/L Total Protein (6.2-8.2) g/dL Albumin (3.8-4.9) g/dL Albumin/Globulin Ratio (1.60-3.17) Ratio 02/14/23 02/14/23 02/14/23 Range/Units 05:16 05:55 05:55 RBC 3.49 L (4.40-5.60) X 10*6/uL Hgb 11.9 L (13.0-17.0) g/dL Hct 35.3 L (39.6-50.0) % MCV 101.1 H (80.0-97.0) FL MCH 34.1 H (27.0-32.0) pg Glucose 127 H (70-110) mg/dL POC Glucose (mg/dL) 125 H (70-110) mg/dL Calcium 8.2 L (8.7-10.3) mg/dL Total Bilirubin 1.7 H (0.3-1.2) mg/dL AST 139 H (14-35) U/L ALT 205 H (10-49) U/L Alkaline Phosphatase 167 H (41-126) U/L Total Protein 5.4 L (6.2-8.2) g/dL Albumin 3.2 L (3.8-4.9) g/dL Albumin/Globulin Ratio 1.45 L (1.60-3.17) Ratio Assessment and Plan Assessment: Assessment and Plan (1) Choledocholithiasis, status post ERCP with biliary sphincterotomy, balloon stone extraction of smaller stone , large stone unable to be extracted , CBD stent placement. Further follow-up at [facility]. 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 Current Visit: Yes Status: Acute Code(s): E11.59 - TYPE 2 DIABETES MELLITUS WITH OTH CIRCULATORY COMPLICATIONS SNOMED Code(s): 17440330 (5) Type 2 diabetes mellitus with other specified complication Current Visit: Yes Status: Acute Code(s): E11.69 - TYPE 2 DIABETES MELLITUS WITH OTHER SPECIFIED COMPLICATION SNOMED Code(s): 87770028 (6) EtOH dependence Current Visit: Yes Status: Acute Code(s): F10.20 - ALCOHOL DEPENDENCE, UNCOMPLICATED SNOMED Code(s): 24733411 (7) Atrial fibrillation Current Visit: Yes Status: Acute Code(s): I48.91 - UNSPECIFIED ATRIAL FIBRILLATION SNOMED Code(s): 57701509 (8) Hypomagnesemia Current Visit: Yes Status: Acute Code(s): E83.42 - HYPOMAGNESEMIA SNOMED Code(s): 589314711 (9) Atherosclerotic heart disease Current Visit: No Status: Acute Code(s): I25.10 - ATHSCL HEART DISEASE OF [place] CORONARY ARTERY W/O ANG PCTRS SNOMED Code(s): 853635029 (10) COPD (chronic obstructive pulmonary disease) Current Visit: No Status: Acute Code(s): J44.9 - CHRONIC OBSTRUCTIVE PULMONARY DISEASE, UNSPECIFIED SNOMED Code(s): 73562907 (11) Essential (primary) hypertension Current Visit: No Status: Acute Code(s): I10 - ESSENTIAL (PRIMARY) HYPERTENSION SNOMED Code(s): 57760748 (12) Mixed hyperlipidemia Current Visit: No Status: Acute Code(s): E78.2 - MIXED HYPERLIPIDEMIA SNOMED Code(s): 535912984 Plan: Continue on current medication regime ,monitoring and symptomatic treatment. Repeat lipase level in a.m. .Antiarrhythmics as per cardiology with amiodarone on hold. Eliquis on hold, resuming as per cardiology and GI tomorrow. Discharge planning in progress pending final DC recommendations and clearance per GI and cardiology. The impression and plan of care has been dictated as directed. : I performed a history and examination of this patient, discussed the same with the dictator. I agree with the dictator's note ,documented as a scribe. Any ad ditional findings or plans will be noted.
[2023-02-14 16:45] LABS: Glucose,Whole Blood 127 mg/dL (70-110)
[2023-02-14 20:09] LABS: Glucose,Whole Blood 152 mg/dL (70-110)
[2023-02-14 21:32] VITALS: RESP 16
[2023-02-15 05:25] LABS: Glucose,Whole Blood 123 mg/dL (70-110)
[2023-02-15] MEDS: SODIUM CHLORIDE 0.9% 1,000 ML IV SCH (08:57)
[2023-02-15] MEDS: THIAMINE 100 MG TAB PO SCH (08:59)
[2023-02-15] MEDS: ATORVASTATIN 40 MG TAB PO SCH (08:59)
[2023-02-15] MEDS: FUROSEMIDE 40 MG TAB PO SCH (08:59)
[2023-02-15] MEDS: MULTIVITAMINS, THERA 1 EACH TAB PO SCH (08:59)
[2023-02-15] MEDS: METOPROLOL TARTRATE 50 MG TAB PO SCH (08:59)
[2023-02-15] MEDS ORDERED: APIXABAN 5 MG TAB PO SCH (09:00)
[2023-02-15 09:07] VITALS: BP 155/80; PULSE 89; TEMP 97.8
[2023-02-15 10:58] LABS: HCT 33.7 % (39.6-50.0); HGB 11.5 g/dL (13.0-17.0); MCH 34.3 pg (27.0-32.0); MCHC 34.1 g/dL (32.0-37.0); MCV 100.6 FL (80.0-97.0); Mean Platelet Volume 10.7 FL (9.5-12.2); NRBC Per 100 WBC 0 X 10*3/uL (0.00-0.01); Platelet Count 171 X 10*3/uL (140-440); RBC 3.35 X 10*6/uL (4.40-5.60); RDW 13.3 % (11.5-14.5); WBC 5.61 X 10*3/uL (4.50-10.00)
[2023-02-15] MEDS: amLODIPine 2.5 MG TAB PO SCH (11:14)
[2023-02-15 11:27] LABS: ALT 141 U/L (10-49); AST 63 U/L (14-35); Albumin/Globulin Ratio 1.36 Ratio (1.60-3.17); Alkaline Phosphatase 146 U/L (41-126); Blood Urea Nitrogen 8.9 mg/dL (9.0-27.0); Calcium 7.9 mg/dL (8.7-10.3); Carbon Dioxide 24.7 mmol/L (21.6-31.8); Chloride 110 mmol/L (96-109); Globulin 2.2 g/dL (1.6-3.3); Glucose 119 mg/dL (70-110); Lipase 26 U/L (14-60); Potassium 3.7 mmol/L (3.5-5.5); Sodium 142 mmol/L (135-145); Total Bilirubin 0.9 mg/dL (0.3-1.2); Total Protein 5.2 g/dL (6.2-8.2)
[2023-02-15 11:35] LABS: Glucose,Whole Blood 146 mg/dL (70-110)
--- NOTE | 2023-02-15 13:38 | P.PN ---
Subjective Progress Note Date: 02/15/23 History of present illness: This is a 77 year old male patient of Dr. Juárez with past medical history of co ronary artery disease status post CABG in 2021 with CARREON to LAD and diagonal and radial artery to OM as well as SVG to RCA and left atrial appendage ligation as well as paroxysmal atrial fibrillation, hypertension, dyslipidemia, recurrent pleural effusions, history of pancreatitis from gallstones. We have been asked to evaluate the patient for possible ERCP on eliquis. Patient states that he developed pain in his abdomen very similar to that he needed his gallbladder removed. It apparently started at 2 in the morning on Monday. No nausea or vomiting. No shortness of breath. Patient came in to the hospital for further evaluation. Patient was found to have filling defects in the common bile duct and has been seen by GI with plan for ERCP tomorrow. Regarding atrial fibrillation, patient states that he has not had any episodes since the postsurgical time in February 2022. There has been discussions with Dr. Juárez about stopping his amiodarone and eliquis. Eliquis is currently on hold for anticipated ERCP tomorrow. He last took eliquis on 02/11. Patient drinks 3 alcoholic beverages per day. Patient denies having any pain to the abdomen or chest today. He states he woke up and he felt fine. EKG sinus rhythm Chest x-ray: No acute process CAT scan of the abdomen and pelvis revealed dilated common bile duct with at least 2 filling defects identified in his post cholecystectomy patient. May represent residual choledocholithiasis. WBC 11.9, hemoglobin 11.8, platelet count 200. Electrolytes and renal function are normal. Magnesium 1.9. Liver enzymes are elevated as well as total bilirubin. Lipase 16. Home cardiac medications: Amiodarone 100 mg daily, amlodipine 2.5 mg daily, eliquis 2.5 mg twice daily, aspirin 81 mg daily, atorvastatin 40 mg daily, Lasix 40 mg daily, Imdur 30 mg daily, losartan 25 mg daily, Lopressor 50 g twice daily, potassium chloride 10 mEq twice daily. Echocardiogram performed 03/07/22 revealed normal EF, paracardial effusion, moderate LVH. 02/14 Patient underwent ERCP this morning. Eliquis is on hold we'll plan to resume tomorrow. Patient denies any chest pain or abdominal pain. No palpitations. Heart rate is in the 70s and 80s, blood pressure 132/78, pulse ox 96% on room air. Telemetry is sinus rhythm with PACs 02/15 Patient states he is planning to go home today. We will resume eliquis at the 2.5 mg twice daily. Repeat blood work reveals hemoglobin 11.5. BUN 8.9 and creatinine 1. Liver function tests are elevated with AST 63, ALT 141, alkaline phosphatase 146. Heart rate has been in the 80s, blood pressure 155/80 and pulse ox 96% on room air. Physical examination: Gen: This is a 77-year-old male. He is resting on the edge of the bed and appears to be comfortable and in no acute distress. VS: reviewed HEENT: Head is atraumatic, normocephalic. Pupils equal, round. Sclerae is anicteric. LUNGS: Clear to auscultation. No wheezes or rhonchi. No intercostal retractions. HEART: Regular rate and rhythm. Systolic murmur. ABDOMEN: Soft No tenderness. EXTREMITIES: No pedal edema. NEUROLOGICAL: Patient is awake, alert and oriented x3. Assessment: Choledocholithiasis status post ERCP 02/14 History of coronary artery disease status post CABG Paroxysmal atrial fibrillation Hypertension Dyslipidemia History of pleural effusions Plan: Patient resumed on eliquis Hold amiodarone continue to hold at discharge Continue patient's other home cardiac medications Patient is cleared by cardiology for discharge with follow Dr. Juárez. Nurse practitioner note has been reviewed, I agree with documented findings and plan of care. Patient was seen and examined. Objective - Vital Signs Vital signs: Vital Signs Temp 97.5 F L 02/15/23 00:56 Pulse 87 02/15/23 00:56 Resp 16 02/15/23 00:56 BP 134/68 02/15/23 00:56 Pulse Ox 97 02/15/23 00:56 FiO2 Intake & Output 02/14/23 02/15/23 02/15/23 18:59 06:59 18:59 Intake Total 500 Balance 500 Intake: IV 500 Other: # Voids 2 - Labs CBC & Chem 7: 02/15/23 06:24 02/15/23 06:24 Labs: Abnormal Lab Results - Last 24 Hours (Table) 02/14/23 02/14/23 02/14/23 Range/Units 05:55 05:55 11:12 RBC 3.49 L (4.40-5.60) X 10*6/uL Hgb 11.9 L (13.0-17.0) g/dL Hct 35.3 L (39.6-50.0) % MCV 101.1 H (80.0-97.0) FL MCH 34.1 H (27.0-32.0) pg Glucose 127 H (70-110) mg/dL POC Glucose (mg/dL) 151 H (70-110) mg/dL Calcium 8.2 L (8.7-10.3) mg/dL Total Bilirubin 1.7 H (0.3-1.2) mg/dL AST 139 H (14-35) U/L ALT 205 H (10-49) U/L Alkaline Phosphatase 167 H (41-126) U/L Total Protein 5.4 L (6.2-8.2) g/dL Albumin 3.2 L (3.8-4.9) g/dL Albumin/Globulin Ratio 1.45 L (1.60-3.17) Ratio 02/14/23 02/14/23 02/15/23 Range/Units 16:44 20:08 05:22 RBC (4.40-5.60) X 10*6/uL Hgb (13.0-17.0) g/dL Hct (39.6-50.0) % MCV (80.0-97.0) FL MCH (27.0-32.0) pg Glucose (70-110) mg/dL POC Glucose (mg/dL) 127 H 152 H 123 H (70-110) mg/dL Calcium (8.7-10.3) mg/dL Total Bilirubin (0.3-1.2) mg/dL AST (14-35) U/L ALT (10-49) U/L Alkaline Phosphatase (41-126) U/L Total Protein (6.2-8.2) g/dL Albumin (3.8-4.9) g/dL Albumin/Globulin Ratio (1.60-3.17) Ratio
--- NOTE | 2023-02-15 15:28 | P.DS ---
Providers Date of admission: 02/12/23 11:46 Expected date of discharge: 02/15/23 Attending physician: Nam Green Consults: 02/12/23 11:44 Consult Physician Urgent Consulting Provider: Anna Venegas Consult Reason/Comments: Transaminitis, possible choledocholithiasis Do you want consulting provider notified?: Yes 02/12/23 12:33 Consult Physician Routine Consulting Provider: Bo Juárez Consult Reason/Comments: POSSIBLE ERCP ON ELIQUIS Do you want consulting provider notified?: Yes Primary care physician: [facility] Course: Final Diagnoses: (1) Choledocholithiasis, status post ERCP with biliary sphincterotomy, balloon stone extraction of smaller stone , large stone unable to be extracted , CBD stent placement. Further follow-up at [facility]. Current Visit: Yes Status: Acute Code(s): K80.50 - CALCULUS OF BILE DUCT W/O CHOLANGITIS OR CHOLECYST W/O OBST SNOMED Code(s): 866174064 (2) Epigastric abdominal pain Current Visit: Yes Status: Acute Code(s): R10.13 - EPIGASTRIC PAIN SNOMED Code(s): 65509717 (3) Transaminitis Current Visit: Yes Status: Acute Code(s): R74.01 - ELEVATION OF LEVELS OF LIVER TRANSAMINASE LEVELS SNOMED Code(s): 567391618 (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 Current Visit: Yes Status: Acute Code(s): E11.59 - TYPE 2 DIABETES MELLITUS WITH OTH CIRCULATORY COMPLICATIONS SNOMED Code(s): 76435504 (5) Type 2 diabetes mellitus with other specified complication Current Visit: Yes Status: Acute Code(s): E11.69 - TYPE 2 DIABETES MELLITUS WITH OTHER SPECIFIED COMPLICATION SNOMED Code(s): 55858631 (6) EtOH dependence Current Visit: Yes Status: Acute Code(s): F10.20 - ALCOHOL DEPENDENCE, UNCOMPLICATED SNOMED Code(s): 59609656 (7) Atrial fibrillation Current Visit: Yes Status: Acute Code(s): I48.91 - UNSPECIFIED ATRIAL FIBRILLATION SNOMED Code(s): 33102498 (8) Hypomagnesemia Current Visit: Yes Status: Acute Code(s): E83.42 - HYPOMAGNESEMIA SNOMED Code(s): 821951463 (9) Atherosclerotic heart disease Current Visit: No Status: Acute Code(s): I25.10 - ATHSCL HEART DISEASE OF [place] CORONARY ARTERY W/O ANG PCTRS SNOMED Code(s): 505887104 (10) COPD (chronic obstructive pulmonary disease) Current Visit: No Status: Acute Code(s): J44.9 - CHRONIC OBSTRUCTIVE PULMONARY DISEASE, UNSPECIFIED SNOMED Code(s): 50416427 (11) Essential (primary) hypertension Current Visit: No Status: Acute Code(s): I10 - ESSENTIAL (PRIMARY) HYPERTENSION SNOMED Code(s): 99389085 (12) Mixed hyperlipidemia Current Visit: No Status: Acute Code(s): E78.2 - MIXED HYPERLIPIDEMIA SNOMED Code(s): 411865973 Hospital course:Mat is a 77-year-old male practice. He has been complaining of midepigastric abdominal pain for the past day that it radiated to his left upper quadrant. He reports no significant nausea or vomiting. He reports his stomach felt hard. Due to this he came emergency room and received pain medication which has helped considerably. CT abdomen pelvis showed dilated common bile duct with at least 2 filling defects identified. He underwent a left ENDOscopic cholecystectomy with Dr. Denis Rader 06/01/2020 electively after an admission several months previously to this for gallstone pancreatitis.. He Also history of coronary bypass graft 4 vessels done 02/18/2022. He is on Elequis for atrial fibrillation and anticoagulation. Amiodarone for arrhythmia control. Currently is resting comfortably in the emergency room. He reports his pain is mostly subsided. He denies currently any chest pain pressure or shortness breath nausea vomiting blood in his stool or black stool. We discussed at length the GI will not be available until tomorrow. He strongly wishes to remain here and not be transferred to another facility. I made him aware that this could become problematic for his health if he should experience significant symptoms that are not adequately controlled with pain medication for GI can see him. Emergency room staff report that Mat does have 3 large cocktails every day and it has had for 4 a long time. 02/14/23 LFTs improving.Underwent ERCP with biliary stricturotomy, balloon sto ne extraction and CBD stent placement; dilated common bile duct of 2 stones measuring 5 mm and 1.2 cm in size with balloon stone extraction of the small stone, large stone could not be extracted,pigtail CBD stent placement. Pancreatic duct not cannulated intentionally. Tolerated procedure well. Maintained on IV fluid hydration, tolerating clear liquid diet with no nausea or vomiting. Postprocedure was complaining of some midepigastric discomfort which has resolved after having a couple bowel movements. GI has cleared patient to resume his Eliquis tomorrow. Denies any chest pain, palpitations or shortness of breath. Maintaining O2 sats in the high 90s on room air. Telemetry sinus rhythm with PVCs. Afebrile. 02/15/2023 afebrile, normal WBC. Denies chest pain, palpitations or shortness of breath, maintaining O2 sats in the high 90s on room air. Hemoglobin 11.5, platelets 171. Denies any further abdominal pain. Tolerating diet with no nausea vomiting or diarrhea. Lipase returned to normal, currently 26. LFTs continue to improve. Renal function stable. Eliquis resumed today. Vital signs stable. Patient has been cleared by cardiology, recommending to continue holding amiodarone at discharge. Patient will be discharged home today in a stable condition with guarded prognosis pending final DC recommendations and clearance per GI. Further follow-up at [facility] will be further arranged outpatient as per GI. The impression and plan of care has been dictated as directed. : I performed a history and examination of this patient, discussed the same with the dictator. I agree with the dictator's note ,documented as a scribe. Any additional findings or plans will be noted. Patient Condition at Discharge: Stable Plan - Discharge Summary Discharge Rx Participant: No New Discharge Prescriptions: Discontinued Amiodarone [Cordarone] 100 mg PO DAILY No Action Furosemide [Lasix] 40 mg PO DAILY Metoprolol Tartrate [Lopressor] 50 mg PO BID Losartan [Cozaar] 25 mg PO DAILY Aspirin EC [Ecotrin Low Dose] 81 mg PO DAILY Atorvastatin [Lipitor] 40 mg PO DAILY tab Potassium Chloride ER [K-Dur 10] 10 meq PO BID metFORMIN HCL [Glucophage] 500 mg PO BID Isosorbide Mononitrate ER [Imdur] 30 mg PO DAILY amLODIPine [Norvasc] 2.5 mg PO DAILY Apixaban [Eliquis] 2.5 mg PO BID Discharge Medication List Furosemide [Lasix] 40 mg PO DAILY 01/27/20 [History] Aspirin EC [Ecotrin Low Dose] 81 mg PO DAILY 02/14/22 [History] Atorvastatin [Lipitor] 40 mg PO DAILY tab 03/01/22 [Rx] Apixaban [Eliquis] 2.5 mg PO BID 02/12/23 [History] Isosorbide Mononitrate ER [Imdur] 30 mg PO DAILY 02/12/23 [History] Losartan [Cozaar] 25 mg PO DAILY 02/12/23 [History] Metoprolol Tartrate [Lopressor] 50 mg PO BID 02/12/23 [History] Potassium Chloride ER [K-Dur 10] 10 meq PO BID 02/12/23 [History] amLODIPine [Norvasc] 2.5 mg PO DAILY 02/12/23 [History] metFORMIN HCL [Glucophage] 500 mg PO BID 02/12/23 [History] Follow up Appointment(s)/Referral(s): Bo Juárez MD [STAFF PHYSICIAN] - 03/22/23 3:00 pm Lacho Brambila Jr, DO [Primary Care Provider] - 02/20/23 10:15 am () Anna Venegas MD [STAFF PHYSICIAN] - 1 Week (office not answering Please call to schedule appointment ) Patient Instructions/Handouts: Soft Diet (DC), ERCP (Endoscopic Retrograde Cholangiopancreatography) (DC) Discharge Disposition: HOME SELF-CARE
--- NOTE | 2023-02-15 17:29 | P.PN ---
Subjective Progress Note Date: 02/15/23 Principal diagnosis: Choledocholithiasis This a pleasant 77-year-old male who presented to the emergency department yesterday with complaints of upper abdominal pain that radiated to the left side of his chest. He was concerned for possible heart attack as he has a history of coronary artery disease status post CABG February 2022. Patient also has a history of cholecystectomy for gallstone pancreatitis with Dr. Thakkar in May 2020. On admission he was noted to have elevated liver enzymes with a total bilirubin of 1.8 AST 1088 ALT 377 alkaline phosphatase 170. Currently patient states abdominal pain is completely gone. He states he had a bowel movement yesterday evening and since then he has felt better. No nausea or vomiting. However total bilirubin has gone up to 3.3 today with AST and ALT improving. He did have a CAT scan of the abdomen with contrast that was concerning for CBD dilation with at least 2 filling defects identified 02/15/2023 Patient seen and examined today as a follow-up. Yesterday he underwent ERCP with findings of dilated common bile duct with 2 stones measuring 5 mm and 1.2 cm in size status post biliary sphincterectomy, balloon stone extraction of the small stone, large stone could not be extracted. 7-[place] pigtail stent placem ent. Following the procedure patient had a little bit of the abdominal discomfort however after having a bowel movement states the pain has resolved. Today's repeat labs WBC 5.6 hemoglobin 11.5 platelet count 171,000 total bilirubin 0.9 AST 63 ALT 141 alkaline phosphatase 146 lipase 26. Patient states abdominal pain significantly improved. He has been up and ambulating. Denies any fevers or chills. Objective - Vital Signs Vital signs: Vital Signs Temp 97.8 F 02/15/23 07:49 Pulse 89 02/15/23 07:49 Resp 16 02/15/23 07:49 BP 155/80 02/15/23 07:49 Pulse Ox 96 02/15/23 07:49 FiO2 Intake & Output 02/14/23 02/15/23 02/15/23 18:59 06:59 18:59 Intake Total 500 Balance 500 Intake: IV 500 Other: # Voids 2 - Exam General appearance: The patient is alert, oriented, appears in no acute distress. HET: Head is normocephalic and atraumatic. Conjunctiva pink. Sclera anicteric. Neck: Supple without lymphadenopathy. Abdomen: Soft, nontender, nondistended with bowel sounds. No guarding or rigidity. Extremities: Normal skin color and turgor. No pedal edema Skin: No rashes, no jaundice Neurological: No focal deficits. Alert and oriented. - Labs CBC & Chem 7: 02/15/23 06:24 02/15/23 06:24 Labs: Abnormal Lab Results - Last 24 Hours (Table) 02/14/23 02/14/23 02/15/23 Range/Units 16:44 20:08 05:22 RBC (4.40-5.60) X 10*6/uL Hgb (13.0-17.0) g/dL Hct (39.6-50.0) % MCV (80.0-97.0) FL MCH (27.0-32.0) pg Chloride (96-109) mmol/L BUN (9.0-27.0) mg/dL BUN/Creatinine Ratio (12.00-20.00) Ratio Glucose (70-110) mg/dL POC Glucose (mg/dL) 127 H 152 H 123 H (70-110) mg/dL Calcium (8.7-10.3) mg/dL AST (14-35) U/L ALT (10-49) U/L Alkaline Phosphatase (41-126) U/L Total Protein (6.2-8.2) g/dL Albumin (3.8-4.9) g/dL Albumin/Globulin Ratio (1.60-3.17) Ratio 02/15/23 02/15/23 02/15/23 Range/Units 06:24 06:24 11:31 RBC 3.35 L (4.40-5.60) X 10*6/uL Hgb 11.5 L (13.0-17.0) g/dL Hct 33.7 L (39.6-50.0) % MCV 100.6 H (80.0-97.0) FL MCH 34.3 H (27.0-32.0) pg Chloride 110 H (96-109) mmol/L BUN 8.9 L (9.0-27.0) mg/dL BUN/Creatinine Ratio 8.90 L (12.00-20.00) Ratio Glucose 119 H (70-110) mg/dL POC Glucose (mg/dL) 146 H (70-110) mg/dL Calcium 7.9 L (8.7-10.3) mg/dL AST 63 H (14-35) U/L ALT 141 H (10-49) U/L Alkaline Phosphatase 146 H (41-126) U/L Total Protein 5.2 L (6.2-8.2) g/dL Albumin 3.0 L (3.8-4.9) g/dL Albumin/Globulin Ratio 1.36 L (1.60-3.17) Ratio Assessment and Plan (1) Choledocholithiasis Narrative/Plan: A 77-year-old male with a history of gallstone pancreatitis status post cholecystectomy in [place] [address] Thakkar presented with abdominal pain/chest pain in the upper abdomen and left-sided chest. Labs were consistent with a c holestatic pattern likely CBD stone obstruction. Although pain is improved, total bili were moving continues to increase. Plan for ERCP tomorrow continue to hold anticoagulation. Procedure discussed with patient including risks and benefits and he seemingly understands and agrees to proceed. Patient is status post ERCP with 2 biliary stones noted with extraction of one stone however one stone was too large it was not removed. Stent was placed. Discussed with patient and his that he will follow-up with Dr. Venegas in the outpatient setting and will be sent down to [facility] for advanced endoscopy possible stone extraction and stent removal. Status: Acute Code(s): K80.50 - CALCULUS OF BILE DUCT W/O CHOLANGITIS OR CHOLECYST W/O OBST SNOMED Code(s): 606466770 (2) Atrial fibrillation Status: Acute Code(s): I48.91 - UNSPECIFIED ATRIAL FIBRILLATION SNOMED Code(s): 60153376 (3) EtOH dependence Status: Acute Code(s): F10.20 - ALCOHOL DEPENDENCE, UNCOMPLICATED SNOMED Code(s): 24469842 (4) Hypomagnesemia Status: Acute Code(s): E83.42 - HYPOMAGNESEMIA SNOMED Code(s): 345015518 (5) Abdominal pain Status: Acute Code(s): R10.9 - UNSPECIFIED ABDOMINAL PAIN SNOMED Code(s): 20583577 Plan: 1. Continue symptomatic and supportive care 2. Advance to full liquid diet, and advance slowly. This was discussed with patient and his . 3. No further endoscopic evaluation indicated at this time. Patient to follow- up with gastroenterology in 1-2 weeks and will be referred as an outpatient to [facility] in [place] for advanced endoscopy. Thank you for this consultation, patient is cleared from gastroenterology for discharge. Dr. Freddy Venegas I agree with the dictator's note, documented as a scribe by Kandy Paulson.
== END 2023-02-15 14:16 | disposition home or self-care (01) | DRG 446 ==
LOC: EC 06:42 → 4SSUR 11:46
PROVIDERS: ADMIT Family Medicine; ATTEND Family Medicine
PROC: 0F798DZ Dilation of Common Bile Duct with Intraluminal Device, Via Natural or Artificial Opening Endoscopic (ICD-10-PCS; principal; 2023-02-14 07:00)
PROC: 0FC98ZZ Extirpation of Matter from Common Bile Duct, Via Natural or Artificial Opening Endoscopic (ICD-10-PCS; principal; 2023-02-14 07:00)
DX: K80.51 Calculus of bile duct without cholangitis or cholecystitis with obstruction (principal); R74.01 Elevation of levels of liver transaminase levels; E83.42 Hypomagnesemia; I10 Essential (primary) hypertension; I48.0 Paroxysmal atrial fibrillation; J44.9 Chronic obstructive pulmonary disease, unspecified; E11.69 Type 2 diabetes mellitus with other specified complication; I25.10 Atherosclerotic heart disease of native coronary artery without angina pectoris; E78.2 Mixed hyperlipidemia; E78.5 Hyperlipidemia, unspecified; F10.20 Alcohol dependence, uncomplicated; I49.3 Ventricular premature depolarization; M19.90 Unspecified osteoarthritis, unspecified site; M10.9 Gout, unspecified; Z96.651 Presence of right artificial knee joint; Z95.1 Presence of aortocoronary bypass graft; Z79.899 Other long term (current) drug therapy; Z79.84 Long term (current) use of oral hypoglycemic drugs; Z79.82 Long term (current) use of aspirin; Z79.51 Long term (current) use of inhaled steroids; Z79.4 Long term (current) use of insulin; Z79.01 Long term (current) use of anticoagulants
CPT/HCPCS: 36415; 43260; 43264; 43274; 71046; 74177; 74330; 80053; 80320; 83690; 83735; 83880; 84484; 85025; 85027; 85610; 85730; 93005; 96365; 96366; 99285

== ENCOUNTER → 2023-06-14 | Outpatient (CLI) | payer MEDICARE, BC ==
[2023-06-14 13:11] LABS: African American GFR (CKD) 72 (>60 ml/min/1.73 sqM); Blood Urea Nitrogen 27 mg/dL (9-20); Non-African American GFR(CKD) 62 (>60 ml/min/1.73 sqM)
--- NOTE | 2023-06-14 14:24 | CT ---
EXAMINATION TYPE: CT Chest Abd Pelvis w con CT DLP: 1611 mGycm, Automated exposure control for dose reduction was used. DATE OF EXAM: 06/14/2023 2:05 PM COMPARISON: None. CLINICAL INDICATION:Male, 77 years old with history of C16.9 STOMACH CANCER; PHH, stomach CA scan for staging and treatment Technique: CT Chest Abd Pelvis w con; Multiple axial images were obtained. Two-dimensional coronal an d sagittal reconstructions were obtained. Contrast used:100 mL of Isovue 300 with IV Contrast, Oral contrast used: with Oral Contrast Findings: CHEST: LUNGS/ PLEURA: The lung parenchyma appears unremarkable. AIRWAY: Patent and unremarkable. HEART: Size within normal limits. Previous bypass surgery. MEDIASTINUM: No gross evidence of adenopathy. Median sternotomy wires. VASCULATURE: No aortic aneurysm. MUSCULOSKELETAL: No acute osseous abnormalities. SOFT TISSUES/LYMPH NODES: Unremarkable. LOWER NECK: No significant findings. ABDOMEN LIVER: Unremarkable GALLBLADDER AND BILE DUCTS: The gallbladder surgically absent. The common bile duct is dilated measur ing 1.5 cm. Air bubbles are present within the common bile duct and biliary tree indicating previous instrumentation. PANCREAS: Unremarkable. SPLEEN: Unremarkable. ADRENAL GLANDS: Unremarkable. KIDNEYS AND URETERS: No evidence of hydronephrosis or renal calculus. The ureters are unremarkable. PELVIS BLADDER: Unremarkable REPRODUCTIVE: Unremarkable. ABDOMEN & PELVIS STOMACH AND BOWEL: Apparent narrowing at the cardiac region.. No evidence of bowel obstruction. PERITONEUM: No evidence of pneumoperitoneum or free fluid. VASCULATURE: No evidence of aortic aneurysm. MUSCULOSKELETAL: No acute osseous abnormalities LYMPH NODES: No gross evidence for lymphadenopathy. SOFT TISSUE/ABDOMINAL WALL: Unremarkable IMPRESSION: No evidence of metastatic disease. Possible narrowing of the cardiac stomach region.
== END | disposition home or self-care (01) ==
LOC: RADCTMAIN 12:01
PROVIDERS: ATTEND Internal Medicine
DX: C16.9 Malignant neoplasm of stomach, unspecified (principal); Z90.49 Acquired absence of other specified parts of digestive tract
CPT/HCPCS: 82565; 84520; 71260; 74177; 36415; Q9967

== ENCOUNTER 2023-06-15 07:54 | Day surgery (SDC) | payer MEDICARE, BC ==
[2023-06-14 15:52] VITALS: BMI 26.4
[2023-06-15 08:26] LABS: Glucose,Whole Blood 135 mg/dL (70-110)
[2023-06-15] MEDS ORDERED: LIDOCAINE 1% INJ 10MG/ML (20 ML MDV) ONE (08:28)
[2023-06-15 08:42] VITALS: BP 133/100; PULSE 95; RESP 16; TEMP 97.2
[2023-06-15] MEDS: LIDOCAINE 1% INJ 10MG/ML (20 ML MDV) SQ ONE (08:42)
--- NOTE | 2023-06-15 09:17 | P.OP ---
Date of Procedure: 06/15/23 Description of Procedure: Date of Procedure: 06/15/2023 Preoperative Diagnosis: Need for chemotherapy Postoperative Diagnosis: Same. Procedure(s) Performed: Ultrasound-guided cannulation left cephalic vein. Insertion of peripherally inserted central catheter under fluoroscopic guidance. Anesthesia: local (1% Xylocaine.) Surgeon: Richard Estimated Blood Loss (ml): 5 IV fluids (ml): 0 Urine output (ml): 0 Pathology: none sent Condition: stable Disposition: no change Indications for Procedure: Patient is a patient will require chemotherapy and is offered a PICC line to allow for this Description of Procedure: Patient was brought to the special procedure suite. The left upper extremity sterilely prepped and draped in usual manner. Ultrasound was utilized to identify the cephalic vein which was normally compressible free of visible thrombus. Permenant image was stored. 1% Xylocaine was utilized for local anesthesia tissues overlying the vein. Through this anesthetized area and with the aid of ultrasound a micropuncture needle was utilized to cannulate the vein. Once cannulated, Softip guidewire was advanced into the vein. The needle was withdrawn and a micropuncture sheath and dilator advanced over the guidewire. The guidewire was withdrawn and exchanged for the PICC guidewire and measured to the cavoatrial junction. The catheter was cut to size and advanced into the cavoatrial junction without resistance. The sheath was peeled away. Blood was easily withdrawn through the catheter and the catheter was then flushed with heparinized saline solution and secured to the skin. Patient tolerated procedure well and was returned to their room in satisfactory and stable condition.
--- NOTE | 2023-06-15 09:32 | IR ---
EXAMINATION TYPE: IR cvc insert >=5 years DATE OF EXAM: 06/15/2023 COMPARISON: NONE HISTORY: Fluoroscopy time. Fluoroscopy was provided to the referring clinician.
== END 2023-06-15 09:07 | disposition home or self-care (01) ==
LOC: CATHCVL 07:54
PROVIDERS: ATTEND Surgery
DX: Z45.2 Encounter for adjustment and management of vascular access device (principal); E11.9 Type 2 diabetes mellitus without complications; I10 Essential (primary) hypertension; E78.5 Hyperlipidemia, unspecified; F10.90 Alcohol use, unspecified, uncomplicated; Z87.891 Personal history of nicotine dependence; Z79.01 Long term (current) use of anticoagulants; Z79.82 Long term (current) use of aspirin; Z79.84 Long term (current) use of oral hypoglycemic drugs; Z79.899 Other long term (current) drug therapy
CPT/HCPCS: 36573; C1751; C1894; C1769; J2001

== ENCOUNTER → 2023-11-09 | Outpatient (CLI) | payer MEDICARE, BC ==
--- NOTE | 2023-11-29 12:38 | PE ---
Patient: Alfred Chavez Ordering Physician: Unknown, Unknown ID: [id number] Phone, Pager: Phone: N/A Pager: N/A : 1945 Age/Gender: 77Y, M Primary Location: N/A Procedure: PET CT fusion skull to thigh Study Date: 11/09/2023 11:34:00 AM EXAMINATION TYPE: PET CT fusion skull to thigh DATE OF EXAM: 11/11/2023 CLINICAL INDICATION: Gastric cancer TECHNIQUE: Following the intravenous administration of 10.8 mCi of F-18 FDG, whole body images are performed from the skull base to the midthigh. Images are reviewed on the computer in the coronal, a xial, and sagittal planes. Reconstructed rotating images are created on independent workstation and reviewed on the computer. A non-contrast CT is performed in conjunction with the PET scan. Glucose level 113 mg/dL CT DLP: 496 mGycm, Automated exposure control for dose reduction was used. COMPARISON: CT 06/14/2023, PET/CT None, MRI: None FINDINGS: Mediastinal SUV mean is 2.3. Hepatic parenchyma SUV mean is 2.8. SKULL BASE AND NECK: No suspicious radiotracer activity. CHEST, MEDIASTINUM, AND HILAR REGION: No suspicious radiotracer activity. ABDOMEN AND PELVIS: Focal uptake along the posterior aspect of the antrum axis SUV 5.5 no suspicious FDG avid lymph nodes at this time. Area of abnormal uptake extends approximately 7.2 cm. Additional focal uptake near the cardiac sphincter possibly within the orly of the diaphragm max SUV 4.4. MUSCULOSKELETAL STRUCTURES: No suspicious radiotracer activity. Degenerative uptake in the right aspe ct of C1-C2 max SUV 8.[address]: Atherosclerosis of the carotid arteries there is medialization posterior pharynx of the com mon carotid and internal carotid arteries. Left atrial appendage occlusion device present. Severe ath erosclerosis of the arterial vasculature. Sternotomy wires. Pneumobilia the gallbladder surgically ab sent. Moderate to severe degeneration changes of the spine. Fatty changes to the inguinal canals. IMPRESSION: Linear uptake along the posterior aspect of the gastric antrum , this could represent patient's prima ry malignancy versus physiologic uptake. No suspicious FDG avid lymph nodes or other lesions visualiz ed.
== END | disposition home or self-care (01) ==
LOC: RADPETMAIN 10:15
PROVIDERS: ATTEND Internal Medicine
DX: C16.8 Malignant neoplasm of overlapping sites of stomach (principal); R93.7 Abnormal findings on diagnostic imaging of other parts of musculoskeletal system
CPT/HCPCS: 78815; A9552

== ENCOUNTER 2024-03-29 10:46 | Day surgery (SDC) | payer MEDICARE, BC ==
[2024-03-27 12:59] VITALS: BMI 25.1
[~2024-03-29 10:46] MED LIST changes: -ALPRAZolam 0.25 MG TAB PO PRN; -ALPRAZolam 0.5 MG TAB PO PRN; -ASPIRIN 325 MG TAB PO STA; -ATORVASTATIN 80 MG TAB PO STA; -HEPARIN SODIUM,PORCINE 10,000 UNIT in SODIUM CHLORIDE 0.9% 1,000 ML IRRIGATION PRN; -HEPARIN SODIUM,PORCINE 2,500 UNIT in SODIUM CHLORIDE 0.9% 250 ML IRRIGATION PRN; +LACTATED RINGERS 1,000 ML IV SCH; -NITROGLYCERIN SL TABS 0.4 MG TAB SUBLINGUAL PRN
[2024-03-29 11:39] VITALS: TEMP 97.4
[2024-03-29 11:46] LABS: Glucose,Whole Blood 117 mg/dL (70-110)
[2024-03-29] MEDS: SODIUM CHLORIDE 0.9% 1,000 ML IV ONE ×2 (11:48→11:59)
[2024-03-29] MEDS ORDERED: PROPOFOL 10 MG/ML 20 ML VIAL IV ONE (12:01)
[2024-03-29] MEDS ORDERED: LIDOCAINE 1% INJ 10MG/ML (20 ML MDV) ONE (12:01)
--- NOTE | 2024-03-29 12:12 | P.PCN ---
Date of Procedure: 03/29/24 Procedure(s) Performed: BRIEF HISTORY: Patient is a 78-year-old, pleasant, white meat scheduled upper endoscopy as a part of follow-up of gastric adenocarcinoma diagnosed in February 2023. He was noted to have a gastric polyp during ERCP and subsequently the biopsies revealed adenocarcinoma. He underwent EGD with endoscopy mucosal resection followed by chemo and radiation therapy. He follows with Dr. Duarte. Last PET scan currently the patient was unremarkable. He is scheduled for a surveillance upper endoscopy today. PROCEDURE PERFORMED: Esophagogastroduodenoscopy with biopsy. PREOPERATIVE DIAGNOSIS: Follow-up gastric adenocarcinoma diagnosed in February 2023 status post endoscopic mucosal resection of the gastric polyp followed by chemo and radiation. IV sedation per anesthesia. PROCEDURE: After informed consent was obtained, the patient was brought into the endoscopy unit. IV sedation was administered by Anesthesia under continuous monitoring. Initially the Olympus GIF-140 video endoscope was inserted into the mouth. Esophagus intubated without any difficulty. It was gradually advanced into the stomach and duodenum and carefully examined. The bulb and the second part of the duodenum appeared normal. The scope at this time was withdrawn to the stomach, adequately insufflated with air, and upon careful examination, mucosa of the antrum, body, cardia and the fundus appeared normal. The scope was then withdrawn into the esophagus. The GE junction was located at 39 cm from the incisors. The esophagus appeared normal. There were no erosions or ulcerations seen and the patient tolerated the procedure well. IMPRESSION: 1. Mild diffuse radiation gastritis throughout the stomach more predominant in the body and fundus of the stomach. 2. Some scar tissue noted in the mid body the stomach at the site of previous polypectomy/EMR status post multiple biopsies. No polyps or masses identified. RECOMMENDATIONS: The findings of this examination were discussed with the patient as well as his family. He was advised to follow with the biopsy results. Plan on repeat upper endoscopy in 1 year..
[2024-03-29 12:17] VITALS: RESP 16
[2024-03-29 12:30] VITALS: BP 124/66; PULSE 90
== END 2024-03-29 12:51 | disposition home or self-care (01) ==
LOC: ORWHC2ENDO 10:46
PROVIDERS: ATTEND Internal Medicine Gastroenterology
DX: Z08 Encounter for follow-up examination after completed treatment for malignant neoplasm (principal); K31.A12 Gastric intestinal metaplasia without dysplasia, involving the body (corpus); K29.50 Unspecified chronic gastritis without bleeding; K52.0 Gastroenteritis and colitis due to radiation; K31.89 Other diseases of stomach and duodenum; Z85.028 Personal history of other malignant neoplasm of stomach; I10 Essential (primary) hypertension; E78.5 Hyperlipidemia, unspecified; I25.10 Atherosclerotic heart disease of native coronary artery without angina pectoris; Z79.899 Other long term (current) drug therapy; Z79.01 Long term (current) use of anticoagulants; Z79.82 Long term (current) use of aspirin; Z79.84 Long term (current) use of oral hypoglycemic drugs; Z95.1 Presence of aortocoronary bypass graft; Z90.49 Acquired absence of other specified parts of digestive tract; Z90.89 Acquired absence of other organs; Z96.653 Presence of artificial knee joint, bilateral
CPT/HCPCS: 88305; 88342; 43239; J2003; J2704

== ENCOUNTER 2024-05-10 19:50 | Emergency (ER) | payer MEDICARE, BC ==
[2024-05-10 21:16] LABS: Basophils % (A) 0 %; Eosinophils # (A) 0.1 k/uL (0-0.7); Eosinophils % (A) 2 %; Hypochromasia Marked; Lymphocytes # (A) 1.2 k/uL (1.0-4.8); Lymphocytes % (A) 20 %; MCH 29.6 pg (25.0-35.0); MCHC 31.3 g/dL (31.0-37.0); MCV 94.6 fL (80.0-100.0); Mean Platelet Volume 7.6; Monocytes # (A) 0.5 k/uL (0-1.0); Monocytes % (A) 8 %; Neutrophils # (A) 4.1 k/uL (1.3-7.7); Neutrophils % (A) 67 %; Platelet Count 376 k/uL (150-450); Poikilocytosis Slight; RBC 2.09 m/uL (4.30-5.90); RDW 14.3 % (11.5-15.5); WBC 6.2 k/uL (3.8-10.6)
[2024-05-10 21:20] LABS: HGB 6.2 gm/dL (13.0-17.5)
[2024-05-10 21:21] LABS: HCT 19.8 % (39.0-53.0)
[2024-05-10 21:26] LABS: Prothrombin Time 11.3 sec (10.0-12.5)
[2024-05-10 21:27] LABS: ALT 23 U/L (4-49); AST 31 U/L (17-59); African American GFR (CKD) 62 (>60 ml/min/1.73 sqM); Albumin 3.7 g/dL (3.5-5.0); Alkaline Phosphatase 86 U/L (38-126); Anion Gap 15 mmol/L; Blood Urea Nitrogen 40 mg/dL (9-20); Calcium 8.8 mg/dL (8.4-10.2); Carbon Dioxide 21 mmol/L (22-30); Chloride 99 mmol/L (98-107); Glucose 168 mg/dL (74-99); Magnesium 1.9 mg/dL (1.6-2.3); Non-African American GFR(CKD) 53 (>60 ml/min/1.73 sqM); Potassium 3.8 mmol/L (3.5-5.1); Sodium 135 mmol/L (137-145); Total Bilirubin 0.4 mg/dL (0.2-1.3); Total Protein 6.2 g/dL (6.3-8.2)
--- NOTE | 2024-05-10 21:36 | ED ---
General Adult HPI - General Chief complaint: Recheck/Abnormal Lab/Rx Stated complaint: Abnormal Labs-sent by Source: patient Mode of arrival: ambulatory Limitations: no limitations - History of Present Illness Initial comments: Patient is a 78-year-old gentleman with a past medical history of stomach cancer currently on remission presenting today for low hemoglobin. Patient was sent in by his primary care provider Dr. Brambila after being found to have a hemoglobin of 6.2 on outpatient labs. Patient had presented to his office earlier today after having a month of dizzy spells upon standing and worsening generalized weakness. Endorses associated shortness of breath with exertion. Patient states he had an EGD done with Dr. Venegas March 29 to monitor for any recurren ce of his stomach cancer, biopsies were done and he was discharged. He was told that there was no recurrence of stomach cancer. He states he has had a few episodes of nausea and vomiting since then. About a month ago he had 1 episode that had a few small spots of blood in it however no further bloody episodes of emesis since then. States he had intermittent dark stools but this does not occur daily. Denies abdominal pain or chest pain. Denies strokelike symptoms such as changes in vision numbness or focal weakness. Does state that on April 28, the day of he had an episode where he became so dizzy he fell forward and hit his head on the door. The next morning he went to the emergency department for sutures and had a CT brain done that did not show any acute process. Patient currently is on Eliquis, history A-fib and CAD. - Related Data Home Medications Medication Instructions Recorded Confirmed Furosemide [Lasix] 40 mg PO DAILY 01/27/20 03/29/24 Aspirin EC [Ecotrin Low Dose] 81 mg PO DAILY 02/14/22 03/29/24 Apixaban [Eliquis] 2.5 mg PO BID 02/12/23 03/29/24 Isosorbide Mononitrate ER [Imdur] 30 mg PO DAILY 02/12/23 03/29/24 Metoprolol Tartrate [Lopressor] 50 mg PO BID 02/12/23 03/29/24 Potassium Chloride ER [K-Dur 10] 10 meq PO BID 02/12/23 03/29/24 amLODIPine [Norvasc] 2.5 mg PO DAILY 02/12/23 03/29/24 metFORMIN HCL [Glucophage] 500 mg PO BID 02/12/23 03/29/24 Atorvastatin Calcium 40 mg PO DAILY 06/14/23 03/29/24 Multivitamin [Multivitamins] 1 each PO DAILY 03/27/24 03/29/24 Allergies Allergy/AdvReac Type Severity Reaction Status Date / Time No Known Allergies Allergy Verified 05/10/24 20:14 Review of Systems ROS Statement: Those systems with pertinent positive or pertinent negative responses have been documented in the HPI. ROS Other: All systems not noted in ROS Statement are negative. Past Medical History Past Medical History: Cancer, Diabetes Mellitus, Hyperlipidemia, Hypertension, Osteoarthritis (OA) Additional Past Medical History / Comment(s): Current stomach cancer. Hx pancreatitis, gout. pet scan showed no trace of cancer 2023 History of Any Multi-Drug Resistant Organisms: None Reported Past Surgical History: Cholecystectomy, Coronary Bypass/CABG, Tonsillectomy Additional Past Surgical History / Comment(s): Quadruple bypass 02/18/22, cataract surgery, right knee replacement, left knee replacement, EGD. egd, polyp , and ercp had chemo and radiation for the polyp that was cancerous Past Anesthesia/Blood Transfusion Reactions: No Reported Reaction Additional Past Anesthesia/Blood Transfusion Reaction / Comment(s): no blood transfusion Past Psychological History: No Psychological Hx Reported Smoking Status: Former smoker Past Alcohol Use History: Rare Past Drug Use History: None Reported - Past Family History Sister(s) Family Medical History: Cancer Additional Family Medical History / Comment(s): cancer base of tongue Father Family Medical History: Myocardial Infarction (OK) General Exam - General Exam Comments Initial Comments: PE: CONSTITUTIONAL: No apparent distress, chronically ill-appearing, nontoxic SKIN: Warm, dry, no jaundice old greenish-purple bruise on the right cheekbone, generalized pallor EYES: Pupils are equally round, extraocular movements intact without nystagmus, pale conjunctiva non-icteric sclera HENT: Normocephalic, atraumatic, moist mucus membranes, oropharynx clear without exudates NECK: , Full range of motion, normal appearance PULMONARY: Clear to auscultation without wheezes, rhonchi, or rales, normal excursion, no accessory muscle use and no stridor CARDIOVASCULAR: Regular rate, rhythm, normal S1 and S2. No appreciated murmurs, rubs or gallops. Strong radial pulses with intact distal perfusion. No lower extremity edema GASTROINTESTINAL: Soft, active bowel sounds throughout, non-tender, non- distended, no palpable masses, no rebound or guarding. No hepatosplenomegaly GENITOURINARY: Rectal exam performed with nurseAle at bedside, showed no external hemorrhoids no masses, + black stool MUSCULOSKELETAL: Extremities have no gross deformity, no edema, redness, or swelling. No calf swelling NEUROLOGIC:_a/o x 3, GCS 15, normal mentation and speech. Moves all extremities x 4 without motor or sensory deficit PSYCHIATRIC:_normal mood and affect, thought process is clear and linear Limitations: no limitations Course Vital Signs 05/10/24 05/10/24 05/10/24 20:11 22:24 22:33 Temperature 97.5 F L 98.2 F 98.3 F Pulse Rate 93 91 90 Respiratory 16 18 16 Rate Blood Pressure 90/57 118/63 114/71 O2 Sat by Pulse 100 90 L 100 Oximetry 05/10/24 05/10/24 22:53 23:05 Temperature 98.3 F 98.3 F Pulse Rate 92 91 Respiratory 16 16 Rate Blood Pressure 113/61 114/62 O2 Sat by Pulse 100 100 Oximetry EKG Findings - EKG Comments: EKG Findings:: Atrial fibrillation, rate 84 bpm QT/QTc 405/446, normal axis, artifact present throughout the limiting interpretation, no ST elevations or depression Medical Decision Making - Medical Decision Making Was pt. sent in by a medical professional or institution (, [facility], MANAGER ROOM, urgent care, hospital, or half-way...) When possible be specific @ -Patient was sent in by his primary care provider Dr. Brambila Did you speak to anyone other than the patient for history (EMS, parent, family, police, friend...)? What history was obtained from this source @ -No Did you review nursing and triage notes (agree or disagree)? Why? @ -I reviewed nursing and triage notes Were old charts reviewed (outside hosp., previous admission, EMS record, old EKG, old radiological studies, urgent care reports/EKG's, half-way records)? Report findings @ -Medical records reviewed-New pair labs, hemoglobin drawn this morning was 5.9, 02/15/2023 was 11.5 Differential Diagnosis (chest pain, altered mental status, abdominal pain women, abdominal pain men, vaginal bleeding, weakness, fever, dyspnea, syncope, headache, dizziness, GI bleed, back pain, seizure, CVA, palpatations, mental health, musculoskeletal)? @Differential diagnose remains broad however top considerations include Esophageal varices, aortoenteric fistula, Miriam-Stevenson, gastritis, peptic ulcer disease, diverticulosis, inflammatory bowel disease, hemorrhoids, fissure, colitis, malignancy, Meckel's diverticulum, this is not meant to be an all- inclusive list. EKG interpreted by me (3pts min.). @ -As above X-rays interpreted by me (1pt min.). @ -None done CT interpreted by me (1pt min.). @ -I see no active contrast extravasation indicating active bleeding U/S interpreted by me (1pt. min.). @ -None done What testing was considered but not performed or refused? (CT, X-rays, U/S, labs)? Why? @ -None What meds were considered but not given or refused? Why? @ -None Did you discuss the management of the patient with other professionals (professionals i.e. , PA, MANAGER ROOM, lab, RT, psych nurse, social sciences research scientist, counterintelligence specialist, teacher, safety security officer, case technician)? Give summary @ -No Was smoking cessation discussed for >3mins.? @ -No Was critical care preformed (if so, how long)? @ -No Were there social determinants of health that impacted care today? How? (Homelessness, low income, unemployed, alcoholism, drug addiction, transportation, low edu. Level, literacy, decrease access to med. care, retirement, rehab)? @ -No Was there de-escalation of care discussed even if they declined (Discuss DNR or withdrawal of care, Hospice)? @ -No What co-morbidities impacted this encounter? (DM, HTN, Smoking, COPD, CAD, Cancer, CVA, ARF, Chemo, Hep., AIDS, mental health diagnosis, sleep apnea, morbid obesity)? @CAD, atrial fibrillation on Eliquis, stomach cancer currently in remission Was patient admitted / discharged? Hospital course, mention meds given and route, prescriptions, significant lab abnormalities, going to OR and other pertinent info. @Transfer to [facility]-patient is a pleasant 78-year-old gentleman past medical history stomach cancer, currently in remission, atrial fibrillation, CAD on Eliquis presenting today for low hemoglobin noted on outpatient labs. Recent episodes of increasing weakness and dizziness with exertion.Blood pressure is borderline on arrival blood pressure 90/57, however on my assessment 108 systolic, no tachycardia heart rate 93, otherwise vital signs in acceptable limits. On my assessment patient has generalized pallor with conjunctival pallor, soft nontender abdomen. Rectal exam does show black stool, will send for Hemoccult testing. Discussed with patient and family at bedside, plan for blood transfusion obtained consent for blood transfusion, CT abdomen, labs, anticipated transfer to facility with transitional care manager, [facility]. They are agreeable w/plan of care. Protonix, PRBCs, 500 cc IV fluids ordered due to lactic of 5.6, I suspect this is secondary to blood loss as opposed to active infection so antibiotics were not ordered. Ordered CT brain as well given patient's fall about 1 month ago though he did have a CT brain that was negative for acute process at the time he has had persistent headaches. Personally viewed CT brain I see no acute process or hemorrhage. CT GI bleed read pending though I see no evidence of active contrast to indicate active hemorrhage. Patient was accepted by Dr. Bhakta, gastroenterology at [facility]. Updated patient and family to pending transfer. They are agreeable plan of care. Patient is currently in stable condition for transfer. Drug Therapy requiring intensive monitoring for toxicity (Heparin, Nitro, Insulin, Cardizem)? @ -No Were any procedures done? @ -No Diagnosis/symptom? @ -Upper GI bleed Acute, or Chronic, or Acute on Chronic? @Acute Uncomplicated (without systemic symptoms) or Complicated (systemic symptoms)? @Complicated Side effects of treatment? @ -No Exacerbation, Progression, or Severe Exacerbation? @ -No Poses a threat to life or bodily function? How? (Chest pain, [place], OK, pneumonia, PE, COPD, DKA, ARF, appy, cholecystitis, CVA, Diverticulitis, Homicidal, Suicidal, threat to staff... and all critical care pts) @Yes, if allowed to continue untreated/undiagnosed could result in life- threatening hemorrhage - Lab Data Result diagrams: 05/10/24 20:53 05/10/24 20:53 Lab Results 05/10/24 05/10/24 05/10/24 Range/Units 20:25 20:53 20:53 WBC 6.2 (3.8-10.6) k/uL RBC 2.09 L (4.30-5.90) m/uL Hgb 6.2 L* (13.0-17.5) gm/dL Hct 19.8 L* (39.0-53.0) % MCV 94.6 (80.0-100.0) fL MCH 29.6 (25.0-35.0) pg MCHC 31.3 (31.0-37.0) g/dL RDW 14.3 (11.5-15.5) % Plt Count 376 (150-450) k/uL MPV 7.6 Neutrophils % 67 % Lymphocytes % 20 % Monocytes % 8 % Eosinophils % 2 % Basophils % 0 % Neutrophils # 4.1 (1.3-7.7) k/uL Lymphocytes # 1.2 (1.0-4.8) k/uL Monocytes # 0.5 (0-1.0) k/uL Eosinophils # 0.1 (0-0.7) k/uL Basophils # 0.0 (0-0.2) k/uL Hypochromasia Marked Poikilocytosis Slight PT 11.3 (10.0-12.5) sec INR 1.0 (<1.2) APTT 21.7 L (22.0-30.0) sec Sodium (137-145) mmol/L Potassium (3.5-5.1) mmol/L Chloride (98-107) mmol/L Carbon Dioxide (22-30) mmol/L Anion Gap mmol/L BUN (9-20) mg/dL Creatinine (0.66-1.25) mg/dL Est GFR (CKD-EPI)AfAm (>60 ml/min/1.73 sqM) Est GFR (CKD-EPI)NonAf (>60 ml/min/1.73 sqM) Glucose (74-99) mg/dL Lactic Ac Sepsis Rflx Plasma Lactic Acid Odin (0.7-2.0) mmol/L Calcium (8.4-10.2) mg/dL Magnesium (1.6-2.3) mg/dL Total Bilirubin (0.2-1.3) mg/dL AST (17-59) U/L ALT (4-49) U/L Alkaline Phosphatase (38-126) U/L Total Protein (6.3-8.2) g/dL Albumin (3.5-5.0) g/dL Stool Occult Blood (Negative) Blood Type A Positive Blood Type Recheck A Pos Bld Type Recheck Status No Antibody Screen NEGATIVE Crossmatch See Detail Spec Expiration Date 05/13/2024 - 235205/10/24 05/10/24 05/10/24 Range/Units 20:53 20:53 21:32 WBC (3.8-10.6) k/uL RBC (4.30-5.90) m/uL Hgb (13.0-17.5) gm/dL Hct (39.0-53.0) % MCV (80.0-100.0) fL MCH (25.0-35.0) pg MCHC (31.0-37.0) g/dL RDW (11.5-15.5) % Plt Count (150-450) k/uL MPV Neutrophils % % Lymphocytes % % Monocytes % % Eosinophils % % Basophils % % Neutrophils # (1.3-7.7) k/uL Lymphocytes # (1.0-4.8) k/uL Monocytes # (0-1.0) k/uL Eosinophils # (0-0.7) k/uL Basophils # (0-0.2) k/uL Hypochromasia Poikilocytosis PT (10.0-12.5) sec INR (<1.2) APTT (22.0-30.0) sec Sodium 135 L (137-145) mmol/L Potassium 3.8 (3.5-5.1) mmol/L Chloride 99 (98-107) mmol/L Carbon Dioxide 21 L (22-30) mmol/L Anion Gap 15 mmol/L BUN 40 H (9-20) mg/dL Creatinine 1.28 H (0.66-1.25) mg/dL Est GFR (CKD-EPI)AfAm 62 (>60 ml/min/1.73 sqM) Est GFR (CKD-EPI)NonAf 53 (>60 ml/min/1.73 sqM) Glucose 168 H (74-99) mg/dL Lactic Ac Sepsis Rflx Y Plasma Lactic Acid Odin 5.7 H* (0.7-2.0) mmol/L Calcium 8.8 (8.4-10.2) mg/dL Magnesium 1.9 (1.6-2.3) mg/dL Total Bilirubin 0.4 (0.2-1.3) mg/dL AST 31 (17-59) U/L ALT 23 (4-49) U/L Alkaline Phosphatase 86 (38-126) U/L Total Protein 6.2 L (6.3-8.2) g/dL Albumin 3.7 (3.5-5.0) g/dL Stool Occult Blood (Negative) Blood Type Blood Type Recheck Bld Type Recheck Status Antibody Screen Crossmatch Spec Expiration Date 05/10/24 Range/Units 21:46 WBC (3.8-10.6) k/uL RBC (4.30-5.90) m/uL Hgb (13.0-17.5) gm/dL Hct (39.0-53.0) % MCV (80.0-100.0) fL MCH (25.0-35.0) pg MCHC (31.0-37.0) g/dL RDW (11.5-15.5) % Plt Count (150-450) k/uL MPV Neutrophils % % Lymphocytes % % Monocytes % % Eosinophils % % Basophils % % Neutrophils # (1.3-7.7) k/uL Lymphocytes # (1.0-4.8) k/uL Monocytes # (0-1.0) k/uL Eosinophils # (0-0.7) k/uL Basophils # (0-0.2) k/uL Hypochromasia Poikilocytosis PT (10.0-12.5) sec INR (<1.2) APTT (22.0-30.0) sec Sodium (137-145) mmol/L Potassium (3.5-5.1) mmol/L Chloride (98-107) mmol/L Carbon Dioxide (22-30) mmol/L Anion Gap mmol/L BUN (9-20) mg/dL Creatinine (0.66-1.25) mg/dL Est GFR (CKD-EPI)AfAm (>60 ml/min/1.73 sqM) Est GFR (CKD-EPI)NonAf (>60 ml/min/1.73 sqM) Glucose (74-99) mg/dL Lactic Ac Sepsis Rflx Plasma Lactic Acid Odin (0.7-2.0) mmol/L Calcium (8.4-10.2) mg/dL Magnesium (1.6-2.3) mg/dL Total Bilirubin (0.2-1.3) mg/dL AST (17-59) U/L ALT (4-49) U/L Alkaline Phosphatase (38-126) U/L Total Protein (6.3-8.2) g/dL Albumin (3.5-5.0) g/dL Stool Occult Blood Positive (Negative) Blood Type Blood Type Recheck Bld Type Recheck Status Antibody Screen Crossmatch Spec Expiration Date Disposition Clinical Impression: Upper GI bleed, Symptomatic anemia Disposition: OTHER INSTITUTION NOT DEFINED Condition: Stable Referrals: Lacho Brambila Jr, [Primary Care Provider] - 1-2 days - Out of Hospital Transfer - Req. Specs Out of Hospital Transfer - Requested Specifics: Other Emergency Center ([facility])
[2024-05-10 21:56] LABS: Partial Thromboplastin Time 21.7 sec (22.0-30.0)
[2024-05-10] MEDS: SODIUM CHLORIDE 0.9% 500 ML 500 ML IV ONE (22:12)
[2024-05-10] MEDS: PANTOPRAZOLE 40 MG/10 ML VIAL IVP ONE (22:12)
[2024-05-10 22:51] VITALS: RESP 16; TEMP 98.3
--- NOTE | 2024-05-10 23:10 | CT ---
EXAM: CT Head Without Intravenous Contrast CLINICAL HISTORY: ITS.REASON CT Reason: fall 1 month ago, persistent HAYES and dizziness TECHNIQUE: Axial computed tomography images of the head/brain without intravenous contrast. CTDI is 57 mGy and DLP is 1098.8 mGy-cm. This CT exam was performed using one or more of the following dose reduction techniques: automated exposure control, adjustment of the mA and/or kV according to patient size, and/or use of iterative reconstruction technique. COMPARISON: 11/07/2022. FINDINGS: Brain: Age-related changes and small vessel disease of aging. No hemorrhage. No abnormal extra-axial collection is noted. Midline shift: Midline anatomy is unremarkable. Ventricles: Unremarkable. No ventriculomegaly. Bones/joints: Calvarium is unremarkable. No acute fracture. Soft tissues: Unremarkable. Vasculature: Atherosclerotic disease. Sinuses: Mild chronic ethmoid and maxillary sinusitis. Mastoid air cells: Mastoid air cells are well pneumatized. IMPRESSION: 1. Age-related atrophy and small vessel disease of aging. 2. No acute intracranial pathology. 3. If there is concern for etiology such as early acute lacunar infarcts, MRI imaging of the brain with diffusion-weighted sequences should be performed. 4. Mild chronic sinusitis.
[2024-05-10 23:14] VITALS: BP 114/62; PULSE 91
--- NOTE | 2024-05-10 23:32 | CT ---
EXAM: CT Angiography Abdomen and Pelvis Without and With Intravenous Contrast CLINICAL HISTORY: GI Bleed, hx stomach CA, EGD 03/29 TECHNIQUE: Axial computed tomographic angiography images of the abdomen and pelvis without and with intravenous contrast. CTDI is 51.4 mGy and DLP is 1632. 7 mGy-cm. This CT exam was performed using one or more of the following dose reduction techniques: automated exposure control, adjustment of the mA and/or kV according to patient size, and/or use of iterative reconstruction technique. MIP reconstructed images were created and reviewed. CONTRAST: 100 mL Isovue-370 COMPARISON: CT abdomen and pelvis with contrast 02/12/2023; CT/PET 11/09/2023 FINDINGS: VASCULATURE: Aorta: The aorta demonstrates atherosclerotic calcification. No dissection, aneurysm or acute periaortic abnormality. Celiac trunk and mesenteric arteries: The celiac artery, superior mesenteric artery and MAXI are patent. No occlusion or significant stenosis. Renal arteries: No acute findings. No occlusion or significant stenosis. Iliac arteries: No acute findings. No occlusion or significant stenosis. Lung bases: Unremarkable. No mass. No consolidation. ABDOMEN: Liver: Unremarkable. No mass. Gallbladder and bile ducts: Status post cholecystectomy. Pneumobilia noted throughout the common and intrahepatic biliary system, stable from the previous CT Pat. Similar ectasia without increasing biliary dilatation. Pancreas: Unremarkable. No ductal dilation. No mass. Spleen: Unremarkable. No splenomegaly. Adrenals: Unremarkable. No mass. Kidneys and ureters: Unremarkable. No obstructing stones. No hydronephrosis. No solid mass. Stomach and bowel: The stomach is decompressed with diffuse mucosal prominence. No evidence for bowel obstruction. No definite intraluminal contrast extravasation noted when comparing the pre-and postcontrast imaging, to suggest the location of the patient's reported GI bleed. Relatively delayed portal venous phase imaging demonstrates no definite accumulation of intraluminal contrast. Mild stool burden. PELVIS: Appendix: No findings to suggest acute appendicitis. Bladder: Unremarkable. No stones. No mass. Reproductive: Unremarkable as visualized. ABDOMEN and PELVIS: Intraperitoneal space: Unremarkable. No significant fluid collection. No free air. Bones/joints: No acute fracture. No dislocation. Soft tissues: Unremarkable. Lymph nodes: Unremarkable. No enlarged lymph nodes. IMPRESSION: No evidence for bowel obstruction. No definite intraluminal contrast extravasation noted when comparing the pre-and postcontrast imaging, to suggest the location of the patient's reported GI bleed. Relatively delayed portal venous phase imaging demonstrates no definite accumulation of intraluminal contrast. No free intraperitoneal fluid or pneumoperitoneum.
== END 2024-05-10 23:05 | disposition other institution (70) ==
LOC: EC 19:50
DX: K92.2 Gastrointestinal hemorrhage, unspecified (principal); D64.9 Anemia, unspecified; I48.91 Unspecified atrial fibrillation; I25.10 Atherosclerotic heart disease of native coronary artery without angina pectoris; Z85.028 Personal history of other malignant neoplasm of stomach; Z87.891 Personal history of nicotine dependence; W22.8XXA Striking against or struck by other objects, initial encounter
CPT/HCPCS: 96374; 96361; 36430; 99285; 36415; 93005; 86900; 86901; 80053; 83605; 83735; 85025; 85610; 85730; 86850; 86920; 82272; 70450; 74174; P9016; Q9967; J2470

== ENCOUNTER → 2024-05-10 | Outpatient (CLI) | payer MEDICARE, BC ==
[2024-05-10 16:16] LABS: ALT 22 U/L (10-49); AST 26 U/L (14-35); Albumin 3.6 g/dL (3.8-4.9); Albumin/Globulin Ratio 1.44 Ratio (1.60-3.17); Alkaline Phosphatase 93 U/L (41-126); BUN/Creat Ratio 26.07 Ratio (12.00-20.00); Blood Urea Nitrogen 36.5 mg/dL (9.0-27.0); Calcium 9.2 mg/dL (8.7-10.3); Carbon Dioxide 21.9 mmol/L (21.6-31.8); Chloride 105 mmol/L (96-109); Globulin 2.5 g/dL (1.6-3.3); Glucose 138 mg/dL (70-110); Iron 13 UG/DL (65-175); Potassium 4.6 mmol/L (3.5-5.5); Sodium 143 mmol/L (135-145); Total Bilirubin 0.3 mg/dL (0.3-1.2); Total Protein 6.1 g/dL (6.2-8.2)
[2024-05-10 16:21] LABS: Basophils # (A) 0.03 X 10*3/uL (0.00-0.10); Basophils % (A) 0.5 %; Eosinophils # (A) 0.12 X 10*3/uL (0.04-0.35); Eosinophils % (A) 2.1 %; HCT 18.8 % (39.6-50.0); HGB 5.9 g/dL (13.0-17.0); Hypochromasia (M) 2+ (None Seen); Lymphocytes % (A) 31.3 %; MCH 31.1 pg (27.0-32.0); MCHC 31.4 g/dL (32.0-37.0); MCV 98.9 FL (80.0-97.0); Mean Platelet Volume 10.3 FL (9.5-12.2); Monocytes % (A) 12.2 %; NRBC Per 100 WBC 0 X 10*3/uL (0.00-0.01); Neutrophils # (A) 3.08 X 10*3/uL (1.80-7.70); Neutrophils % (A) 53.6 %; Platelet Count 332 X 10*3/uL (140-440); WBC 5.75 X 10*3/uL (4.50-10.00)
== END | disposition home or self-care (01) ==
LOC: LABWHC1 09:00
PROVIDERS: ATTEND Family Medicine
DX: I48.0 Paroxysmal atrial fibrillation (principal); E86.0 Dehydration; W19.XXXD Unspecified fall, subsequent encounter; R42 Dizziness and giddiness; Z68.24 Body mass index [BMI] 24.0-24.9, adult
CPT/HCPCS: 36415; 80053; 82607; 82728; 82746; 83540; 84443; 85025

== ENCOUNTER → 2024-07-12 | Outpatient (CLI) | payer MEDICARE, BC ==
[2024-07-12 15:28] LABS: Basophils # (A) 0.02 X 10*3/uL (0.00-0.10); Basophils % (A) 0.2 %; Eosinophils # (A) 0.03 X 10*3/uL (0.04-0.35); Eosinophils % (A) 0.3 %; HCT 33.2 % (39.6-50.0); Lymphocytes # (A) 1.23 X 10*3/uL (0.90-5.00); Lymphocytes % (A) 12.4 %; MCH 31.7 pg (27.0-32.0); MCHC 33.1 g/dL (32.0-37.0); MCV 95.7 FL (80.0-97.0); Mean Platelet Volume 10.7 FL (9.5-12.2); Monocytes # (A) 1.49 X 10*3/uL (0.20-1.00); NRBC Per 100 WBC 0 X 10*3/uL (0.00-0.01); Neutrophils # (A) 7.11 X 10*3/uL (1.80-7.70); Neutrophils % (A) 71.7 %; Platelet Count 245 X 10*3/uL (140-440); RBC 3.47 X 10*6/uL (4.40-5.60); WBC 9.92 X 10*3/uL (4.50-10.00)
[2024-07-12 15:30] LABS: BUN/Creat Ratio 10.82 Ratio (12.00-20.00); Blood Urea Nitrogen 11.9 mg/dL (9.0-27.0); Carbon Dioxide 23.1 mmol/L (21.6-31.8); Chloride 102 mmol/L (96-109); Glucose 129 mg/dL (70-110); Potassium 4.2 mmol/L (3.5-5.5); Sodium 140 mmol/L (135-145); Uric Acid 5.6 mg/dL (3.7-8.7)
[2024-07-12 15:31] LABS: ALT 16 U/L (10-49); AST 23 U/L (14-35); Albumin 3.6 g/dL (3.8-4.9); Albumin/Globulin Ratio 1.38 Ratio (1.60-3.17); Alkaline Phosphatase 119 U/L (41-126); Calcium 9.2 mg/dL (8.7-10.3); Globulin 2.6 g/dL (1.6-3.3); Total Bilirubin 0.6 mg/dL (0.3-1.2); Total Protein 6.2 g/dL (6.2-8.2)
[2024-07-12 17:19] LABS: Erythrocyte Sedimentation Rate 48 mm/Hr (0-20)
== END | disposition home or self-care (01) ==
LOC: LABWHC1 12:07
DX: M79.89 Other specified soft tissue disorders (principal); M10.9 Gout, unspecified; D64.9 Anemia, unspecified; M79.642 Pain in left hand
CPT/HCPCS: 36415; 80053; 84550; 85025; 85652; 86140

== ENCOUNTER → 2024-09-10 | Outpatient (CLI) | payer MEDICARE, BC ==
--- NOTE | 2024-09-10 15:45 | XR ---
EXAMINATION TYPE: XR hand complete bilateral DATE OF EXAM: 09/10/2024 3:19 PM COMPARISON: None CLINICAL INDICATION: Male, 78 years old with history of M10.9 GOUT, UNSPECIFIED; PHH, pain TECHNIQUE: 3 views each side FINDINGS: There is diffuse osteopenia. Severe osteoarthritic changes such as at the base of the thumbs, first M CP joints, and involving multiple PIP and DIP joints of the fingers. Angulation deformity such as of the left second and third finger PIP/DIP joints. Third and fourth MCP joint subluxations. There is as sociated soft tissue swelling. Some minimal soft tissue calcifications are present such as along the radial aspect of the third PIP joint. Possible juxta-articular erosion ulnar aspect of the second and third PIP joint on the left. IMPRESSION: 1. Severe osteoarthritic change throughout the hands. 2. Scattered soft tissue swelling of the fingers particularly the second and third fingers. 3. Minimal soft tissue calcification such as along the radial aspect of the left third PIP joint. 4. Possible juxta-articular erosions which may relate to gout along the ulnar aspect of the left seco nd and third PIP joints. [facility], Workstation: [id number], 09/10/2024 3:42 PM
--- NOTE | 2024-09-10 15:47 | XR ---
EXAMINATION TYPE: XR wrist complete BILATERAL DATE OF EXAM: 09/10/2024 3:19 PM COMPARISON: None CLINICAL INDICATION: Male, 78 years old with history of M10.9 GOUT, UNSPECIFIED; PHH, pain TECHNIQUE: 3 views each side FINDINGS: And reported separately. Prominent soft tissue swelling especially along the dorsal and ulnar aspect of the left wrist. Radiocarpal and distal radioulnar joints are intact. No marginal erosions are seen . A couple surgical clips along the radial aspect of the left distal forearm. IMPRESSION: Prominent ulnar and dorsal soft tissue swelling at the left wrist. This may relate to gout in the cor rect clinical setting. No acute osseous abnormality seen on either side. Hands reported separately. [facility], , 09/10/2024 3:45 PM
== END | disposition home or self-care (01) ==
LOC: RADXRMAIN 14:40
PROVIDERS: ATTEND Family Medicine
DX: M19.042 Primary osteoarthritis, left hand (principal); M19.041 Primary osteoarthritis, right hand; M10.9 Gout, unspecified; M79.89 Other specified soft tissue disorders

== ENCOUNTER → 2024-09-26 | Outpatient (CLI) | payer MEDICARE, BC ==
--- NOTE | 2024-09-26 11:34 | XR ---
EXAMINATION TYPE: XR chest 2V DATE OF EXAM: 09/26/2024 11:18 AM COMPARISON: Chest radiographs from 07/05/2024 TECHNIQUE: XR chest 2V Frontal and lateral views of the chest. CLINICAL INDICATION:Male, 78 years old with history of R22.2 LOCALIZED SWELLING M25.561 RIGHT KNEE PA IN; FINDINGS: Lungs/Pleura: There is no evidence of pleural effusion, focal consolidation, or pneumothorax. Pulmonary vascularity: Unremarkable. Heart/mediastinum: Cardiomediastinal silhouette is prominent in size. Postoperative changes are pres ent in the mediastinum. Left atrial appendage occlusion devices present. Musculoskeletal: DISH throughout the mid and lower thoracic spine. Midline sternotomy wires are noted and stable. IMPRESSION: No acute cardiopulmonary disease/process. [facility], , 09/26/2024 11:32 AM
--- NOTE | 2024-09-26 14:25 | XR ---
EXAMINATION TYPE: XR knee limited RT DATE OF EXAM: 09/26/2024 2:12 PM INDICATION: Patient age:Male; 78 years old; Reason for study: R22.2 LOCALIZED SWELLING M25.561 RIGHT KNEE PAIN; PHH. pain COMPARISON: None. TECHNIQUE: The Right knee(s) was examined in frontal and lateral projections. FINDINGS: Postsurgical changes from right knee arthroplasty with distal femoral proximal tibial compo nents. Hardware appears intact with appropriate alignment. No acute fracture or dislocation. No joint effusion. No soft tissue swelling. Small suprapatellar spurring. Vascular sclerosis. Postsurgical ch anges with surgical clips within the posterior medial aspect of the knee. IMPRESSION: 1. No acute osseous pathology. 2. Postsurgical changes from right knee arthroplasty. Hardware appears intact with appropriate alignm ent. 3. No distinct soft tissue abnormality identified. If there is continued clinical concern, consider f urther evaluation with ultrasound. [facility], , 09/26/2024 2:22 PM
== END | disposition home or self-care (01) ==
LOC: RADXRMAIN 10:39
PROVIDERS: ATTEND Family Medicine
DX: R22.2 Localized swelling, mass and lump, trunk (principal); M25.561 Pain in right knee; Z96.651 Presence of right artificial knee joint
CPT/HCPCS: 71046